=== PATIENT | male | born 1960 | race Caucasian/White ===

== ENCOUNTER → 2022-05-26 14:12 | Outpatient (CLI) | payer MEDICARE, SELFPAY | PROVIDERS: PCP Nurse Practitioner; Visit Provider Internal Medicine Pulmonary Disease | DX: R06.09 Other forms of dyspnea (principal) | CPT/HCPCS: 94060; 94618; 94726; 94729; 94762 ==

== ENCOUNTER → 2022-07-13 14:19 | Outpatient (CLI) | payer MEDICARE, SELFPAY ==
--- NOTE | 2022-07-13 14:28 | CT_ITS ---
FINAL REPORT CLINICAL HISTORY: lung cancer screening previous smoker 50 years, 2 ppd, quit 5 mos ago FINDINGS: Low-Dose Chest CT Axial images were obtained from the lung apex to the mid abdomen by computed tomography. Low-dose protocol was utilized. CTDI vol (mGy): 2.90 DLP (mGy-cm): 115.16 There is no axillary adenopathy. There is no hilar adenopathy. There are several borderline sized mediastinal lymph nodes, nonspecific. The heart is proper size. There is no pericardial or pleural effusion. Limited images of the upper abdomen are unremarkable. Lung window images demonstrate moderate changes of emphysema with moderate pulmonary scarring/fibrosis. There is an 8 mm right upper lobe nodule and a 9 mm posteromedial right upper lobe nodule on image 43. There is a 7 mm nodule near the right major fissure on image 50 and a 6 mm nodule in the medial right lower lobe at the azygoesophageal recess on image 53. There is a 4 mm right middle lobe nodule on image 65. There are several less than 5 mm left lung nodules. IMPRESSION: Bilateral pulmonary nodules measuring up to 9 mm on the right. Lung RADS category 4A. Recommend 3 month follow-up low-dose chest CT. Reviewed, Interpreted and Dictated by Jorge Hough III, MD Transcribed by Radhika Marx Authenticated and [facility]
== END ==
PROVIDERS: PCP Nurse Practitioner; Visit Provider Internal Medicine Pulmonary Disease
DX: Z87.891 Personal history of nicotine dependence (principal); Z12.2 Encounter for screening for malignant neoplasm of respiratory organs
CPT/HCPCS: 71271

== ENCOUNTER → 2022-07-18 11:26 | Outpatient (CLI) | payer MEDICARE, SELFPAY ==
--- NOTE | 2022-07-18 14:02 | HMH.ITSHM ---
Current Home Medications as stated by this patient Wai Boyer or outside medical sales representative. []TORSEMIDE SPIRONOLACTONE METFORMIN LOSARTAN LEVOTHYROXINE INSULIN DOXAZOSIN BUPROPION BUDESONIDE ATORVASTATIN ASA ALBUTEROL
== END ==
PROVIDERS: PCP Physician Assistant; Visit Provider Nurse Practitioner
DX: R06.02 Shortness of breath (principal); G47.33 Obstructive sleep apnea (adult) (pediatric); G47.34 Idiopathic sleep related nonobstructive alveolar hypoventilation
CPT/HCPCS: 78452; 93017; A9502; G0399; J2785

== ENCOUNTER → 2023-01-16 12:38 | Outpatient (CLI) | payer MEDICARE, SELFPAY ==
--- NOTE | 2023-01-16 12:38 | CT_ITS ---
FINAL REPORT TECHNIQUE: Axial images were obtained from the lung apex to the mid abdomen by computed tomography. Coronal reformatted images were obtained. This study was performed with techniques to keep radiation doses as low as reasonably achievable, (ALARA). Individualized dose reduction techniques using automated exposure control or adjustment of mA and/or kV according to the patient''s size were employed. CLINICAL HISTORY: Lung nodule, 6-month follow-up COMPARISON: 07/13/2022 FINDINGS: There is no axillary adenopathy. There is no hilar or mediastinal adenopathy. Heart size is normal. There is no pericardial or pleural effusion. Limited images of the upper abdomen are unremarkable. There are moderate changes of emphysema with moderate pulmonary scarring/fibrosis. There is a medial right upper lobe nodule measuring 9 mm and was 9 mm. There is an anterior right lower lobe nodule measuring 7 mm and was 7 mm. There is an 8 mm nodule along the right hemidiaphragm that is probably stable but was not as well visualized on the prior exam. There are several other small nodules bilaterally which are stable. IMPRESSION: Bilateral stable pulmonary nodules. Recommend additional follow-up in 6 months. Reviewed, Interpreted and Dictated by Jorge Hough III, MD Transcribed by Radhika Marx Authenticated and [facility]
== END ==
PROVIDERS: PCP Nurse Practitioner; Visit Provider Internal Medicine Pulmonary Disease
DX: R91.8 Other nonspecific abnormal finding of lung field (principal)
CPT/HCPCS: 71250

== ENCOUNTER → 2023-10-10 14:01 | Outpatient (CLI) | payer MEDICARE, SELFPAY ==
--- NOTE | 2023-10-10 14:01 | CT_ITS ---
FINAL REPORT CLINICAL HISTORY: 9-month follow-up: September 2023 COMPARISON: 01/16/2023 FINDINGS: Axial images were obtained from the lung apex to the mid abdomen by computed tomography. Coronal reformatted images were obtained. This study was performed with techniques to keep radiation doses as low as reasonably achievable, (ALARA). Individualized dose reduction techniques using automated exposure control or adjustment of mA and/or kV according to the patient's size were employed. There is no axillary adenopathy. There are multiple small mediastinal lymph nodes that are stable in size and appearance. Heart size is normal. There is no pericardial or pleural effusion. Limited images of the upper abdomen are unremarkable. There are advanced changes of centrilobular emphysema. There is a 9 mm pleural-based nodule in the medial right upper lobe contiguous with the mediastinum on image 154 of series 3 that is stable. On the same image in the lateral right upper lobe is a stable 8 mm nodule. There is a rounded 7 mm nodule in the anterior right lower lobe on image 174 series 3. There is a small cluster of stable nodules in the anterior right middle lobe measuring 5 mm or less. IMPRESSION: Multiple stable nodules. Reviewed, Interpreted and Dictated by Bill Casiano MD Transcribed by Hossein Perry Authenticated and [facility]
== END ==
PROVIDERS: PCP Nurse Practitioner; Visit Provider Internal Medicine Pulmonary Disease
DX: R91.8 Other nonspecific abnormal finding of lung field (principal)
CPT/HCPCS: 71250

== ENCOUNTER 2023-12-07 06:32 | Outpatient (CLI) | payer MEDICARE, SELFPAY ==
--- NOTE | 2023-12-07 06:40 | NM_ITS ---
APPROVED REPORT Exam: Nuclear Stress Test Indication: chest pain..soa..fatigue Patient Location: Outpatient Stress Tech: Samaria Guo DC Tech:KRAIG Nunes RT(R)(N) Ht: 6 ft 2 in Wt: 300 lbs HR: 85 bpm BP: 136/74 mmHg BSA: 2.58 m2 Rhythm: NSR TID: 1.10 BMI: 38.5 History: chest pain..soa..fatigue Procedure: Patient received 0.4 mg of intravenous Lexiscan, resting heart rate 85 bpm, resting blood pressure 136/74 mmHg, with Lexiscan maximum heart rate achieved was 96 bpm which is 85 % of the maximum predicted heart rate and blood pressure was 143/74 mmHg. With Lexiscan, patient denied any complaint of chest pain. Cardiac Stress and Resting SPECT Images: Cardiac Stress and Resting SPECT images were obtained using technetium 99m Myoview 32.9 mCi stress and 10.52 mCi at rest. Resting and stress imaging in supine and prone positions demonstrate a large-sized, moderate, partially reversible perfusion defect in the inferior, lateral, and inferolateral LV alexander. Gated imaging demonstrates mild reduction in global LV systolic function. There is moderate hypokinesis of the inferior and inferolateral LV alexander. LVEF is calculated at 48%. Conclusion: Large-sized, moderate, partially reversible perfusion defect in the inferior, lateral, and inferolateral LV alexander. Findings are suggestive of partial reversible ischemia. Gated imaging demonstrates mild reduction in global LV systolic function. There is moderate hypokinesis of the inferior and inferolateral LV alexander. LVEF is calculated at 48%. Electronically signed by : Reina Jean Baptiste MD 12/10/2023 06:15:30
--- NOTE | 2023-12-07 08:17 | CA_ITS ---
APPROVED REPORT EXAM: Comprehensive 2D, Doppler, and color-flow Echocardiogram [employer] Science Teacher: TOMASA Gifford, RVS Ht: 6 ft 2 in Wt: 304lbs BSA: 2.60 BP: 108/72 mmHg Indications: CP, SOB, Smoker, Obesity, COPD, PAGE Echo Enhancing Agent Comments: Extrmely difficult exam due to body habitus 2D Dimensions Left Atrium 3.52 cm M: 3.0 - 4.0 LA Volume 54.70 mL LA Volume Index 21.04 mL/m2 (M/F) 16-34 M-Mode Dimensions RVDd 3.11 cm (0.9-2.6) LVDd 5.18 cm (3.5-5.7) LVDs 3.55 cm (3.5-5.7) IVSd 1.13 cm (0.6-1.1) PWd 1.09 cm (0.6-1.1) EF (Teich) 59.00% FS 31.50% EDV (Teich) 128.40 mL TAPSE 3.09 (<1.7) ESV (Teich) 52.60 mL LV Diastology E Decel Time 257 (160-240 msec) E/A Ratio 0.93 MED A' 12.70 cm/s LAT A' 9.80 cm/s Aortic Valve DANIELLE Index 0.92 cm2/m2 AoV Peak Pedro Luis. 97.0 (50-130 cm/s) AO Peak GR. 3.80 mmHg AO Mean GR. 1.90 (<5 mmHg) AO VTI 18.5 (18-25 cm) DANIELLE (VTI) 2.46 (2.5-4.5 cm2) Mitral Valve MV A Velocity 76.0 (40-130 cm/s) E/A Ratio 0.93 Tricuspid Valve TR P. Velocity 351.00 cm/s RAP Estimate 15.00 mmHg RVSP 64.20 mmHg Left Ventricle The left ventricle is normal size. The left ventricular systolic function is normal. The left ventricular ejection fraction is within the normal range. There is increased LV wall thickness. There is normal LV segmental wall motion. Diastolic function is indeterminate. LVEF is 55%. Right Ventricle The right ventricle is severely dilated. Right ventricle is moderately hypokinetic. There is increased RV wall thickness. Atria The left atrium size is normal. The right atrium is moderately dilated. There is no Doppler evidence of interatrial shunt. Aortic Valve The aortic valve is mildly thickened. There is no aortic valvular stenosis. Trace aortic regurgitation. Mitral Valve The mitral valve leaflets are mildly thickened. No evidence of mitral valve stenosis. Trace mitral regurgitation. Tricuspid Valve The tricuspid valve leaflets are thin and pliable. Mild tricuspid regurgitation. RVSP is 40-45 mmHg. Pulmonic Valve The pulmonary valve is not well-visualized. Great Vessels The aortic root is normal in size. The ascending aorta is normal in size. IVC is normal in size and collapses >50% with inspiration. Pericardium There is no pericardial effusion. Other Information Study Quality: Technically Difficult Conclusion Technically difficult study due to poor acoustic windows. Normal LV systolic function. Severely dilated RV with moderate RV dysfunction. Mild TR. Elevated RVSP 40-45 mmHg. Electronically signed by : Reina Jean Baptiste MD 12/11/2023 00:09:54
[2023-12-07] MEDS: REGADENOSON 0.4MG/5ML SYRINGE 0.400000000000000022 MG IV (08:55)
[2023-12-07] MEDS: ISOTOPE MYOVIEW (PER STUDY) 1 DOSE IV (08:55)
[2023-12-07] MEDS: SODIUM CHLORIDE 0.9% 10ML SYR (RAD ONLY) 10 ML IV ×2 (08:55)
--- NOTE | 2023-12-07 09:24 | CA_ITS ---
APPROVED REPORT Exam: Pharmacologic Technologist: Samaria Monterroso, Ht: 6 ft 2 in Wt: 304 lbs BSA: 2.60 m2 HR: 85 bpm BP: 136/74 mmHg Rhythm: NSR Medical History Medications: Spiriva,,,,, Levothyroxine,,,,, Aspirin,,,,, Metformin,,,,, Losartan,,,,, Atorvastatin,,,,, SyMBICORT,,,,, INSULIN,,,,, Albuterol,,,,, DOxazosin,,,,, SpirOnolactone,,,,, TorSEMIDE,,,,, Stress Test Details Test: LEXISCAN HR Resting HR: 85 bpm Max Heart Rate (APMHR): 155 bpm Max HR Achieved: 96 bpm Target HR (85% APMHR): 132 bpm % of APMHR: 62 Recovery HR: 85 bpm BP Resting BP: 136.0/74.0 mmHg Max BP: 143.0/74.0 mmHg Recovery BP: 143.0/74.0 mmHg ECG Resting ECG: NSR, leftward axis, low voltage QRS, non-specific ST changes Stress ECG: No significant ST changes Arrhythmia: None Clinical Exercise duration: 04:01 min Highest Stage Achieved: Exercise capacity: 1.0 METs Stress ECG Conclusion Symptoms: SOA. No CP. Arrhythmias/Ectopy: None ST-T Changes: No significant ST changes. Conclusion: Non-diagnostic Lexiscan stress test due to baseline abnormalities. Myoview images reported separately. Test Summary REST . . . . . . . Resting REST 05:07 . . 85 . 136/ 74 . . Stage 1 . . . . . . . Cardiolite injected Stage 1 01:00 . . 96 . . . . Stage 2 01:00 . . 88 . 124/ 82 . . Stage 3 01:00 . . 87 . 127/ 77 . . Stage 4 01:00 . . 88 . 127/ 81 . . Stage 4 01:01 . . 88 . 127/ 81 . Stop exercise at 04:01 RECOVERY 01:00 . . 86 . 120/ 78 . . RECOVERY 02:00 . . 84 . 120/ 78 . . RECOVERY 03:00 . . 85 . 143/ 74 . . RECOVERY 03:21 . . 85 . 143/ 74 . . Electronically signed by : Reina Jean Baptiste MD 12/10/2023 06:13:00
== END 2023-12-07 23:59 ==
LOC: RAD 06:33
PROVIDERS: PCP Nurse Practitioner; Visit Provider Nurse Practitioner
DX: G47.33 Obstructive sleep apnea (adult) (pediatric) (principal); R06.09 Other forms of dyspnea; R07.89 Other chest pain; R07.9 Chest pain, unspecified
CPT/HCPCS: 78452; 93017; 93018; 93306; A9502; J2785

== ENCOUNTER 2023-12-11 08:48 | Outpatient (CLI) | payer MEDICARE, SELFPAY ==
--- NOTE | 2023-12-11 08:52 | XR_ITS ---
FINAL REPORT CLINICAL HISTORY: Foot Pain..no trauma COMPARISON: None FINDINGS: LEFT FOOT: Three views of the left foot were obtained. There is no acute fracture or dislocation. The joint spaces are intact. There is no soft tissue abnormality. IMPRESSION: No acute bony abnormality. Reviewed, Interpreted and Dictated by Jorge Hough III, MD Transcribed by Danita Acosta Authenticated and . [facility]
--- NOTE | 2023-12-11 08:52 | XR_ITS ---
FINAL REPORT CLINICAL HISTORY: Foot Pain..no trauma COMPARISON: None FINDINGS: RIGHT FOOT: Three views of the right foot were obtained. There is no acute fracture or dislocation. The joint spaces are intact. There is no soft tissue abnormality. IMPRESSION: No acute bony abnormality. Reviewed, Interpreted and Dictated by Jorge Hough III, MD Transcribed by Danita Acosta Authenticated and [facility]
== END 2023-12-11 23:59 ==
LOC: RAD 08:48
PROVIDERS: PCP Nurse Practitioner; Visit Provider Podiatrist
DX: M79.672 Pain in left foot (principal); M79.671 Pain in right foot
CPT/HCPCS: 73630

== ENCOUNTER 2023-12-25 07:57 | Day surgery (SDC) | payer MEDICARE, SELFPAY ==
[2023-12-25] VITALS (14 sets, daily range): BP systolic 86–145; BP diastolic 46–96; PULSE 72–90; RESP 18–20; TEMP 36.6–36.9; O2SAT 90–97; BMI 38.9
--- NOTE | 2023-12-25 07:04 | IR_ITS ---
APPROVED REPORT Patient Location: Outpatient Analytical Manager: KRAIG Contreras RT (R) PROCEDURES Left heart catheterization Left ventriculogram Selective coronary angiogram INDICATION Abnormal Myoview, Angina pectoris Informed consent was obtained prior to the procedure. COMPLICATIONS NONE Estimated Blood Loss: LESS THAN 10 ML TECHNIQUE One percent lidocaine used to anesthetize the right anterior aspect of the wrist. The right radial artery was accessed via the Seldinger technique. A 6 Pashto sheath was placed in the right radial artery. 2.5 mg of Verapamil, 800 mcg of nitroglycerin, 1mg Lidocaine and 5000 U Heparin were given through the arterial sheath. The papa catheter was also used to perform left heart catheterization, left ventriculogram and selective coronary angiogram. At the end of the procedure the sheath was removed good hemostasis was achieved using Traclet band, patient was transferred to the postop holding area in stable condition. ANGIOGRAPHIC RESULTS The left main artery Normal The left anterior descending artery Normal The circumflex artery Normal The right coronary artery Dominant normal The SPENCER ventriculogram reveals Normal 65% The left ventricular end-diastolic pressure 10 mmHg IMPRESSION Normal coronary arteries Normal ejection fraction Normal left ventricular end-diastolic pressure PLAN 1. Medical management Electronically signed by : Anshu Oro MD 12/25/2023 10:40:07
[2023-12-25 08:29] LABS: Basophils # 0.1 K/mm3 (0-0.2); Basophils % 0.8 % (0.1-2.0); Eosinophils # 0.3 K/mm3 (0.0-0.4); Eosinophils % 2.7 % (0.1-12.0); Hematocrit 42.1 % (42.0-52.0); Hemoglobin 14.4 g/dL (14.1-18.0); Lymphocytes # 1.8 K/mm3 (0.7-4.5); Lymphocytes % 18.8 % (10-50); Mean Corpuscular HGB Conc 34.3 g/dL (31.8-35.4); Mean Corpuscular Hemoglobin 32.4 pg (27.0-31.2); Mean Corpuscular Volume 94.3 fl (80-94); Monocytes # 0.5 K/mm3 (0.1-1.0); Monocytes % 5.5 % (1.7-9.3); Neutrophils # 6.9 K/mm3 (1.8-7.8); Neutrophils % 72.1 % (37.0-80.0); Platelet Count 292 K/mm3 (142-424); Red Blood Count 4.46 M/mm3 (4.60-6.20); Red Cell Distribution Width 14.7 % (11.5-17.5); White Blood Count 9.6 K/mm3 (4.8-10.8)
[2023-12-25 08:33] LABS: Anion Gap 11.6 mEq/L (5-15); Blood Urea Nitrogen 11 mg/dl (9-20); Calcium 8.9 mg/dl (8.4-10.2); Carbon Dioxide 27 mmol/L (22.0-30.0); Chloride 107 mmol/L (98-107); Creatinine Clearance Estimated 143 mL/min (50-200); Estimated Glomerular Filt Rate 97 ml/min (>60); GFR (African American) 117 ML/MIN (>60); Glucose 124 mg/dl (74-100); Potassium 3.6 mmoL/L (3.5-5.1); Sodium 142 mmol/L (136-145)
[2023-12-25] MEDS: NITROGLYCERIN 800MCG/8ML SYR (CATH LAB) 800 MCG IA (10:09)
[2023-12-25] MEDS: LIDOCAINE 1% 10ML MDV 20 ML IJ (10:09)
[2023-12-25] MEDS: VERAPAMIL 2.5MG/ML 2ML VIAL 2.5 MG IV (10:09)
[2023-12-25] MEDS: diphenhydrAMINE 50MG/ML VIAL 50 MG IV (10:09)
[2023-12-25] MEDS: MIDAZOLAM HCL 1MG/1ML 5ML VIAL 1 MG IV (10:10)
[2023-12-25] MEDS: 0.9 % SODIUM CHLORIDE 500 ML 25 ML IV (10:10)
[2023-12-25] MEDS: HEPARIN 1,000 UNITS/ML 10ML VIAL (CATH LAB) 10000 UNIT IV (10:10)
[2023-12-25] MEDS: HEPARIN 1,000 UNITS/500ML NS (CATH LAB) 3000 UNIT IV (10:10)
[2023-12-25] MEDS: FENTANYL 100MCG/2ML VIAL 50 MCG IV (10:11)
[2023-12-25] MEDS: PROMETHAZINE HCL 25MG/ML 1ML VIAL 25 MG IV (10:20)
--- NOTE | 2023-12-25 12:29 | PC.NURSE ---
pt eating hamburger and fries, drinking pepsi.
[2023-12-25] MEDS: IOPAMIDOL-370 (76%);100ML BOTTLE 60 ML IV (12:59)
== END 2023-12-25 12:32 | disposition home or self-care (01) ==
PROVIDERS: PCP Nurse Practitioner; Visit Provider Internal Medicine
DX: G47.33 Obstructive sleep apnea (adult) (pediatric) (principal); I20.89 Other forms of angina pectoris; R06.09 Other forms of dyspnea; R94.39 Abnormal result of other cardiovascular function study; E11.9 Type 2 diabetes mellitus without complications; Z79.4 Long term (current) use of insulin; J44.9 Chronic obstructive pulmonary disease, unspecified; I10 Essential (primary) hypertension; E78.5 Hyperlipidemia, unspecified; Z79.899 Other long term (current) drug therapy
CPT/HCPCS: 80048; 85025; 93458; 99152; C1769; J1644; Q9967

== ENCOUNTER 2024-02-01 12:50 | Outpatient (CLI) | payer MEDICARE, SELFPAY ==
--- NOTE | 2024-02-01 12:57 | XR_ITS ---
FINAL REPORT CLINICAL HISTORY: SOB x3 days COMPARISON: None FINDINGS: Two views of the chest were obtained. The heart size and pulmonary vascularity are within normal limits. The mediastinum is normal. The lungs are hyperinflated consistent with COPD. No acute pulmonary abnormality is identified. There is no pneumothorax. The bony thorax is intact. There are moderate degenerative changes in the thoracic spine. IMPRESSION: No active cardiopulmonary disease. Reviewed, Interpreted and Dictated by Jorge Hough III, MD Transcribed by Antonella Muniz Authenticated and [facility]
== END 2024-02-01 23:59 ==
LOC: RAD 12:52
PROVIDERS: PCP Nurse Practitioner; Visit Provider Internal Medicine Pulmonary Disease
DX: R06.02 Shortness of breath (principal)
CPT/HCPCS: 71046

== ENCOUNTER 2024-02-01 14:54 | Emergency (ER) | payer MEDICARE, SELFPAY ==
[2024-02-01] VITALS (7 sets, daily range): BP systolic 91–110; BP diastolic 56–67; PULSE 68–83; RESP 18–20; TEMP 36.7; O2SAT 80–94; BMI 38.5
--- NOTE | 2024-02-01 15:20 | XR_ITS ---
FINAL REPORT CLINICAL HISTORY: hypoxeima, soa COMPARISON: 02/01/2024 FINDINGS: A single portable view of the chest was obtained. The lungs are hyperinflated consistent with changes of chronic obstructive pulmonary disease. The heart size and pulmonary vascularity are within normal limits. The mediastinum is within normal limits. There are worsening bilateral pulmonary opacities identified, consistent with worsening pneumonia or edema. The bony thorax is intact. IMPRESSION: Worsening bilateral pulmonary opacities, pneumonia versus edema. Reviewed, Interpreted and Dictated by Jorge Hough III, MD Transcribed by Danita Acosta Authenticated and [facility]
--- NOTE | 2024-02-01 15:25 | [facility].EDCP ---
Discharge Plan Disposition Patient Disposition: Home, Self-Care Prescriptions Prescriptions: New prednisone 20 mg tablet 40 mg PO DAILY 5 Days Qty: 10 0RF amoxicillin-pot clavulanate 875-125 mg tablet 1 tab PO BID 5 Days Qty: 10 0RF No Action levothyroxine 75 mcg capsule 75 mcg PO DAILY losartan 100 mg tablet 100 mg PO DAILY bupropion HBr 348 mg tablet extended release 24 hr 348 mg PO DAILY atorvastatin 80 mg tablet 80 mg PO DAILY torsemide 5 mg tablet 20 mg PO DAILY albuterol sulfate [ProAir HFA] 90 mcg/actuation HFA aerosol inhaler 2 puff IH QID PRN (Reason: shortness of breath or wheezing) 90 Days Qty: 8.5 0RF ipratropium-albuterol 0.5 mg-3 mg(2.5 mg base)/3 mL solution for nebulization 3 ml inhalation QID PRN (Reason: shortness of breath or wheezing) 90 Days Qty: 270 3RF spironolactone 25 mg tablet 25 mg PO DAILY Patient Comments: TAKE ONE TABLET BY MOUTH DAILY insulin glargine [Lantus Solostar U-100 Insulin] 100 unit/mL (3 mL) insulin pen 30 unit SQ DAILY Patient Comments: INJECT 30 UNITS SUBCUTANEOUSLY EVERY DAY FOR ONE MONTH metformin 1,000 mg tablet 1,000 mg PO DAILY Hold Instructions: Resume on 12/28/23. Patient Comments: TAKE ONE TABLET BY MOUTH TWICE DAILY WITH MORNING AND evening meals aspirin 81 mg tablet,delayed release (DR/EC) 81 mg PO DAILY Patient Comments: TAKE ONE TABLET BY MOUTH DAILY Spiriva Respimat 2.5 mcg/actuation mist 2 inh inhalation DAILY 90 Days Qty: 4 3RF budesonide-formoterol [Symbicort] 160-4.5 mcg/actuation HFA aerosol inhaler 2 puff inhalation BID 90 Days Qty: 10.2 3RF Referrals Follow up/Referrals: Mari Arthur APRN [Primary Care Provider] - See instructions Activity Restrictions/Add. Instructions Additional Instructions/Restrictions: Call your family doctor to establish care for this visit to the emergency department and schedule follow-up within 48 hours to ensure improvement. If you have any worsening of your condition or any other concerning signs or symptoms, return to the emergency department or your primary care doctor for further evaluation. Use oxygen until following up with pulmonology on Monday. Clinical Impressions Clinical Impression: Acute exacerbation of chronic obstructive pulmonary disease, Acute respiratory failure with hypoxemia Discharge ED Provider: Avelino Singh HPI General Chief Complaint: Shortness of Breath/Dyspnea Stated Complaint: Low O2, dizziness Time Seen by Provider: 02/01/24 15:01 History of Present Illness HPI narrative: This is a 63-year-old male with history of hypertension, hyperlipidemia, COPD with pulmonary hypertension presenting with shortness of breath and hypoxemia. Patient states that for the past 4 to 5 weeks, he has been feeling generally weak especially with exertion. States that he started wearing his pulse oximeter today and noticed that his oxygen saturations were dropping into the 70s while he was exerting himself. He was able to sit down and take deep breaths it would immediately return to the 90s. He is following with pulmonology here at [facility] for the symptoms. Recently had sleep study and states he does not have sleep apnea. Denies fevers, chills, productive cough, chest pain, nausea or vomiting, or any other concerns. Related Data Home Medications Medication Instructions Recorded Confirmed atorvastatin 80 mg tablet 80 mg PO DAILY 04/14/22 02/01/24 bupropion HBr 348 mg 348 mg PO DAILY 04/14/22 02/01/24 tablet,extended release 24 hr levothyroxine 75 mcg capsule 75 mcg PO DAILY 04/14/22 02/01/24 losartan 100 mg tablet 100 mg PO DAILY 04/14/22 02/01/24 aspirin 81 mg tablet,delayed 81 mg PO DAILY 07/13/22 02/01/24 release insulin glargine 100 unit/mL (3 30 unit SQ DAILY 07/13/22 02/01/24 mL) subcutaneous pen (Lantus Solostar U-100 Insulin) metformin 1,000 mg tablet 1,000 mg PO DAILY 07/13/22 02/01/24 spironolactone 25 mg tablet 25 mg PO DAILY 07/13/22 02/01/24 torsemide 5 mg tablet 20 mg PO DAILY 07/13/22 02/01/24 Previous Rx's Medication Instructions Recorded albuterol sulfate 90 mcg/actuation 2 puff inhalation QID PRN 01/16/23 aerosol inhaler (ProAir HFA) shortness of breath or wheezing 90 days #8.5 grams budesonide-formoterol HFA 160 2 puff inhalation BID shortness of 10/16/23 mcg-4.5 mcg/actuation aerosol breath or wheezing 90 days #10.2 inhaler (Symbicort) grams tiotropium bromide 2.5 2 inh inhalation DAILY 90 days #4 10/16/23 mcg/actuation mist for inhalation grams (Spiriva Respimat) amoxicillin 875 mg-potassium 1 tab PO BID 5 days #10 tabs 02/01/24 clavulanate 125 mg tablet ipratropium 0.5 mg-albuterol 3 mg 3 ml inhalation QID PRN shortness 02/01/24 (2.5 mg base)/3 mL nebulization of breath or wheezing 90 days #270 soln mL prednisone 20 mg tablet 40 mg (2 x 20 mg) PO DAILY 5 days 02/01/24 #10 tabs Allergies Allergy/AdvReac Type Severity Reaction Status Date / Time No Known Allergies Allergy Verified 02/01/24 13:40 [facility] Disclaimer: The information contained in this section may have been updated after the patient was seen, as this information can be updated by other users. Medical History Pulmonary arterial hypertension Hyperlipidemia Hypertension Screening for lung cancer Stopped smoking with greater than 30 pack year history Abnormal computerized axial tomography of chest COPD (chronic obstructive pulmonary disease) Lung nodule Abnormal PFT Pulmonary emphysema Dyspnea on exertion Surgical History History of prostate surgery History of knee surgery History of hip surgery Family History Other No significant family history Social History Smoking Status: Former smoker alcohol intake: never substance use type: denies use current occupational status: retired Travel in the last 8 weeks: Inside the [place] ROS Obtained: Yes All systems reviewed & no additional complaints except as documented Physical Exam General General appearance: alert ENT ENT exam: Present other (2L NC in place) Neck Neck exam: Present trachea midline Chest Chest inspection: Present normal inspection and symmetric chest wall rise Respiratory Respiratory exam: Present normal lung sounds bilaterally; Absent respiratory distress, wheezes, stridor, accessory muscle use or prolonged expiratory phase Cardiovascular Cardiovascular exam: Present regular rate and normal rhythm Extremities Exam Extremities exam: Absent edema Neurological Exam Neurological exam: Present alert, oriented X3 and CN II-XII intact Skin Skin exam: Present warm and dry; Absent cyanosis, diaphoresis or pallor HEART Score HEART Score HEART Score assessment performed?: Yes History (anamnesis): Moderately suspicious ECG: Normal Age: 45-65 years Risk factors: 3 or more risk factors Troponin: </= normal limit HEART Score: 4 Critical Care Critical Care Time Critical Care Time: Yes (respiratory) Attestation: On 02/01/24, the high probability of a clinically significant, sudden or life threatening deterioration of the following system(s) required my full and direct attention, intervention and personal management. The time I documented below is in addition to time spent performing reported procedures but includes the following listed in this critical care notation. Total Time Total Critical Care Time: 40 Medical Decision Making Medical Records Medical records reviewed: Yes I reviewed the patient's medical records. Sj Inquiry Pt receiving controlled substance: No Sj was queried for this patient: No Vital Signs Vital Signs: 02/01/24 14:56 02/01/24 16:31 02/01/24 17:00 Temperature 98.0 F Temperature Source Oral Pulse Rate 74 70 Pulse Rate [Left Radial] 83 Respiratory Rate 20 Blood Pressure 92/56 L 91/59 L Blood Pressure [Right Arm] 103/65 L Blood Pressure Mean [Right Arm] 77 02 Sat by Pulse Oximetry 80 L 92 L 92 L Oxygen Delivery Method Nasal Cannula Nasal Cannula Nasal Cannula Oxygen Flow Rate (LPM) 4 02/01/24 17:31 02/01/24 18:30 02/01/24 20:08 Temperature Temperature Source Pulse Rate 76 68 83 Pulse Rate [Left Radial] Respiratory Rate Blood Pressure 99/67 L 110/59 L Blood Pressure [Right Arm] Blood Pressure Mean [Right Arm] 02 Sat by Pulse Oximetry 91 L 92 L Oxygen Delivery Method Nasal Cannula Nasal Cannula Oxygen Flow Rate (LPM) 02/01/24 20:08 Temperature Temperature Source Pulse Rate 70 Pulse Rate [Left Radial] Respiratory Rate Blood Pressure Blood Pressure [Right Arm] Blood Pressure Mean [Right Arm] 02 Sat by Pulse Oximetry Oxygen Delivery Method Oxygen Flow Rate (LPM) Lab Data Labs: Lab Results 02/01/24 15:15: WBC 10.1, RBC 4.44 L, Hgb 14.2, Hct 43.6, MCV 98.3 H, MCH 32.1 H, MCHC 32.6, RDW 15.7, Plt Count 536 H, MPV 8.0, Neut % (Auto) 68.8, Lymph % (Auto) 22.1, Loup % (Auto) 5.5, Eos % (Auto) 2.8, Baso % (Auto) 0.8, Neut # (Auto) 7.0, Lymph # (Auto) 2.2, Loup # (Auto) 0.6, Eos # (Auto) 0.3, Baso # (Auto) 0.1, D-Dimer 0.83 H, Sodium 140, Potassium 4.2, Chloride 107, Carbon Dioxide 25, Anion Gap 12.2, BUN 19, Creatinine 1.10, Estimated GFR 67, Est GFR ( Amer) 81, Glucose 95, Lactate 1.7, Calcium 8.8, Total Bilirubin 0.5, AST 31, ALT 32, Alkaline Phosphatase 160 H, Troponin I < 0.01, NT-Pro-B Natriuret Pep 201 H, Total Protein 7.4, Albumin 4.1, Globulin 3.3 H, Albumin/Globulin Ratio 1.2 02/01/24 15:21: VBG pH 7.39, VBG pCO2 37.9, VBG pO2 87.9 H, VBG HCO3 22.3 L, VBG Total CO2 23.4, VBG O2 Saturation 96.8 H, VBG Base Excess -2.7 L 02/01/24 15:40: VBG Lactic Acid 1.8 02/01/24 19:15: Troponin I < 0.01 02/01/24 15:15 02/01/24 15:15 Response Orders (Tests/Meds): ED MEDICATIONS Generic Name Dose Route Start Last Admin Trade Name Freq PRN Reason Stop Dose Admin Sodium Chloride 10 ml 02/01/24 18:05 02/01/24 18:06 Sodium Chloride 0.9% 10ml Syr (Rad Only) IV 03/02/24 18:04 10 ml NEEDED PRN Administration Maintain IV Site Discontinued Medications Generic Name Dose Route Start Last Admin Trade Name Freq PRN Reason Stop Dose Admin Albuterol/Ipratropium 6 ml 02/01/24 19:25 02/01/24 19:56 Ipratropium/Albuterol 3 Ml Neb IH 02/01/24 19:26 6 ml ONCE ONE Administration Amoxicillin/Clavulanate Potassium 1 each 02/01/24 19:25 02/01/24 20:01 Amoxicillin/Clavulanate Potassium 875/125mg Tablet PO 02/01/24 19:26 1 each ONCE ONE Administration Aspirin 324 mg 02/01/24 15:20 02/01/24 15:29 Aspirin 81mg Chewable Tablet PO 02/01/24 15:21 324 mg ONCE ONE Administration Iopamidol 75 ml 02/01/24 18:05 02/01/24 18:06 Iopamidol-370 (76%);100ml Bottle IV 02/01/24 18:06 75 ml ONCE ONE Administration Methylprednisolone Sodium Succinate 125 mg 02/01/24 19:25 02/01/24 20:01 Methylprednisolone Sod Succ 125mg Vial IV 02/01/24 19:26 125 mg ONCE ONE Administration Sodium Chloride 50 ml 02/01/24 18:05 02/01/24 18:06 0.9 % Sodium Chloride 50 Ml Vial IV 02/01/24 18:06 50 ml ONCE ONE Administration ORDERS Category Date Time Status CT angio chest PE protocol Stat Cat Scan 02/01/24 17:02 Completed XR chest portable Stat Exams 02/01/24 15:20 Taken Brain Natriuretic Peptide Stat Lab 02/01/24 15:15 Completed Complete Blood Count Auto Diff Stat Lab 02/01/24 15:15 Completed Comprehensive Metabolic Panel Stat Lab 02/01/24 15:15 Completed D-Dimer Stat Lab 02/01/24 15:15 Completed Lactate Venous Stat Lab 02/01/24 15:40 Completed Lactic Acid Stat Lab 02/01/24 15:15 Completed Troponin I Q3H Lab 02/01/24 19:15 Completed Troponin I Q3H Lab 02/01/24 21:30 Ordered Troponin I Stat Lab 02/01/24 15:15 Completed Blood Culture Stat Micro 02/01/24 15:27 Received Venous Blood Gas Stat RT 02/01/24 15:21 Completed MDM Narrative Medical Decision Narrative: This is a 63-year-old male with history of hypertension, hyperlipidemia, COPD with pulmonary hypertension presenting with shortness of breath and hypoxemia. Patient states that for the past 4 to 5 weeks, he has been feeling generally weak especially with exertion. States that he started wearing his pulse oximeter today and noticed that his oxygen saturations were dropping into the 70s while he was exerting himself. He was able to sit down and take deep breaths it would immediately return to the 90s. He is following with pulmonology here at [facility] for the symptoms. Recently had sleep study and states he does not have sleep apnea. Denies fevers, chills, productive cough, chest pain, nausea or vomiting, or any other concerns. History was obtained via conversation with patient. On arrival, patient hemodynamically stable, alert, oriented x4, appropriate, GCS 15, moving all extremities spontaneously, pupils equal and reactive to light. Full physical exam performed and significant for well-appearing male in no acute distress. On 2 L nasal cannula saturating 92%. No increased work of breathing, no focal breath sounds, no abnormal cardiac findings. Differential includes COPD exacerbation, pneumonia, PE, pneumothorax, bronchitis, ACS, OK, among others. Patient was given DuoNeb, Solu-Medrol for symptomatic management and correction of underlying abnormalities. Workup independently interpreted and significant for VBG nonactionable with pH 7.39, lactate 1.8, CO2 and bicarb nonactionable. D-dimer elevated 0.8, BNP mildly elevated at 200, but nonactionable. Troponin negative. Chest x-ray with edematous pulmonary fissures versus scarring and cephalization of pulmonary vasculature.. See radiology read for full review of final results. Independent interpretation of EKG shows cardiomegaly without acute cardiopulmonary or airspace disease. CT PE without acute PE, but patient has multiple groundglass opacities concerning for underlying infectious etiology precipitating COPD exacerbation. He also has numerous pulmonary nodules, which are known to patient. Patient placed on continuous cardiac monitoring and continuous pulse ox with initial blood pressure 103/65, heart rate 70, saturation 80% on room air. Patient was placed on 4 L nasal cannula and 92%. Because patient requiring continuous oxygen to saturate appropriately and has no oxygen need at home, [facility] was contacted for home O2. Patient agreeable to this plan and wanting to go home no matter what. Heart score 4. On reevaluation, patient is feeling much better after DuoNeb, but still hypoxemic. Oxygen company able to bring patient oxygen tank to bedside for home-going. Pulmonology was contacted and case was discussed at length, he recommended treating COPD exacerbation with steroids and antibiotics, follow-up on Monday, 02/04. Patient agreeable to this plan. Given patient presentation, workup, history, this most likely represents COPD exacerbation with hypoxemia. Because patient at baseline without signs or symptoms of clinical decompensation, deemed appropriate for discharge. Results were relayed to patient who voiced understanding and were agreeable to outpatient management and follow up. At the time of discharge the patient was hemodynamically stable, tolerating PO, and mobilizing appropriately.
[2024-02-01] MEDS: ASPIRIN 81MG CHEWABLE TABLET 324 MG PO (15:29)
[2024-02-01 15:30] LABS: Basophils # 0.1 K/mm3 (0-0.2); Basophils % 0.8 % (0.1-2.0); Eosinophils # 0.3 K/mm3 (0.0-0.4); Eosinophils % 2.8 % (0.1-12.0); Hematocrit 43.6 % (42.0-52.0); Hemoglobin 14.2 g/dL (14.1-18.0); Lymphocytes # 2.2 K/mm3 (0.7-4.5); Lymphocytes % 22.1 % (10-50); Mean Corpuscular HGB Conc 32.6 g/dL (31.8-35.4); Mean Corpuscular Hemoglobin 32.1 pg (27.0-31.2); Mean Corpuscular Volume 98.3 fl (80-94); Monocytes # 0.6 K/mm3 (0.1-1.0); Monocytes % 5.5 % (1.7-9.3); Neutrophils % 68.8 % (37.0-80.0); Platelet Count 536 K/mm3 (142-424); Red Blood Count 4.44 M/mm3 (4.60-6.20); Red Cell Distribution Width 15.7 % (11.5-17.5); White Blood Count 10.1 K/mm3 (4.8-10.8)
--- NOTE | 2024-02-01 15:31 | ECG_ITS ---
APPROVED REPORT Exam: Resting ECG HR:76 bpm ECG Measurements Heart Rate 76 AXES NE 157 P 61 QRSd 97 QRS 91 QT 396 T 60 QTc 427 Conclusion SINUS RHYTHM BORDERLINE RIGHT AXIS DEVIATION [QRS AXIS > 90] Electronically signed by : PARISH CHEN, 02/01/2024 23:10:48
[2024-02-01 15:34] LABS: Alanine Aminotransferase 32 U/L (12-78); Albumin Level 4.1 g/dl (3.5-5.0); Albumin/Globulin Ratio 1.2 (1.1-1.8); Alkaline Phosphatase 160 U/L (38-126); Anion Gap 12.2 mEq/L (5-15); Aspartate Amino Transferase 31 U/L (17-59); Bilirubin,Total 0.5 mg/dl (0.2-1.3); Blood Urea Nitrogen 19 mg/dl (9-20); Calcium 8.8 mg/dl (8.4-10.2); Carbon Dioxide 25 mmol/L (22.0-30.0); Chloride 107 mmol/L (98-107); Estimated Glomerular Filt Rate 67 ml/min (>60); GFR (African American) 81 ML/MIN (>60); Globulin 3.3 g/dL (1.3-3.2); Glucose 95 mg/dl (74-100); Potassium 4.2 mmoL/L (3.5-5.1); Sodium 140 mmol/L (136-145); Total Protein,Serum 7.4 g/dl (6.3-8.2)
[2024-02-01 15:37] LABS: Lactic Acid 1.7 mmol/L (0.7-2.1)
[2024-02-01 15:39] LABS: D-Dimer 0.83 ug/mL (0.0-0.5)
[2024-02-01 15:42] LABS: VBG Base Excess -2.7 mmol/L (-2.4-2.3); VBG HCO3 22.3 mmol/L (23-30); VBG Oxygen Saturation 96.8 % (50-70); VBG PCO2 37.9 mmol/L (35-51); VBG PH 7.39 mmol/L (7.31-7.41); VBG PO2 87.9 mmol/L (28-40); VBG Total CO2 23.4 mmol/L (23-27)
[2024-02-01 15:44] LABS: Lactate Venous 1.8 mmol/L (0.4-2.0)
[2024-02-01 15:46] LABS: NT Pro Brain Natriuretic Pep. 201 pg/mL (0-125)
[2024-02-01 15:54] LABS: Troponin I < 0.01 ng/ml (0.00-0.034)
--- NOTE | 2024-02-01 17:02 | CT_ITS ---
PROCEDURE INFORMATION: Exam: CTA Chest With Contrast Exam date and time: 02/01/2024 5:54 PM Age: 63 years old Clinical indication: Abnormal findings; Other: Elevated dimer; Additional info: Elevated dimer, exertional SOA TECHNIQUE: Imaging protocol: Computed tomographic angiography of the chest with contrast. Exam focused on the arteries. 3D rendering (Not supervised by radiologist): MIP and/or 3D reconstructed images were created by the technologist. Radiation optimization: All CT scans at this facility use at least one of these dose optimization techniques: automated exposure control; mA and/or kV adjustment per patient size (includes targeted exams where dose is matched to clinical indication); or iterative reconstruction. Contrast material: ISOVUE; Contrast volume: 75 ml; Contrast route: INTRAVENOUS (IV); COMPARISON: CT CHEST WO CON 10/10/2023 2:41 PM FINDINGS: Pulmonary arteries: Normal. No pulmonary emboli. Aorta: Unremarkable. No aortic aneurysm. No aortic dissection. Lungs: There are moderate centrilobular emphysematous changes of the lungs with an apical gradient. Diffuse ground-glass opacities throughout the lungs with bibasilar interstitial fibrotic changes and architectural distortion findings may represent cellular NSIP versus infection, or combination of both. Right lower lobe 8.6 mm nodule slightly enlarged from prior exam, axial image 63. Right lower lobe 7.5 mm nodule, axial image 105 unchanged from prior exam. Right upper lobe 8.1 mm nodule, axial image 51 enlarged from prior exam. Right upper lobe subpleural 7.7 mm nodule, axial image 54 unchanged from prior exam. Right middle lobe 6.4 mm nodule, axial image 61. Left upper lobe tortuous vascular malformation slightly more prominent from prior exam. Pleural spaces: Unremarkable. No pneumothorax. No pleural effusion. Heart: Unremarkable. No cardiomegaly. No pericardial effusion. Coronary arteries: Mild calcific atherosclerotic disease of the LAD. Lymph nodes: Moderately bulky mediastinal and hilar lymph nodes could be reactive, or related to neoplastic process. Recommend 3 to six-month follow-up after treatment. Spleen: Multiple benign-appearing calcific densities of the spleen. Bones/joints: Unremarkable. No acute fracture. Soft tissues: Unremarkable. IMPRESSION: 1. Diffuse ground-glass opacities throughout the lungs with bibasilar interstitial fibrotic changes and architectural distortion findings may represent cellular NSIP versus infection, or combination of both. Moderately bulky mediastinal and hilar lymph nodes could be reactive, or related to neoplastic process. Recommend 3 to 6-month follow-up. 2. Multiple pulmonary nodules largest measuring 8.6 mm. For patients at low risk (minimal or absent history of smoking and of other known risk factors), recommend CT Chest at 3-6 months, then consider CT Chest at 18-24 months. For patients at high risk (history of smoking or of other known risk factors), recommend CT Chest at 3-6 months, then CT Chest at 18-24 months. (Reference: Pierce) 3. Left upper lobe tortuous vascular malformation slightly more prominent from prior exam. No CT angiography evidence of pulmonary embolism. COMMENTS: The presence of pulmonary emphysema on CT is an independent risk factor for lung cancer. In the absence of a history or active diagnosis of lung cancer, it is recommended that this patient with emphysema be evaluated for enrollment in a low dose CT lung cancer screening program. REFERENCES: Pierce Arredondo, et al. Guidelines for Management of Incidental Pulmonary Nodules Detected on CT Images: From the Fleischner Society 2017. Radiology. 2017;284(1):228-243.
--- NOTE | 2024-02-01 18:02 | PC.NURSE ---
patient returned from CT.
[2024-02-01] MEDS: IOPAMIDOL-370 (76%);100ML BOTTLE 75 ML IV (18:06)
[2024-02-01] MEDS: SODIUM CHLORIDE 0.9% 10ML SYR (RAD ONLY) 10 ML IV (18:06)
[2024-02-01] MEDS: 0.9 % SODIUM CHLORIDE 50 ML VIAL IV (18:06)
--- NOTE | 2024-02-01 19:24 | PC.NURSE ---
Attending MD speaking to Markie
--- NOTE | 2024-02-01 19:38 | PC.NURSE ---
Rounded on patient, no needs voiced at this time.
--- NOTE | 2024-02-01 19:53 | PC.NURSE ---
calling [facility] at this time.
--- NOTE | 2024-02-01 19:55 | PC.NURSE ---
Called [facility] and left message for contract negotiator to call back.
[2024-02-01] MEDS: IPRATROPIUM/ALBUTEROL 3 ML NEB 6 ML IH (19:56)
--- NOTE | 2024-02-01 19:59 | PC.NURSE ---
[facility]rels called back and will be on their way.
[2024-02-01] MEDS: AMOXICILLIN/CLAVULANATE POTASSIUM 875/125MG TABLET 1 EACH PO (20:01)
[2024-02-01] MEDS: METHYLPREDNISOLONE SOD SUCC 125MG VIAL 125 MG IV (20:01)
[2024-02-01 20:03] LABS: Troponin I < 0.01 ng/ml (0.00-0.034)
--- NOTE | 2024-02-02 12:25 | CARE MANAGER ---
Per documentation, patient's room air saturation was 80% while resting. CAM Jacinto
--- NOTE | 2024-02-02 12:29 | CARE MANAGER ---
Patient was set up with [facility] for Oxygen from the ER. However, [facility] notified me this morning it needs to go through [facility] as he has [employer] HMO. Contacted [facility] and faxed information. [facility] was contacting the patient. CAM Jacinto
== END 2024-02-01 21:03 | disposition home or self-care (01) ==
PROVIDERS: Emergency Provider Emergency Medicine; PCP Nurse Practitioner
DX: J96.01 Acute respiratory failure with hypoxia (principal); J44.1 Chronic obstructive pulmonary disease with (acute) exacerbation; I10 Essential (primary) hypertension; E78.5 Hyperlipidemia, unspecified; I27.20 Pulmonary hypertension, unspecified; Z87.891 Personal history of nicotine dependence
CPT/HCPCS: 36415; 71045; 71046; 71275; 80053; 82803; 83605; 83880; 84484; 85025; 85378; 87040; 93005; 96374; 99285; Q9967

== ENCOUNTER 2024-02-05 15:56 | Outpatient (CLI) | payer MEDICARE, SELFPAY ==
[2024-02-05 17:03] LABS: Coronavirus 19, PCR Not Detected (NotDetected); Influenza A, PCR Not Detected (NotDetected); Influenza B, PCR Not Detected (NotDetected)
== END 2024-02-05 23:59 ==
LOC: LAB 15:57
PROVIDERS: PCP Nurse Practitioner; Visit Provider Internal Medicine Pulmonary Disease
DX: J43.9 Emphysema, unspecified; J96.01 Acute respiratory failure with hypoxia; F17.210 Nicotine dependence, cigarettes, uncomplicated
CPT/HCPCS: 87636

== ENCOUNTER 2024-04-10 12:10 | Outpatient (CLI) | payer MEDICARE, SELFPAY ==
[2024-04-10 13:13] LABS: Lactate Dehydrogenase 208 U/L (313-618); Uric Acid 4.2 mg/dl (3.5-8.5)
[2024-04-10 13:18] LABS: C-Reactive Protein 10.9 mg/L (0-4)
--- NOTE | 2024-04-10 14:06 | CT_ITS ---
FINAL REPORT TECHNIQUE: Axial images were obtained from the lung apex to the mid abdomen by computed tomography. Superior inspiration and expiration and prone expiration high-resolution images of the chest were obtained without contrast. Coronal reformatted images were obtained. This study was performed with techniques to keep radiation doses as low as reasonably achievable, (ALARA). Individualized dose reduction techniques using automated exposure control or adjustment of mA and/or kV according to the patient''s size were employed. CLINICAL HISTORY: SOA UNABLE TO GET OFF OXYGEN SINCE BEING HOSPITALIZED FOR PNEUMONIA COMPARISON: CTA 02/01/2024 FINDINGS: There has been interval improvement in the mediastinal and hilar adenopathy. Mild vascular calcifications are noted. No axillary mass or adenopathy is seen.There is no pericardial or pleural effusion. There is moderate emphysema. Mild to moderate predominantly peripheral interstitial fibrosis is noted with areas of peripheral honeycombing. There is no evidence of bronchiectasis. There is no evidence of air trapping on expiration images. A nodule at the right major fissure measuring 6 mm previously measured 8 mm. The nodule in the azygo-esophageal recess is stable at 5 mm. There is an 8 mm nodule in the posterior medial right upper lobe on image 35, was 8 mm. There are several other small nodules which are stable. The chest wall is intact.Limited images of the upper abdomen are unremarkable. IMPRESSION: Interval improvement in mediastinal and hilar adenopathy. Moderate emphysema. Mild to moderate predominantly peripheral interstitial fibrosis, nonspecific and may represent UIP. Stable or improved pulmonary nodules. Reviewed, Interpreted and Dictated by Jorge Hough III, MD Transcribed by Antonella Muniz Authenticated and [facility]
[2024-04-10 14:22] LABS: Erythrocyte Sedimentation Rate 23 mm/hr (0-20)
[2024-04-12 11:14] LABS: RA Latex Turbid. 10.2 IU/mL (<14.0)
[2024-04-12 14:12] LABS: Anti-DNA (DS) Ab Qn <1 IU/mL (0-9); Antiribosomal P Antibodies <0.2 AI (0.0-0.9); Antiscleroderma-70 Antibodies <0.2 AI (0.0-0.9); Sjogren's Anti-SS-A <0.2 AI (0.0-0.9); Sjogren's Anti-SS-B <0.2 AI (0.0-0.9)
[2024-04-12 15:33] LABS: Cytoplasmic (C-ANCA) <1:20 titer (Neg:<1:20); Perinuclear (P-ANCA) <1:20 titer (Neg:<1:20)
[2024-04-15 08:09] LABS: Antinuclear Antibodies, IFA Negative (.)
== END 2024-04-10 23:59 | disposition home or self-care (01) ==
PROVIDERS: PCP Nurse Practitioner; Visit Provider Internal Medicine Pulmonary Disease
DX: J84.9 Interstitial pulmonary disease, unspecified (principal); R06.09 Other forms of dyspnea; J84.10 Pulmonary fibrosis, unspecified; J90 Pleural effusion, not elsewhere classified
CPT/HCPCS: 36415; 71250; 83516; 83615; 84550; 85651; 86038; 86140; 86225; 86235; 86256; 86331; 86431; 86602; 86606; 86609; 87070; 87077; 87186; 87205

== ENCOUNTER 2024-05-09 09:24 | Outpatient (CLI) | payer MEDICARE, SELFPAY ==
[2024-05-09] MEDS: ALBUTEROL 0.083% 2.5 MG/3 ML NEB IH (10:26)
== END 2024-05-09 23:59 | disposition home or self-care (01) ==
LOC: RT 09:25
PROVIDERS: PCP Nurse Practitioner; Visit Provider Internal Medicine Pulmonary Disease
DX: R06.09 Other forms of dyspnea (principal)
CPT/HCPCS: 94060; 94618; 94726; 94729; J7613

== ENCOUNTER 2024-06-07 08:15 | Observation (INO) | payer MEDICARE, SELFPAY ==
[2024-06-07] VITALS (14 sets, daily range): BP systolic 118–138; BP diastolic 67–78; PULSE 65–81; RESP 17–26; TEMP 36.6–36.9; O2SAT 82–97; BMI 41.1; BMI 40.6; BMI 42.1
--- NOTE | 2024-06-07 08:23 | XR_ITS ---
FINAL REPORT CLINICAL HISTORY: SOA, cp COMPARISON: 02/01/2024 FINDINGS: A single portable view of the chest was obtained. Cardiomegaly is present, with mild pulmonary vascular congestion. The mediastinum is within normal limits. There are worsening bilateral opacities, edema versus pneumonia. The bony thorax is intact. IMPRESSION: Worsening bilateral opacities, edema versus pneumonia, when compared to the prior exam. Cardiomegaly with mild pulmonary vascular congestion. Reviewed, Interpreted and Dictated by Jorge Hough III, MD Transcribed by Danita Acosta Authenticated and [facility]
--- NOTE | 2024-06-07 08:23 | ECG_ITS ---
APPROVED REPORT Exam: Resting ECG HR:84 bpm ECG Measurements Heart Rate 84 AXES OR 153 P 71 QRSd 94 QRS 103 QT 364 T 62 QTc 405 Conclusion SINUS RHYTHM POSSIBLE RIGHT VENTRICULAR HYPERTROPHY [SOME/ALL OF: PROMINENT R IN V1, LATE TRANSITION, RAD, KAROLYN, SSS] ABNORMAL ECG UNCONFIRMED REPORT Electronically signed by : RODRIGUEZ GUO, 06/07/2024 16:27:01
--- NOTE | 2024-06-07 08:41 | PC.NURSE ---
Respiratory notified of vbg order and blood sent up to the lab
[2024-06-07 08:45] LABS: Lactate Venous 1.3 mmol/L (0.4-2.0); VBG Base Excess -2.7 mmol/L (-2.4-2.3); VBG PCO2 36.1 mmol/L (35-51); VBG PO2 70.1 mmol/L (28-40); VBG Total CO2 23.1 mmol/L (23-27)
[2024-06-07 08:49] LABS: Basophils # 0.1 K/mm3 (0-0.2); Basophils % 0.5 % (0.1-2.0); Eosinophils # 0.2 K/mm3 (0.0-0.4); Hematocrit 39.5 % (42.0-52.0); Hemoglobin 12.6 g/dL (14.1-18.0); Lymphocytes # 1.2 K/mm3 (0.7-4.5); Lymphocytes % 12.6 % (10-50); Mean Corpuscular HGB Conc 31.8 g/dL (31.8-35.4); Mean Corpuscular Hemoglobin 31.8 pg (27.0-31.2); Mean Corpuscular Volume 99.8 fl (80-94); Mean Platelet Volume 7.9 fl (7.4-10.4); Monocytes # 0.6 K/mm3 (0.1-1.0); Monocytes % 5.9 % (1.7-9.3); Neutrophils # 7.7 K/mm3 (1.8-7.8); Neutrophils % 79.1 % (37.0-80.0); Platelet Count 454 K/mm3 (142-424); Red Blood Count 3.96 M/mm3 (4.60-6.20); Red Cell Distribution Width 15.2 % (11.5-17.5); White Blood Count 9.8 K/mm3 (4.8-10.8)
--- NOTE | 2024-06-07 09:02 | ED_ITS ---
Discharge Plan Disposition Patient Disposition: Admitted Condition: Fair Clinical Impressions Clinical Impression: Elevated brain natriuretic peptide (BNP) level, Dyspnea, Hypoxia Discharge ED Provider: Alexis Hogue Adult HPI General Chief complaint: Shortness of Breath/Dyspnea Stated complaint: soa Time Seen by Provider: 06/07/24 08:59 Mode of Arrival: Wheelchair Source of Information: Patient and Spouse Limitations: No Limitations Description of Symptoms (Recalled from ER Triage Doc. by RN): short of breath x 5 days History of Present Illness HPI narrative: 64-year-old male with past medical history significant for interstitial lung disease, PVD, COPD on 3 L of oxygen at baseline noting that on exertion he is able to go up to 4 to 5 L, HLD, HTN, presents today for evaluation concerning shortness of breath that has been worsening over the past several days. He states that this morning he has been unable to take more than a few steps without becoming exhausted. States that his oxygen saturation dropped as low as 70% while on oxygen. He reports that he had to use 8 L to get to the ER. He reports a nonproductive cough but denies any chest pain, fevers, chills, abdominal pain, nausea or vomiting. He does use breathing treatments at home however has not used any today. No further complaints. Related Data Home Medications Medication Instructions Recorded Confirmed atorvastatin 80 mg tablet 80 mg PO DAILY 04/14/22 06/07/24 levothyroxine 75 mcg capsule 75 mcg PO DAILY 04/14/22 06/07/24 losartan 100 mg tablet 100 mg PO DAILY 04/14/22 06/07/24 aspirin 81 mg tablet,delayed 81 mg PO DAILY 07/13/22 06/07/24 release insulin glargine 100 unit/mL (3 30 unit SQ DAILY 07/13/22 06/07/24 mL) subcutaneous pen (Lantus Solostar U-100 Insulin) spironolactone 25 mg tablet 25 mg PO DAILY 07/13/22 06/07/24 amlodipine 10 mg tablet 10 mg PO DAILY 05/23/24 06/07/24 duloxetine 60 mg capsule,delayed 60 mg PO DAILY 05/23/24 06/07/24 release gabapentin 300 mg capsule 300 mg PO TID 05/23/24 06/07/24 levothyroxine 75 mcg tablet 75 mcg PO DAILY 06/07/24 06/07/24 metformin 1,000 mg tablet 1,000 mg PO BIDWMEAL 06/07/24 06/07/24 montelukast 10 mg tablet 10 mg PO PM 06/07/24 06/07/24 (Singulair) torsemide 20 mg tablet 20 mg PO DAILY 06/07/24 06/07/24 Previous Rx's Medication Instructions Recorded budesonide-formoterol HFA 160 2 puff inhalation BID shortness of 10/16/23 mcg-4.5 mcg/actuation aerosol breath or wheezing 90 days #10.2 inhaler (Symbicort) grams tiotropium bromide 2.5 2 inh inhalation DAILY 90 days #4 10/16/23 mcg/actuation mist for inhalation grams (Spiriva Respimat) Allergies Allergy/AdvReac Type Severity Reaction Status Date / Time No Known Allergies Allergy Verified 05/23/24 10:02 [facility] Disclaimer: The information contained in this section may have been updated after the patient was seen, as this information can be updated by other users. Medical History ILD (interstitial lung disease) Mediastinal lymphadenopathy Hilar lymphadenopathy Nonspecific interstitial pneumonitis Fibrosis of lung Pulmonary arterial hypertension Hyperlipidemia Hypertension Screening for lung cancer Stopped smoking with greater than 30 pack year history Abnormal computerized axial tomography of chest COPD (chronic obstructive pulmonary disease) Lung nodule Abnormal PFT Pulmonary emphysema Dyspnea on exertion Surgical History History of prostate surgery History of knee surgery History of hip surgery Family History Other No significant family history Social History Smoking Status: Former smoker alcohol intake: never substance use type: denies use current occupational status: retired Travel in the last 8 weeks: None ROS Obtained: Yes All systems reviewed & no additional complaints except as documented Physical Exam General General appearance: alert and in no apparent distress Head Head exam: atraumatic and normocephalic Eye Eye exam: Present normal appearance, PERRL and EOMI ENT ENT exam: Present normal oropharynx and mucous membranes moist Neck Neck exam: Present full ROM; Absent meningismus Respiratory Respiratory exam: Present other (Crackles at bases bilaterally); Absent normal lung sounds bilaterally, respiratory distress, wheezes, stridor or accessory muscle use Cardiovascular Cardiovascular exam: Present normal rhythm Abdominal Exam Abdominal exam: Present soft; Absent distention, tenderness, guarding, rebound or rigidity Neurological Exam Neurological exam: Present alert, oriented X3 and CN II-XII intact; Absent motor sensory deficit Psychiatric Psychiatric exam: Present normal affect and normal mood Skin Skin exam: Present warm and dry Medical Decision Making Medical Records Medical records reviewed: Yes I reviewed the patient's medical records. Sj Inquiry Pt receiving controlled substance: No Sj was queried for this patient: No Vital Signs: 06/07/24 08:16 06/07/24 08:30 06/07/24 09:27 Temperature 98.1 F Temperature Source Oral Pulse Rate 80 Pulse Rate [Right] 80 Respiratory Rate 26 H Blood Pressure 133/70 Blood Pressure [Right Arm] 133/68 Blood Pressure Mean [Right Arm] 89 02 Sat by Pulse Oximetry 88 L 97 82 L Oxygen Delivery Method Nasal Cannula Nasal Cannula Oxygen Flow Rate (LPM) 4 5 06/07/24 10:14 06/07/24 11:00 06/07/24 12:00 Temperature Temperature Source Pulse Rate 78 74 73 Pulse Rate [Right] Respiratory Rate 17 24 18 Blood Pressure 138/77 118/78 126/67 Blood Pressure [Right Arm] Blood Pressure Mean [Right Arm] 02 Sat by Pulse Oximetry 94 L 90 L 94 L Oxygen Delivery Method Nasal Cannula Oxygen Flow Rate (LPM) 4 Lab Data Lab Results 06/07/24 08:27: D-Dimer 0.84 H 06/07/24 08:37: WBC 9.8, RBC 3.96 L, Hgb 12.6 L, Hct 39.5 L, MCV 99.8 H, MCH 31.8 H, MCHC 31.8, RDW 15.2, Plt Count 454 H, MPV 7.9, Neut % (Auto) 79.1, Lymph % (Auto) 12.6, [place] % (Auto) 5.9, Eos % (Auto) 2.0, Baso % (Auto) 0.5, Neut # (Auto) 7.7, Lymph # (Auto) 1.2, [place] # (Auto) 0.6, Eos # (Auto) 0.2, Baso # (Auto) 0.1, Sodium 142, Potassium 4.5, Chloride 111 H, Carbon Dioxide 24, Anion Gap 11.5, BUN 18, Creatinine 0.90, Estimated Creat Clear 140, Estimated GFR 84, Est GFR ( Amer) 102, Glucose 125 H, Calcium 9.0, Magnesium 2.1, Total Bilirubin 0.5, AST 30, ALT 29, Alkaline Phosphatase 150 H, Troponin I < 0.01, N T-Pro-B Natriuret Pep 237 H, Total Protein 7.5, Albumin 4.1, Globulin 3.4 H, Albumin/Globulin Ratio 1.2 06/07/24 08:41: VBG pH 7.40, VBG pCO2 36.1, VBG pO2 70.1 H, VBG HCO3 22.0 L, VBG Total CO2 23.1, VBG O2 Saturation 94.0 H, VBG Base Excess -2.7 L, VBG Lactic Acid 1.3 06/07/24 10:25: SARS-CoV-2 (PCR) Not detected, Influenza A Untype (PCR) Not detected, Influenza Type B (PCR) Not detected 06/07/24 11:34: Troponin I < 0.01 06/07/24 08:37 06/07/24 08:37 Orders (Tests/Meds): ED MEDICATIONS Generic Name Dose Route Start Last Admin Trade Name Freq PRN Reason Stop Dose Admin Acetaminophen 650 mg 06/07/24 12:16 Acetaminophen 325mg Tab PO 07/07/24 12:15 Q4HP PRN Fever or Mild Pain (1-3) Al Hydrox/Mg Hydrox/Simethicone 30 ml 06/07/24 12:16 Aluminum/Magnesium/Simethicone 30ml Udc PO 07/07/24 12:15 QIDP PRN Dyspepsia Albuterol Sulfate 2.5 mg 06/07/24 11:53 Albuterol 0.083% 2.5 Mg/3 Ml Neb 07/07/24 11:52 Q4HP PRN Shortness Of Breath Albuterol/Ipratropium 3 ml 06/07/24 12:00 Ipratropium/Albuterol 3 Ml Neb 07/07/24 11:59 Q6RT ANABELA Iopamidol 75 ml 06/07/24 12:32 Iopamidol-370 (76%);100ml Bottle IV 06/07/24 12:33 ONCE ONE Morphine Sulfate 4 mg 06/07/24 12:16 Morphine 4mg/Ml Syringe IV 07/07/24 12:15 Q4HP PRN Severe Pain (7-10) Ondansetron HCl 4 mg 06/07/24 12:16 Ondansetron 4mg/2ml Vial IV 07/07/24 12:15 Q8HP PRN Nausea Sodium Chloride 50 ml 06/07/24 12:32 0.9 % Sodium Chloride 50 Ml Vial IV 06/07/24 12:33 ONCE ONE Sodium Chloride 10 ml 06/07/24 12:32 Sodium Chloride 0.9% 10ml Syr (Rad Only) IV 06/07/24 12:33 ONCE ONE Discontinued Medications Generic Name Dose Route Start Last Admin Trade Name Freq PRN Reason Stop Dose Admin Albuterol/Ipratropium 3 ml 06/07/24 08:23 06/07/24 09:03 Ipratropium/Albuterol 3 Ml Neb IH 06/07/24 08:24 3 ml ONCE ONE Administration Furosemide 40 mg 06/07/24 10:04 06/07/24 10:10 Furosemide 40mg/4ml Vial IV 06/07/24 10:05 40 mg ONCE ONE Administration Methylprednisolone Sodium Succinate 40 mg 06/07/24 12:30 Methylprednisolone Sod Succ 40mg Vial IV 06/09/24 06:31 Q6H ANABELA ORDERS Category Date Time Status POCUS Point of Care (ER Only) Stat Exams 06/07/24 09:51 Completed XR chest portable Stat Exams 06/07/24 08:23 Completed Complete Blood Count Auto Diff Stat Lab 06/07/24 08:37 Completed Comprehensive Metabolic Panel Stat Lab 06/07/24 08:37 Completed D-Dimer Stat Lab 06/07/24 08:27 Completed MAG [Magnesium] Stat Lab 06/07/24 08:37 Completed NT Pro Brain Natriuretic Pep. Stat Lab 06/07/24 08:37 Completed Rapid PCR Covid and Flu A/B Stat Lab 06/07/24 10:25 Completed Troponin I Q3H Lab 06/07/24 11:34 Completed Troponin I Q3H Lab 06/07/24 14:30 Ordered Troponin I Stat Lab 06/07/24 08:37 Completed VBG [Venous Blood Gas] Stat RT 06/07/24 08:41 Completed HEART Score History (anamnesis): Slightly suspicious ECG: Non-specific disturbance Age: >65 years Risk factors: 3 or more risk factors Troponin: </= normal limit HEART Score: 5 Medical Decision Narrative: 64-year-old male with past medical history significant for interstitial lung disease, PVD, COPD on 3 L of oxygen at baseline noting that on exertion he is able to go up to 4 to 5 L, HLD, HTN, presents today for evaluation concerning shortness of breath that has been worsening over the past several days. He states that this morning he has been unable to take more than a few steps without becoming exhausted. States that his oxygen saturation dropped as low as 70% while on oxygen. He reports that he had to use 8 L to get to the ER. On assessment, the patient was hemodynamically stable and in no acute distress. Afebrile. His chest was with crackles at the bases bilaterally. Abdomen soft nondistended and nontender to palpation. On 3 L of oxygen with saturation of 88%. No peripheral edema noted. Otherwise exam finds unremarkable differential diagnoses include but limited to ACS, pneumonia, pleural effusion, pulmonary edema, viral syndrome, COPD exacerbation, among others. EKG was personally interpreted by me and was normal sinus rhythm with a rate of 84 bpm. No ischemic changes. Patient was ambulated and on 5 L of oxygen he desaturated to 82%. Labs today did not show an elevation in WBC at 9.8. Platelets elevated at 454. Stable anemia with hemoglobin of 12.6. VBG with pH of 7.4. pCO2 of 36.1. Troponin stable less than 0.01. BNP elevated at 237. Negative COVID/influenza swab. I did use bedside ultrasound and B-lines were noted which is consistent with pulmonary edema. I did order for 40 mg of IV Lasix at this time. Of note patient states that he has not been taking his spironolactone and torsemide. Patient's D-dimer was also elevated at 0.84. CT PE was ordered. No large pulmonary embolism noted on my informal interpretation. Hospital medicine will follow-up on final results. I discussed ED workup and results as well as current plan to admit for further management. He was agreeable. Hospital medicine was consulted and management was discussed and they agreed to evaluate and admit. Critical Care Critical Care Time Critical Care Time: No
[2024-06-07] MEDS: IPRATROPIUM/ALBUTEROL 3 ML NEB IH ×3 (09:03→23:33)
--- NOTE | 2024-06-07 09:11 | PC.NURSE ---
in room talking with patient
--- NOTE | 2024-06-07 09:20 | PC.NURSE ---
i ambulated pt to bathroom and back. he was 78% saturation
--- NOTE | 2024-06-07 09:31 | PC.NURSE ---
i ambulated pt on 5lnc. dropped to 82% saturation
[2024-06-07 09:34] LABS: Alanine Aminotransferase 29 U/L (12-78); Albumin Level 4.1 g/dl (3.5-5.0); Albumin/Globulin Ratio 1.2 (1.1-1.8); Alkaline Phosphatase 150 U/L (38-126); Anion Gap 11.5 mEq/L (5-15); Aspartate Amino Transferase 30 U/L (17-59); Bilirubin,Total 0.5 mg/dl (0.2-1.3); Blood Urea Nitrogen 18 mg/dl (9-20); Carbon Dioxide 24 mmol/L (22.0-30.0); Chloride 111 mmol/L (98-107); Creatinine Clearance Estimated 140 mL/min (50-200); Estimated Glomerular Filt Rate 84 ml/min (>60); GFR (African American) 102 ML/MIN (>60); Globulin 3.4 g/dL (1.3-3.2); Glucose 125 mg/dl (74-100); Magnesium 2.1 mg/dl (1.6-2.3); Potassium 4.5 mmoL/L (3.5-5.1); Sodium 142 mmol/L (136-145); Total Protein,Serum 7.5 g/dl (6.3-8.2)
[2024-06-07 09:55] LABS: Troponin I < 0.01 ng/ml (0.00-0.034)
[2024-06-07] MEDS: FUROSEMIDE 40MG/4ML VIAL 40 MG IV (10:10)
[2024-06-07 10:30] LABS: Coronavirus 19, PCR Not Detected (NotDetected); Influenza A, PCR Not Detected (NotDetected); Influenza B, PCR Not Detected (NotDetected)
[2024-06-07 11:14] LABS: NT Pro Brain Natriuretic Pep. 237 pg/mL (0-125)
--- NOTE | 2024-06-07 11:19 | HMH.PHAINT1 ---
Pharmacy Intervention Comments: MEDICATION RECONCILIATION COMPLETED ON PATIENT USING EXTERNAL FILL HISTORY FROM PHARMACY AND LIST FROM CARDIOLOGY/PULMONOLOGY OFFICES. -MAYNOR SEARS, ODALISD
--- NOTE | 2024-06-07 11:33 | PC.NURSE ---
called lab to check on the status of the d-dimer, states they will check this and call back. Order placed at 0945, blood already in the lab- they received it in at 0950.
--- NOTE | 2024-06-07 11:39 | PC.NURSE ---
Dr. Hogue s/w Dr. Prasad for admission
[2024-06-07 11:47] LABS: D-Dimer 0.84 ug/mL (0.0-0.5)
--- NOTE | 2024-06-07 11:47 | PC.NURSE ---
House notified of admission, Step-down per Dr. Hogue
--- NOTE | 2024-06-07 11:49 | EXP.HP ---
History of Present Illness *Admission Date: 06/07/24 *Reason for visit:: Hypoxia *History of present illness: Really nice patient with past medical history of interstitial lung disease cared for by energy risk management analyst Dr. Chanel, hilar/mediastinal lymphadenopathy, COPD on 4 L oxygen at baseline, hypertension, hyperlipidemia, abnormal cardiac stress test, obesity, diabetes. Patient sees cardiology at this hospital, with left heart cath scheduled for late May. I came in today because I did not think I would make it to the heart cath date. Complains of COE/SOB with minimal exertion and at rest. States he drove himself here, then walked in the building because my is better directions. Patient states he required 8 L oxygen to reach emergency room walking with minimal exertion I had to turn the tank all the way up. Patient O2 saturation 88% on 4 L at time evaluation in emergency room. Denies fevers, chills, known sick contacts, recent travel, new phlegm. Patient states he chronically brings up whitish phlegm. Denies lower extremity edema, chair sleeping. States he uses 2 pillows at baseline. Also denies abdominal pain, nausea, vomiting, diarrhea, constipation, dysuria. [facility] Disclaimer: The information contained in this section may have been updated after the patient was seen, as this information can be updated by other users. Medical History ILD (interstitial lung disease) Mediastinal lymphadenopathy Hilar lymphadenopathy Nonspecific interstitial pneumonitis Fibrosis of lung Pulmonary arterial hypertension Hyperlipidemia Hypertension Screening for lung cancer Stopped smoking with greater than 30 pack year history Abnormal computerized axial tomography of chest COPD (chronic obstructive pulmonary disease) Lung nodule Abnormal PFT Pulmonary emphysema Dyspnea on exertion Surgical History History of prostate surgery History of knee surgery History of hip surgery Family History Other No significant family history Social History Smoking Status: Former smoker alcohol intake: never substance use type: denies use current occupational status: retired Travel in the last 8 weeks: None Review of Systems Review of Systems Review of systems:: pertinent systems reviewed and negative unless documented below Meds Home Medications and Allergies Home Medications Medication Instructions Recorded Confirmed Type atorvastatin 80 mg tablet 80 mg PO DAILY 04/14/22 06/07/24 History levothyroxine 75 mcg capsule 75 mcg PO DAILY 04/14/22 06/07/24 History losartan 100 mg tablet 100 mg PO DAILY 04/14/22 06/07/24 History aspirin 81 mg tablet,delayed 81 mg PO DAILY 07/13/22 06/07/24 History release insulin glargine 100 unit/mL (3 30 unit SQ DAILY 07/13/22 06/07/24 History mL) subcutaneous pen (Lantus Solostar U-100 Insulin) spironolactone 25 mg tablet 25 mg PO DAILY 07/13/22 06/07/24 History budesonide-formoterol HFA 160 2 puff inhalation BID shortness of 10/16/23 06/07/24 Rx mcg-4.5 mcg/actuation aerosol breath or wheezing 90 days #10.2 inhaler (Symbicort) grams tiotropium bromide 2.5 2 inh inhalation DAILY 90 days #4 10/16/23 06/07/24 Rx mcg/actuation mist for inhalation grams (Spiriva Respimat) amlodipine 10 mg tablet 10 mg PO DAILY 05/23/24 06/07/24 History duloxetine 60 mg capsule,delayed 60 mg PO DAILY 05/23/24 06/07/24 History release gabapentin 300 mg capsule 300 mg PO TID 05/23/24 06/07/24 History levothyroxine 75 mcg tablet 75 mcg PO DAILY 06/07/24 06/07/24 History metformin 1,000 mg tablet 1,000 mg PO BIDWMEAL 06/07/24 06/07/24 History montelukast 10 mg tablet 10 mg PO PM 06/07/24 06/07/24 History (Singulair) torsemide 20 mg tablet 20 mg PO DAILY 06/07/24 06/07/24 History New Prescriptions to Start Prescriptions: Allergies Allergy/AdvReac Type Severity Reaction Status Date / Time No Known Allergies Allergy Verified 05/23/24 10:02 Exam Data for Last 24 hours Vital signs and Labs for Last 24 Hours: Temp Pulse Resp BP Pulse Ox O2 Del Method O2 Flow Rate 98.1 F 74 24 118/78 90 L Nasal Cannula 4 06/07/24 08:16 06/07/24 11:00 06/07/24 11:00 06/07/24 11:00 06/07/24 11:00 06/07/24 11:00 06/07/24 11:00 Laboratory Results - last 24 hr 06/07/24 08:37: WBC 9.8, RBC 3.96 L, Hgb 12.6 L, Hct 39.5 L, MCV 99.8 H, MCH 31.8 H, MCHC 31.8, RDW 15.2, Plt Count 454 H, MPV 7.9, Neut % (Auto) 79.1, Lymph % (Auto) 12.6, Terry % (Auto) 5.9, Eos % (Auto) 2.0, Baso % (Auto) 0.5, Neut # (Auto) 7.7, Lymph # (Auto) 1.2, Terry # (Auto) 0.6, Eos # (Auto) 0.2, Baso # (Auto) 0.1, Sodium 142, Potassium 4.5, Chloride 111 H, Carbon Dioxide 24, Anion Gap 11.5, BUN 18, Creatinine 0.90, Estimated Creat Clear 140, Estimated GFR 84, Est GFR ( Amer) 102, Glucose 125 H, Calcium 9.0, Magnesium 2.1, Total Bilirubin 0.5, AST 30, ALT 29, Alkaline Phosphatase 150 H, Troponin I < 0.01, NT-Pro-B Natriuret Pep 237 H, Total Protein 7.5, Albumin 4.1, Globulin 3.4 H, Albumin/Globulin Ratio 1.2 06/07/24 08:41: VBG pH 7.40, VBG pCO2 36.1, VBG pO2 70.1 H, VBG HCO3 22.0 L, VBG Total CO2 23.1, VBG O2 Saturation 94.0 H, VBG Base Excess -2.7 L, VBG Lactic Acid 1.3 06/07/24 10:25: SARS-CoV-2 (PCR) Not detected, Influenza A Untype (PCR) Not detected, Influenza Type B (PCR) Not detected I & O for Last 24 hours: Intake & Output 06/04/24 06/05/24 06/06/24 06/07/24 23:59 23:59 23:59 23:59 Output Total 1650 / 1650 Balance -1650 / -1650 Weight 136.078 kg Radiology Reports for the Last 24 Hours: Ordering Physician: Alexis Hogue DO Date of Service: 06/07/24 Procedure(s): XR chest portable Accession Number(s): [id number] cc: Jorge Hough MD; Renetta Arthur~ FINAL REPORT CLINICAL HISTORY: SOA, cp COMPARISON: 02/01/2024 FINDINGS: A single portable view of the chest was obtained. Cardiomegaly is present, with mild pulmonary vascular congestion. The mediastinum is within normal limits. There are worsening bilateral opacities, edema versus pneumonia. The bony thorax is intact. IMPRESSION: Worsening bilateral opacities, edema versus pneumonia, when compared to the prior exam. Cardiomegaly with mild pulmonary vascular congestion. Ordering Physician: Aisha Chanel MD Date of Service: 04/10/24 Procedure(s): CT HR Chest x3 Accession Number(s): [id number] cc: Aisha Chanel MD; Jorge Hough MD; Mari Arthur APRN~ FINAL REPORT TECHNIQUE: Axial images were obtained from the lung apex to the mid abdomen by computed tomography. Superior inspiration and expiration and prone expiration high-resolution images of the chest were obtained without contrast. Coronal reformatted images were obtained. This study was performed with techniques to keep radiation doses as low as reasonably achievable, (ALARA). Individualized dose reduction techniques using automated exposure control or adjustment of mA and/or kV according to the patient''s size were employed. CLINICAL HISTORY: SOA UNABLE TO GET OFF OXYGEN SINCE BEING HOSPITALIZED FOR PNEUMONIA COMPARISON: CTA 02/01/2024 FINDINGS: There has been interval improvement in the mediastinal and hilar adenopathy. Mild vascular calcifications are noted. No axillary mass or adenopathy is seen.There is no pericardial or pleural effusion. There is moderate emphysema. Mild to moderate predominantly peripheral interstitial fibrosis is noted with areas of peripheral honeycombing. There is no evidence of bronchiectasis. There is no evidence of air trapping on expiration images. A nodule at the right major fissure measuring 6 mm previously measured 8 mm. The nodule in the azygo-esophageal recess is stable at 5 mm. There is an 8 mm nodule in the posterior medial right upper lobe on image 35, was 8 mm. There are several other small nodules which are stable. The chest wall is intact.Limited images of the upper abdomen are unremarkable. IMPRESSION: Interval improvement in mediastinal and hilar adenopathy. Moderate emphysema. Mild to moderate predominantly peripheral interstitial fibrosis, nonspecific and may represent UIP. Stable or improved pulmonary nodules. Reviewed, Interpreted and Dictated by Jorge Hough III, MD Transcribed by Antonella Muniz Ordering Physician: Aisha Chanel MD Date of Service: 04/10/24 Procedure(s): CT HR Chest x3 Accession Number(s): [id number] cc: Aisha Chanel MD; Jorge Hough MD; Mari Arthur APRN~ FINAL REPORT TECHNIQUE: Axial images were obtained from the lung apex to the mid abdomen by computed tomography. Superior inspiration and expiration and prone expiration high-resolution images of the chest were obtained without contrast. Coronal reformatted images were obtained. This study was performed with techniques to keep radiation doses as low as reasonably achievable, (ALARA). Individualized dose reduction techniques using automated exposure control or adjustment of mA and/or kV according to the patient''s size were employed. CLINICAL HISTORY: SOA UNABLE TO GET OFF OXYGEN SINCE BEING HOSPITALIZED FOR PNEUMONIA COMPARISON: CTA 02/01/2024 FINDINGS: There has been interval improvement in the mediastinal and hilar adenopathy. Mild vascular calcifications are noted. No axillary mass or adenopathy is seen.There is no pericardial or pleural effusion. There is moderate emphysema. Mild to moderate predominantly peripheral interstitial fibrosis is noted with areas of peripheral honeycombing. There is no evidence of bronchiectasis. There is no evidence of air trapping on expiration images. A nodule at the right major fissure measuring 6 mm previously measured 8 mm. The nodule in the azygo-esophageal recess is stable at 5 mm. There is an 8 mm nodule in the posterior medial right upper lobe on image 35, was 8 mm. There are several other small nodules which are stable. The chest wall is intact.Limited images of the upper abdomen are unremarkable. IMPRESSION: Interval improvement in mediastinal and hilar adenopathy. Moderate emphysema. Mild to moderate predominantly peripheral interstitial fibrosis, nonspecific and may represent UIP. Stable or improved pulmonary nodules. Reviewed, Interpreted and Dictated by Jorge Hough III, MD Transcribed by Antonella Muniz *Routine HEENT Exam Head: Present normocephalic Eye: Present EOMI and normal accommodation ENT: Present mucous membranes moist *Routine Neck Exam Neck: Present supple and full ROM *Routine Respiratory Exam Respiratory: Present CTA bilaterally and diminished air movement *Routine Cardiovascular Exam Cardiovascular: Present RRR *Routine Abdominal Exam Abdominal: Present soft and normoactive bowel sounds *Routine Rectal Exam Rectal:: deferred *Routine Genitalia Exam Genitalia:: deferred *Routine Extremities Exam Extremities: Present full ROM and normal capillary refill *Routine Skin Exam Skin: Present intact and warm *Routine Neurological Exam Neurological: Present alert and normal reflexes Assessment and Plan *Assessment and plan (1) Hypoxia: Status: Acute Category: Medical Code(s): R09.02 - Hypoxemia (2) Dyspnea: Status: Acute Category: Medical Code(s): R06.00 - Dyspnea, unspecified (3) ILD (interstitial lung disease): Status: Acute Category: Medical Code(s): J84.9 - Interstitial pulmonary disease, unspecified (4) Acute respiratory failure with hypoxemia: Status: Acute Category: Medical Code(s): J96.01 - Acute respiratory failure with hypoxia (5) Acute exacerbation of chronic obstructive pulmonary disease: Status: Acute Category: Medical Code(s): J44.1 - Chronic obstructive pulmonary disease with (acute) exacerbation (6) Diabetes mellitus with diabetic neuropathy: Status: Acute Qualifiers: Diabetes mellitus group home insulin use: with group home use Diabetes mellitus type: type 2 Qualified Code(s): E11.40 - Type 2 diabetes mellitus with diabetic neuropathy, unspecified; 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 Believe patient most likely suffered from COPD exacerbation. Patient has known interstitial lung disease, and sees Dr. Chanel. Will consult patient's energy risk management analyst , hydrocortisone 50 mg IV every 8 x 6 doses, DuoNebs, incentive spirometer. Rule out infection with CRP, procalcitonin, respiratory PCR panel, and blood cultures at time of presentation. ? Also need to rule out pulmonary embolus. Patient's D-dimer elevated so ordered CTA chest at time of admission. ? Pulmonary vascular congestion noted on chest x-ray. Will evaluate CTA chest for signs of pulmonary vascular congestion, PE, or pneumonia. Empirically start patient on Lasix 40 mg IV daily x 3 doses. Also consult cardiology since patient scheduled for heart cath June 21, 2024. Also order echocardiogram and telemetry Interstitial lung disease: As above and hypoxia section. Hilar/mediastinal lymphadenopathy: Noted on high-res CT 04/10/2024 is improving. Pulmonology consulted during hospitalization. Hypertension: Continue home management plus as needed IV hydralazine for blood pressure spikes Hyperlipidemia: Continue home management Diabetes:/Scale insulin, ACHS Accu-Cheks, diabetic diet PPx: Lovenox subcutaneous CODE STATUS: Full FEN: Cardiac diet
--- NOTE | 2024-06-07 11:51 | CT_ITS ---
FINAL REPORT TECHNIQUE: Then section axial CT images of the chest were obtained with contrast. Three-D reformatted images were also obtained.This study was performed with techniques to keep radiation doses as low as reasonably achievable (ALARA). Individualized dose reduction techniques using automated exposure control or adjustment of mA and/or kV according to the patient''s size were employed. CLINICAL HISTORY: eval for PE, pulm edema,pneumonia COMPARISON: 02/01/2024 FINDINGS: There is motion on many sequences which somewhat limits overall image quality. The lower lobe vascular branches are poorly visualized. There is no evidence of pulmonary embolism. There is no evidence of thoracic aortic aneurysm or dissection. There is mediastinal and bilateral hilar adenopathy, stable since the prior CT of January 31. Moderate changes of emphysema are present as well as mild scarring. There are multiple bilateral pulmonary nodules present, the largest of which measures 8 mm in size in the right upper lobe, best seen on image #71. There is an anterior right lower lobe nodule, also 7 mm in size, best seen on image #82, which also appear stable. No new nodules are noted since the prior exam, and no pleural effusions are seen. No localized inflammatory process is seen within the lungs. Limited images of the upper abdomen are unremarkable. IMPRESSION: No evidence of pulmonary embolism, thoracic aortic aneurysm or dissection. Multiple bilateral pulmonary nodules measuring up to 8 mm in size as described above. These nodules were all present and are unchanged since the prior CT of January 2024. Would suggest additional follow-up CT in 6 months to evaluate stability. Reviewed, Interpreted and Dictated by Jorge Hough III, MD Transcribed by Danita Acosta Authenticated and [facility]
--- NOTE | 2024-06-07 11:55 | PC.NURSE ---
second trop sent to lab
--- NOTE | 2024-06-07 12:02 | PC.NURSE ---
in room talking with patient at this time.
--- NOTE | 2024-06-07 12:19 | PC.NURSE ---
report called to second floor
[2024-06-07 12:27] LABS: Troponin I < 0.01 ng/ml (0.00-0.034)
[2024-06-07] MEDS: SODIUM CHLORIDE 0.9% 10ML SYR (RAD ONLY) 10 ML IV (12:33)
[2024-06-07] MEDS: 0.9 % SODIUM CHLORIDE 50 ML VIAL IV (12:33)
[2024-06-07] MEDS: IOPAMIDOL-370 (76%);100ML BOTTLE 75 ML IV (12:33)
--- NOTE | 2024-06-07 12:38 | P.CONS_ITS ---
History of Present Illness History of present illness: Mr. Boyer 64-year-old male greater than [id number] progress, history of COPD, chronic hypoxic respiratory failure, ILD, NSIP (negative autoimmune workup so far including CORIN, ANCA, RF, SSA SSB SCL 70 anti-dsDNA anticoagulant protein antibody). Patient denies stable cough and productive phlegm. Denies any worsening/color. Denies any subjective fevers or chills. Denies any known sick contacts. Admits gradual worsening respiratory status for the last 3 to 4 days. [facility] Disclaimer: The information contained in this section may have been updated after the patient was seen, as this information can be updated by other users. Medical History (Updated 06/07/24 @ 13:24 by Aisha Chanel MD) Acute and chronic respiratory failure with hypoxia ILD (interstitial lung disease) Mediastinal lymphadenopathy Hilar lymphadenopathy Nonspecific interstitial pneumonitis Fibrosis of lung Pulmonary arterial hypertension Hyperlipidemia Hypertension Screening for lung cancer Stopped smoking with greater than 30 pack year history Abnormal computerized axial tomography of chest COPD (chronic obstructive pulmonary disease) Lung nodule Abnormal PFT Pulmonary emphysema Dyspnea on exertion Surgical History History of prostate surgery History of knee surgery History of hip surgery Family History Other No significant family history Social History Smoking Status: Former smoker alcohol intake: never substance use type: denies use current occupational status: retired Travel in the last 8 weeks: None Review of Systems Constitutional Constitutional: Reports anorexia, Reports body ache(s) and Reports fatigue Eyes Eyes: Denies eye discharge, Denies dry eyes, Denies irritation and Denies itchy eyes ENT Ears, Nose, Mouth, and Throat: Denies epistaxis, Denies facial pain, Denies lip swelling and Denies throat swelling *Cardiovascular Cardiovascular: Reports dyspnea, Reports dyspnea on exertion and Reports leg edema *Respiratory Respiratory: Denies change in phlegm color, Reports chest congestion, Reports cough, Reports dyspnea, Reports dyspnea on exertion, Reports excessive phlegm production and Reports wheezing *Gastrointestinal Gastrointestinal: Denies abdominal pain, Denies belching and Denies cramping *Musculoskeletal Musculoskeletal: Reports back pain, Reports myalgias and Reports other (No small joint swelling or Pain) Psychiatric Psychiatric: Denies homicidal ideation and Denies suicidal ideation Endocrine Endocrine: Reports fatigue and Denies heat intolerance Hematologic/Lymphatic Hematologic/Lymphatic: Denies easy bleeding and Denies lymphadenopathy Allergic/Immunologic Allergic/Immunologic: Denies itchy eyes, Denies lip swelling, Denies throat swelling and Reports wheezing Pulmonology Exam Inpatient Vital signs and Labs for Last 24 Hours: Temp Pulse Resp BP Pulse Ox O2 Del Method O2 Flow Rate 98.1 F 73 18 126/67 94 L Nasal Cannula 4 06/07/24 08:16 06/07/24 12:00 06/07/24 12:00 06/07/24 12:00 06/07/24 12:00 06/07/24 11:00 06/07/24 11:00 Laboratory Results - last 24 hr 06/07/24 08:27: D-Dimer 0.84 H 06/07/24 08:37: WBC 9.8, RBC 3.96 L, Hgb 12.6 L, Hct 39.5 L, MCV 99.8 H, MCH 31.8 H, MCHC 31.8, RDW 15.2, Plt Count 454 H, MPV 7.9, Neut % (Auto) 79.1, Lymph % (Auto) 12.6, [place] % (Auto) 5.9, Eos % (Auto) 2.0, Baso % (Auto) 0.5, Neut # (Auto) 7.7, Lymph # (Auto) 1.2, [place] # (Auto) 0.6, Eos # (Auto) 0.2, Baso # (Auto) 0.1, Sodium 142, Potassium 4.5, Chloride 111 H, Carbon Dioxide 24, Anion Gap 11.5, BUN 18, Creatinine 0.90, Estimated Creat Clear 140, Estimated GFR 84, Est GFR ( Amer) 102, Glucose 125 H, Calcium 9.0, Magnesium 2.1, Total Bilirubin 0.5, AST 30, ALT 29, Alkaline Phosphatase 150 H, Troponin I < 0.01, N T-Pro-B Natriuret Pep 237 H, Total Protein 7.5, Albumin 4.1, Globulin 3.4 H, Albumin/Globulin Ratio 1.2 06/07/24 08:41: VBG pH 7.40, VBG pCO2 36.1, VBG pO2 70.1 H, VBG HCO3 22.0 L, VBG Total CO2 23.1, VBG O2 Saturation 94.0 H, VBG Base Excess -2.7 L, VBG Lactic Acid 1.3 06/07/24 10:25: SARS-CoV-2 (PCR) Not detected, Influenza A Untype (PCR) Not detected, Influenza Type B (PCR) Not detected 06/07/24 11:34: Troponin I < 0.01 I & O for Labs for Last 24 Hours: Intake & Output 06/04/24 06/05/24 06/06/24 06/07/24 23:59 23:59 23:59 23:59 Output Total 1650 / 1650 Balance -1650 / -1650 Weight 300 lb Constitutional: Present moderate distress Head: Present normocephalic and atraumatic ENT: Present normal exam, normal oropharynx and mucous membranes moist Neck: Present normal inspection and full ROM Respiratory: Present respiratory distress, wheezes, diminished air movement and able to speak in complete sentences; Absent crackles Cardiac: Present S1/S2, Tachycardia and radial pulses present GI: Present soft and distention; Absent tenderness or guarding Skin: Present intact; Absent cyanosis or jaundice Neuro: Present alert, awake and oriented x 3 Extremities: Present normal inspection; Absent clubbing or cyanosis Psychiatric: Present normal affect and cooperative Meds Home Medications and Allergies Home Medications Medication Instructions Recorded Confirmed Type atorvastatin 80 mg tablet 80 mg PO DAILY 04/14/22 06/07/24 History levothyroxine 75 mcg capsule 75 mcg PO DAILY 04/14/22 06/07/24 History losartan 100 mg tablet 100 mg PO DAILY 04/14/22 06/07/24 History aspirin 81 mg tablet,delayed 81 mg PO DAILY 07/13/22 06/07/24 History release insulin glargine 100 unit/mL (3 30 unit SQ DAILY 07/13/22 06/07/24 History mL) subcutaneous pen (Lantus Solostar U-100 Insulin) spironolactone 25 mg tablet 25 mg PO DAILY 07/13/22 06/07/24 History budesonide-formoterol HFA 160 2 puff inhalation BID shortness of 10/16/23 06/07/24 Rx mcg-4.5 mcg/actuation aerosol breath or wheezing 90 days #10.2 inhaler (Symbicort) grams tiotropium bromide 2.5 2 inh inhalation DAILY 90 days #4 10/16/23 06/07/24 Rx mcg/actuation mist for inhalation grams (Spiriva Respimat) amlodipine 10 mg tablet 10 mg PO DAILY 05/23/24 06/07/24 History duloxetine 60 mg capsule,delayed 60 mg PO DAILY 05/23/24 06/07/24 History release gabapentin 300 mg capsule 300 mg PO TID 05/23/24 06/07/24 History levothyroxine 75 mcg tablet 75 mcg PO DAILY 06/07/24 06/07/24 History metformin 1,000 mg tablet 1,000 mg PO BIDWMEAL 06/07/24 06/07/24 History montelukast 10 mg tablet 10 mg PO PM 06/07/24 06/07/24 History (Singulair) torsemide 20 mg tablet 20 mg PO DAILY 06/07/24 06/07/24 History New Prescriptions to Start Prescriptions: Allergies Allergy/AdvReac Type Severity Reaction Status Date / Time No Known Allergies Allergy Verified 05/23/24 10:02 Results Laboratory Findings 06/07/24 08:37 06/07/24 08:37 PT/INR, D-dimer D-Dimer 0.84 ug/mL (0.0-0.5) H 06/07/24 08:27 Abnormal lab findings: Abnormal Labs 06/07/24 06/07/24 06/07/24 08:27 08:37 08:41 RBC 3.96 L Hgb 12.6 L Hct 39.5 L MCV 99.8 H MCH 31.8 H Plt Count 454 H D-Dimer 0.84 H VBG pO2 70.1 H VBG HCO3 22.0 L VBG O2 Saturation 94.0 H VBG Base Excess -2.7 L Chloride 111 H Glucose 125 H Alkaline Phosphatase 150 H NT-Pro-B Natriuret Pep 237 H Globulin 3.4 H Assessment and Plan *Assessment and plan (1) Acute and chronic respiratory failure with hypoxia: Status: Acute Category: Medical Code(s): J96.21 - Acute and chronic respiratory failure with hypoxia (2) Acute exacerbation of chronic obstructive pulmonary disease: Status: Acute Category: Medical Code(s): J44.1 - Chronic obstructive pulmonary disease with (acute) exacerbation Plan Mr. Boyer 64-year-old male greater than [id number] progress, history of COPD, chronic hypoxic respiratory failure, ILD, NSIP (negative autoimmune workup so far including CORIN, ANCA, RF, SSA SSB SCL 70, anti-dsDNA antiRNP antibody). Patient admits stable cough and productive phlegm. Complains of worsening wheezing. Denies any worsening/color. Denies any subjective fevers or chills. Denies any known sick contacts. Admits gradual worsening respiratory status for the last 3 to 4 days. CTA chest upon admission, bilateral upper lobe predominant emphysematous changes, diffuse groundglass opacities and lower lobe predominant interstitial/fibrotic changes noted. No pleural effusions noted. These changes appear relatively stable from CT January 2024. No evidence of pulmonary embolism noted. Improving lymphadenopathy Afebrile. No evidence of leukocytosis. Hemodynamically stable. COVID-19 flu PCR negative. Plan: -Continue oxygen supplementation to maintain O2 saturation goal of 89% and above -DuoNebs every 6 hours along with Pulmicort every 12 scheduled -Follow-up with [facility] -Comprehensive respiratory viral PCR panel -Methylprednisolone 60 mg IV daily. Can be weaned to prednisone 40 mg daily upon discharge to complete total of 5-day course -Agree with holding antibiotics at this point of time pending clinical improvement. Follow-up with procalcitonin and CRP. # Thank you for involving pulmonary in this patient care. Will continue to follow.
--- NOTE | 2024-06-07 12:39 | PC.NURSE ---
arrived by w/c from ED
[2024-06-07 13:47] LABS: Procalcitonin 0.045 ng/mL (0.0-2.0)
[2024-06-07 13:56] LABS: Adenovirus,PCR Not Detected (NotDetected); Bordetella Pertussis Not Detected (NotDetected); Chlamydophila Pneumoniae, PCR Not Detected (NotDetected); Coronavirus 19, PCR Not Detected (NotDetected); Coronavirus 229E Not Detected (NotDetected); Coronavirus NL63 Not Detected (NotDetected); Coronavirus OC43 Not Detected (NotDetected); Coronovirus HKU1,PCR Not Detected (NotDetected); Human Metapneumovirus Not Detected (NotDetected); Influenza A, PCR Not Detected (NotDetected); Influenza AH1, 2009 Not Detected (NotDetected); Influenza AH1, PCR Not Detected (NotDetected); Influenza AH3,PCR Not Detected (NotDetected); Influenza B, PCR Not Detected (NotDetected); Mycoplasma Pneumoniae, PCR Not Detected (NotDetected); Parainfluenza 1, PCR Not Detected (NotDetected); Parainfluenza 2, PCR Not Detected (NotDetected); Parainfluenza 3, PCR Not Detected (NotDetected); Parainfluenza 4, PCR Not Detected (NotDetected); Respiratory Syncytial Virus Not Detected (NotDetected); Rhinovirus/Enterovirus Not Detected (NotDetected)
[2024-06-07] MEDS: HYDROCORTISONE SOD SUCCINATE 100MG VIAL 50 MG IV ×2 (14:04→20:25)
[2024-06-07 14:06] LABS: Troponin I < 0.01 ng/ml (0.00-0.034)
[2024-06-07 15:14] LABS: Lactate Dehydrogenase 244 U/L (313-618)
[2024-06-07 16:20] LABS: POC Glucose,Bedside 136 (70-110)
[2024-06-07] MEDS: BUDESONIDE 0.5MG/2ML NEB 0.5 MG IH (18:05)
[2024-06-07 20:16] LABS: POC Glucose,Bedside 146 (70-110)
[2024-06-07] MEDS: ENOXAPARIN 40MG/0.4ML SYRINGE 40 MG SQ (20:25)
[2024-06-07] MEDS: INSULIN GLARGINE 100 UNITS/ML 3ML FLEXPEN 20 UNIT SQ (20:36)
[2024-06-07 22:12] LABS: Troponin I < 0.01 ng/ml (0.00-0.034)
[2024-06-08] VITALS (8 sets, daily range): BP systolic 102–126; BP diastolic 40–83; PULSE 64–88; RESP 16–20; TEMP 36.8–37; O2SAT 92–96; BMI 42.1
[2024-06-08] MEDS: HYDROCORTISONE SOD SUCCINATE 100MG VIAL 50 MG IV (05:26)
--- NOTE | 2024-06-08 05:48 | PC.NURSE ---
Addendum entered by Sunil Swift RN 06/08/24 06:05: weaned patient to 3L O2 nasal cannula and is sating at 94% Original Note: Patient is currently asleep and has tolerated 4L O2 via nasal cannula throughout the night. He has not called out for anything and has no complaints at this time. Call light within reach.
[2024-06-08 06:14] LABS: POC Glucose,Bedside 113 (70-110)
[2024-06-08] MEDS: BUDESONIDE 0.5MG/2ML NEB 0.5 MG IH (06:34)
[2024-06-08] MEDS: IPRATROPIUM/ALBUTEROL 3 ML NEB IH ×2 (06:34→11:24)
[2024-06-08 08:01] LABS: Basophils # 0.1 K/mm3 (0-0.2); Basophils % 0.5 % (0.1-2.0); Eosinophils # 0.1 K/mm3 (0.0-0.4); Eosinophils % 0.7 % (0.1-12.0); Hematocrit 40.1 % (42.0-52.0); Hemoglobin 12.8 g/dL (14.1-18.0); Lymphocytes # 1.1 K/mm3 (0.7-4.5); Lymphocytes % 9.9 % (10-50); Mean Corpuscular Hemoglobin 31.8 pg (27.0-31.2); Mean Corpuscular Volume 99.2 fl (80-94); Mean Platelet Volume 7.8 fl (7.4-10.4); Monocytes # 0.6 K/mm3 (0.1-1.0); Monocytes % 5.2 % (1.7-9.3); Neutrophils # 9.1 K/mm3 (1.8-7.8); Neutrophils % 83.6 % (37.0-80.0); Platelet Count 463 K/mm3 (142-424); Red Blood Count 4.04 M/mm3 (4.60-6.20); Red Cell Distribution Width 15.3 % (11.5-17.5); White Blood Count 10.9 K/mm3 (4.8-10.8)
[2024-06-08 08:22] LABS: Anion Gap 10.8 mEq/L (5-15); Blood Urea Nitrogen 18 mg/dl (9-20); Calcium 9.1 mg/dl (8.4-10.2); Carbon Dioxide 26 mmol/L (22.0-30.0); Chloride 109 mmol/L (98-107); Cholesterol 145 mg/dl (140-200); Creatinine Clearance Estimated 84 mL/min (50-200); Estimated Glomerular Filt Rate 97 ml/min (>60); GFR (African American) 117 ML/MIN (>60); Glucose 133 mg/dl (74-100); HDL Cholesterol 36 mg/dl (40-60); Magnesium 2.3 mg/dl (1.6-2.3); Potassium 3.8 mmoL/L (3.5-5.1); Sodium 142 mmol/L (136-145); Triglycerides 96 mg/dl (30-150); VLDL Cholesterol 19 mg/dL (0-40)
[2024-06-08 08:33] LABS: Direct LDL Cholesterol 81.41 mg/dL (100-129)
[2024-06-08 11:44] LABS: POC Glucose,Bedside 126 (70-110)
--- NOTE | 2024-06-08 12:29 | EXP.DC.SUM ---
General Admission date:: 06/07/24 Discharge date: 06/08/24 HPI HPI HPI: Really nice patient with past medical history of interstitial lung disease cared for by steam powerplant supervisor Dr. Chanel, hilar/mediastinal lymphadenopathy, COPD on 4 L oxygen at baseline, hypertension, hyperlipidemia, abnormal cardiac stress test, obesity, diabetes. Patient sees cardiology at this hospital, with left heart cath scheduled for late May. I came in today because I did not think I would make it to the heart cath date. Complains of COE/SOB with minimal exertion and at rest. States he drove himself here, then walked in the building because my is better directions. Patient states he required 8 L oxygen to reach emergency room walking with minimal exertion I had to turn the tank all the way up. Patient O2 saturation 88% on 4 L at time evaluation in emergency room. Denies fevers, chills, known sick contacts, recent travel, new phlegm. Patient states he chronically brings up whitish phlegm. Denies lower extremity edema, chair sleeping. States he uses 2 pillows at baseline. Also denies abdominal pain, nausea, vomiting, diarrhea, constipation, dysuria. Hospital Course Hospital Course Hospital Course: The patient presented with shortness of air and was admitted to the telemetry unit with pulmonology consultation. Patient self-reported noncompliance with diuretic therapy was reported in the ED. He received loop diuretic therapy. Pulmonology evaluated the patient and identified baseline status with return to home oxygen requirement. His troponin trend was negative and his shortness of air improved. Imaging, labs and inflammatory markers were assessed and trended. He requested to be discharged home to the care of his family. He plans to continue follow-up with his base filler operator for planned upcoming intervention. On discharge he was prescribed a short course of prednisone as recommended by pulmonology and nitroglycerin and Ranexa were added to his cardiac regimen. I spent 35 minutes in [id number] time with the patient and nursing staff (Jackelin) concerning the discharge process. We discussed the admitting diagnoses and hospital course. We discussed identified improvement and the patient's desire to be discharged. We reviewed inpatient studies and imaging. The patient voiced understanding on the importance of follow-up with his primary care provider, base filler operator and steam powerplant supervisor. The patient plans to be compliant with the medication regimen prescribed and follow-up appointments. He understands that he can return to the emergency department with any sudden changes or concerns. Exam Data for Last 24 hours Vital signs and Labs for Last 24 Hours: Temp Pulse Resp BP Pulse Ox O2 Del Method O2 Flow Rate 98.6 F 76 17 114/83 92 L Nasal Cannula 3 06/08/24 08:00 06/08/24 11:25 06/08/24 08:00 06/08/24 08:00 06/08/24 11:25 06/08/24 11:25 06/08/24 11:25 Laboratory Results - last 24 hr 06/07/24 08:37: C-Reactive Protein 35.0 H, Procalcitonin 0.045 06/07/24 10:25: Chlamy pneumoniae PCR Not detected, Adenovirus (PCR) Not detected, B. pertussis DNA (PCR) Not detected, Coronavirus OC43 (PCR) Not detected, Coronavirus HKU1 (PCR) Not detected, Coronavirus 229E (PCR) Not detected, SARS-CoV-2 (PCR) Not detected, Coronavirus NL63 (PCR) Not detected, Human Metapneumovir PCR Not detected, Influenza A (H1) PCR Not detected, Influ A (H1N1/09) PCR Not detected, Influenza A (H3) PCR Not detected, Influenza Type A (PCR) Not detected, Influenza Type B (PCR) Not detected, M. pneumoniae (PCR) Not detected, Parainfluenza 1 (PCR) Not detected, Parainfluenza 2 (PCR) Not detected, Parainfluenza 3 (PCR) Not detected, Parainfluenza 4 (PCR) Not detected, RSV (PCR) Not detected, Entero/Rhino (PCR) Not detected 06/07/24 13:15: Lactate Dehydrogenase 244 L 06/07/24 13:30: Troponin I < 0.01 06/07/24 16:12: POC Glucose 136 H 06/07/24 20:05: POC Glucose 146 H 06/07/24 21:35: Troponin I < 0.01 06/08/24 05:38: POC Glucose 113 H 06/08/24 07:30: WBC 10.9 H, RBC 4.04 L, Hgb 12.8 L, Hct 40.1 L, MCV 99.2 H, MCH 31.8 H, MCHC 32.0, RDW 15.3, Plt Count 463 H, MPV 7.8, Neut % (Auto) 83.6 H, Lymph % (Auto) 9.9 L, [place] % (Auto) 5.2, Eos % (Auto) 0.7, Baso % (Auto) 0.5, Neut # (Auto) 9.1 H, Lymph # (Auto) 1.1, [place] # (Auto) 0.6, Eos # (Auto) 0.1, Baso # (Auto) 0.1, Sodium 142, Potassium 3.8, Chloride 109 H, Carbon Dioxide 26, Anion Gap 10.8, BUN 18, Creatinine 0.80, Estimated Creat Clear 84, Estimated GFR 97, Est GFR ( Amer) 117, Glucose 133 H, Calcium 9.1, Magnesium 2.3, Triglycerides 96, Cholesterol 145, LDL Cholesterol Direct 81.41 L, VLDL Cholesterol 19, HDL Cholesterol 36 L, Cholesterol/HDL Ratio 4.0 H 06/08/24 11:36: POC Glucose 126 H I & O for Last 24 hours: Intake & Output 06/05/24 06/06/24 06/07/24 06/08/24 23:59 23:59 23:59 23:59 Intake Total 420 / 720 690 / 690 Output Total 2075 / 2825 750 / 750 Balance -1655 / -2105 -60 / -60 Weight 148.96 kg 148.96 kg Constitutional Constitutional: no acute distress, morbidly obese, chronically ill appearing and cooperative *Routine HEENT Exam Head: Present normocephalic ENT: Present mucous membranes moist *Routine Neck Exam Neck: Present supple and trachea midline; Absent JVD or lymphadenopathy *Routine Respiratory Exam Respiratory: Present rhonchi, normal respiratory effort and symmetric chest movement *Routine Cardiovascular Exam Cardiovascular: Present RRR *Routine Abdominal Exam Abdominal: Absent tenderness *Routine Extremities Exam Extremities: Present edema, full ROM and normal capillary refill *Routine Skin Exam Skin: Present warm; Absent rash *Routine Neurological Exam Neurological: Present alert, oriented X3, moving all extremities, vision grossly intact, hearing grossly intact and normal speech; Absent sensory deficit or motor deficit Routine Psychiatric Exam Psychiatric: Present normal affect, normal thought process, cooperative, good insight and good judgment Results Data Completed and Pending Labs on day of discharge: Labs from last 24 hours 06/08/24 06/08/24 06/08/24 11:36 07:30 05:38 WBC 10.9 H RBC 4.04 L Hgb 12.8 L Hct 40.1 L MCV 99.2 H MCH 31.8 H MCHC 32.0 RDW 15.3 Plt Count 463 H MPV 7.8 Neut % (Auto) 83.6 H Lymph % (Auto) 9.9 L [place] % (Auto) 5.2 Eos % (Auto) 0.7 Baso % (Auto) 0.5 Neut # (Auto) 9.1 H Lymph # (Auto) 1.1 [place] # (Auto) 0.6 Eos # (Auto) 0.1 Baso # (Auto) 0.1 Sodium 142 Potassium 3.8 Chloride 109 H Carbon Dioxide 26 Anion Gap 10.8 BUN 18 Creatinine 0.80 Estimated Creat Clear 84 Estimated GFR 97 Est GFR ( Amer) 117 Glucose 133 H POC Glucose 126 H 113 H Calcium 9.1 Magnesium 2.3 Lactate Dehydrogenase Troponin I C-Reactive Protein Triglycerides 96 Cholesterol 145 LDL Cholesterol Direct 81.41 L VLDL Cholesterol 19 HDL Cholesterol 36 L Cholesterol/HDL Ratio 4.0 H Procalcitonin Chlamy pneumoniae PCR Adenovirus (PCR) B. pertussis DNA (PCR) Coronavirus OC43 (PCR) Coronavirus HKU1 (PCR) Coronavirus 229E (PCR) SARS-CoV-2 (PCR) Coronavirus NL63 (PCR) Human Metapneumovir PCR Influenza A (H1) PCR Influ A (H1N1/09) PCR Influenza A (H3) PCR Influenza Type A (PCR) Influenza Type B (PCR) M. pneumoniae (PCR) Parainfluenza 1 (PCR) Parainfluenza 2 (PCR) Parainfluenza 3 (PCR) Parainfluenza 4 (PCR) RSV (PCR) Entero/Rhino (PCR) 06/07/24 06/07/24 06/07/24 21:35 20:05 16:12 WBC RBC Hgb Hct MCV MCH MCHC RDW Plt Count MPV Neut % (Auto) Lymph % (Auto) [place] % (Auto) Eos % (Auto) Baso % (Auto) Neut # (Auto) Lymph # (Auto) [place] # (Auto) Eos # (Auto) Baso # (Auto) Sodium Potassium Chloride Carbon Dioxide Anion Gap BUN Creatinine Estimated Creat Clear Estimated GFR Est GFR ( Amer) Glucose POC Glucose 146 H 136 H Calcium Magnesium Lactate Dehydrogenase Troponin I < 0.01 C-Reactive Protein Triglycerides Cholesterol LDL Cholesterol Direct VLDL Cholesterol HDL Cholesterol Cholesterol/HDL Ratio Procalcitonin Chlamy pneumoniae PCR Adenovirus (PCR) B. pertussis DNA (PCR) Coronavirus OC43 (PCR) Coronavirus HKU1 (PCR) Coronavirus 229E (PCR) SARS-CoV-2 (PCR) Coronavirus NL63 (PCR) Human Metapneumovir PCR Influenza A (H1) PCR Influ A (H1N1/09) PCR Influenza A (H3) PCR Influenza Type A (PCR) Influenza Type B (PCR) M. pneumoniae (PCR) Parainfluenza 1 (PCR) Parainfluenza 2 (PCR) Parainfluenza 3 (PCR) Parainfluenza 4 (PCR) RSV (PCR) Entero/Rhino (PCR) 06/07/24 06/07/24 06/07/24 13:30 13:15 10:25 WBC RBC Hgb Hct MCV MCH MCHC RDW Plt Count MPV Neut % (Auto) Lymph % (Auto) [place] % (Auto) Eos % (Auto) Baso % (Auto) Neut # (Auto) Lymph # (Auto) [place] # (Auto) Eos # (Auto) Baso # (Auto) Sodium Potassium Chloride Carbon Dioxide Anion Gap BUN Creatinine Estimated Creat Clear Estimated GFR Est GFR ([facility]) Glucose POC Glucose Calcium Magnesium Lactate Dehydrogenase 244 L Troponin I < 0.01 C-Reactive Protein Triglycerides Cholesterol LDL Cholesterol Direct VLDL Cholesterol HDL Cholesterol Cholesterol/HDL Ratio Procalcitonin Chlamy pneumoniae PCR Not detected Adenovirus (PCR) Not detected B. pertussis DNA (PCR) Not detected Coronavirus OC43 (PCR) Not detected Coronavirus HKU1 (PCR) Not detected Coronavirus 229E (PCR) Not detected SARS-CoV-2 (PCR) Not detected Coronavirus NL63 (PCR) Not detected Human Metapneumovir PCR Not detected Influenza A (H1) PCR Not detected Influ A (H1N1/09) PCR Not detected Influenza A (H3) PCR Not detected Influenza Type A (PCR) Not detected Influenza Type B (PCR) Not detected M. pneumoniae (PCR) Not detected Parainfluenza 1 (PCR) Not detected Parainfluenza 2 (PCR) Not detected Parainfluenza 3 (PCR) Not detected Parainfluenza 4 (PCR) Not detected RSV (PCR) Not detected Entero/Rhino (PCR) Not detected 06/07/24 08:37 WBC RBC Hgb Hct MCV MCH MCHC RDW Plt Count MPV Neut % (Auto) Lymph % (Auto) [place] % (Auto) Eos % (Auto) Baso % (Auto) Neut # (Auto) Lymph # (Auto) [place] # (Auto) Eos # (Auto) Baso # (Auto) Sodium Potassium Chloride Carbon Dioxide Anion Gap BUN Creatinine Estimated Creat Clear Estimated GFR Est GFR ( Amer) Glucose POC Glucose Calcium Magnesium Lactate Dehydrogenase Troponin I C-Reactive Protein 35.0 H Triglycerides Cholesterol LDL Cholesterol Direct VLDL Cholesterol HDL Cholesterol Cholesterol/HDL Ratio Procalcitonin 0.045 Chlamy pneumoniae PCR Adenovirus (PCR) B. pertussis DNA (PCR) Coronavirus OC43 (PCR) Coronavirus HKU1 (PCR) Coronavirus 229E (PCR) SARS-CoV-2 (PCR) Coronavirus NL63 (PCR) Human Metapneumovir PCR Influenza A (H1) PCR Influ A (H1N1/09) PCR Influenza A (H3) PCR Influenza Type A (PCR) Influenza Type B (PCR) M. pneumoniae (PCR) Parainfluenza 1 (PCR) Parainfluenza 2 (PCR) Parainfluenza 3 (PCR) Parainfluenza 4 (PCR) RSV (PCR) Entero/Rhino (PCR) DS: Diagnosis Discharge Diagnosis (1) Acute and chronic respiratory failure with hypoxia: Status: Acute Code(s): J96.21 - Acute and chronic respiratory failure with hypoxia (2) Acute exacerbation of chronic obstructive pulmonary disease: Status: Acute Code(s): J44.1 - Chronic obstructive pulmonary disease with (acute) exacerbation (3) Diabetes mellitus with diabetic neuropathy: Status: Acute Code(s): E11.40 - Type 2 diabetes mellitus with diabetic neuropathy, unspecified Qualifiers: Diabetes mellitus type: type 2 Diabetes mellitus extermination supervisor insulin use: with penitentiary use Qualified Code(s): E11.40 - Type 2 diabetes mellitus with diabetic neuropathy, unspecified; Z79.4 - middle or intermediate school principal (current) use of insulin (4) Abnormal cardiovascular stress test: Status: Acute Code(s): R94.39 - Abnormal result of other cardiovascular function study (5) Acute respiratory failure with hypoxemia: Status: Acute Code(s): J96.01 - Acute respiratory failure with hypoxia (6) ILD (interstitial lung disease): Status: Acute Code(s): J84.9 - Interstitial pulmonary disease, unspecified (7) Dyspnea: Status: Acute Code(s): R06.00 - Dyspnea, unspecified (8) Hypoxia: Status: Acute Code(s): R09.02 - Hypoxemia Meds Home Medications and Allergies Home Medications Medication Instructions Recorded Confirmed Type atorvastatin 80 mg tablet 80 mg PO DAILY 04/14/22 06/07/24 History losartan 100 mg tablet 100 mg PO DAILY 04/14/22 06/07/24 History aspirin 81 mg tablet,delayed 81 mg PO DAILY 07/13/22 06/07/24 History release insulin glargine 100 unit/mL (3 30 unit SQ DAILY 07/13/22 06/07/24 History mL) subcutaneous pen (Lantus Solostar U-100 Insulin) spironolactone 25 mg tablet 25 mg PO DAILY 07/13/22 06/07/24 History budesonide-formoterol HFA 160 2 puff inhalation BID shortness of 10/16/23 06/07/24 Rx mcg-4.5 mcg/actuation aerosol breath or wheezing 90 days #10.2 inhaler (Symbicort) grams tiotropium bromide 2.5 2 inh inhalation DAILY 90 days #4 10/16/23 06/07/24 Rx mcg/actuation mist for inhalation grams (Spiriva Respimat) amlodipine 10 mg tablet 10 mg PO DAILY 05/23/24 06/07/24 History duloxetine 60 mg capsule,delayed 60 mg PO DAILY 05/23/24 06/07/24 History release gabapentin 300 mg capsule 300 mg PO TID 05/23/24 06/07/24 History levothyroxine 75 mcg tablet 75 mcg PO DAILY 06/07/24 06/07/24 History metformin 1,000 mg tablet 1,000 mg PO BIDWMEAL 06/07/24 06/07/24 History montelukast 10 mg tablet 10 mg PO PM 06/07/24 06/07/24 History (Singulair) torsemide 20 mg tablet 20 mg PO DAILY 06/07/24 06/07/24 History nitroglycerin 0.4 mg sublingual 0.4 mg sublingual Q5M PRN chest 06/08/24 Rx tablet pain #20 tabs prednisone 20 mg tablet 40 mg (2 x 20 mg) PO DAILY #10 tabs 06/08/24 Rx ranolazine 500 mg tablet,extended 500 mg PO BID #60 tabs 06/08/24 Rx release,12 hr New Prescriptions to Start Prescriptions: nitroglycerin Salinas,Ricardo prednisone Josiic,Ricardo ranolazine Salinas,Ricardo Allergies Allergy/AdvReac Type Severity Reaction Status Date / Time No Known Allergies Allergy Verified 05/23/24 10:02 Discharge Plan Disposition Patient Disposition: Home, Self-Care Condition: Fair Discharge Order Discharge Orders: Discharge Order (Routine); Ordered 06/08/24 Ordered By: Ricardo Niño Follow up Plan Follow up with: Jaron Robles PA [Physician Flight Simulator Teacher] - 2 weeks (The office will call you with follow up appt. ) Renetta Arthur PA [Primary Care Provider] - 1 week (Please call the office for follow up appt. ) Aisha Chanel MD [Physician] - 1 month (The office will call you with follow up appt. ) Prescriptions/Medication Reconciliation: New nitroglycerin 0.4 mg tablet, sublingual 0.4 mg sublingual Q5M PRN (Reason: chest pain) Qty: 20 0RF Rx Instructions: do not exceed 3 doses per episode prednisone 20 mg tablet 40 mg PO DAILY Qty: 10 0RF ranolazine 500 mg tablet extended release 12 hr 500 mg PO BID Qty: 60 0RF Continued losartan 100 mg tablet 100 mg PO DAILY atorvastatin 80 mg tablet 80 mg PO DAILY amlodipine 10 mg tablet 10 mg PO DAILY Patient Comments: take 1 tablet (10 mg) by oral route once daily gabapentin 300 mg capsule 300 mg PO TID duloxetine 60 mg capsule,delayed release(DR/EC) 60 mg PO DAILY Patient Comments: Take 1 capsule every day by oral route for 90 days. spironolactone 25 mg tablet 25 mg PO DAILY Patient Comments: TAKE ONE TABLET BY MOUTH DAILY insulin glargine [Lantus Solostar U-100 Insulin] 100 unit/mL (3 mL) insulin pen 30 unit SQ DAILY Patient Comments: INJECT 30 UNITS SUBCUTANEOUSLY EVERY DAY FOR ONE MONTH aspirin 81 mg tablet,delayed release (DR/EC) 81 mg PO DAILY Patient Comments: TAKE ONE TABLET BY MOUTH DAILY Spiriva Respimat 2.5 mcg/actuation mist 2 inh inhalation DAILY 90 Days Qty: 4 3RF budesonide-formoterol [Symbicort] 160-4.5 mcg/actuation HFA aerosol inhaler 2 puff inhalation BID 90 Days Qty: 10.2 3RF torsemide 20 mg tablet 20 mg PO DAILY Patient Comments: TAKE ONE TABLET BY MOUTH DAILY levothyroxine 75 mcg tablet 75 mcg PO DAILY Patient Comments: take 1 tablet (75 mcg) by oral route once daily metformin 1,000 mg tablet 1,000 mg PO BIDWMEAL Patient Comments: take 1 tablet (1,000 mg) by oral route 2 times per day with morning and evening meals montelukast [Singulair] 10 mg tablet 10 mg PO PM Problem Reconciliation Problems Reviewed?: Yes Patient Discharge Instructions ACTIVITY: Continue current activity and Ambulate as tolerated DIET: cardiac Patient Instructions: Chronic Obstructive Pulmonary Disease, Heart Failure, DI for Chronic Obstructive Pulmonary Disease, DI for Hypoxia Providers Primary Care Provider: Renetta Arthur Admit Provider: Olman Prasad Attending Provider: Olman Prasad
--- NOTE | 2024-06-10 13:47 | CARE MANAGER ---
Contacted patient related to hospital discharge. He states he feels much better and is aware of follow up appointments. Denies questions or concerns at this time. CAM Jacinto
== END 2024-06-08 13:20 | disposition home or self-care (01) ==
LOC: ER 11:43 → 2ND 11:51
PROVIDERS: Internal Medicine Pulmonary Disease; Admitting Provider Internal Medicine; Emergency Provider Emergency Medicine; PCP Physician Assistant; Visit Provider Internal Medicine
DX: J96.21 Acute and chronic respiratory failure with hypoxia (principal); Z79.899 Other long term (current) drug therapy; E11.40 Type 2 diabetes mellitus with diabetic neuropathy, unspecified; Z79.4 Long term (current) use of insulin; R94.31 Abnormal electrocardiogram [ECG] [EKG]; J84.9 Interstitial pulmonary disease, unspecified; I10 Essential (primary) hypertension; I27.20 Pulmonary hypertension, unspecified; J43.9 Emphysema, unspecified; Z87.891 Personal history of nicotine dependence
CPT/HCPCS: 36415; 71045; 71275; 80048; 80053; 80061; 82803; 82962; 83615; 83735; 83880; 84145; 84484; 85025; 85378; 86140; 87040; 87581; 87632; 87635; 87636; 87798; 93005; 94640; 94761; 99285; G0378; J1650; J1940; J7620; Q9967

== ENCOUNTER 2024-06-17 07:48 | Day surgery (SDC) | payer MEDICARE, SELFPAY ==
--- NOTE | 2024-06-17 07:21 | IR_ITS ---
APPROVED REPORT Patient Location: Outpatient PROCEDURES Right heart catheterization INDICATION Pulmonary hypertension Informed consent was obtained prior to the procedure. COMPLICATIONS NONE Estimated Blood Loss: LESS THAN 10 ML TECHNIQUE One percent lidocaine was used to anesthetize the right anterior aspect of the neck. A apple thinner needle was used to identify the right internal jugular vein. Following this a larger cannulation needle was used to cannulate the right internal jugular vein and a wire was passed into the vein. Prior to the 7 [place] sheath being inserted the wire was confirmed under fluoroscopic guidance to be in the inferior vena cava. A 7 [place] sheath was introduced and a [place]-Nic catheter was floated using hemodynamic waveforms in the pulmonary artery, right ventricle , and right atrium. Saturations were obtained in the pulmonary artery and the right atrium. At the end of the procedure the patient was transferred to the postop holding area in stable condition for sheath removal. ANGIOGRAPHIC RESULTS Right atrial pressure 8 mmHg Pulmonary artery pressure 50/20 mmHg Pulmonary artery occlusion pressure 18 mmHg Aortic saturation 90% Pulmonary artery saturation 74% Right atrial saturation 75% Hemoglobin 13.2 Cardiac output 11.4 Cardiac index 4.4 IMPRESSION Elevated left-sided filling pressures consistent with diastolic dysfunction Moderate pulmonary hypertension PLAN 1. Increase diuresis to decrease left-sided filling pressures 2. Recommend sleep study 3. Weight loss cardiac rehabilitation Electronically signed by : Anshu Oro MD 06/17/2024 15:33:27
[2024-06-17 07:53] VITALS: BMI 41.7
[2024-06-17 08:02] VITALS: BP 122/74; PULSE 71; RESP 17; TEMP 36.6; O2SAT 95
[2024-06-17 08:28] LABS: Basophils # 0.1 K/mm3 (0-0.2); Basophils % 1.5 % (0.1-2.0); Eosinophils # 0.2 K/mm3 (0.0-0.4); Eosinophils % 2.8 % (0.1-12.0); Hemoglobin 13.2 g/dL (14.1-18.0); Lymphocytes # 1.5 K/mm3 (0.7-4.5); Lymphocytes % 17.7 % (10-50); Mean Corpuscular HGB Conc 33.1 g/dL (31.8-35.4); Mean Corpuscular Hemoglobin 31.9 pg (27.0-31.2); Mean Corpuscular Volume 96.3 fl (80-94); Mean Platelet Volume 7.8 fl (7.4-10.4); Monocytes # 0.5 K/mm3 (0.1-1.0); Monocytes % 5.7 % (1.7-9.3); Neutrophils # 6.2 K/mm3 (1.8-7.8); Neutrophils % 72.3 % (37.0-80.0); Platelet Count 508 K/mm3 (142-424); Red Blood Count 4.15 M/mm3 (4.60-6.20); Red Cell Distribution Width 14.8 % (11.5-17.5); White Blood Count 8.5 K/mm3 (4.8-10.8)
[2024-06-17 08:33] LABS: Chloride 106 mmol/L (98-107); Sodium 137 mmol/L (136-145)
[2024-06-17 08:34] LABS: Potassium 4.6 mmoL/L (3.5-5.1)
[2024-06-17 08:36] LABS: Blood Urea Nitrogen 24 mg/dl (9-20); Creatinine Clearance Estimated 77 mL/min (50-200); Estimated Glomerular Filt Rate 67 ml/min (>60); GFR (African American) 81 ML/MIN (>60)
[2024-06-17 08:37] LABS: Anion Gap 9.6 mEq/L (5-15); Carbon Dioxide 26 mmol/L (22.0-30.0); Glucose 113 mg/dl (74-100)
[2024-06-17] MEDS: diphenhydrAMINE 50MG/ML VIAL 50 MG IV (10:02)
[2024-06-17] MEDS: 0.9 % SODIUM CHLORIDE 500 ML 25 ML IV (10:03)
[2024-06-17] MEDS: MIDAZOLAM HCL 1MG/1ML 5ML VIAL 1 MG IV (10:03)
[2024-06-17] MEDS: LIDOCAINE 1% 10ML MDV 20 ML IJ (10:03)
[2024-06-17] MEDS: HEPARIN 1,000 UNITS/500ML NS (CATH LAB) 3000 UNIT IV (10:03)
[2024-06-17] MEDS: FENTANYL 100MCG/2ML VIAL 50 MCG IV (10:04)
[2024-06-17 10:25] VITALS: BP 95/58; PULSE 60; PULSE 64; RESP 18; O2SAT 94
[2024-06-17 10:30] VITALS: BP 102/59; PULSE 63; RESP 18; O2SAT 93
[2024-06-17 10:35] VITALS: BP 114/63; PULSE 62; RESP 18; O2SAT 93
[2024-06-17 10:40] VITALS: BP 100/54; PULSE 61; RESP 18; O2SAT 94
[2024-06-17 10:50] LABS: CATHL Arterial O2 SAT 74 % (90-100); CATHL Venous O2 SAT 75.2 % (75-80)
[2024-06-17 10:55] VITALS: BP 111/64; PULSE 61; RESP 18; O2SAT 93
== END 2024-06-17 11:26 | disposition home or self-care (01) ==
PROVIDERS: PCP Nurse Practitioner; Visit Provider Internal Medicine
DX: I27.21 Secondary pulmonary arterial hypertension (principal); R06.09 Other forms of dyspnea; E11.9 Type 2 diabetes mellitus without complications; Z79.4 Long term (current) use of insulin; I27.20 Pulmonary hypertension, unspecified; Z79.899 Other long term (current) drug therapy; E78.5 Hyperlipidemia, unspecified; I10 Essential (primary) hypertension; J44.9 Chronic obstructive pulmonary disease, unspecified; J96.11 Chronic respiratory failure with hypoxia; I27.22 Pulmonary hypertension due to left heart disease; Z87.891 Personal history of nicotine dependence
CPT/HCPCS: 80048; 82810; 85025; 93451; 99152; C1894; J1200; J1644; J2250; J3010

== ENCOUNTER 2024-07-09 09:00 | Outpatient (CLI) | payer MEDICARE, SELFPAY ==
[2024-07-09 09:23] LABS: Basophils # 0.1 K/mm3 (0-0.2); Basophils % 0.9 % (0.1-2.0); Eosinophils # 0.2 K/mm3 (0.0-0.4); Hematocrit 42.4 % (42.0-52.0); Hemoglobin 13.3 g/dL (14.1-18.0); Lymphocytes # 1.5 K/mm3 (0.7-4.5); Lymphocytes % 17.5 % (10-50); Mean Corpuscular HGB Conc 31.5 g/dL (31.8-35.4); Mean Corpuscular Volume 98.6 fl (80-94); Monocytes # 0.6 K/mm3 (0.1-1.0); Monocytes % 7.5 % (1.7-9.3); Neutrophils % 72.1 % (37.0-80.0); Platelet Count 503 K/mm3 (142-424); Red Cell Distribution Width 14.8 % (11.5-17.5); White Blood Count 8.3 K/mm3 (4.8-10.8)
[2024-07-09 10:16] LABS: Chloride 111 mmol/L (98-107); Sodium 142 mmol/L (136-145)
[2024-07-09 10:19] LABS: Blood Urea Nitrogen 33 mg/dl (9-20); Estimated Glomerular Filt Rate 61 ml/min (>60); GFR (African American) 73 ML/MIN (>60)
[2024-07-09 10:20] LABS: Calcium 9.1 mg/dl (8.4-10.2); Carbon Dioxide 27 mmol/L (22.0-30.0); Glucose 109 mg/dl (74-100)
[2024-07-14 23:07] LABS: D001-IgE D pteronyssinus <0.10 kU/L (Class 0); D002-IgE D farinae <0.10 kU/L (Class 0); E001-IgE Cat Dander <0.10 kU/L (Class 0); E005-IgE Dog Dander <0.10 kU/L (Class 0); E072-IgE Mouse Urine <0.10 kU/L (Class 0); G002-IgE Bermuda Grass <0.10 kU/L (Class 0); G006-IgE Timothy Grass <0.10 kU/L (Class 0); I006-IgE Cockroach, German <0.10 kU/L (Class 0); Immunoglobulin E, Total 30 IU/mL (6-495); M001-IgE Penicillium chrysogen <0.10 kU/L (Class 0); M002-IgE Cladosporium herbarum <0.10 kU/L (Class 0); M003-IgE Aspergillus fumigatus <0.10 kU/L (Class 0); M006-IgE Alternaria alternata <0.10 kU/L (Class 0); T001-IgE Maple/Box Elder <0.10 kU/L (Class 0); T003-IgE Common Silver Birch <0.10 kU/L (Class 0); T006-IgE Cedar, Mountain <0.10 kU/L (Class 0); T007-IgE Oak, White <0.10 kU/L (Class 0); T008-IgE Elm, American <0.10 kU/L (Class 0); T010-IgE Walnut <0.10 kU/L (Class 0); T011-IgE Maple Leaf Sycamore <0.10 kU/L (Class 0); T014-IgE Cottonwood <0.10 kU/L (Class 0); T015-IgE Ash, White <0.10 kU/L (Class 0); T022-IgE Pecan, Hickory <0.10 kU/L (Class 0); T070-IgE White Mulberry <0.10 kU/L (Class 0); W001-IgE Ragweed, Short <0.10 kU/L (Class 0); W011-IgE Thistle, Russian <0.10 kU/L (Class 0); W014-IgE Pigweed, Common <0.10 kU/L (Class 0); W018-IgE Sheep Sorrel <0.10 kU/L (Class 0)
== END 2024-07-09 23:59 | disposition home or self-care (01) ==
LOC: LAB 09:01
PROVIDERS: Internal Medicine Pulmonary Disease; PCP Nurse Practitioner; Visit Provider Nurse Practitioner Family
DX: E78.2 Mixed hyperlipidemia (principal); J30.9 Allergic rhinitis, unspecified; I11.0 Hypertensive heart disease with heart failure; I50.30 Unspecified diastolic (congestive) heart failure; I27.21 Secondary pulmonary arterial hypertension; Z87.891 Personal history of nicotine dependence
CPT/HCPCS: 36415; 80048; 82785; 85025; 86003

== ENCOUNTER 2024-08-09 10:17 | Outpatient (CLI) | payer MEDICARE, SELFPAY ==
--- NOTE | 2024-08-09 10:17 | NM_ITS ---
FINAL REPORT CLINICAL HISTORY: SOB/PH COMPARISON: Same day chest radiograph FINDINGS: NUCLEAR MEDICINE VENTILATION AND PERFUSION IMAGING TECHNIQUE: V/Q scan is performed utilizing 37.8 technetium 99 M DTPA aerosol and IV administration of 7.96 technetium 99 M MAA. Images were obtained in AP, PA, lateral, and oblique projections. FINDINGS Multifocal bilateral ventilation defects are seen with central deposition of the radiotracer. On the perfusion images, multiple subsegmental perfusion defects are seen bilaterally. The perfusion is overall better than the ventilation. On the plain radiographs, bilateral pulmonary opacities are seen. These findings are consistent with intermediate probability for pulmonary embolism. IMPRESSION: Intermediate probability of pulmonary embolism. Authenticated and [facility]
[2024-08-09] MEDS: SODIUM CHLORIDE 0.9% 10ML SYR (RAD ONLY) 10 ML IV (10:30)
[2024-08-09] MEDS: ISOTOPE DTPA(AEROSOL);1 DOSE (UP TO 75 MCI) IV (10:30)
--- NOTE | 2024-08-09 11:16 | XR_ITS ---
FINAL REPORT CLINICAL HISTORY: for VQ scan COMPARISON: 06/07/2024 FINDINGS: Two views of the chest were obtained. The heart size and pulmonary vascularity are within normal limits. The mediastinum is normal. The lungs are hyperinflated consistent with COPD. There are mild bilateral pulmonary opacities which may represent pneumonia or edema. There is no pneumothorax. The bony thorax is intact. IMPRESSION: Bilateral pulmonary opacities, may represent pneumonia or edema. Reviewed, Interpreted and Dictated by Jorge Hough III, MD Transcribed by Ashley Packer Authenticated and [facility]
[2024-08-09] MEDS: ISOTOPE TC MAA;1 DOE (UP TO 45 MCI) 1 DOSE IV (11:50)
== END 2024-08-09 23:59 | disposition home or self-care (01) ==
LOC: RAD 10:17
PROVIDERS: PCP Nurse Practitioner; Visit Provider Internal Medicine Pulmonary Disease
DX: R06.09 Other forms of dyspnea (principal); R06.02 Shortness of breath
CPT/HCPCS: 71046; 78582; A9540; A9567

== ENCOUNTER 2024-09-13 09:45 | Outpatient (CLI) | payer MEDICARE, SELFPAY ==
[2024-09-13 11:03] LABS: Chloride 103 mmol/L (98-107)
[2024-09-13 11:04] LABS: Potassium 4.8 mmoL/L (3.5-5.1); Sodium 140 mmol/L (136-145)
[2024-09-13 11:06] LABS: Blood Urea Nitrogen 26 mg/dl (9-20)
[2024-09-13 11:07] LABS: Anion Gap 14.8 mEq/L (5-15); Carbon Dioxide 27 mmol/L (22.0-30.0); Estimated Glomerular Filt Rate 67 ml/min (>60); GFR (African American) 81 ML/MIN (>60); Glucose 112 mg/dl (74-100)
== END 2024-09-13 23:59 | disposition home or self-care (01) ==
LOC: LAB 09:46
PROVIDERS: PCP Nurse Practitioner; Visit Provider Nurse Practitioner Family
DX: I10 Essential (primary) hypertension (principal); I73.9 Peripheral vascular disease, unspecified; R06.09 Other forms of dyspnea; I27.21 Secondary pulmonary arterial hypertension; G47.33 Obstructive sleep apnea (adult) (pediatric); E78.2 Mixed hyperlipidemia; I50.33 Acute on chronic diastolic (congestive) heart failure; E11.9 Type 2 diabetes mellitus without complications; Z79.4 Long term (current) use of insulin
CPT/HCPCS: 36415; 80048

== ENCOUNTER 2025-01-27 14:10 | Outpatient (CLI) | payer MEDICARE, SELFPAY ==
--- NOTE | 2025-01-27 14:15 | CT_ITS ---
FINAL REPORT TECHNIQUE: Axial imaging of the chest was obtained without contrast. Reformatted images were also obtained and reviewed.This study was performed with techniques to keep radiation doses as low as reasonably achievable, (ALARA). Individualized dose reduction technique using automated exposure control or adjustment of mA and/or kV according to the patient's size were employed. CLINICAL HISTORY: Lung nodule COMPARISON: 06/07/2024 FINDINGS: There is no axillary adenopathy. There is no hilar or mediastinal mass or adenopathy. Heart size is normal. There is no pericardial or pleural effusion. Limited images of the upper abdomen are unremarkable. There is a right lower lobe nodule on image 54 of series 2 measuring 8 mm which is unchanged. There is also an oval, 7 mm right upper lobe nodule on image 45 of series 2 which is slightly less prominent than on prior exam. This could be due to volume averaging. There is emphysematous change and interstitial scarring. There are a few scattered mediastinal lymph nodes which are not enlarged by size criteria. IMPRESSION: Stable pulmonary nodules, favor benign. Recommend 12-month follow-up. Emphysema without acute disease. Reviewed, Interpreted and Dictated by Lorena Correa MD Transcribed by Henrietta Alvarez Authenticated and . [facility]
[2025-01-27] MEDS: ALBUTEROL 0.083% 2.5 MG/3 ML NEB IH (15:25)
[2025-01-27 15:30] VITALS: PULSE 82; PULSE 86
--- NOTE | 2025-01-27 16:22 | RESP.PFTSS ---
Patient refused to do six minute walk due to knee pain.
== END 2025-01-27 23:59 | disposition home or self-care (01) ==
LOC: RAD 14:11
PROVIDERS: PCP Nurse Practitioner; Visit Provider Internal Medicine Pulmonary Disease
DX: R91.8 Other nonspecific abnormal finding of lung field (principal); R06.09 Other forms of dyspnea
CPT/HCPCS: 71250; 94060; 94640; 94726; 94729; J7613

== ENCOUNTER 2025-04-03 13:03 | Outpatient (CLI) | payer MEDICARE, SELFPAY ==
[2025-04-03 13:44] LABS: Basophils # 0.1 K/mm3 (0-0.2); Basophils % 0.7 % (0.1-2.0); Eosinophils # 0.3 Kmm3 (0.0-0.4); Eosinophils % 2.3 % (0.1-12.0); Hematocrit 41.7 % (42.0-52.0); Hemoglobin 13.4 g/dL (14.1-18.0); Immature Granulocytes # 0.04 10^3uL; Immature Granulocytes % 0.3 %; Lymphocytes # 2.3 K/mm3 (0.7-4.5); Lymphocytes % 19.1 % (10-50); Mean Corpuscular HGB Conc 32.1 g/dL (31.8-35.4); Mean Corpuscular Hemoglobin 29.8 pg (27.0-31.2); Mean Corpuscular Volume 92.9 fl (80-94); Mean Platelet Volume 9.3 fl (7.4-10.4); Monocytes # 1.1 K/mm3 (0.1-1.0); Monocytes % 8.9 % (1.7-9.3); Neutrophils # 8.2 K/mm3 (1.8-7.8); Neutrophils % 68.7 % (37.0-80.0); Nucleated Red Blood Cells # 0 10^3/uL; Nucleated Red Blood Cells % 0 %; Platelet Count 463 K/mm3 (142-424); Red Blood Count 4.49 M/mm3 (4.60-6.20); Red Cell Distribution Width 15.8 % (11.5-17.5); Red Cell Distribution Width-SD 53.8 fL; White Blood Count 11.9 K/mm3 (4.8-10.8)
[2025-04-03 13:58] LABS: Alanine Aminotransferase 27 U/L (12-78); Albumin Level 4.6 g/dl (3.5-5.0); Alkaline Phosphatase 141 U/L (38-126); Anion Gap 10.8 mEq/L (5-15); Aspartate Amino Transferase 29 U/L (17-59); Bilirubin,Direct 0.1 mg/dl (0.0-0.4); Bilirubin,Indirect 0.5 mg/dL (0.0-0.9); Bilirubin,Total 0.6 mg/dl (0.2-1.3); Bilirubin,Unconjugated 0.4 mg/dL (0.0-1.1); Blood Urea Nitrogen 29 mg/dl (9-20); Calcium 10.1 mg/dl (8.4-10.2); Carbon Dioxide 26 mmol/L (22.0-30.0); Chloride 106 mmol/L (98-107); Chol/HDL Ratio 2.9 (1-3.5); Cholesterol 99 mg/dl (140-200); Estimated Glomerular Filt Rate 51 ml/min (>60); GFR (African American) 61 ML/MIN (>60); Glucose 87 mg/dl (74-100); HDL Cholesterol 34 mg/dl (40-60); Potassium 4.8 mmoL/L (3.5-5.1); Sodium 138 mmol/L (136-145); Total Protein,Serum 7.3 g/dl (6.3-8.2); Triglycerides 106 mg/dl (30-150); VLDL Cholesterol 21 mg/dL (0-40)
[2025-04-03 14:09] LABS: Direct LDL Cholesterol 51.22 mg/dL (100-129)
[2025-04-03 14:10] LABS: Free T4 (Free Thyroxine) 1.17 ng/dl (0.78-2.19)
[2025-04-03 14:28] LABS: Thyroid Stimulating Hormone 2.13 uIU/mL (0.465-4.68)
== END 2025-04-03 23:59 | disposition home or self-care (01) ==
PROVIDERS: PCP Nurse Practitioner; Visit Provider Internal Medicine
DX: E78.2 Mixed hyperlipidemia (principal); I10 Essential (primary) hypertension
CPT/HCPCS: 36415; 80048; 80061; 80076; 84439; 84443; 85025

== ENCOUNTER 2025-05-09 09:02 | Outpatient (CLI) | payer MEDICARE, SELFPAY ==
--- OUTSIDE RECORDS SUMMARY | 2025-05-09 09:05 | XMS_ITS | Encounter Summary ---
Author Organization [employer] Address [address] [place] [address] Care Team Providers Care Electron Tube Assembler Name Role Phone Unavailable Primary Care Provider Unavailabl e Encounter Details Date Type Department Care Team (Late st Contact Info) Description 04/28/2021 Transcribed Document [facility] [place] Family Medicine [facility] [place] [address] ProviderJoanna MD [facility] [place], [place] [id number] Social History Tobacco Use Types Packs/Day Years Used Date Smoking Tobacco: Never Assessed Sex and Gender Information Value Date Recorded Sex Assigned at Male 05/25/2022 11:23 PM CDT Legal Sex Male 5:54 PM CDT Gender Identity Male 05/25/2022 11:23 PM CDT Sexual Orientation Not on file documented as of this encounter Miscellaneous Notes * Cerner Conversion Note - Joanna Rivera MD - 04/28/2021 7:23 AM CDT ED Assessment Entered On: 04/28/2021 11:45 EDT Performed On: 04/28/2021 8:30 EDT by Kiera Brady RN ED Quick Look Assessment Level of Consciousness : Alert, Awake Affect/Behavior : Appropriate, Calm, Cooperative Orientation : Oriented x 4 Kiera Brady RN - 04/28/2021 11:44 EDT ED General-Functional Assess Communication Barrier : None Primary Language : Citizen Of [place] Any Spiritual/Cultural Needs or Requests : No Currently in Unsafe Situation : No Kiera Brady RN - 04/28/2021 11:44 EDT Social Habits Smoking Status : 10 or more cigarettes (1/2 pack or more)/day in last 30 days Smokeless Tobacco Status : Never Desires Tobacco Cessation Medication : No Reason for No Tobacco Cessation Medication : ED/procedural patient only Desires Tobacco Cessation Calc : 1 Kiera Brady RN - 04/28/2021 11:44 EDT Social History (As Of: 04/28/2021 11:45:23 EDT) Tobacco: Smoking Status Current every day smoker. Five or more cigarettes per day Smoking Frequency Within Last 30 Days. Use in Last 12 Months: Cigarettes. Used Tobacco, but Quit No. (Last Updated: 09/20/2017 07:49:07 EDT by JUANY TURCIOS, RN) Alcohol: Alcohol Use History No. (Last Updated: 09/20/2017 07:49:29 EDT by JUANY TURCIOS, RN) Cardiovascular ASMT, ED Cardiovascular Assessment WDL : WDL with exceptions (Comment: c/o intermittent CP x 2 weeks associated c SOA. States pain increased with activity and deep breathing. Denies cardiac hx. NSR on tele [Kiera Brady RN - 04/28/2021 11:44 EDT] ) Kiera Brady RN - 04/28/2021 11:44 EDT Respiratory Respiratory Assessment WDL : WDL with exceptions (Comment: c/o SOA/COE x 2 weeks. Hx COPD. Denies fever. [Kiera Brady RN - 04/28/2021 11:44 EDT] ) Kiera Brady RN - 04/28/2021 11:44 EDT Breath Sounds Assessment Grid All Lobes Breath Sounds : Diminished Kiera Brady RN - 04/28/2021 11:44 EDT Neurologic ASMT, ED Neurologic Assessment WDL : WDL Kiera Brady RN - 04/28/2021 11:44 EDT documented in this encounter Plan of Treatment Not on file documented as of this encounter Visit Diagnoses Not on filedocumented in this encounter
--- OUTSIDE RECORDS SUMMARY | 2025-05-09 09:05 | XMS_ITS | Encounter Summary ---
Author Organization [employer] Address [address] [place] [address] Care Team Providers Care Properties Supervisor Name Role Phone Unavailable Primary Care Provider Unavailabl e Encounter Details Date Type Department Care Team (Late st Contact Info) Description 04/28/2021 Transcribed Document [facility] [place] [facility] [place] [address] ProviderJoanna MD [facility] [place], [place] [id number] Social History Tobacco Use Types Packs/Day Years Used Date Smoking Tobacco: Never Assessed Sex and Gender Information Value Date Recorded Sex Assigned at Male 05/25/2022 11:23 PM CDT Legal Sex Male 5:54 PM CDT Gender Identity Male 05/25/2022 11:23 PM CDT Sexual Orientation Not on file documented as of this encounter Miscellaneous Notes * Cerner Conversion Note - Joanna ProviderMD - 04/28/2021 11:36 AM CDT Electronically signed by Anshul [facility] Conversion Racing Mechanic Cerner at 03/14/2023 8:45 PM CDT documented in this encounter Plan of Treatment Not on file documented as of this encounter Visit Diagnoses Not on filedocumented in this encounter
--- OUTSIDE RECORDS SUMMARY | 2025-05-09 09:05 | XMS_ITS | Clinical Summary ---
Author Organization [employer] Address [address] [place] [address] Care Team Providers Care Health Coordinator Name Role Phone Unavailable Primary Care Provider Unavailabl e Social History Tobacco Use Types Packs/Day Years Used Date Smoking Tobacco: Never Assessed Sex and Gender Information Value Date Recorded Sex Assigned at Male 05/25/2022 11:23 PM CDT Legal Sex Male 5:54 PM CDT Gender Identity Male 05/25/2022 11:23 PM CDT Sexual Orientation Not on file Plan of Treatment Not on file
--- OUTSIDE RECORDS SUMMARY | 2025-05-09 09:05 | XMS_ITS | Encounter Summary ---
Author Organization [employer] Address [address] [place] [address] Care Team Providers Care Exhibition Carver Name Role Phone Unavailable Primary Care Provider Unavailabl e Encounter Details Date Type Department Care Team (Late st Contact Info) Description 04/28/2021 Transcribed Document [facility] [place] [facility] [place] [address] ProviderJoanna MD [facility] [place] [id number] Social History Tobacco Use Types Packs/Day Years Used Date Smoking Tobacco: Never Assessed Sex and Gender Information Value Date Recorded Sex Assigned at Male 05/25/2022 11:23 PM CDT Legal Sex Male 5:54 PM CDT Gender Identity Male 05/25/2022 11:23 PM CDT Sexual Orientation Not on file documented as of this encounter Miscellaneous Notes * Cerner Conversion Note - Joanna Rivera MD - 04/28/2021 11:47 AM CDT ED Discharge Entered On: 04/28/2021 11:47 EDT Performed On: 04/28/2021 11:47 EDT by JOI SAEZ, senior project manager Process Patient Disposition : Discharge Personal Belongings With Patient : Yes Patient Education Completed : Yes Teaching Evaluation : Verbalizes understanding IV Discontinued : Yes Nursing Documentation Completed : Yes IV Therapy Comment : bleeding controlled and tip intact JOI SAEZ, RN - 04/28/2021 11:47 EDT ED Discharge Discharge To : Home with ambulatory/outpatient follow-up Mode Of Departure : Ambulatory Accompanied By : Spouse Discharge Instructions Reviewed With, Opportunity For Questions Given : Patient Prescriptions Given to Patient : Yes Number of Prescriptions Given : 3 JOI SAEZ RN - 04/28/2021 11:47 EDT Electronically signed by Anshul [facility] Conversion Biological Inspector Cerner at 03/14/2023 8:44 PM CDT documented in this encounter Plan of Treatment Not on file documented as of this encounter Visit Diagnoses Not on filedocumented in this encounter
--- OUTSIDE RECORDS SUMMARY | 2025-05-09 09:05 | XMS_ITS | Encounter Summary ---
Author Organization [employer] Address [address] [place] [address] Care Team Providers Care Theater Usher Name Role Phone Unavailable Primary Care Provider Unavailabl e Encounter Details Date Type Department Care Team (Late st Contact Info) Description 04/28/2021 Transcribed Document [facility] [place] [facility] [place] [address] ProviderJoanna MD [facility] [place] [id number] Social History Tobacco Use Types Packs/Day Years Used Date Smoking Tobacco: Never Assessed Sex and Gender Information Value Date Recorded Sex Assigned at Male 05/25/2022 11:23 PM CDT Legal Sex Male 5:54 PM CDT Gender Identity Male 05/25/2022 11:23 PM CDT Sexual Orientation Not on file documented as of this encounter Miscellaneous Notes * Cerner Conversion Note - Historical ProviderMD - 04/28/2021 9:56 AM CDT CR Chest 1 Vw Portable Ordered: 04/28/2021 Modified Reason for Exam: SOA/CP 04/28/2021 09:45 04/28/2021 09:56 (HENRRY GAN PA-C) Reviewed by Provider, No further action required resulted in eD 04/28/2021 09:44 (ASIM HICKS) Provider Review Required Electronically signed by Rosanna Landers Conversion Surveillance Sensor Operator Philip at 03/14/2023 8:39 PM CDT documented in this encounter Plan of Treatment Not on file documented as of this encounter Visit Diagnoses Not on filedocumented in this encounter
--- OUTSIDE RECORDS SUMMARY | 2025-05-09 09:05 | XMS_ITS | Encounter Summary ---
Author Organization [employer] Address [address] [place] [address] Care Team Providers Care Certified Financial Planner Name Role Phone Unavailable Primary Care Provider Unavailabl e Encounter Details Date Type Department Care Team (Late st Contact Info) Description 04/28/2021 Transcribed Document [facility] [place] Family Medicine [facility] [place] [address] ProviderJoanna MD [facility] [place] [id number] Social History Tobacco Use Types Packs/Day Years [...] MD - 04/28/2021 7:23 AM CDT ED Triage Entered On: 04/28/2021 7:36 EDT Performed On: 04/28/2021 7:34 EDT by Kiera Brady RN ED Triage Across the Room Chief Complaint : c/o SOA and CP x 2 weeks, increased with activity. 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 Hx HTN, HLD, DM, COPD, umbilical hernia repair. Triage Date/Time : 04/28/2021 7:34 EDT Kiera Brady RN - 04/28/2021 7:34 EDT DCP GENERIC CODE Tracking Acuity : 2 - Emergent Tracking Group : [facility] ED Kiera Brady RN - 04/28/2021 7:34 EDT Mode of Arrival : Ambulatory Transported to ED by : Private vehicle To Room Via : Wheelchair Accompanied By : Spouse ED Vital Signs : Document Height & Weight : Document ED Allergies : Document ED Reason for Visit : Document Kiera Brady RN - 04/28/2021 7:34 EDT Infectious Disease History Has the patient ever been tested for COVID-19? : Yes, Patient stated results Negative Date of COVID-19 test known? : No Does patient have symptoms of COVID-19? : Yes COVID19 Screening : No Experiencing Infectious Disease Symptoms : Difficulty breathing Physical contact outside [place] in the last 30 days : No Infectious Disease History : Chicken pox/Shingles Tuberculosis Symptoms : None Kiera Brady RN - 04/28/2021 7:34 EDT Vital Signs ED Temperature Source : Oral Temperature Mode : Fahrenheit Temperature, Fahrenheit : 98.2 Deg F ED Pain : No Clinical Temperature, C : 36.8 Deg C Oxygen Therapy Mode : Room air Peripheral Pulse Rate : 82 bpm Respiratory Rate : 16 Breaths/Min Systolic Blood Pressure : 137 mmHg Diastolic Blood Pressure : 69 mmHg Oxygen Saturation : 92 % (LOW) Kiera Brady RN - 04/28/2021 7:34 EDT Allergy (As Of: 04/28/2021 07:36:54 EDT) Allergies (Active) No Known Allergies Estimated Onset Date: Unspecified ; Created By: CONTRIBUTOR_SYSTEMSERA; Reaction Status: Active ; Category: Drug ; Substance: No Known Allergies ; Type: Allergy ; Updated By: ANGELICA_SERA VILLALTA; Reviewed Date: 09/20/2017 7:36 EDT Diagnosis Control ED (As Of: 04/28/2021 07:36:54 EDT) Problems(Active) Arthritis (SNOMED CT :3587164 ) Name of Problem: Arthritis ; Recorder: JUANY TURCIOS RN; Confirmation: Confirmed ; Classification: Medical ; Code: [id number] ; Contributor System: ZappyLab ; Last Updated: 09/20/2017 7:46 EDT ; Life Cycle Date: 09/20/2017 ; Life Cycle Status: Active ; Vocabulary: SNOMED CT BPH (benign prostatic hyperplasia) (SNOMED CT :234882607 ) Name of Problem: BPH (benign prostatic hyperplasia) ; Recorder: JUANY TURCIOS RN; Confirmation: Confirmed ; Classification: Medical ; Code: [id number] ; Contributor System: PowerChart ; Last Updated: 09/20/2017 7:45 EDT ; Life Cycle Date: 09/20/2017 ; Life Cycle Status: Active ; Vocabulary: SNOMED CT Hyperlipidemia (SNOMED CT :51851785 ) Name of Problem: Hyperlipidemia ; Recorder: JUANY TURCIOS RN; Confirmation: Confirmed ; Classification: Medical ; Code: [id number] ; Contributor System: DocSeaChart ; Last Updated: 09/20/2017 7:44 EDT ; Life Cycle Date: 09/20/2017 ; Life Cycle Status: Active ; Vocabulary: SNOMED CT Hypertension (SNOMED CT :8785229951 ) Name of Problem: Hypertension ; Recorder: JUANY TURCIOS RN; Confirmation: Confirmed ; Classification: Medical ; Code: [id number] ; Contributor System: ZappyLab ; Last Updated: 09/20/2017 7:44 EDT ; Life Cycle Date: 09/20/2017 ; Life Cycle Status: Active ; Vocabulary: SNOMED CT Diagnoses(Active) Chest pain Date: 04/28/2021 ; Diagnosis Type: Reason For Visit ; Confirmation: Complaint of ; Clinical Dx: Chest pain ; Classification: Medical ; Clinical Service: Non-Specified ; Code: PNED ; Probability: 0 ; Diagnosis Code: [id number] ED Height and Weight Height Source : Stated Height Entry Format : [place] Height, Feet : 6 ft(Converted to: 183 cm, 72 Inch) Height, Inches : 2 Inch(Converted to: 0 ft 2 Inch, 5.08 cm) Clinical Height : 187.96 cm Weight Source, ED : Critical estimated dosing weight Weight Entry Format : [place] Weight, Pounds : 350 lb Clinical Dosing Weight : 159.09 kg Body Surface Area (BSA) : 2.76 m2 Body Mass Index : 45 kg/m2 (>HHI) [place] Body Weight (IBW) : 81.16 kg Kiera Brayd RN - 04/28/2021 7:34 EDT Electronically signed by Anshul [facility] Conversion Rounder And Backer Cerner at 03/14/2023 8:28 PM CDT documented in this encounter Plan of Treatment Not on file documented as of this encounter Visit Diagnoses Not on filedocumented in this encounter
--- OUTSIDE RECORDS SUMMARY | 2025-05-09 09:05 | XMS_ITS | Clinical Summary ---
Author Organization [facility] Address [address] [place] [address] Care Team Providers Care Wallpaper Embosser Helper Name Role Phone Petty Armendariz MD Primary Care Provider [phone] Family History Medical History Relation Name Comments Diabetes Other Relation Name Status Comments Other Social History Tobacco Use Types Packs/Day Years Used Date Smoking Tobacco: Every Day Alcohol Use Standard Drinks/Week Comments No 0 (1 standard drink = 0.6 oz pur e alcohol) Sex and Gender Information Value Date Recorded Sex Assigned at Not on file Legal Sex Male 8:27 PM EDT Gender Identity Not on file Sexual Orientation Not on file Last Filed Vital Signs Vital Sign Reading Time Taken Comments Blood Pressure 147/109 06/08/2018 9:51 AM EDT Pulse 86 06/08/2018 9:51 AM EDT Temperature 36.7 C (98 F) 06/08/2018 9:51 AM EDT Respiratory Rate 14 06/08/2018 9:51 AM EDT Oxygen Saturation - - Inhaled Oxygen Concentration - - Weight 145 kg (320 lb) 06/08/2018 9:51 AM EDT Height 188 cm (6' 2 ) 06/08/2018 9:51 AM EDT Body Mass Index 41.09 06/08/2018 9:51 AM EDT Plan of Treatment Health Maintenance Due Date Last Done Comments [facility]-Depression Screening 1958 [facility]-Infant/Child/Adol SDOH Screenings 1960 [facility]- SDOH Screenings 1976 [facility]-Adult SDOH Screenings 1976 [facility]-DTaP,Tdap,and Td Vaccines (1 - Tdap) 1977 CT Colonography 2003 Colonoscopy 2003 FIT-DNA 2003 FIT 2003 FOBT 2003 Sigmoidoscopy 2003 [facility]-Colorectal Cancer Screening 2003 [facility]-Zoster Vaccines (2 of 3) 07/31/2017 06/05/2017 [facility]-Pneumococcal Vaccine: 50+ Years (2 of 2 - PCV) 06/05/2018 06/05/2017 [id number]-PEECS-14 Vaccine (4 - 2023- season) 2024 11/16/2021, 04/19/2021, 03/18/2021 [facility]-Influenza Vaccine (Season Ended) 2025 09/17/2021, 08/11/2020, 08/19/2019, Additional history exists [facility]-RSV Vaccine: 60+ Years or (1 - 1-dose 75+ series) 2033 HPV Vaccines Aged Out No longer eligi ble based on patient's age to complete this topic [facility]-HIB Vaccines Aged Out No longer e ligible based on patient's age to complete this topic [facility]-Hepatitis A Vaccines Aged Out No longer eligible based on patient's age to complete this topic [facility]-IPV Vaccines Aged Out No longer e ligible based on patient's age to complete this topic [facility]-Rotavirus Vaccines Aged Out No lo nger eligible based on patient's age to complete this topic Insurance MEDICARE Care Teams Wallpaper Embosser Helper Relationship Specialty Start Date End Date Petty Armendariz MD [address] [place] [address] [place] [phone] PCP - General 04/09/21
--- OUTSIDE RECORDS SUMMARY | 2025-05-09 09:05 | XMS_ITS | Referral Summary ---
Author Organization [employer] Address [address] [place] [address] Care Team Providers Care Tank Car Loader Name Role Phone Unavailable Primary Care Provider [...]
--- OUTSIDE RECORDS SUMMARY | 2025-05-09 09:05 | XMS_ITS | Encounter Summary ---
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 Name Role Phone Unavailable Primary Care Provider Unavailabl e Encounter Details Date Type Department Care Team (Late st Contact Info) Description 04/28/2021 Transcribed Document [facility] [place] [facility] [place] [address] ProviderJoanna MD [facility] [place] [address] Social History Tobacco Use Types Packs/Day Years Used Date Smoking Tobacco: Never Assessed Sex and Gender Information Value Date Recorded Sex Assigned at Male 05/25/2022 11:23 PM CDT Legal Sex Male 5:54 PM CDT Gender Identity Male 05/25/2022 11:23 PM CDT Sexual Orientation Not on file documented as of this encounter Miscellaneous Notes * Cerner Conversion Note - Joanna Rivera MD - 04/28/2021 11:36 AM CDT [facility] [place] [id number] MAG BOYER :1960 Visit Time:04/28/2021 Your Visit Summary Your Care Team Primary Provider: LEANNA GRANADO Secondary Provider: Your Diagnosis Chest pain COPD exacerbation Shortness of breath Medical Information You may obtain a copy of your Emergency Department visit from Medical Records by calling the hospital phone number listed above and asking to be directed to the Medical Records Department. If you had special tests, such as EKG???s or X-rays, the interpretation of your tests given to you by the Emergency Department Physician is a preliminary report. Some fractures and illnesses fail to show up on preliminary tests. These will be reviewed again and we will call you if there are any new suggestions. If your symptoms continue notify your physician. After you leave, you should follow the instructions provided. What to do next Follow-Up Appointments [facility] ([facility]) When Within 2 to 3 days Where: [place] [place] [address]- Business (1) Allergies No Known Allergies Immunizations This Visit No Immunizations Found Medications What How Much When Instructions Next Dose azithromycin (Zithromax Z-Ryne 250 mg oral tablet) 1 Tablet(s) Oral Every Day TAKE 2 TABLETS FIRST DAY, THEN 1 TABLET DAILY Pickup at [facility] benzonatate (Tessalon Perles 100 mg oral capsule) 1 Capsule(s) Oral Three Times A Day as needed for as needed for cough Duration: 7 Day(s) Pickup at [facility] predniSONE (predniSONE 50 mg oral tablet) 1 Tablet(s) Oral Every Day Duration: 5 Day(s) Pickup at [facility] aspirin (aspirin 81 mg oral delayed release tablet) Oral Every Day atorvastatin (atorvastatin 80 mg oral tablet) Oral Every Day DULoxetine (DULoxetine 40 mg oral delayed release capsule) Oral Every Day losartan (losartan 50 mg oral tablet) Oral Every Day meloxicam (meloxicam 15 mg oral tablet) Oral Every Day traMADol (traMADol 50 mg oral tablet) 1 Tablet(s) Oral Every 4 Hours as needed for as needed for pain Pharmacy Information [facility]: [address] [place] [phone] The home medications listed are only as accurate as the information you provided. Please continue taking all of your medications prescribed by your Primary Care Provider unless specifically told to change or discontinue the medication. Please direct any questions regarding your home medications to your Primary Care Provider. Take your medications faithfully. Do NOT skip medication. Do NOT stop taking medications without the direction of a physician. Carry a list of your medications with you at all times, and take this medication list with you to your first follow up visit. Report any side effects. Avoid herbal remedies unless discussed with your physician. As part of your treatment plan, your physician may have prescribed a limited course of a controlled substance. This medication may be given to help people with moderate or severe pain or for other medical conditions, but there are risks involved with treatment. Common side effects may include nausea, constipation, drowsiness, sweating, itching, dry mouth, and rash. More serious side effects may include cognitive and motor impairment, like problems with thinking, concentrating, alertness, and movement (e.g. slowed reflexes), and driving and operating heavy machinery can be dangerous. It is important for you to talk to your physician if you have these side effects or questions. These controlled substances can produce physical dependence and be habit-forming if taken for an extended period of time, which means that the body has gotten used to them and may experience withdrawal symptoms if they are abruptly stopped. Withdrawal symptoms can include runny nose, sweating, goose bumps, diarrhea, abdominal cramping, rapid heartbeat, difficulty sleeping, and nervousness. Please dispose of unused and medications per pharmacy guidance. Test Results Laboratory or Other Results This Visit (last charted value for your 04/28/2021 visit) Hematology 04/28/2021 7:46 AM WBC: 9.0 K/uL -- Normal range between ( 3.6 and 9.5 ) RBC: 3.93 Million/uL -- Normal range between ( 4.20 and 5.70 ) Hct: 40.6 % -- Normal range between ( 40.1 and 51.0 ) Hgb: 13.4 g/dL -- Normal range between ( 13.5 and 17.3 ) Platelet Count: 341 K/uL -- Normal range between ( 163 and 369 ) MCH: 34.1 pg -- Normal range between ( 25.6 and 32.2 ) MCHC: 33.0 Gram/dL -- Normal range between ( 32.2 and 36.5 ) MCV: 103.3 fL -- Normal range between ( 79.0 and 94.8 ) Slide Review: No Eos %: 2.5 % -- Normal range between ( 0.0 and 7.0 ) Hawkins #: 0.77 K/uL -- Normal range between ( 0.16 and 1.00 ) Eos #: 0.22 x10(3)/uL -- Normal range between ( 0.00 and 0.80 ) Hawkins %: 8.6 % -- Normal range between ( 3.0 and 9.0 ) Baso %: 0.6 % -- Normal range between ( 0.0 and 1.5 ) Baso #: 0.05 x10(3)/uL -- Normal range between ( 0.00 and 0.20 ) RDW: 13.6 % -- Normal range between ( 11.7 and 14.9 ) Neut %: 66.9 % -- Normal range between ( 34.0 and 71.0 ) Neut #: 6.01 K/uL -- Normal range between ( 1.56 and 6.13 ) Lymph %: 21.1 % -- Normal range between ( 19.3 and 53.1 ) Lymph #: 1.89 x10(3)/uL -- Normal range between ( 1.00 and 3.90 ) MPV: 9.0 fL -- Normal range between ( 9.4 and 12.4 ) IG#: 0.03 x10(3)/uL -- Normal range between ( 0.00 and 0.05 ) IG%: 0.30 % -- Normal range between ( 0.00 and 0.60 ) General Chemistry 04/28/2021 7:46 AM Creatinine Level: 1.10 mg/dL -- Normal range between ( 0.70 and 1.30 ) Sodium Level: 137 mmol/L -- Normal range between ( 136 and 146 ) Potassium Level: 4.0 mmol/L -- Normal range between ( 3.5 and 5.1 ) Chloride Level: 106 mmol/L -- Normal range between ( 102 and 112 ) Carbon Dioxide Level: 26 mmol/L -- Normal range between ( 21 and 32 ) Anion Gap: 9 -- Normal range between ( 9 and 20 ) Bilirubin Total: 0.4 mg/dL -- Normal range between ( 0.2 and 1.2 ) A/G Ratio: 0.9 -- Normal range between ( 1.1 and 2.5 ) ALT: 30 Units/Liter -- Normal range between ( 16 and 61 ) AST: 18 Units/Liter -- Normal range between ( 5 and 37 ) Globulin: 4.0 Gram/dL -- Normal range between ( 1.5 and 4.5 ) Alk Phos: 127 Units/Liter -- Normal range between ( 27 and 136 ) Bun/Creatinine: 11.8 -- Normal range between ( 8.0 and 20.0 ) Calcium Level: 9.1 mg/dL -- Normal range between ( 8.4 and 10.1 ) eGFR : >60 mL/min/1.73m2 eGFR NonAfrican: >60 mL/min/1.73m2 Glucose Level: 133 mg/dL -- Normal range between ( 74 and 106 ) Blood Urea Nitrogen: 13 mg/dL -- Normal range between ( 7 and 22 ) Protein Total: 7.5 Gram/dL -- Normal range between ( 6.4 and 8.2 ) Albumin Level: 3.5 Gram/dL -- Normal range between ( 3.4 and 5.0 ) Cardiac Specific Markers 04/28/2021 7:46 AM Troponin I Ultra: <0.015 ng/mL -- Normal range between ( 0.015 and 0.045 ) ProBNP: 32 pg/mL -- Normal range between ( 0 and 125 ) Computed Tomography 04/28/2021 10:26 AM CTA Chest PE Protocol: CTA Chest PE Protocol Diagnostic Radiology 04/28/2021 8:32 AM CR Chest 1 Vw Portable: CR Chest 1 Vw Portable Education Materials Chronic Obstructive Pulmonary Disease Exacerbation Chronic obstructive pulmonary disease (COPD) is a long-term (chronic) condition that affects the lungs. COPD is a general term that can be used to describe many different lung problems that cause lung swelling (inflammation) and limit airflow, including chronic bronchitis and emphysema. COPD exacerbations are episodes when breathing symptoms become much worse and require extra treatment. COPD exacerbations are usually caused by infections. Without treatment, COPD exacerbations can be severe and even life threatening. Frequent COPD exacerbations can cause further damage to the lungs. What are the causes? This condition may be caused by: ??? Respiratory infections, including viral and bacterial infections. ??? Exposure to smoke. ??? Exposure to air pollution, chemical fumes, or dust. ??? Things that give you an allergic reaction (allergens). ??? Not taking your usual COPD medicines as directed. ??? Underlying medical problems, such as congestive heart failure or infections not involving the lungs. In many cases, the cause (trigger) of this condition is not known. What increases the risk? The following factors may make you more likely to develop this condition: ??? Smoking cigarettes. ??? Old age. ??? Frequent prior COPD exacerbations. What are the signs or symptoms? Symptoms of this condition include: ??? Increased coughing. ??? Increased production of mucus from your lungs (sputum). ??? Increased wheezing. ??? Increased shortness of breath. ??? Rapid or labored breathing. ??? Chest tightness. ??? Less energy than usual. ??? Sleep disruption from symptoms. ??? Confusion or increased sleepiness. Often these symptoms happen or get worse even with the use of medicines. How is this diagnosed? This condition is diagnosed based on: ??? Your medical history. ??? A physical exam. You may also have tests, including: ??? A chest X-ray. ??? Blood tests. ??? Lung (pulmonary) function tests. How is this treated? Treatment for this condition depends on the severity and cause of the symptoms. You may need to be admitted to a hospital for treatment. Some of the treatments commonly used to treat COPD exacerbations are: ??? Antibiotic medicines. These may be used for severe exacerbations caused by a lung infection, such as pneumonia. ??? Bronchodilators. These are inhaled medicines that expand the air passages and allow increased airflow. ??? Steroid medicines. These act to reduce inflammation in the airways. They may be given with an inhaler, taken by mouth, or given through an IV tube inserted into one of your veins. ??? Supplemental oxygen therapy. ??? Airway clearing techniques, such as noninvasive ventilation (NIV) and positive expiratory pressure (PEP). These provide respiratory support through a mask or other noninvasive device. An example of this would be using a continuous positive airway pressure (CPAP) machine to improve delivery of oxygen into your lungs. Follow these instructions at home: Medicines ??? Take otnu-ezz-jqnvrdi and prescription medicines only as told by your health care provider. It is important to use correct technique with inhaled medicines. ??? If you were prescribed an antibiotic medicine or oral steroid, take it as told by your health care provider. Do not stop taking the medicine even if you start to feel better. Lifestyle ??? Eat a healthy diet. ??? Exercise regularly. ??? Get plenty of sleep. ??? Avoid exposure to all substances that irritate the airway, especially to tobacco smoke. ??? Wash your hands often with soap and water to reduce the risk of infection. If soap and water are not available, use hand occupational nurse. ??? During flu season, avoid enclosed spaces that are crowded with people. General instructions ??? Drink enough fluid to keep your urine clear or pale yellow (unless you have a medical condition that requires fluid restriction). ??? Use a cool mist vaporizer. This humidifies the air and makes it easier for you to clear your chest when you cough. ??? If you have a home nebulizer and oxygen, continue to use them as told by your health care provider. ??? Keep all follow-up visits as told by your health care provider. This is important. How is this prevented? Stay up-to-date on pneumococcal and influenza (flu) vaccines. A flu shot is recommended every year to help prevent exacerbations. ??? Do not use any products that contain nicotine or tobacco, such as cigarettes and e-cigarettes. Quitting smoking is very important in preventing COPD from getting worse and in preventing exacerbations from happening as often. If you need help quitting, ask your health care provider. ??? Follow all instructions for pulmonary rehabilitation after a recent exacerbation. This can help prevent future exacerbations. ??? Work with your health care provider to develop and follow an action plan. This tells you what steps to take when you experience certain symptoms. Contact a health care provider if: ??? You have a worsening of your regular COPD symptoms. Get help right away if: ??? You have worsening shortness of breath, even when resting. ??? You have trouble talking. ??? You have severe chest pain. ??? You cough up blood. ??? You have a fever. ??? You have weakness, vomit repeatedly, or faint. ??? You feel confused. ??? You are not able to sleep because of your symptoms. ??? You have trouble doing daily activities. Summary ??? COPD exacerbations are episodes when breathing symptoms become much worse and require extra treatment above your normal treatment. ??? Exacerbations can be severe and even life threatening. Frequent COPD exacerbations can cause further damage to your lungs. ??? COPD exacerbations are usually triggered by infections such as the flu, colds, and even pneumonia. ??? Treatment for this condition depends on the severity and cause of the symptoms. You may need to be admitted to a hospital for treatment. ??? Quitting smoking is very important to prevent COPD from getting worse and to prevent exacerbations from happening as often. This information is not intended to replace advice given to you by your health care provider. Make sure you discuss any questions you have with your health care provider. Document Revised: 10/26/2018 Document Reviewed: 12/18/2017 [employer] Patient Education ?? 2020 [employer] Emergency Awareness and Preventative Care STROKE is an EMERGENCY Every Minute Counts Act FAST and Check for these signs: FACE Does the face look uneven? ARM Does one arm drift down? SPEECH Does their speech sound strange? TIME Call at any sign of stroke Stroke Risk Factors Atrial Fibrillation (irregular heartbeat) Diabetes Family history of stroke Heart Disease Heavy alcohol use High Blood Pressure High Cholesterol Physical inactivity and obesity Smoking Cigarette Smoking The facts are clear, cigarette smoking will shorten your life. Smoking can cause many illnesses along the way. As a healthcare provider, we recommend that you stop smoking. Assistance with quitting is available by contacting 4-576-ARMINOW. This is a free resource providing counseling, support, and referral. Or you may contact your personal physician. National Suicide Prevention Lifeline: The National Suicide Prevention Lifeline is a national network of local crisis centers that provides free and confidential emotional support to people in suicidal crisis or emotional distress 24 hours a day, 7 days a week. Don't Wait! Stop a Heart Attack Before it Starts What is a heart attack? A heart attack is damage or to a part of the heart from severely decreased or lack of blood flow to the heart. Over time, arteries can become narrow from the buildup of fat and cholesterol, which is called plaque. The plaque can rupture causing a blood clot to form. When the blood clot forms, the artery can become severely narrowed or completely blocked, causing a heart attack. Heart attack is the leading cause of in the [place]. 85% of muscle damage occurs within the first 2 hours. Delay in the recognition of heart attack symptoms increases the chances of . Know the early symptoms of a heart attack: Nausea Feeling of fullness in chest Jaw Pain Pain that travels down one or both arms Fatigue/being tired Anxiety Back Pain Chest pressure, squeezing, or discomfort Shortness of breath Sweating, or a cold sweat Feeling of impending doom There are unusual signs of a heart attack, too! Women, the elderly, and diabetics may present with atypical symptoms: Fainting/dizziness Weakness Confusion Risk Factors for a Heart Attack Some heart disease risk factors, such as age and family history, cannot be changed. Others, like smoking and lack of exercise, can be changed. Smoking High Cholesterol High Blood Pressure Family History Obesity Age Gender (Males are at higher risk) Lack of Exercise Diabetes Diet Stress Excessive Alcohol Intake If you or someone you know is experiencing the signs and symptoms of a heart attack, DON???T DELAY. Call immediately and seek help. If someone collapses, perform CPR! Do not attempt to drive if you are having symptoms of heart attack. Hands-Only CPR Why Hands-Only CPR? Hands-Only CPR has been shown to be as effective as conventional CPR for cardiac arrests that occur outside of a hospital. Survival depends on immediately receiving CPR from someone nearby. How do you perform Hands-Only CPR? There are two easy steps: Call if you see a teen or adult collapse Push hard and fast in the center of the chest at a beat of 100 beats per minute. Save a life! 4 WAYS TO GET AHEAD OF SEPSIS SEPSIS is a MEDICAL EMERGENCY. Time matters! Infections put you and your family at risk for a life-threatening condition called sepsis. Sepsis is the body's extreme response to an infection. It is life-threatening, and without timely treatment, sepsis can rapidly lead to tissue damage, organ failure, and . Sepsis happens when an infection you already have-in your skin, lungs, urinary tract or somewhere else-triggers a chain reaction throughout your body. 1 PREVENT INFECTIONS Take good care of chronic conditions. Talk to your doctor about getting the recommended vaccines. 2 PRACTICE GOOD HYGIENE Wash your hands frequently. Keep cuts or open sores clean and covered until they are healed. 3 KNOW THE SYMPTOMS Confusion or disorientation Shortness of breath High heart rate Fever, shivering, or feeling very cold Extreme pain or discomfort Clammy or sweaty skin 4 ACT FAST Get medical care IMMEDIATELY if you suspect sepsis or if you have an infection that is not getting better or is getting worse. To learn more about sepsis and how to prevent infections, visit www.cdc.gov/sepsis. The examination and treatment you have received in the Emergency Department has been done to provide an appropriate evaluation and stabilizing treatment on an emergency basis only. Given the limited resources, it is not meant to be a substitute for complete medical care. The follow-up doctor you named will receive a copy of your records and all test reports. IT IS IMPORTANT THAT YOU SCHEDULE A FOLLOW-UP APPOINTMENT AND ARE RE-EVALUATED. You should report any new complaints, symptoms, or remaining problems at that time. IT IS IMPOSSIBLE FOR THE EMERGENCY DEPARTMENT TO RECOGNIZE AND TREAT ALL ELEMENTS OF INJURY OR ILLNESS IN A SINGLE VISIT. If you have been referred to a specialist physician, it means that we believe you may have a condition that requires the expertise of a specialist. These physicians work in partnership with the hospital and have agreed to see referred patients in their office for further evaluation. KEEP IN MIND THAT THE SPECIALIST HAS HIS/HER OWN OFFICE POLICIES WHICH MAY REQUIRE PROPER INSURANCE OR PAYMENT UP FRONT BEFORE THE SPECIALIST WILL SEE YOU. It is your responsibility to call the specialist physician to make an appointment. We do not have the ability to refer patients to specialists/physicians that work with specific insurance companies. Please be advised that all financial charges or billing practices are determined by that practice, not the hospital. If your insurance company requires that you see a specialist from their approved list, it is your responsibility to contact your insurance company to make those arrangements. It is also your responsibility to follow any other requirements of your insurance company necessary to obtain coverage for claims submitted. We will bill your insurance; however, you are responsible today for any co-pay amounts. You will receive a separate bill for any services you may have received including: emergency, radiology, or pathology physicians. Patient Name:MAG BOYER I have received this information and was given the opportunity to ask questions. Patient/Customer Support Associate Name: Patient/Customer Support Associate Signature: Relationship to Patient: Clinician/Hospital Customer Support Associate Signature: Please Provide a Telephone Number Where You Can Be Reached: Is it Permissible To Leave a Message? Date: documented in this encounter Plan of Treatment Not on file documented as of this encounter Visit Diagnoses Not on filedocumented in this encounter
--- OUTSIDE RECORDS SUMMARY | 2025-05-09 09:05 | XMS_ITS | Encounter Summary ---
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 Phone Unavailable Primary Care Provider Unavailabl e Encounter Details Date Type Department Care Team (Late st Contact Info) Description 04/28/2021 Transcribed Document [facility] [place] Family Medicine [address] [place] [address] ProviderJoanna MD [address], [place] [id number] Social History Tobacco Use Types Packs/Day Years [...] Rivera MD - 04/28/2021 7:23 AM CDT Broset Violence Assessment Entered On: 04/28/2021 7:52 EDT Performed On: 04/28/2021 7:52 EDT by Kiera Brady RN Broset Violence Assessment Broset Violence Checklist of Symptoms : None Broset Violence Symptoms Subtotal : 0 Broset Violence Symptoms Indicator : Low risk (0) Kiera Brady RN - 04/28/2021 7:52 EDT Electronically signed by Dillon Landers [employer]version [employer] Ground Operations Supervisor Philip at 03/14/2023 8:38 PM CDT documented in this encounter Plan of Treatment Not on file documented as of this encounter Visit Diagnoses Not on filedocumented in this encounter
--- OUTSIDE RECORDS SUMMARY | 2025-05-09 09:06 | XMS_ITS | Encounter Summary ---
Author Organization [employer] Address [address] [place] [address] Care Team Providers Care Director Equipment Name Role Phone Unavailable Primary Care Provider Unavailabl e Encounter Details Date Type Department Care Team (Late st Contact Info) Description 04/28/2021 Transcribed Document [facility] [place] [facility] [place] [address] ProviderJoanna MD [facility] [place] [id number] Social History Tobacco Use Types Packs/Day Years Used Date Smoking Tobacco: Never Assessed Sex and Gender Information Value Date Recorded Sex Assigned at Male 05/25/2022 11:23 PM CDT Legal Sex Male 5:54 PM CDT Gender Identity Male 05/25/2022 11:23 PM CDT Sexual Orientation Not on file documented as of this encounter Miscellaneous Notes * Cerner Conversion Note - Joanna Rivera MD - 04/28/2021 9:44 AM CDT Patient: MAG BOYER Age: 60 years Sex: Male : 1960 Associated Diagnoses: COPD exacerbation Author: LEANNA GRANADO MD-EMR Basic Information Time seen: Date 04/28/2021, Immediately upon arrival. History source: Patient. Arrival mode: Private vehicle, walking. History limitation: None. Additional information: Chief Complaint from Nursing Triage Note : Chief Complaint 04/28/2021 7:34 EDT Chief Complaint c/o SOA and CP x 2 weeks, increased with activity. 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 Hx HTN, HLD, DM, COPD, umbilical hernia repair. . History of Present Illness The patient presents with difficulty breathing and cough. The onset was 2 weeks ago. The course/duration of symptoms is constant. Degree at onset mild. Degree at present moderate. There are Exacerbating factorss including exertion and lying flat. The Relieving factors is rest. Risk factors consist of diabetes mellitus, hypertension and chronic obstructive pulmonary disease. Prior episodes: rare. Therapy today: none. Associated symptoms: chest pain and cough. Review of Systems Constitutional symptoms: Negative except as documented in HPI. Skin symptoms: Negative except as documented in HPI. Eye symptoms: Negative except as documented in HPI. ENMT symptoms: Nasal congestion. Respiratory symptoms: Shortness of breath, cough. Cardiovascular symptoms: Chest pain. Gastrointestinal symptoms: Negative except as documented in HPI. Genitourinary symptoms: Negative except as documented in HPI. Musculoskeletal symptoms: Negative except as documented in HPI. Neurologic symptoms: Negative except as documented in HPI. Psychiatric symptoms: Negative except as documented in HPI. Endocrine symptoms: Negative except as documented in HPI. Hematologic/Lymphatic symptoms: Negative except as documented in HPI. Allergy/immunologic symptoms: Negative except as documented in HPI. Additional review of systems information: All other systems reviewed and otherwise negative. Health Status Allergies: Allergic Reactions (Selected) No Known Allergies. Medications: (Selected) Inpatient Medications Ordered DuoNeb 0.5 mg-2.5 mg/3 mL inhalation solution: 3 mL, Nebulized Inhalation, 1-Time Documented Medications Documented DULoxetine 40 mg oral delayed release capsule: Cap, Oral, Daily, 0 Refill(s) aspirin 81 mg oral delayed release tablet: Tab, Oral, Daily, 0 Refill(s) atorvastatin 80 mg oral tablet: Tab, Oral, Daily, 0 Refill(s) losartan 50 mg oral tablet: Tab, Oral, Daily, 0 Refill(s) meloxicam 15 mg oral tablet: Tab, Oral, Daily, 0 Refill(s) traMADol 50 mg oral tablet: 1 Tab, Oral, Q4H, PRN: as needed for pain, 0 Refill(s). Past Medical/ Family/ Social History Surgical history: rcr. umbilical hernia repair.. Family history: No family history items have been selected or recorded.. Social history: Social & Psychosocial Habits Alcohol 09/20/2017 Alcohol Use History, Social Habits No Tobacco 09/20/2017 Smoking Status Current every day smoker Smoking Frequency Within Last 30 Days Five or more cigarettes p Tobacco Use Within Last Twelve Months Cigarettes Used Tobacco, but Quit No . Problem list: Active Problems (4) Arthritis BPH (benign prostatic hyperplasia) Hyperlipidemia Hypertension . Physical Examination Vital Signs Vital Signs/Vital Measures 04/28/2021 8:16 EDT Oxygen Saturation 93 % LOW Oxygen Therapy Mode Nasal cannula Oxygen Flow Rate 2 Liter/Min 04/28/2021 7:52 EDT Oxygen Saturation 91 % LOW Oxygen Therapy Mode Room air 04/28/2021 7:34 EDT Systolic Blood Pressure 137 mmHg Diastolic Blood Pressure 69 mmHg Temperature Source Oral Temperature Mode Fahrenheit Temperature, Fahrenheit 98.2 Deg F Clinical Temperature, C 36.8 Deg C Peripheral Pulse Rate 82 bpm Respiratory Rate 16 Breaths/Min Oxygen Saturation 92 % LOW Oxygen Therapy Mode Room air . Measurements 04/28/2021 7:34 EDT Height Source Stated Height Entry Format [place] Height/Length, OMANI (ft) 6 ft Height/Length OMANI 2 Inch CLINICALHEIGHT 187.96 cm [place] Body Weight 81.16 kg Weight Source, ED Critical estimated dosing weight Weight Entry Format Brown Weight Azerbaij[place] lb 350 lb CLINICALWEIGHT 159.09 kg Body Surface Area (BSA) 2.76 m2 Body Mass Index 45 kg/m2 >HHI . Oxygen Saturation 04/28/2021 8:16 EDT Oxygen Saturation 93 % LOW 04/28/2021 7:52 EDT Oxygen Saturation 91 % LOW 04/28/2021 7:34 EDT Oxygen Saturation 92 % LOW . General: Alert, no acute distress. Skin: Warm, dry, pink, intact. Head: Normocephalic, atraumatic. Neck: Supple, trachea midline, no tenderness, no JVD, no carotid bruit. Cardiovascular: Regular rate and rhythm, No murmur, Normal peripheral perfusion, No edema. Respiratory: Lungs are clear to auscultation, respirations are non-labored, breath sounds are equal, Symmetrical chest wall expansion. Chest wall: No tenderness, No deformity. Gastrointestinal: Soft, Nontender, Non distended, Normal bowel sounds, No organomegaly. Neurological: Alert and oriented to person, place, time, and situation, No focal neurological deficit observed. Lymphatics: No lymphadenopathy. Psychiatric: Cooperative. Medical Decision Making Differential Diagnosis: Pneumonia, congestive heart failure, chronic obstructive pulmonary disease, pulmonary edema. Documents reviewed: Emergency department nurses' notes. Electrocardiogram: Time 04/28/2021 07:33:00, rate 84, normal sinus rhythm, No ST changes, no ectopy, normal UT & QRS intervals, EP Interp. Results review: Lab results : Lab Results 04/28/2021 7:46 EDT Sodium Level 137 mmol/L Potassium Level 4.0 mmol/L Chloride Level 106 mmol/L Carbon Dioxide Level 26 mmol/L Anion Gap 9 Glucose Level 133 mg/dL HI Blood Urea Nitrogen 13 mg/dL Creatinine Level 1.10 mg/dL eGFR >60 mL/min/1.73m2 eGFR NonAfrican >60 mL/min/1.73m2 Bun/Creatinine 11.8 Calcium Level 9.1 mg/dL Protein Total 7.5 Gram/dL Albumin Level 3.5 Gram/dL Globulin 4.0 Gram/dL A/G Ratio 0.9 LOW Bilirubin Total 0.4 mg/dL Alk Phos 127 Units/Liter AST 18 Units/Liter ALT 30 Units/Liter Troponin I Ultra <0.015 ng/mL ProBNP 32 pg/mL WBC 9.0 K/uL RBC 3.93 Million/uL LOW Hgb 13.4 g/dL LOW Hct 40.6 % MCV 103.3 fL HI MCH 34.1 pg HI MCHC 33.0 Gram/dL Platelet Count 341 K/uL MPV 9.0 fL LOW RDW 13.6 % Neut % 66.9 % Neut # 6.01 K/uL Lymph % 21.1 % Lymph # 1.89 x10(3)/uL [place] % 8.6 % [place] # 0.77 K/uL Eos % 2.5 % Eos # 0.22 x10(3)/uL Baso % 0.6 % Baso # 0.05 x10(3)/uL Slide Review No IG# 0.03 x10(3)/uL IG% 0.30 % . Radiology results: Radiology Results (Last 48 hours) [id number] -- 04/28/2021 07:23 CR Chest 1 Vw Portable (04/28/2021 08:32) Result: PORTABLE CHEST 04/28/2021 7:44 AM HISTORY: Shortness of breath.COMPARISON: January 28, 2012.FINDINGS: The heart is enlarged. The mediastinum is unremarkable. Thereis mild pulmonary vascular congestion without pulmonary edema. There isunderlying emphysema. There is no pneumothorax. IMPRESSION: Mild pulmonary vascular congestion without significantedema.Images reviewed, interpreted, and dictated by Dr. Goyo Marroquin.Transcribed by VIDHYA Villa have personally viewed, interpreted and dictated the examination. [place] read and agree with the above final transcribed report. CTA Chest PE Protocol (04/28/2021 10:26) Result: CTA/PE PROTOCOL CHEST CT: 04/28/2021 9:27 AM HISTORY: Shortness of breath.COMPARISON: None.TECHNIQUE: The patient was injected with IV contrast. Axial images wereobtained through the chest in a CTA/PE protocol. 3D reconstructionimages were also performed. This study was performed with techniques tokeep radiation doses as low as reasonably achievable, (ALARA).Individualized dose reduction techniques using automated exposurecontrol or adjustment of mA and/or kV according to the patient size wereemployed.FINDINGS: The heart size is normal. There is no pericardial or pleuraleffusion. There is no adenopathy. Small hilar lymph nodes are presentbilaterally. Limited images of the upper abdomen are unremarkable. Thereis no dissection. There is no PE. The lungs are hyperinflated.Peripheral interstitial changes are present. There are two 5 mm nodulesin the right middle lobe. There is a 5 mm nodule in the right lower lobemedially.IMPRESSION: No dissection or PE.Multiple small right lung nodules. Six-month follow-up chest CTrecommended. Images reviewed, interpreted, and dictated by Justa Carmona MD . Reexamination/ Reevaluation Time: 04/28/2021 11:33:00 . Notes: Proved with DuoNeb's. Plan steroids, antibiotics, Tessalon for home. Advised to follow-up with primary care physician for repeat x-ray/CT scan for pulmonary nodules. Impression and Plan Diagnosis COPD exacerbation - Discharge, Medical Plan Condition: Improved. Disposition: Discharged Admit/Transfer/Discharge: Discharge (Order): Start: 04/28/2021 11:34 EDT, Discharge to: Home. Prescriptions: Prescription Leaflet Distributor Pharmacy: Zithromax Z-Ryne 250 mg oral tablet (Prescribe): 1 Tab, Oral, Daily, TAKE 2 TABLETS FIRST DAY, THEN 1 TABLET DAILY, 6 Tab, 0 Refill(s) predniSONE 50 mg oral tablet (Prescribe): 1 Tab, Oral, Daily, for 5 Day(s), 5 Tab, 0 Refill(s) Tessalon Perles 100 mg oral capsule (Prescribe): 1 Cap, Oral, TID, for 7 Day(s), PRN: as needed for cough, 21 Cap, 0 Refill(s). Patient was given the following educational materials: Chronic Obstructive Pulmonary Disease Exacerbation. Follow up with: ; [facility] (Find a Doc) Within 2 to 3 days. Counseled: Patient, Regarding diagnosis, Regarding diagnostic results, Regarding treatment plan, Regarding prescription, Patient indicated understanding of instructions. documented in this encounter Plan of Treatment Not on file documented as of this encounter Visit Diagnoses Not on filedocumented in this encounter
[2025-05-09 09:48] LABS: Basophils # 0.1 K/mm3 (0-0.2); Basophils % 0.7 % (0.1-2.0); Eosinophils # 0.2 Kmm3 (0.0-0.4); Eosinophils % 2.1 % (0.1-12.0); Hematocrit 42.1 % (42.0-52.0); Hemoglobin 13.3 g/dL (14.1-18.0); Immature Granulocytes # 0.04 10^3uL; Immature Granulocytes % 0.4 %; Lymphocytes # 1.6 K/mm3 (0.7-4.5); Lymphocytes % 14.6 % (10-50); Mean Corpuscular HGB Conc 31.6 g/dL (31.8-35.4); Mean Corpuscular Hemoglobin 28.5 pg (27.0-31.2); Mean Corpuscular Volume 90.1 fl (80-94); Mean Platelet Volume 9.1 fl (7.4-10.4); Monocytes # 0.8 K/mm3 (0.1-1.0); Monocytes % 7.6 % (1.7-9.3); Neutrophils # 8.1 K/mm3 (1.8-7.8); Neutrophils % 74.6 % (37.0-80.0); Nucleated Red Blood Cells # 0 10^3/uL; Nucleated Red Blood Cells % 0 %; Platelet Count 464 K/mm3 (142-424); Red Blood Count 4.67 M/mm3 (4.60-6.20); Red Cell Distribution Width-SD 53.1 fL; White Blood Count 10.8 K/mm3 (4.8-10.8)
[2025-05-09 10:35] LABS: Alanine Aminotransferase 21 U/L (12-78); Albumin Level 4.3 g/dl (3.5-5.0); Alkaline Phosphatase 179 U/L (38-126); Anion Gap 14.2 mEq/L (5-15); Aspartate Amino Transferase 30 U/L (17-59); Bilirubin,Direct 0.2 mg/dl (0.0-0.4); Bilirubin,Indirect 0.6 mg/dL (0.0-0.9); Bilirubin,Total 0.8 mg/dl (0.2-1.3); Bilirubin,Unconjugated 0.5 mg/dL (0.0-1.1); Blood Urea Nitrogen 20 mg/dl (9-20); Calcium 9.3 mg/dl (8.4-10.2); Carbon Dioxide 25 mmol/L (22.0-30.0); Chloride 104 mmol/L (98-107); Chol/HDL Ratio 3.5 (1-3.5); Cholesterol 107 mg/dl (140-200); Estimated Glomerular Filt Rate 61 ml/min (>60); GFR (African American) 73 ML/MIN (>60); Glucose 100 mg/dl (74-100); HDL Cholesterol 31 mg/dl (40-60); Magnesium 2.4 mg/dl (1.6-2.3); Potassium 5.2 mmoL/L (3.5-5.1); Sodium 138 mmol/L (136-145); Total Protein,Serum 7.8 g/dl (6.3-8.2); Triglycerides 86 mg/dl (30-150); VLDL Cholesterol 17 mg/dL (0-40)
[2025-05-09 10:46] LABS: Direct LDL Cholesterol 52.28 mg/dL (100-129)
[2025-05-09 10:52] LABS: Free T4 (Free Thyroxine) 1.44 ng/dl (0.78-2.19)
[2025-05-09 11:06] LABS: Thyroid Stimulating Hormone 3.48 uIU/mL (0.465-4.68)
== END 2025-05-09 23:59 | disposition home or self-care (01) ==
LOC: LAB 09:03
PROVIDERS: PCP Nurse Practitioner; Visit Provider Internal Medicine
DX: E78.2 Mixed hyperlipidemia (principal); I10 Essential (primary) hypertension; E78.5 Hyperlipidemia, unspecified
CPT/HCPCS: 36415; 80048; 80061; 80076; 83735; 84439; 84443; 85025

== ENCOUNTER 2025-07-22 10:27 | Outpatient (CLI) | payer MEDICARE, SELFPAY ==
--- OUTSIDE RECORDS SUMMARY | 2021-07-05 12:04 | XMS_ITS | Encounter Summary ---
[facility] [address] [place] [address] Care Team Providers Care Caramel Cutter Helper Name Role Phone Petty Armendariz MD Primary Care Provider + [phone] Encounter Details Date Type Department Care Team (Late st Contact Info) Description 07/05/2021 12:04 PM EDT Hospital Encounter [facility] PUL[facility]ITICAL CARE MEDICINE [address] [place] [phone] Social History Tobacco Use Types Packs/Day Years [...] Narrative 07/05/2021 12:59 PM EDT Wai Boyer [id number] 07/05/2021 Chest X-Ray PA & Lateral Indication: [...] documented as of this encounter Care Teams Caramel Cutter Helper Relationship Specialty Start Date End Date Petty Armendariz MD PCP - General Internal Medicine 07/05/21 documented as of this encounter
--- OUTSIDE RECORDS SUMMARY | 2025-07-22 10:30 | XMS_ITS | Encounter Summary ---
Author Organization [employer] ([place], [place], [place], [place]) Address [address] [place] [address] Care Team Providers Care Partner Name Role Phone Unavailable Primary Care Provider Unavailabl e Encounter Details Date Type Department Care Team (Late st Contact Info) Description 04/28/2021 Transcribed Document [facility] [place] [facility] [place] [address] ProviderJoanna MD [facility] [place], [place] [phone] Social History Tobacco Use Types Packs/Day Years Used Date Smoking Tobacco: Never Assessed Sex and Gender Information Value Date Recorded Sex Assigned at Male 05/25/2022 11:23 PM CDT Legal Sex Male 5:54 PM CDT Gender Identity Male 05/25/2022 11:23 PM CDT Sexual Orientation Not on file documented as of this encounter Miscellaneous Notes * Cerner Conversion Note - Joanna ProviderMD - 04/28/2021 7:23 AM CDT ED Assessment Entered On: 04/28/2021 11:45 EDT Performed On: 04/28/2021 8:30 EDT by Kiera Brady RN ED Quick Look Assessment Level of Consciousness : Alert, Awake Affect/Behavior : Appropriate, Calm, Cooperative Orientation : Oriented x 4 Kiera Brady RN - 04/28/2021 11:44 EDT ED General-Functional Assess Communication Barrier : None Primary Language : Slovenian Any Spiritual/Cultural Needs or Requests : No [...]
--- OUTSIDE RECORDS SUMMARY | 2025-07-22 10:30 | XMS_ITS | Encounter Summary ---
Author Organization [employer] ([place], [place], [place], [place]) Address [address] [place] [address] Care Team Providers Care Rustic Terrazzo Setter Name Role Phone Unavailable Primary Care Provider Unavailabl e Encounter Details Date Type Department Care Team (Late st Contact Info) Description 04/28/2021 Transcribed Document [facility] [place] [facility] [place] [address] ProviderJoanna MD [address] [place] [phone] Social History Tobacco Use Types Packs/Day Years [...] 04/28/2021 09:44 (ASIM HICKS) Provider Review Required documented in this encounter Plan of Treatment Not on file documented as of this encounter Visit Diagnoses Not on filedocumented in this encounter
--- OUTSIDE RECORDS SUMMARY | 2025-07-22 10:30 | XMS_ITS | Referral Summary ---
Author Organization [employer] ([place]) Address [address] [place] [address] Care Team Providers Care Gauntlet Pairer Name Role Phone Unavailable Primary Care Provider [...]
--- OUTSIDE RECORDS SUMMARY | 2025-07-22 10:30 | XMS_ITS | Clinical Summary ---
Author Organization [facility] Address [address] [place] [address] Care Team Providers Care Information Broker Name Role Phone Petty Armendariz MD Primary Care Provider Family History Medical History Relation Name Comments [...] (2 of 2 - PCV) 06/05/2018 06/05/2017 [id number] Vaccine (4 - 2023- season) 2024 11/16/2021, 04/19/2021, 03/18/2021 UKY-Influenza Vaccine (#1) 07/28/202509/17, 08/11/2020, 08/19/2019, Additional history exists UKY-RSV Vaccine: [...] complete this topic Insurance MEDICARE Care Teams Information Broker Relationship Specialty Start Date End Date Petty Armendariz MD [address] [place] [address] [place] [phone] PCP - General 04/09/21
--- OUTSIDE RECORDS SUMMARY | 2025-07-22 10:30 | XMS_ITS | Encounter Summary ---
Author Organization [employer] ([place], [place], [place], [place]) Address [address] [place] [address] Care Team Providers Care Weapons Mechanic Name Role Phone Unavailable Primary Care Provider Unavailabl e Encounter Details Date Type Department Care Team (Late st Contact Info) Description 04/28/2021 Transcribed Document [facility] [place] [facility] [place] [address] ProviderJoanna MD [address] [place] [phone] Social History Tobacco Use Types Packs/Day Years Used Date Smoking Tobacco: Never Assessed Sex and Gender Information Value Date Recorded Sex Assigned at Male 05/25/2022 11:23 PM CDT Legal Sex Male 5:54 PM CDT Gender Identity Male 05/25/2022 11:23 PM CDT Sexual Orientation Not on file documented as of this encounter Miscellaneous Notes * Cerner Conversion Note - Joanna ProviderMD - 04/28/2021 11:47 AM CDT ED Discharge Entered On: 04/28/2021 11:47 EDT Performed On: 04/28/2021 11:47 EDT by JOI SAEZ, field service representative Process Patient Disposition : Discharge Personal Belongings [...] JOI SAEZ RN - 04/28/2021 11:47 EDT documented in this encounter Plan of Treatment Not on file documented as of this encounter Visit Diagnoses Not on filedocumented in this encounter
--- OUTSIDE RECORDS SUMMARY | 2025-07-22 10:30 | XMS_ITS | Encounter Summary ---
Author Organization [employer] ([place], [place], [place], [place]) Address [address] [place] [address] Care Team Providers Care Land Appraiser Name Role Phone Unavailable Primary Care Provider Unavailabl e Encounter Details Date Type Department Care Team (Late st Contact Info) Description 04/28/2021 Transcribed Document [facility] [place] [facility] [place] [address] ProviderJoanna MD [address] [place] [phone] Social History Tobacco Use Types Packs/Day Years [...] ProviderMD - 04/28/2021 7:23 AM CDT ED Triage Entered On: 04/28/2021 7:36 EDT Performed On: 04/28/2021 7:34 EDT by Kiera Brady RN ED Triage Across the Room Chief Complaint : c/o SOA and CP x 2 weeks, increased with activity. 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 Hx HTN, HLD, DM, COPD, umbilical hernia repair. Triage Date/Time : 04/28/2021 7:34 EDT Kiera Brady RN - 04/28/2021 7:34 EDT DCP GENERIC CODE Tracking Acuity : 2 - Emergent Tracking Group : [facility] ED Kiera Brady RN - 04/28/2021 7:34 [...] Allergies ; Type: Allergy ; Updated By: SERA STEPHENSON; Reviewed Date: 09/20/2017 7:36 EDT Diagnosis Control ED (As Of: 04/28/2021 07:36:54 EDT) Problems(Active) Arthritis (SNOMED CT :0117052 ) Name of Problem: Arthritis ; Recorder: JUANY TURCIOS RN; Confirmation: Confirmed ; Classification: Medical ; Code: [id number] ; Contributor System: Man[employer]IQ ; Last Updated: 09/20/2017 7:46 EDT ; Life Cycle Date: 09/20/2017 ; Life Cycle Status: Active ; Vocabulary: SNOMED CT BPH (benign prostatic hyperplasia) (SNOMED CT :349835077 ) Name of Problem: BPH (benign prostatic hyperplasia) ; Recorder: JUANY TURCIOS RN; Confirmation: Confirmed ; Classification: Medical ; Code: [id number] ; Contributor System: ManageIQ ; Last Updated: 09/20/2017 7:45 EDT ; Life Cycle Date: 09/20/2017 ; Life Cycle Status: Active ; Vocabulary: SNOMED CT Hyperlipidemia (SNOMED CT :45961601 ) Name of Problem: Hyperlipidemia ; Recorder: JUANY TURCIOS RN; Confirmation: Confirmed ; Classification: Medical ; Code: [id number] ; Contributor System: Man[employer]IQ ; Last Updated: 09/20/2017 7:44 EDT ; Life Cycle Date: 09/20/2017 ; Life Cycle Status: Active ; Vocabulary: SNOMED CT Hypertension (SNOMED CT :6306652967 ) Name of Problem: Hypertension ; Recorder: JUANY TURCIOS RN; Confirmation: Confirmed ; Classification: Medical ; Code: [id number] ; Contributor System: ManageIQ ; Last Updated: 09/20/2017 7:44 EDT ; Life Cycle Date: 09/20/2017 ; Life Cycle Status: Active ; Vocabulary: SNOMED CT Diagnoses(Active) Chest pain Date: 04/28/2021 ; Diagnosis Type: Reason For Visit ; Confirmation: Complaint of ; Clinical Dx: Chest pain ; Classification: Medical ; Clinical Service: Non-Specified ; Code: PNED ; Probability: 0 ; Diagnosis Code: [id number] ED Height and Weight Height Source : Stated Height Entry Format : [place] Height, Feet : 6 ft(Converted to: 183 cm, 72 Inch) Height, Inches : 2 Inch(Converted to: 0 ft 2 Inch, 5.08 cm) Clinical Height : 187.96 cm Weight Source, ED : Critical estimated dosing weight Weight Entry Format : [place] Weight, Pounds : 350 lb Clinical Dosing Weight : 159.09 kg Body Surface Area (BSA) : 2.76 m2 Body Mass Index : 45 kg/m2 (>HHI) [place] Body Weight (IBW) : 81.16 kg Kiera Brady RN - 04/28/2021 7:34 EDT documented in this encounter Plan of Treatment Not on file documented as of this encounter Visit Diagnoses Not on filedocumented in this encounter
--- OUTSIDE RECORDS SUMMARY | 2025-07-22 10:30 | XMS_ITS | Clinical Summary ---
Author Organization [facility] Address [address] [place] [address] Care Team Providers Care Computer Repair Engineer Name Role Phone Petty Armendariz MD Primary Care Provider + [phone] Allergies No known active allergies Medications buPROPion XL (WELLBUTRIN XL) 300 MG 24 hr tablet Take 300 mg by mouth Daily. Active levothyroxine (SYNTHROID, LEVOTHROID) 75 MCG tablet Take 75 mcg by mouth Daily. Active atorvastatin (LIPITOR) 80 MG tablet Take 80 mg by mouth Daily. Active DOXAZOSIN MESYLATE PO Take by mouth. Active albuterol sulfate HFA 108 (90 Base) MCG/ACT inhaler Inhale 2 puffs Every 4 (Four) Hours As Needed for Wheezing. Active amLODIPine (NORVASC) 10 MG tablet Take 10 mg by mouth Daily. Active metFORMIN (GLUCOPHAGE) 500 MG tablet Take 500 mg by mouth 2 (Two) Times a Day With Meals. Active losartan (COZAAR) 100 MG tablet Take 100 mg by mouth Daily. Active aspirin 81 MG chewable tablet Chew 81 mg Daily. Active Fluticasone-Umec lidin-Vilant (Trelegy Ellipta) 200-62.5-25 MCG/INH inhalerIndicatio ns:Mucopurulent chronic bronchitis Inhale 1 puff Daily. 60 each 5 08/05/2021 Active Active Problems Problem Noted Date Diagnosed Date GERD without esophagitis 08/05/2021 Mucopurulent chronic bronchitis 07/05/2021 Essential hypertension 07/05/2021 Type 2 diabetes mellitus 07/05/2021 Hypothyroidism (acquired) 07/05/2021 Morbid obesity with BMI of 45.0-49.9, adult 07/2021 Dyslipidemia 07/05/2021 Immunizations Immunization Administration Dates Next Due COVID-19 (MODERNA) 1st,2nd,3rd Dose Monovalent 0 04/19/2021,03/18/2021 Fluzone High-Dose 65+YRS 08/19/2019 Pneumococcal Polysaccharide (PPSV23) 06/05/2017 Zostavax 06/05/2017 Social History Tobacco Use Types Packs/Day Years [...] Sign Reading Time Taken Comments Blood Pressure 160/72 08/05/2021 12:01 PM EDT Pulse 103 08/05/2021 12:01 PM EDT Temperature 36.7 C (98 F) 08/05/2021 12:01 PM EDT Respiratory Rate 20 08/05/2021 12:0 1 PM EDT Oxygen Saturation 98% 08/05/2021 12: 01 PM EDT room air at rest Inhaled Oxygen Concentration - - Weight 173 kg (381 lb 2 oz) 08/05/2021 12:01 PM EDT Height 188 cm (6' 2 ) 08/05/2021 12:01 PM EDT Body Mass Index 48.93 08/05/2021 12:01 PM EDT Plan of Treatment Health Maintenance Due Date Last Done Comments TDAP/TD VACCINES (1 - Tdap) 1977 COLOGUARD 2003 COLON CANCER SCREENING 5 YEA R SIGMOIDOSCOPY 2003 COLONOSCOPY 2003 [address] CANCER SCREENING 2003 CT COLONOGRAPHY 2003 FECAL OCCULT BLOOD TEST 2003 FIT Testing (1 year) 2003 ZOSTER VACCINE (2 of 3) 07/31/2017 06/05/2017 Pneumococcal Vaccine 50+ (2 of 2 - PCV) 06/05/2018 0 06/05/2017 ANNUAL PHYSICAL 07/05/2021 HEPATITIS C SCREENING 07/05/2021 AAA SCREEN ONCE 2023 COVID-19 Vaccine ( season) 2024, 03/18/2021 INFLUENZA VACCINE 08/27/2025 08/19/2019 Insurance MEDICARE A & B Care Teams Computer Repair Engineer Relationship Specialty Start Date End Date Petty Armendariz MD PCP - General Internal Medicine 07/05/21
--- OUTSIDE RECORDS SUMMARY | 2025-07-22 10:30 | XMS_ITS | Encounter Summary ---
Author Organization [employer] ([place], [place], [place], [place]) Address [address] [place] [address] Care Team Providers Care Rn Social Work Name Role Phone Unavailable Primary Care Provider Unavailabl e Encounter Details Date Type Department Care Team (Late st Contact Info) Description 04/28/2021 Transcribed Document [facility] [place] [facility] [place] [address] ProviderJoanna MD [address] [place] [address] [phone] Social History Tobacco Use Types Packs/Day Years [...] x 2 weeks, increased with activity. 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 Hx HTN, HLD, DM, [...] EDT Height Source Stated Height Entry Format [place] Height/Length, ZAMBIAN (ft) 6 ft Height/Length ZAMBIAN 2 Inch CLINICALHEIGHT 187.96 cm [place] Body Weight 81.16 kg Weight Source, ED Critical estimated dosing weight Weight Entry Format [place] Weight Tristan[place] lb 350 lb CLINICALWEIGHT 159.09 kg Body [...] rhythm, No ST changes, no ectopy, normal IN & QRS intervals, EP Interp. Results review: [...] % 21.1 % Lymph # 1.89 x10(3)/uL [place] % 8.6 % [place] # 0.77 K/uL Eos % 2.5 % Eos # 0.22 x10(3)/uL Baso % 0.6 % Baso # 0.05 x10(3)/uL Slide Review No IG# 0.03 x10(3)/uL IG% 0.30 % . Radiology results: Radiology Results (Last 48 hours) [id number] -- 04/28/2021 07:23 CR Chest 1 Vw [...] 11:34 EDT, Discharge to: Home. Prescriptions: Prescription Clearance Center Manager Pharmacy: Zithromax Z-Ryne 250 mg oral tablet [...]
--- OUTSIDE RECORDS SUMMARY | 2025-07-22 10:30 | XMS_ITS | Encounter Summary ---
Author Organization [employer] ([place], [place], [place], [place]) Address [address] [place] [address] Care Team Providers Care Financial Reporting Consultant Name Role Phone Unavailable Primary Care Provider Unavailabl e Encounter Details Date Type Department Care Team (Late st Contact Info) Description 04/28/2021 Transcribed Document [facility] [place] [facility] [place] [address] ProviderJoanna MD [address] [place] [address] Social History Tobacco Use Types Packs/Day [...] Joanna ProviderMD - 04/28/2021 11:36 AM CDT [facility] [place], [place] [address] MAG BOYER :1960 Visit Time:04/28/2021 Your Visit [...] do next Follow-Up Appointments Follow Up with [facility] (Find a Doc) When Within 2 to 3 days Where: [place] [address] [place] [phone]- Business (1) Allergies No Known Allergies Immunizations This Visit No Immunizations Found Medications What How Much When Instructions Next Dose azithromycin (Zithromax Z-Ryne 250 mg oral tablet) 1 Tablet(s) Oral Every Day TAKE 2 TABLETS FIRST DAY, THEN 1 TABLET DAILY Pickup at [facility] benzonatate (Tessalon Perles 100 mg oral capsule) 1 Capsule(s) Oral Three Times A Day as needed for as needed for cough Duration: 7 Day(s) Pickup at [facility] predniSONE (predniSONE 50 mg oral tablet) 1 Tablet(s) Oral Every Day Duration: 5 Day(s) Pickup at [facility] aspirin (aspirin 81 mg oral delayed release [...] for as needed for pain Pharmacy Information [facility]: [address] [place] [address] Dr Omar Guerrier [place] [phone] The home medications listed are only as [...] range between ( 0.0 and 7.0 ) [place] #: 0.77 K/uL -- Normal range between ( 0.16 and 1.00 ) [place] #: 0.22 x10(3)/uL -- Normal range between ( 0.00 and 0.80 ) [place] %: 8.6 % -- Normal range between [...] these instructions at home: Medicines ??? Take zjhn-pfi-vnrbxyh and prescription medicines only as told by [...] and water are not available, use hand datacap developer. ??? During flu season, avoid enclosed spaces [...] provider. Document Revised: 10/26/2018 Document Reviewed: 12/18/2017 Elsevier Patient Education ?? 2020 [employer] Emergency Awareness and Preventative Care STROKE [...] Assistance with quitting is available by contacting 8-124-QGJZKicknote.comNOW. This is a free resource providing counseling, support, and referral. Or you may contact your personal physician. [employer] Suicide Prevention Lifeline: The National Suicide Prevention [...] was given the opportunity to ask questions. Patient/Organ Teacher Name: Patient/Organ Teacher Signature: Relationship to Patient: Clinician/Hospital Organ Teacher Signature: Please Provide a Telephone Number Where You Can Be Reached: Is it Permissible To Leave a Message? Date: documented in this encounter Plan of Treatment Not on file documented as of this encounter Visit Diagnoses Not on filedocumented in this encounter
--- OUTSIDE RECORDS SUMMARY | 2025-07-22 10:30 | XMS_ITS | Encounter Summary ---
Author Organization [employer] ([place], [place], [place], [place]) Address [address] [place] [address] Care Team Providers Care Wind Turbine Electrical Engineer Name Role Phone Unavailable Primary Care Provider Unavailabl e Encounter Details Date Type Department Care Team (Late st Contact Info) Description 04/28/2021 Transcribed Document [facility] [place] [address] [place] [address] ProviderJoanna MD [address] [place], [place] [id number] Social History Tobacco Use Types Packs/Day Years Used Date Smoking Tobacco: Never Assessed Sex and Gender Information Value Date Recorded Sex Assigned at Male 05/25/2022 11:23 PM CDT Legal Sex Male 5:54 PM CDT Gender Identity Male 05/25/2022 11:23 PM CDT Sexual Orientation Not on file documented as of this encounter Miscellaneous Notes * Cerner Conversion Note - Historical ProviderMD - 04/28/2021 7:23 AM CDT Broset Violence Assessment Entered On: 04/28/2021 7:52 EDT Performed On: 04/28/2021 7:52 EDT by Kiera Brady RN Broset Violence Assessment Broset Violence Checklist of Symptoms : None Broset Violence Symptoms Subtotal : 0 Broset Violence Symptoms Indicator : Low risk (0) Kiera Brady RN - 04/28/2021 7:52 EDT documented in this encounter Plan of Treatment Not on file documented as of this encounter Visit Diagnoses Not on filedocumented in this encounter
--- OUTSIDE RECORDS SUMMARY | 2025-07-22 10:30 | XMS_ITS | Encounter Summary ---
Author Organization [employer] ([place], [place], [place], [place]) Address [address] [place] [address] Care Team Providers Care Blindstitch Lining Feller Name Role Phone Unavailable Primary Care Provider Unavailabl e Encounter Details Date Type Department Care Team (Late st Contact Info) Description 04/28/2021 Transcribed Document [facility] [place] [address] ProviderJoanna MD [facility] [place] [address] Social History Tobacco Use Types Packs/Day Years Used Date Smoking Tobacco: Never Assessed Sex and Gender Information Value Date Recorded Sex Assigned at Male 05/25/2022 11:23 PM CDT Legal Sex Male 5:54 PM CDT Gender Identity Male 05/25/2022 11:23 PM CDT Sexual Orientation Not on file documented as of this encounter Miscellaneous Notes * Cerner Conversion Note - Historical ProviderMD - 04/28/2021 11:36 AM CDT documented in this encounter Plan of Treatment Not on file documented as of this encounter Visit Diagnoses Not on filedocumented in this encounter
--- OUTSIDE RECORDS SUMMARY | 2025-07-22 10:30 | XMS_ITS | Clinical Summary ---
Author Organization [employer] ([place], [place], [place], [place]) Address [address] [place] [address] Care Team Providers Care Oracle R12 Developer Name Role Phone Unavailable Primary Care Provider [...]
[2025-07-22 11:16] LABS: Chloride 105 mmol/L (98-107); Potassium 5.0 mmoL/L (3.5-5.1); Sodium 140 mmol/L (136-145)
[2025-07-22 11:19] LABS: Anion Gap 15.0 mEq/L (5-15); Blood Urea Nitrogen 24 mg/dl (9-20); Calcium 9.2 mg/dl (8.4-10.2); Carbon Dioxide 25 mmol/L (22.0-30.0); Creatinine,Serum 1.00 mg/dl (0.66-1.25); Estimated Glomerular Filt Rate 75 ml/min (>60); GFR (African American) 90 ML/MIN (>60); Glucose 85 mg/dl (74-100)
== END 2025-07-22 23:59 | disposition home or self-care (01) ==
LOC: LAB 10:28
PROVIDERS: PCP Nurse Practitioner; Visit Provider Internal Medicine
DX: I10 Essential (primary) hypertension (principal)
CPT/HCPCS: 36415; 80048

== ENCOUNTER 2025-08-22 13:35 | Outpatient (CLI) | payer MEDICARE, SELFPAY ==
--- OUTSIDE RECORDS SUMMARY | 2021-07-05 12:04 | XMS_ITS | Encounter Summary ---
[facility] [address] [place] [address] Care Team Providers Care Metallurgical Or Materials Technician Name Role Phone Petty Armendariz MD Primary Care Provider + [phone] Encounter Details Date Type Department Care Team (Late st Contact Info) Description 07/05/2021 12:04 PM EDT Hospital Encounter [facility] PULMONARY & CRITICAL CARE MEDICINE [address] [place] [phone] Social History Tobacco Use Types Packs/Day Years [...] Narrative 07/05/2021 12:59 PM EDT Wai Boyer [id number] 07/05/2021 Chest X-Ray PA & Lateral Indication: [...] documented as of this encounter Care Teams Metallurgical Or Materials Technician Relationship Specialty Start Date End Date Petty Armendariz MD PCP - General Internal Medicine 07/05/21 documented as of this encounter
--- OUTSIDE RECORDS SUMMARY | 2025-08-22 13:42 | XMS_ITS | Encounter Summary ---
Author Organization [employer] ([place], [place], [place], [place]) Address [address] [place] [address] Care Team Providers Care Studio Coordinator Name Role Phone Unavailable Primary Care Provider Unavailabl e Encounter Details Date Type Department Care Team (Late st Contact Info) Description 04/28/2021 Transcribed Document [facility] [place] [facility] [place] [address] ProviderJoanna MD [address] [place] [id number] Social History Tobacco Use Types Packs/Day Years [...]
--- OUTSIDE RECORDS SUMMARY | 2025-08-22 13:42 | XMS_ITS | Encounter Summary ---
Author Organization [employer] ([place], [place], [place], [place]) Address [address] [place] [address] Care Team Providers Care Cooling System Operator Name Role Phone Unavailable Primary Care Provider Unavailabl e Encounter Details Date Type Department Care Team (Late st Contact Info) Description 04/28/2021 Transcribed Document [facility] [place] [facility] [place] [address] ProviderJoanna MD [address] [place] [address] Social History Tobacco Use Types Packs/Day [...] Joanna ProviderMD - 04/28/2021 11:36 AM CDT [facility] [place], [place] [address] [address] [place]YER :1960 Visit Time:04/28/2021 [...] 3 days Where: [place] [address] [place] [address]- Business (1) Allergies No Known Allergies Immunizations This Visit No Immunizations Found Medications What How Much When Instructions Next Dose azithromycin (Zithromax Z-Ryne 250 mg oral tablet) 1 Tablet(s) Oral Every Day TAKE 2 TABLETS FIRST DAY, THEN 1 TABLET DAILY Pickup at [facility] benzonatate (Tessalon Perles 100 mg oral capsule) 1 Capsule(s) Oral Three Times A Day as needed for as needed for cough Duration: 7 Day(s) Pickup at [facility] predniSONE (predniSONE 50 mg oral tablet) 1 Tablet(s) Oral Every Day Duration: 5 Day(s) Pickup at [facility] aspirin (aspirin 81 mg oral [...] for as needed for pain Pharmacy Information [facility]: [address] [place] [address] Dr Omar Guerrier [place] [phone] The home medications listed are only as [...] range between ( 0.0 and 7.0 ) [place] #: 0.77 K/uL -- Normal range between ( 0.16 and 1.00 ) [place] #: 0.22 x10(3)/uL -- Normal range between ( 0.00 and 0.80 ) [place] %: 8.6 % -- Normal range between [...] these instructions at home: Medicines ??? Take xbsz-bqm-ccivazj and prescription medicines only as told by [...] and water are not available, use hand home care chaplain. ??? During flu season, avoid enclosed spaces [...] Reviewed: 12/18/2017 Elsevier Patient Education ?? 2020 [employer] Emergency Awareness and Preventative Care STROKE [...] Assistance with quitting is available by contacting 7-803-ZIKIKaiimaNOW. This is a free resource providing counseling, support, and referral. Or you may contact your personal physician. [facility] Suicide Prevention Lifeline: The National Suicide Prevention [...] was given the opportunity to ask questions. Patient/Server Developer Name: Patient/Server Developer Signature: Relationship to Patient: Clinician/Hospital Server Developer Signature: Please Provide a Telephone Number Where You Can Be Reached: Is it Permissible To Leave a Message? Date: documented in this encounter Plan of Treatment Not on file documented as of this encounter Visit Diagnoses Not on filedocumented in this encounter
--- OUTSIDE RECORDS SUMMARY | 2025-08-22 13:42 | XMS_ITS | Encounter Summary ---
Author Organization [employer] ([place], [place], [place], [place]) Address [address] [place] [address] Care Team Providers Care Area Operations Manager Name Role Phone Unavailable Primary Care Provider Unavailabl e Encounter Details Date Type Department Care Team (Late st Contact Info) Description 04/28/2021 Transcribed Document [facility] [place] Family Medicine [facility] [place] [address] ProviderJoanna MD [address] [place] [phone] Social History Tobacco Use Types Packs/Day Years [...] x 2 weeks, increased with activity. + CONTACT CENTER REPRESENTATIVE cough, denies fever. Hx HTN, HLD, DM, COPD, umbilical hernia repair. Triage Date/Time : 04/28/2021 7:34 EDT Kiera Brady RN - 04/28/2021 7:34 EDT DCP GENERIC CODE Tracking Acuity : 2 - Emergent Tracking Group : [facility] ED Kiera Brady RN - 04/28/2021 7:34 [...] 04/28/2021 07:36:54 EDT) Problems(Active) Arthritis (SNOMED CT :4282058 ) Name of Problem: Arthritis ; Recorder: JUANY TURCIOS RN; Confirmation: Confirmed ; Classification: Medical ; Code: [id number] ; Contributor System: [employer] ; Last Updated: 09/20/2017 7:46 EDT ; Life Cycle Date: 09/20/2017 ; Life Cycle Status: Active ; Vocabulary: SNOMED CT BPH (benign prostatic hyperplasia) (SNOMED CT :735517506 ) Name of Problem: BPH (benign prostatic hyperplasia) ; Recorder: JUANY TURCIOS RN; Confirmation: Confirmed ; Classification: Medical ; Code: [id number] ; Contributor System: [employer] ; Last Updated: 09/20/2017 7:45 EDT ; Life Cycle Date: 09/20/2017 ; Life Cycle Status: Active ; Vocabulary: SNOMED CT Hyperlipidemia (SNOMED CT :32424249 ) Name of Problem: Hyperlipidemia ; Recorder: JUANY TURCIOS RN; Confirmation: Confirmed ; Classification: Medical ; Code: [id number] ; Contributor System: [employer] ; Last Updated: 09/20/2017 7:44 EDT ; Life Cycle Date: 09/20/2017 ; Life Cycle Status: Active ; Vocabulary: SNOMED CT Hypertension (SNOMED CT :9749869749 ) Name of Problem: Hypertension ; Recorder: JUANY TURCIOS RN; Confirmation: Confirmed ; Classification: Medical ; Code: [id number] ; Contributor System: [employer] ; Last Updated: 09/20/2017 7:44 EDT ; Life Cycle Date: 09/20/2017 ; Life Cycle Status: Active ; Vocabulary: SNOMED CT Diagnoses(Active) Chest pain Date: 04/28/2021 ; Diagnosis Type: Reason For Visit ; Confirmation: Complaint of ; Clinical Dx: Chest pain ; Classification: Medical ; Clinical Service: Non-Specified ; Code: PNED ; Probability: 0 ; Diagnosis Code: [id number] ED Height and Weight Height Source : Stated Height Entry Format : Pablo Height, Feet : 6 ft(Converted to: 183 cm, 72 Inch) Height, Inches : 2 Inch(Converted to: 0 ft 2 Inch, 5.08 cm) Clinical Height : 187.96 cm Weight Source, ED : Critical estimated dosing weight Weight Entry Format : Pablo Weight, Pounds : 350 lb Clinical Dosing Weight : 159.09 kg Body Surface Area (BSA) : 2.76 m2 Body Mass Index : 45 kg/m2 (>HHI) [place] Body Weight (IBW) : 81.16 kg Kiera Brady RN - 04/28/2021 7:34 EDT Electronically signed by Rosanna Landers Conversion System Administration Advisor Cerner at 03/14/2023 8:28 PM CDT documented in this encounter Plan of Treatment Not on file documented as of this encounter Visit Diagnoses Not on filedocumented in this encounter
--- OUTSIDE RECORDS SUMMARY | 2025-08-22 13:42 | XMS_ITS | Referral Summary ---
Author Organization [employer] ([place], [place], [place], [place]) Address [address] [place] [address] Care Team Providers Care Medical Physics Researcher Name Role Phone Unavailable Primary Care Provider [...]
--- OUTSIDE RECORDS SUMMARY | 2025-08-22 13:42 | XMS_ITS | Encounter Summary ---
Author Organization [employer] ([place], [place], [place], [place]) Address [address] [place] [address] Care Team Providers Care Senior Analytic Consultant Name Role Phone Unavailable Primary Care Provider Unavailabl e Encounter Details Date Type Department Care Team (Late st Contact Info) Description 04/28/2021 Transcribed Document [facility] [place] [facility] [place] [address] ProviderJoanna MD [facility] [place], [place] [address] Social History Tobacco Use Types Packs/Day Years [...] Historical ProviderMD - 04/28/2021 11:36 AM CDT Electronically signed by Rosanna Landers Conversion Telephone Service Representative Philip at 03/14/2023 8:45 PM CDT documented in this encounter Plan of Treatment Not on file documented as of this encounter Visit Diagnoses Not on filedocumented in this encounter
--- OUTSIDE RECORDS SUMMARY | 2025-08-22 13:42 | XMS_ITS | Data Portability ---
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 Patient tolerating medication well at current dose without adverse effects. Refilled as below. Discussed plan with patient, who expressed understanding . Follow up as noted below. [place] [id number] Not available 10/21/2024 14:33:39 Plan of Treatment Reminders Order Date Submit Date Provider Last Modified By Organization Details Last Modified Time Details Appointments None recorded. Lab HbA1c (hemoglobin A1c), blood [address], [id number], 5 18:46:48 HbA1c (hemoglobin A1c), blood [address], [address], 5 16:16:44 HbA1c (hemoglobin A1c), blood [address], [address], 5 15:23:35 HbA1c (hemoglobin A1c), blood [address], [facility], [place], [address], 4 14:35:24 HbA1c (hemoglobin A1c), blood [address], [facility], [place], [address], 4 18:10:44 CBC w/ auto diff 2023 024 [place] [facility] ([place]), [address] [facility], [place], [address], 4 07:08:36 CMP, serum or plasma 2023 024 [place] [facility] ([place]), [address] [place], [address], 4 07:08:36 PSA, total, serum or plasma 2023 024 [place] [facility] ([place]), [address] [facility], [place], [address], 4 07:08:39 lipid panel, serum 2023 024 [facility] ([place]), [address] [facility], [place], [address], 4 07:08:37 HIV 1 + 2, meaningful use set 2023 024 [place] [facility] ([place]), [address] [facility], [place], [address], 4 07:08:40 Hepatitis C IgG Ab, qual, serum 2023 024 [place] [facility] ([place]), [address] [facility], [place], [address], 4 07:08:38 vitamin B12 + folate, serum or blood 2023 024 [facility] ([place]), [address] [place], [address], 4 07:08:37 vitamin D, 25-hydroxy, total, serum 2023 024 [facility] ([place]), [address] [place], [address], 4 07:08:39 Referral None recorded. Procedures None recorded. Surgeries None recorded. Imaging None recorded. Medication Orders amlodipine 10 mg tablet 2024 025 [facility], [address] [place] [address], [address], 5 10:47:38 aspirin 81 mg tablet,kate yed release 2024 025 [facility], [address] [place] [address], [address], 5 10:47:41 losartan 100 mg tablet 2024 025 [facility], [address] [place] [address], [address], 5 10:47:34 albuterol sulfate HFA 90 mcg/actuati on aerosol inhaler 2024 025 [facility], [address] [place] [address], [address], 5 10:47:41 Dulera 100 mcg-5 mcg/actuati on HFA aerosol inhaler 2024 025 [facility], [address] [place] [address], [address], 5 10:47:44 Spiriva with HandiHaler 18 mcg and inhalation capsules 2024 025 [facility], [address] [place] [address], [address], 5 10:47:43 atorvastati n 80 mg tablet 2024 025 [facility], [address] [place] [address], [address], 5 10:47:36 duloxetine 60 mg capsule,del ayed release 2024 025 [facility], [address] [place] [address], [address], 5 10:47:35 Vraylar 1.5 mg capsule 2024 025 [facility], [address] [place] [address], [address], 5 16:37:20 Vistaril 25 mg capsule 2024 025 [facility], [address] [place] [address], [address], 5 08:36:38 metformin 1,000 mg tablet 2024 025 [facility], [address] [place] [address], [address], 5 10:47:41 levothyroxi ne 75 mcg tablet 2024 025 [facility], [address] [place] [address], [address], 5 10:47:37 gabapentin 300 mg capsule 2024 025 [facility], [address] [place] [address], [address], 5 10:36:12 amlodipine 10 mg tablet 2024 025 [facility], [address] [place] [address], [address], 5 10:43:25 aspirin 81 mg tablet,kate yed release 2024 025 [facility], [address] [place] [address], [address], 5 10:43:27 losartan 100 mg tablet 2024 025 [facility], [address] [place] [address], [address], 5 10:43:24 atorvastati n 80 mg tablet 2024 025 [facility], [address] [place] [address], [address], 5 10:43:16 Dulera 100 mcg-5 mcg/actuati on HFA aerosol inhaler 2024 025 [facility], [address] [place] [address], [address], 5 10:43:25 Spiriva with HandiHaler 18 mcg and inhalation capsules 2024 025 [facility], [address] [place] [address], [address], 5 11:51:12 duloxetine 60 mg capsule,del ayed release 2024 025 [facility], [address] [place] [address], [address], 5 10:43:26 Vraylar 1.5 mg capsule 2024 025 [facility], [address] [place] [address], [address], 5 16:18:41 Vistaril 25 mg capsule 2024 025 [facility], [address] [place] [address], [address], 5 15:32:42 Lantus Solostar U-100 Insulin 100 unit/mL (3 mL) subcutaneou s pen 2024 025 [facility], [address] [place] [address], [address], 5 10:36:11 metformin 1,000 mg tablet 2024 025 [facility], [address] [place] [address], [address], 5 10:43:16 levothyroxi ne 75 mcg tablet 2024 025 [facility], [address] [place] [address], [address], 5 10:43:19 amlodipine 10 mg tablet 2024 025 [facility], [address] [place] [address], [address], 5 15:09:16 aspirin 81 mg tablet,kate yed release 2024 025 [facility], [address] [place] [address], [address], 5 15:09:14 losartan 100 mg tablet 2024 025 [facility], [address] [place] [address], [address], 5 15:09:12 albuterol sulfate HFA 90 mcg/actuati on aerosol inhaler 2024 025 [facility], [address] [place] [address], [address], 5 15:09:15 Dulera 100 mcg-5 mcg/actuati on HFA aerosol inhaler 2024 025 [facility], [address] [place] [address], [address], 5 15:09:15 Spiriva Respimat 2.5 mcg/actuati on solution for inhalation 2024 025 [facility], [address] [place] [address], [address], 5 15:48:14 Spiriva with HandiHaler 18 mcg and inhalation capsules 2024 025 [facility], [address] [place] [address], [address], 5 15:09:13 atorvastati n 80 mg tablet 2024 025 [facility], [address] [place] [address], [address], 5 15:09:15 duloxetine 60 mg capsule,del ayed release 2024 025 [facility], [address] [place] [address], [address], 5 15:09:13 Vraylar 1.5 mg capsule 2024 025 [facility], [address] [place] [address], [address], 5 17:41:07 Lantus Solostar U-100 Insulin 100 unit/mL (3 mL) subcutaneou s pen 2024 025 [facility], [address] [place] [address], [address], 5 15:38:15 metformin 1,000 mg tablet 2024 025 [facility], [address] [place] [address], [address], 5 15:09:12 levothyroxi ne 75 mcg tablet 2024 025 [facility], [address] [place] [address], [address], 5 15:09:16 gabapentin 300 mg capsule 2024 025 [facility], [address] [place] [address], [address], 5 12:04:58 amlodipine 10 mg tablet 2023 [facility], [address] [place] [address], [address], 4 15:41:26 aspirin 81 mg tablet,kate yed release 2023 [facility], [address] [place] [address], [address], 4 15:41:29 losartan 100 mg tablet 2023 [facility], [address] [place] [address], 87[address], 4 15:41:27 atorvastati n 80 mg tablet 2023 [facility], [address] [place] [address], 77[address], 4 15:41:30 Dulera 100 mcg-5 mcg/actuati on HFA aerosol inhaler 2023 [facility], [address] [place] [address], 6[address], 5 12:07:49 Spiriva with HandiHaler 18 mcg and inhalation capsules 2023 [facility], [address] [place] [address], [address], 4 15:41:31 duloxetine 60 mg capsule,del ayed release 2023 [facility], [address] [place] [address], 765[address], 4 15:41:25 Lantus Solostar U-100 Insulin 100 unit/mL (3 mL) subcutaneou s pen 2023 [facility], [address] [place] [address], [address]24[address], 4 15:41:30 metformin 1,000 mg tablet 2023 [facility], [address] [place] [address], [address], 4 15:41:27 levothyroxi ne 75 mcg tablet 2023 [facility], [address] [place] [address], [address], 4 15:41:27 gabapentin 300 mg capsule 2023 024 [facility], [address] [place] [address], 6[address], 5 16:26:23 spironolact one 50 mg tablet 2023 [facility], [address] [place] [address], 05[address], 5 12:04:59 albuterol sulfate HFA 90 mcg/actuati on aerosol inhaler 2023 024 [facility], [address] [place] [address], 00[address], 4 12:21:19 Spiriva with HandiHaler 18 mcg and inhalation capsules 2023 [facility], [address] [place] [address], 060[address], 4 13:46:31 Symbicort 160 mcg-4.5 mcg/actuati on HFA aerosol inhaler 2023 [facility], [address] [place] [address], 15[address], 4 12:15:41 duloxetine 60 mg capsule,del ayed release 2023 024 [facility], [address] [place] [address], 68[address], 4 12:21:18 spironolact one 50 mg tablet 2023 [facility], [address] [place] [address], 17[address], 4 15:41:26 torsemide 40 mg tablet 2023 [facility], [address] [place] [address], 388[address], 4 17:17:42 amlodipine 10 mg tablet 2023 024 [facility], [address] [place] [address], 97[address], 4 12:21:18 aspirin 81 mg tablet,kate yed release 2023 024 [facility], [address] [place] [address], 21671, 4 12:21:16 losartan 100 mg tablet 2023 024 [facility], [address] [place] [address], 778[address], 4 12:21:15 atorvastati n 80 mg tablet 2023 024 [facility], [address] [place] [address], 14861, 4 12:21:16 Lantus Solostar U-100 Insulin 100 unit/mL (3 mL) subcutaneou s pen 2023 024 [facility], [address] [place] [address], [address], 5 09:18:21 metformin 1,000 mg tablet 2023 024 [facility], [address] [place] [address], 628[address], 4 12:21:18 levothyroxi ne 75 mcg tablet 2023 [facility], [address] [place] [address], 95402, 4 12:21:17 gabapentin 300 mg capsule 2023 024 [facility], [address] [place] [address], 75093, 4 10:53:08 Patient TargetsNo targets recorded. Patient Instructions Encounter Date Encounter Id Patient Instructions Last Modified By Organization Details Last Modified Time 07/22/2024 [id number] statins: care instructions [email or web address] Not available 07/22/2024 18:10:44 PROMIS global- 10* [email or web address] Not available 07/22/2024 09:46:13 Reason for Referral None Reported. Results Created Date Observation Date Name Description Value Unit Range Abnormal Flag Note LastModifiedBy Organization Detail LastModifiedTime 07/22/2007/23/2024 CBC WITH DIFFE RENTI AL/PL ATELE T WBC 9.5 x10e3 /uL 3.4-10 .8 normal Not Available [facility] ([facility]) [address] [facility], [place], [address], 07/23/2024 07:08:36 07/22/20 24 07/23/2024 CBC WITH DIFFE RENTI AL/PL ATELE T RBC 4.46 x10e6 /uL 4.14-5 .80 normal Not Available [facility] ([facility]) [address] [facility], [place], [address], 07/23/2024 07:08:36 07/22/20 24 07/23/2024 CBC WITH DIFFE RENTI AL/PL ATELE T hemoglobin 13.4 g/dL 13.0-1 7.7 normal Not Available [facility] ([facility]) [address] [facility], [place], [address], 07/23/2024 07:08:36 07/22/20 24 07/23/2024 CBC WITH DIFFE RENTI AL/PL ATELE T hematocrit 42.1 % 37.5-5 1.0 normal Not Available [facility] ([facility]) [address] [facility], [place], [address], 07/23/2024 07:08:36 07/22/20 24 07/23/2024 CBC WITH DIFFE RENTI AL/PL ATELE T MCV 94 fL 79-97 normal Not Available [facility] ([facility]) [address] [place], [address], 07/23/2024 07:08:36 07/22/20 24 07/23/2024 CBC WITH DIFFE RENTI AL/PL ATELE T MCH 30.0 pg 26.6-3 3.0 normal Not Available [facility] ([facility]) [address] [place], [address], 07/23/2024 07:08:36 07/22/20 24 07/23/2024 CBC WITH DIFFE RENTI AL/PL ATELE T MCHC 31.8 g/dL 31.5-3 5.7 normal Not Available [facility] ([facility]) [address] [facility], [place], [address], 07/23/2024 07:08:36 07/22/20 24 07/23/2024 CBC WITH DIFFE RENTI AL/PL ATELE T RDW 13.1 % 11.6-1 5.4 Not Available [facility] ([facility]) [address] [facility], [place], [address], 07/23/2024 07:08:36 07/22/20 24 07/23/2024 CBC WITH DIFFE RENTI AL/PL ATELE T platelets 411 x10e3 /uL 150-45 0 normal Not Available [facility] ([facility]) [address] [facility], [place], [address], 07/23/2024 07:08:36 07/22/20 24 07/23/2024 CBC WITH DIFFE RENTI AL/PL ATELE T neutrophils 75 % not estab. normal Not Available [facility] ([facility]) [address] [facility], [place], [address], 07/23/2024 07:08:36 07/22/20 24 07/23/2024 CBC WITH DIFFE RENTI AL/PL ATELE T lymphs 15 % not estab. normal Not Available [facility] ([facility]) [address] [facility], [place], [address], 07/23/2024 07:08:36 07/22/20 24 07/23/2024 CBC WITH DIFFE RENTI AL/PL ATELE T monocytes 8 % not estab. normal Not Available [facility] ([facility]) [address] [facility], [place], [address], 07/23/2024 07:08:36 07/22/20 24 07/23/2024 CBC WITH DIFFE RENTI AL/PL ATELE T eos 1 % not estab. normal Not Available [facility] ([facility]) [address] [facility], [place], [address], 07/23/2024 07:08:36 07/22/20 24 07/23/2024 CBC WITH DIFFE RENTI AL/PL ATELE T basos 1 % not estab. 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 0 above high normal Not Available [facility] ([facility]) [address] [place], [address], 07/23/2024 07:08:36 07/22/20 24 07/23/2024 CBC WITH DIFFE RENTI AL/PL ATELE T lymphs (absolute) 1.4 x10e3 /uL 0.7-3. 1 normal Not Available [facility] ([facility]) [address] [place], [address], 07/23/2024 07:08:36 07/22/20 24 07/23/2024 CBC WITH DIFFE RENTI AL/PL ATELE T monocytes(ab solute) 0.7 x10e3 /uL 0.1-0. 9 normal Not Available [facility] ([facility]) [address] [place], [address], 07/23/2024 07:08:36 07/22/20 24 07/23/2024 CBC WITH DIFFE RENTI AL/PL ATELE T eos (absolute) 0.1 x10e3 /uL 0.0-0. 4 normal Not Available [facility] ([facility]) [address] [place], [address], 07/23/2024 07:08:36 07/22/20 24 07/23/2024 CBC WITH DIFFE RENTI AL/PL ATELE T baso (absolute) 0.1 x10e3 /uL 0.0-0. 2 normal Not Available [facility] ([facility]) [address] [facility], [place], [address], 07/23/2024 07:08:36 07/22/20 24 07/23/2024 CBC WITH DIFFE RENTI AL/PL ATELE T immature granulocytes 0 % not estab. Not Available [facility] ([facility]) [address] [facility], [place], [address], 07/23/2024 07:08:36 07/22/20 24 07/23/2024 CBC WITH DIFFE RENTI AL/PL ATELE T immature grans (abs) 0.0 x10e3 /uL 0.0-0. 1 Not Available [facility] ([facility]) [address] [facility], [place], [address], 07/23/2024 07:08:36 07/22/20 24 07/23/2024 CBC WITH DIFFE RENTI AL/PL ATELE T NRBC CHEMICAL PROCESS ANALYST Not Available [facility] ([facility]) [address] [facility], [place], [address], 07/23/2024 07:08:36 07/22/20 24 07/23/2024 CBC WITH DIFFE RENTI AL/PL ATELE T hematology comments: CHEMICAL PROCESS ANALYST Not Available [facility] ([facility]) [address] [facility], [place], [address], 07/23/2024 07:08:36 07/22/20 24 07/23/2024 COMP. METAB OLIC PANEL (14) glucose 102 mg/dL 70-99 above high normal Not Available [facility] ([facility]) [address] [place], [address], 07/23/2024 07:08:36 07/22/20 24 07/23/2024 COMP. METAB OLIC PANEL (14) BUN 16 mg/dL 8-27 normal Not Available [facility] ([facility]) [address] [place], [address], 07/23/2024 07:08:36 07/22/20 24 07/23/2024 COMP. METAB OLIC PANEL (14) creatinine 1.16 mg/dL 0.76-1 .27 normal Not Available [facility] ([facility]) [address] [place], [address], 07/23/2024 07:08:36 07/22/20 24 07/23/2024 COMP. METAB OLIC PANEL (14) eGFR 69 mL/mi n/1.7 3 >59 normal Not Available [facility] ([facility]) [address] [place], [address], 07/23/2024 07:08:36 07/22/20 24 07/23/2024 COMP. METAB OLIC PANEL (14) BUN/creatini ne ratio 14 10-24 normal Not Available [facility] ([facility]) [address] [facility], [place], [address], 07/23/2024 07:08:36 07/22/20 24 07/23/2024 COMP. METAB OLIC PANEL (14) sodium 144 mmol/ L 134-14 4 normal Not Available [facility] ([facility]) [address] [place], [address], 07/23/2024 07:08:36 07/22/20 24 07/23/2024 COMP. METAB OLIC PANEL (14) potassium 5.1 mmol/ L 3.5-5. 2 normal Not Available [facility] ([facility]) [address] [place], [address], 07/23/2024 07:08:36 07/22/20 24 07/23/2024 COMP. METAB OLIC PANEL (14) chloride 105 mmol/ L 96-106 normal Not Available [facility] ([facility]) [address] [facility] [place], [address], 07/23/2024 07:08:36 07/22/20 24 07/23/2024 COMP. METAB OLIC PANEL (14) carbon dioxide, total 23 mmol/ L 20-29 normal Not Available [facility] ([facility]) [address] [place], [address], 07/23/2024 07:08:36 07/22/20 24 07/23/2024 COMP. METAB OLIC PANEL (14) calcium 9.5 mg/dL 8.6-10 .2 normal Not Available [facility] ([facility]) [address] [place], [address], 07/23/2024 07:08:36 07/22/20 24 07/23/2024 COMP. METAB OLIC PANEL (14) protein, total 7.1 g/dL 6.0-8. 5 normal Not Available [facility] ([facility]) [address] [place], [address], 07/23/2024 07:08:36 07/22/20 24 07/23/2024 COMP. METAB OLIC PANEL (14) albumin 4.1 g/dL 3.9-4. 9 normal Not Available [facility] ([facility]) [address] [place], [address], 07/23/2024 07:08:36 07/22/20 24 07/23/2024 COMP. METAB OLIC PANEL (14) globulin, total 3.0 g/dL 1.5-4. 5 Not Available [facility] ([facility]) [address] [place], [address], 07/23/2024 07:08:36 07/22/20 24 07/23/2024 COMP. METAB OLIC PANEL (14) bilirubin, total <0.2 mg/dL 0.0-1. 2 Not Available [facility] ([facility] [address] [facility] [place], [address], 07/23/2024 07:08:36 07/22/20 24 07/23/2024 COMP. METAB OLIC PANEL (14) alkaline phosphatase 181 IU/L 44-121 above high normal Not Available [facility] ([facility]) [address] [place], [address], 07/23/2024 07:08:36 07/22/20 24 07/23/2024 COMP. METAB OLIC PANEL (14) AST (SGOT) 19 IU/L 0-40 normal Not Available [facility] ([facility]) [address] [place], [address], 07/23/2024 07:08:36 07/22/20 24 07/23/2024 COMP. METAB OLIC PANEL (14) ALT (SGPT) 18 IU/L 0-44 normal Not Available [facility] ([facility]) [address] [place], [address], 07/23/2024 07:08:36 07/22/20 24 07/23/2024 LIPID PANEL cholesterol, total 186 mg/dL 100-19 9 normal Not Available [facility] ([facility]) [address] [place], [address], 07/23/2024 07:08:37 07/22/20 24 07/23/2024 LIPID PANEL triglyceride s 91 mg/dL 0-149 normal Not Available [facility] ([facility]) [address] [place], [address], 07/23/2024 07:08:37 07/22/20 24 07/23/2024 LIPID PANEL HDL cholesterol 39 mg/dL >39 below low normal Not Available [facility] ([facility]) [address] [place], [address], 07/23/2024 07:08:37 07/22/20 24 07/23/2024 LIPID PANEL VLDL cholesterol tiffany 17 mg/dL 5-40 Not Available [facility] ([facility]) [address] [place], [address], 07/23/2024 07:08:37 07/22/20 24 07/23/2024 LIPID PANEL LDL chol calc ([facility]) 130 mg/dL 0-99 above high normal Not Available [facility] ([facility]) [address] [facility], [place], [address], 07/23/2024 07:08:37 07/22/20 24 07/23/2024 LIPID PANEL LDL calc comment: CHEMICAL PROCESS ANALYST Not Available [facility] ([facility]) [address] [facility], [place], [address], 07/23/2024 07:08:37 07/22/20 24 07/23/2024 VITAM IN B12 AND FOLAT E vitamin B12 1066 pg/mL 232-12 45 normal Not Available [facility] ([facility]) [address] [facility], [place], [address], 07/23/2024 07:08:37 07/22/20 24 07/23/2024 VITAM IN B12 AND FOLAT E folate (folic acid), serum 2.3 NG/mL >3.0 below low normal A serum folat e venkatesh ntrat ion of less than 3.1 ng/mL is consi dered to repre sent clini tiffany defic iency . Not Available [facility] ([facility]) [address] [facility], [place], [address], 07/23/2024 07:08:37 07/22/20 24 07/23/2024 HCV ANTIB BERNARDA CASCA DE(PC R/GEN O) HCV Ab Non Reacti ve non reacti ve Not Available [facility] ([facility]) [address] [facility], [place], [address], 07/23/2024 07:08:38 07/22/20 24 07/23/2024 HCV ANTIB BERNARDA CASCA DE(PC R/GEN O) interpretati on: Commen t Not infec [place] with HCV unles s early or acute infec tion is suspe cted (whic h may be delay ed in an immun ocomp romis ed indiv idual ), or other evide nce exist s to indic ate HCV infec tion. Not Available [facility] ([facility]) [address] [facility], [place], [address], 07/23/2024 07:08:38 07/22/20 24 07/23/2024 PROST ATE-S PECIF IC AG prostate specific Ag 0.3 NG/mL 0.0-4. 0 normal [place] ECLIA metho dolog y. Accor ding to the Ameri can Urolo gical Assoc iatio n, Serum PSA shoul d decre ase and remai n at undet ectab le level s after radic al prost atect adelina. The AUA defin es bioch emica l recur rence as an initi al PSA value 0.2 ng/mL or great er follo wed by a subse quent confi rmato ry PSA value 0.2 ng/mL or great er. Value s obtai rich with diffe rent assay metho ds or kits canno t be used inter manning eably . Resul ts canno t be inter prete d as absol flandreau evide nce of the prese nce or absen ce of lucien omalley se. Not Available [facility] ([facility]) [address] [facility], [place], [address], 07/23/2024 07:08:39 07/22/20 24 07/23/2024 VITAM IN D, 25-HY DROXY vitamin D, 25-hydroxy 23.1 NG/mL 30.0-1 00.0 below low normal Vitam in D defic iency has been defin ed by the Insti tute of Medic ine and an Endoc rine Socie ty pract ice guide line as a level of serum 25-OH vitam in D less than 20 ng/mL (1,2) . The Endoc rine Socie ty went on to furth er defin e vitam in D insuf ficie ncy as a level betwe en 21 and 29 ng/mL (2). 1. IOM (Inst itute of Medic ine). 2010. Dieta ry refer ence intak es for calci um and D. Lisa purcell [place]: The [facility] . 2. Syeda albert MF, Segun govea [place], Constanza off-F errar i BEAN, et al. Evalu ation , treat ment, and preve ntion of vitam in D defic iency : an Endoc rine Socie ty clini tiffany pract ice guide line. JCEM. 2010; 96(7) :1911 -30. Not Available [facility] ([facility]) [address] [facility] [facility], [place], [address], 07/23/2024 07:08:39 07/22/2007/23/2024 HIV AB/P2 4 AG WITH REFLE X HIV Ab/P24 Ag screen Non Reacti ve non reacti ve HIV-1 /HIV- 2 antib odies and HIV-1 p24 antig en were NOT detec [place]. There is no labor atory evide nce of HIV infec tion. HIV Negat jud Not Available [facility] ([facility]) [address] [facility], [place], [address], 07/23/2024 07:08:40 07/22/20 24 07/22/2024 HbA1c (hemo globi n A1c), blood HbA1c 6.2 Not Available [address], [address], 07/22/2024 08:59:15 10/21/20 24 10/21/2024 HbA1c (hemo globi n A1c), blood HbA1c 6.1 Not Available [address], [address], 10/21/2024 13:14:19 01/16/20 25 01/16/2025 HbA1c (hemo globi n A1c), blood HbA1c 6.3 Not Available [address], [address], 01/16/2025 13:26:11 04/15/20 25 04/15/2025 HbA1c (hemo globi n A1c), blood HbA1c 6.1 Not Available [address], [address], 04/15/2025 13:22:02 07/15/20 25 07/15/2025 HbA1c (hemo globi n A1c), blood HbA1c 6.0 Not Available [address], [address], 07/15/2025 13:00:27 08/09/20 24 08/09/2024 NM, lung scan, quant itati ve diffe renti al pulmo nary perfu cody and venti latio n No observ ation record ed. [place] [address], [place], [address], 09/03/2024 13:12:11 08/09/20 24 08/09/2024 XR, chest , 2 view No observ ation record ed. [address], [place], [address], 09/03/2024 13:12:36 01/28/20 25 01/27/2025 CT, chest , w/o contr ast No observ ation record ed. [address], [place], [address], 01/28/2025 10:39:24 Result Notes None recorded. Problems Name Problem SNOMED Code Status Onset Date Resolution Date Notes Provider Name and Address Organization Details Recorded Time Hypothyr oidism 03593673 Active 2021 Not Available [facility] 2 21:11:04 Type 2 diabetes mellitus without complica tion 560947122 Active 2021 Not Available [facility] 2 21:11:04 Hyperlip idemia 29293438 Active 2021 Problem Code: E78.5; Problem Code Type: ICD-10; Not Available [facility] 21:11:04 Nicotine dependen ce 69036913 Active 2021 Problem Code: F17.200; Problem Code Type: ICD-10; Not Available [facility] 21:11:04 Hyperten sive disorder 30759296 Active 2021 Problem Code: I10; Problem Code Type: ICD-10; Not Available [facility] 21:11:04 Dyspnea 610541103 Completed 202104/29/2022 Problem Code: R06.02; Problem Code Type: ICD-10; CORTEZJULEE COYLE [employer], [employer] 2 15:18:18 Body mass index 30+ - obesity 253339465 Completed 202110/25/2022 Problem Code: Z68.43; Problem Code Type: ICD-10; CORTEZJULEE COYLE [employer], [employer] 2 15:18:18 Dyspnea 265708626 Completed 202110/25/2022 Problem Code: R06.00; Problem Code Type: ICD-10; CORTEZJULEE FAYNER [employer], [employer] 2 15:18:18 Pneumoni a 707018717 Completed 202110/25/2022 Problem Code: J18; Problem Code Type: ICD-10; CORTEZJULEE COYLE null, [employer] 2 15:18:18 Body mass index 40+ - severely obese 813771666 Completed 202110/25/2022 CORTEZ LEONIDES null, [employer] 2 15:18:18 Acute exacerba tion of chronic obstruct jud pulmonar y disease 218617066 Active 2022 Ruma Salgado PA-C [address] [place] [address], [address] , [employer] 3 11:08:24 Diabetes mellitus 77056578 Active 2023 Flora urbano [employer] 4 08:59:08 Congesti ve heart failure 08094010 Active 2023 Mari Arthur, GILDA [address] [facility], [place], [address] , [employer] 4 13:27:33 Insulin treated type 2 diabetes mellitus 815784409 Active 2024 Flora urbano [employer] 5 13:21:57 Well control ed type 2 diabetes mellitus 515343184 Active 2024 Flora urbano [employer] 5 13:00:23 Problem Notes None recorded. Medical Equipment None Reported. Allergies No known drug allergies Medications Name Sig Start Date Stop Date Status Note LastModified by Organization Details LastModified Time metformin 500 mg tablet take 2 tablets by oral route 2 times per day with morning and evening meals 07/28 completed Not Available Not Available Not Available atorvasta tin 80 mg tablet TAKE 1 TABLET BY MOUTH EVERY DAY active Not Available Not Available No t Available prednison e 10 mg tablet TAKE 2 TABLET A DAY FOR 5 DAYS THEN 1 TABLET A DAY FOR 5 DAYS 10/25 completed Not Available Not Available Not Available nicotine 14 mg/24 hr daily transderm al patch apply 1 patch (14 mg) by transder mal route once daily 04/29 completed Not Available Not Available Not Available ipratropi um 0.5 mg-albute rol 3 mg (2.5 mg base)/3 mL nebulizat ion soln INHALE ONE vial BY MOUTH FOUR TIMES DAILY NEEDED FOR SHORTNES S OF BREATH OR wheezing active pulm Not Available Not Available No t Available torsemide 20 mg tablet Take 2 tablets twice a day by oral route. 10/21 completed Not Available Not Available Not Available urea 20 % topical cream 1 applicat ion topicall y twice a day for 3 months active Not Available Not Available No t Available prednison e 20 mg tablet TAKE TWO TABLETS BY MOUTH EVERY DAY -- FINISH ALL MEDICINE -- 07/22 completed Not Available Not Available Not Available isosorbid e mononitra te ER 30 mg tablet,ex tended release 24 hr TAKE ONE TABLET BY MOUTH EVERY DAY 04/15 completed Not Available Not Available Not Available aspirin 81 mg tablet,de layed release TAKE 1 TABLET BY MOUTH EVERY DAY active Not Available Not Available No t Available spironola ctone 25 mg tablet TAKE ONE TABLET BY MOUTH DAILY 07/22 completed Increase d to one BID @ hospital Not Available Not Available Not Available levothyro xine 75 mcg tablet TAKE 1 TABLET BY MOUTH EVERY DAY active Not Available Not Available No t Available bisoprolo l fumarate 5 mg tablet TAKE ONE TABLET BY MOUTH EVERY DAY active cardio Not Available Not Available No t Available isosorbid e mononitra te ER 60 mg tablet,ex tended release 24 hr TAKE ONE TABLET BY MOUTH EVERY DAY active cardio Not Available Not Available No t Available amoxicill in 875 mg tablet Take 1 tablet every 12 hours by oral route with meals for 7 days. 01/26 completed Not Available Not Available Not Available torsemide 100 mg tablet TAKE ONE TABLET BY MOUTH EVERY DAY active cardio Not Available Not Available No t Available amlodipin e 10 mg tablet TAKE 1 TABLET BY MOUTH EVERY DAY active Not Available Not Available No t Available doxycycli ne monohydra te 100 mg capsule Take 1 capsule twice a day by oral route for 10 days 04/27 completed Not Available Not Available Not Available metformin 1,000 mg tablet take 1 tablet (1,000 mg) by mouth 2 times per day with morning and evening meals active Not Available Not Available No t Available nitroglyc wisam 0.4 mg sublingua l tablet DISSOLVE 1 TABLET UNDER THE TONGUE EVERY 5 MINUTES NEEDED FOR CHEST PAIN. DO NOT EXCEED A TOTAL OF 3 DOSES IN 15 MINUTES. IF NO RELIEF AFTER 3 DOSES CALL 911/GO TO ER active Not Available Not Available No t Available gabapenti n 300 mg capsule TAKE 1 CAPSULE BY MOUTH 3 TIMES DAILY active Not Available Not Available No t Available monteluka st 10 mg tablet TAKE ONE TABLET BY MOUTH EVERY DAY active pulm Not Available Not Available No t Available Vistaril 25 mg capsule Take 1 capsule 3 times a day by oral route as needed, for anxiety. 2024 active Not Available Not Available Not Avai lable methylpre dnisolone 4 mg tablets in a dose pack TAKE 6 TABLETS BY MOUTH ON DAY 1, TAKE 5 TABS ON DAY 2 ,TAKE 4 TABS ON DAY 3, TAKE 3 TABS ON DAY 4 , TAKE 2 TABS ON DAY 5, THEN TAKE 1 TAB ON DAY 6 04/27 completed Not Available Not Available Not Available albuterol sulfate HFA 90 mcg/actua tion aerosol inhaler inhale 2 PUFFs by mouth four times a day As Needed for shortnes s of breath or wheezing active Not Available Not Available No t Available losartan 100 mg tablet TAKE 1 TABLET BY MOUTH EVERY DAY active Not Available Not Available No t Available spironola ctone 50 mg tablet TAKE 1 TABLET BY MOUTH EVERY DAY active Not Available Not Available No t Available amoxicill in 875 mg-potass ium clavulana te 125 mg tablet TAKE ONE TABLET BY MOUTH TWICE DAILY FOR FIVE DAYS 07/22 completed Not Available Not Available Not Available nicotine 7 mg/24 hr daily transderm al patch apply 1 patch (7 mg) by transder mal route once daily 10/27 completed Not Available Not Available Not Available Spiriva with [employer] r 18 mcg and inhalatio n capsules INHALE content of 1 CAPSULE via handihal er ONCE DAILY active Not Available Not Available No t Available metformin ER 500 mg tablet,ex tended release 24hr (osmotic) take 1 tablet (500 mg) by oral route once daily in the morning 01/28 completed Not Available Not Available Not Available duloxetin e 30 mg capsule,d elayed release TAKE ONE CAPSULE BY MOUTH EVERY DAY 07/22 completed Not Available Not Available Not Available duloxetin e 60 mg capsule,d elayed release TAKE 1 CAPSULE BY MOUTH EVERY DAY active Not Available Not Available No t Available ranolazin e ER 500 mg tablet,ex tended release,1 2 hr TAKE ONE TABLET BY MOUTH TWICE DAILY active cardio Not Available Not Available No t Available Symbicort 160 mcg-4.5 mcg/actua tion HFA aerosol inhaler Inhale 2 puffs twice a day by inhalati on route. 07/22 completed Not Available Not Available Not Available Lantus Solostar U-100 Insulin 100 unit/mL (3 mL) subcutane ous pen INJECT 30 UNITS UNDER THE SKIN EVERY DAY active Not Available Not Available No t Available Dulera 100 mcg-5 mcg/actua tion HFA aerosol inhaler Inhale 2 puffs twice a day by inhalati on route. active Not Available Not Available No t Available Farxiga 10 mg tablet TAKE ONE TABLET BY MOUTH EVERY DAY active cardio Not Available Not Available No t Available Spiriva Respimat 2.5 mcg/actua tion solution for inhalatio n Inhale 2 puffs every day by inhalati on route. 2024 active Not Available Not Available Not Avai lable Vraylar 1.5 mg capsule Take 1 capsule every day by oral route. 2024 active Not Available Not Available Not Avai lable oxygen 4 L active Not Available Not Availa ble Not Available fluticaso ne fur. 100 mcg-umecl id 62.5 mcg-vilan t 25 mcg inhalat.p owder inhale 1 puff by inhalati on route once daily at the same time each day 10/25 completed Not Available Not Available Not Available torsemide 40 mg tablet Take 1 tablet every day by oral route for 90 days. 10/21 completed Not Available Not Available Not Available Vitals Date Recorded Body height Body mass index (BMI) Body weight Heart rate Oxygen saturation Oxygen saturation in Arterial blood by Pulse oximetry Inhaled oxygen flow rate Systolic And Diastolic Provider Name and Address Organization Details Last Updated DateTime 5 187.96 cm 43.4 kg/m2 705204. 22 g 95 /min 88 % 88 % 8 L/min 112/63 mm[Hg] Flora [employer] 5 13:38:22 Date Recorded Body height Body mass index (BMI) Body weight Heart rate Oxygen saturation Oxygen saturation in Arterial blood by Pulse oximetry Inhaled oxygen flow rate Systolic And Diastolic Provider Name and Address Organization Details Last Updated DateTime 5 187.96 cm 42.2 kg/m2 132696. 89 g 80 /min 84 % 84 % 5 L/min 107/58 mm[Hg] [employer]ora [employer] 5 13:21:20 Date Recorded Oxygen saturation Oxygen saturation in Arterial blood by Pulse oximetry Inhaled oxygen flow rate Oxygen saturation Oxygen saturation in Arterial blood by Pulse oximetry Inhaled oxygen flow rate Provider Name and Address Organization Details Last Updated DateTime 5 80 % 80 % 0.5 L/min 89 % 89 % 4 L/min Mari Arthur APRN [address] [place], [address], [employer] 5 18:19:36 Date Recorded Body height Body mass index (BMI) Body weight Heart rate Systolic And Diastolic Provider Name and Address Organization Details Last Updated DateTime 07/15/2025 187.96 cm 41.9 kg/m2 199022.1 1 g 87 /min 83/55 mm[Hg] Flora Greene [employer] 07/15/2025 13:26:22 Date Recorded Body height Body mass index (BMI) Body weight Heart rate Oxygen saturation Oxygen saturation in Arterial blood by Pulse oximetry Inhaled oxygen flow rate Pain severity - 0-10 verbal numeric rating [Score] - Reported Systolic And Diastolic Provider Name and Address Organization Details Last Updated DateTime 4 187.96 cm 42.6 kg/m2 625988. 37 g 88 /min 89 % 89 % 4 L/min 7 128/71 mm[Hg] Flora Greene [employer] 4 09:17:12 Date Recorded Oxygen saturation Oxygen saturation in Arterial blood by Pulse oximetry Inhaled oxygen flow rate Provider Name and Address Organization Details Last Updated DateTime 10/21/2024 93 % 93 % 2 L/min Mari Arthur APRN [address] [place], [address], [employer] 10/21/2024 14:33:32 Date Recorded Body height Body mass index (BMI) Body weight Body temperature Heart rate Systolic And Diastolic Provider Name and Address Organization Details Last Updated DateTime 4 187.96 cm 42.9 kg/m2 288229. 85 g 97.8 [degF] 91 /min 103/67 mm[Hg] Rosalina Trevino [employer] 4 13:13:13 Social History Question Answer Notes LastModified by Organizat ion Details LastModified Time Tobacco Smoking Status Former Smoker CORTEZ urbano [employer] 10/25/2022 15:19:27 Do You Have An Advance Directive? No [email or web address] Information n ot available 10/25/2022 Are You Blind Or Do You Have Difficulty Seeing? 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 Yes [email or web address] Information not available 10/25/2022 In The 14 Days Before Symptom Onset, Have You Had Close Contact With A Laboratory-confirm ed COVID-19 While That Case Was Ill? No [email or web address] Information n ot available 10/25/2022 In The 14 Days Before Symptom Onset, Have You Had Close Contact With A Person Who Is Under Investigation For COVID-19 While That Person Was Ill? No [email or web address] Information not available 10/25/2022 Have You Been To An Area Known To Be High Risk For COVID-19? No [email or web address] Information not available 10/25/2022 Are You Deaf Or Do You Have Serious Difficulty Hearing? No [email or web address] Information not available 10/25/2022 What Type Of Diet Are You Following? DIABETIC Information n ot available 04/27/2023 Have There Been Any Changes To Your Family Or Social Situation? No [email or web address] Information no t available 10/25/2022 When Did You Quit Smoking? 1-5yearssince lastcigarette [email or web address] Information not available 10/25/2022 Are There Any Guns Present In Your Home? No [email or web address] Information not available 10/25/2022 Do You Have A Medical Power Of Res Habilitation Assistant? No [email or web address] Information not available 10/25/2022 What Was The Date Of Your Most Recent Tobacco Screening? 07/15/2025 Information not available 07/15/2025 What Is Your Current Pack Years? 30ormorepacky ears [email or web address] Information not available 10/25/2022 What Is Your Relationship Status? [email or web address] Information not available 10/25/2022 Do You Use Your Seat Belt Or Car Seat Routinely? Yes [email or web address] Information not available 10/25/2022 Do You Have Smoke And Carbon Monoxide Detectors In Your Home? Yes Information not available 10/25/2022 Do You Participate In Social Media? No Information not available 10/21/2024 Has Tobacco Cessation Counseling Been Provided? No Information not available 10/21/2024 Have You Recently Traveled Abroad? No [email or web address] Information not available 10/25/2022 Do You Have Difficulty Walking Or Climbing Stairs? No [email or web address] Information not available 10/25/2022 Are You Currently In School? No [email or web address] Information not available 10/25/2022 Do You Have Any Dietary Restrictions? Yes Information not available 10/21/2024 Sex: Male Functional Status Question Answer Note LastModified by Organizat ion Details LastModified Time Do you use any illicit or recreational drugs? No Information not available 10/21/2024 Do you or have you ever used any other forms of tobacco or nicotine? No Information not available 10/21/2024 What is your level of alcohol consumption? None [email or web address] Information not available 10/25/2022 Are you currently employed? No [email or web address] Information not available 10/25/2022 Do you have access to reliable transportation? No [email or web address] Information not available 10/25/2022 Are you able to walk independently without assistance or assistive devices? YESWOREST [email or web address] Information not available 10/25/2022 Do you have difficulty doing errands alone? No [email or web address] Information not available 10/25/2022 Are you able to care for yourself independently? Yes [email or web address] Information not available 10/25/2022 Do you have difficulty dressing, bathing, grooming, or toileting? No [email or web address] Information not available 10/25/2022 Mental Status Question Answer Note LastModified by Organizat ion Details LastModified Time Do you feel stressed (tense, restless, nervous, or anxious, or unable to sleep at night)? [id number] Information not available 10/21/2024 Do you have difficulty concentrating, remembering or making decisions? No [email or web address] Information no t available 10/25/2022 Family History Relationship Description Onset Age of this Age Resolved Age Notes LastModified by Organization Details LastModified Time Father No current problems or disability [email or web address] Not available 09/28 15:18:26 Mother No current problems or disability [email or web address] Not available 09/28 15:18:26 Medical History Condition Response Obesity Y Hypertension Y Immunizations Vaccine Type Date Status Note Provider Nam e and Address Organization Details Recorded Time Pneumococcal conjugate PCV15, polysaccharide FCS148 conjugate, adjuvant, PF 4 completed Mari Arthur APRN [address] [place], [address], [employer] 04/23/2024 12:30:10 zoster recombinant 4 completed Mari Arthur APRN [address] [place], [address], [employer] 07/22/2024 13:21:30 pneumococcal polysaccharide PPV23 7 completed SHAHIDA MYNEAR null, [employer] 02/18/2023 10:48:45 zoster live 7 completed SHAHIDA MYNEAR null, [employer] 02/18/2023 10:48:46 COVID-19, mRNA, LNP-S, PF, 100 mcg/0.5mL dose or 50 mcg/0.25mL dose 1 completed SHAHIDA MYNEAR null, [employer] 02/18/2023 10:48:45 COVID-19, mRNA, LNP-S, PF, 100 mcg/0.5mL dose or 50 mcg/0.25mL dose 1 completed SHAHIDA MYNEAR null, [employer] 02/18/2023 10:48:45 COVID-19, mRNA, LNP-S, PF, 100 mcg/0.5mL dose or 50 mcg/0.25mL dose 1 completed SHAHIDA MYNEAR null, [employer] 02/18/2023 10:48:45 Influenza, split virus, trivalent, preservative 1 completed Not Available [facility] 07/28/2023 11:17:27 COVID-19, mRNA, LNP-S, bivalent, PF, 50 mcg/0.5 mL or 25mcg/0.25 mL dose 2 completed SHAHIDA MYNEAR null, [employer] 02/18/2023 10:48:45 Influenza, high-dose, trivalent, PF 9 completed SHAHIDA MYNEAR null, [employer] 02/18/2023 10:48:46 Influenza, split virus, quadrivalent, PF 7 completed SHAHIDA MYNEAR null, [employer] 02/18/2023 10:48:46 Influenza, split virus, quadrivalent, PF 0 completed SHAHIDA MYNEAR null, [employer] 02/18/2023 10:48:46 Influenza, split virus, quadrivalent, PF 2 completed SHAHIDA MYNEAR null, [employer] 02/18/2023 10:48:46 Influenza, split virus, quadrivalent, PF 1 completed SHAHIDA MYNEAR null, [employer] 02/18/2023 10:48:46 Influenza, split virus, quadrivalent, PF 6 completed SHAHIDA MYNEAR null, [employer] 02/18/2023 10:48:46 Influenza, split virus, quadrivalent, PF 8 completed SHAHIDA MYNEAR null, [employer] 02/18/2023 10:48:46 COVID-19, mRNA, LNP-S, PF, 50 mcg/0.5 mL 3 completed Not Available [facility] 07/15/2025 12:56:24 Influenza, adjuvanted, quadrivalent, PF 3 completed Not Available [facility] 07/15/2025 12:56:24 Pneumococcal conjugate PCV20, polysaccharide CIL229 conjugate, adjuvant, PF 3 completed Not Available [facility] 07/15/2025 12:56:24 RSV, recombinant, protein subunit RSVpreF, adjuvant reconstituted, 0.5 mL, PF 3 completed Not Available [facility] 07/15/2025 12:56:24 Influenza, adjuvanted, trivalent, PF 4 completed Not Available [facility] 07/15/2025 12:56:24 COVID-19, mRNA, LNP-S, PF, nirali-sucrose, 30 mcg/0.3 mL 4 completed Not Available [facility] 07/15/2025 12:56:24 Past Encounters Encounter ID Performer Location Encounter Start Date Encounter Closed Date Diagnosis/Indication Diagnosis SNOMED-CT Code Diagnosis ICD10 Code Diagnosis IMO Codes Diagnosis Note [id number] [place] [address] 10/27/2022 08:00:47 10/27/2022 08:29:42 Type 2 diabetes mellitus without complication 326942755 E11.9 Hyperlipidemia 89701330 E78.5 Hypertensive disorder 38 005699 I10 Hypothyroidism 25309582 E03.9 Chronic ob structive pulmonary disease 86010920 J44.9 Edema 247062749 R60.9 Body mass index 30+ - obesity 974399718 Z68.39 [id number] [place] [address] 12/31/2022 09:29:16 12/31/2022 10:09:47 Acute tonsillitis 70496414 J03.90 Complete all antx. Push fluids. Tylenol prn pain/fever . [id number] Mari Arthur [place] [id number] 01/26/2023 07:52:28 01/26/2023 08:41:09 Type 2 diabetes mellitus without complication 056470222 E11.9 Hyperlipidemia 68159631 E78.5 Hypertensive disorder 38 348793 I10 Hypothyroidism 84252908 E03.9 Benign pro static hyperplasia without outflow obstruction 162938986 N40.0 Edema 074184608 R60.9 Chronic ob structive pulmonary disease 47272182 J44.9 Body mass index 30+ - obesity 705360709 Z68.39 [id number] Ruma Salgado PA-C [place] [phone] 02/18/2023 10:26:22 02/18/2023 12:04:19 Acute exacerbation of chronic obstructive pulmonary disease 502351141 J44.1 Continue Mucinex and inhalers.Y our symptoms may take 7-10 days to go away.Drink lots of fluids. Get plenty of rest.Conta ct us if you have worsening symptoms such as a persistent fever (100.4F or greater), decreased O2 sat, shortness of breath, inability to keep liquids and solids down, or other worsening symptoms. Contact us if your symptoms fail to improve after 10 days.If your symptoms get worse after the clinic is closed, you can call our office to reach the on-call doctor or go to your nearest urgent treatment center or emergency department for additional workup. [id number] [place] [address] 04/27/2023 08:22:12 04/27/2023 09:30:34 Type 2 diabetes mellitus without complication 840234125 E11.9 Hypertensive disorder 38 606382 I10 Hyperlipidemia 55344552 E78.5 Hypothyroidism 69018399 E03.9 Chronic ob structive pulmonary disease 45966732 J44.9 Edema 884853543 R60.9 Body mass index 30+ - obesity 350062562 Z68.39 [id number] [place] [id number] 07/28/2023 11:16:27 07/28/2023 12:16:41 Type 2 diabetes mellitus without complication 996647721 E11.9 Pain of ri ght knee joint 4759576712 88286 M25.561 Hypertensive disorder 38 874511 I10 Hyperlipidemia 68065042 E78.5 Hypothyroidism 90723365 E03.9 Chronic ob structive pulmonary disease 20354894 J44.9 Edema 251685540 R60.9 Body mass index 30+ - obesity 562894955 Z68.39 [id number] [place] [address] 10/27/2023 13:51:28 10/27/2023 15:04:11 Diabetes mellitus 70897429 E11.9 Autonomic neuropathy due to type 2 diabetes mellitus 743308219 E11.43 Chronic ob structive pulmonary disease 44468911 J44.9 Hypertensive disorder 38 181080 I10 Hyperlipidemia 52201274 E78.5 Type 2 sandrine betes mellitus without complication 038412006 E11.9 Hypothyroidism 22420956 E03.9 Edema 460373527 R60.9 Foot callus 009653731 L8 4 Body mass index 30+ - obesity 925132735 Z68.39 [id number] [place] [phone] 10/31/2023 08:48:19 10/31/2023 09:45:55 Snoring 79750765 R06.83 Hypertensive disorder 38 055207 I10 Type 2 sandrine betes mellitus without complication 104546251 E11.9 Body mass index 30+ - obesity 284361206 Z68.39 [id number] Mari [place] [phone] 11/16/2023 10:45:00 11/16/2023 11:13:43 Fatigue 91303988 R53.83 Hyperlipidemia 47003821 E78.5 Nocturia 843623885 R35.1 Body mass index 30+ - obesity 347938227 Z68.39 [id number] [place] [id number] 01/26/2024 15:11:21 01/26/2024 16:07:37 Diabetes mellitus 79080460 E11.9 Body mass index 30+ - obesity 789410867 Z68.39 General ex amination of patient 482444334 Z00.129 Screening for malignant neoplasm of colon 088277010 Z12.11 Hyperlipidemia 08580652 E78.5 Hypothyroidism 62157482 E03.9 Hypertensive disorder 38 370330 I10 Vitamin D deficiency 347 76288 E55.9 Vitamin B deficiency 479 62796 E53.9 Nocturia 139238311 R35.1 Dysthymia 62339602 F34.1 Type 2 sandrine betes mellitus without complication 791044752 E11.9 Chronic ob structive pulmonary disease 03629256 J44.9 Edema 955444738 R60.9 Sleep rela chelsea hypoxemia 9314282343 49465 G47.36 [id number] [place] [id number] 03/12/2024 17:20:19 03/12/2024 18:01:54 Neuropathy due to type 2 diabetes mellitus 0211594946 19394 E11.40 Dependence on supplemental oxygen 2843357142 07 Z99.81 Body mass index 30+ - obesity 076871477 Z68.39 [id number] [place] [id number] 04/23/2024 11:21:39 04/23/2024 11:58:33 Type 2 diabetes mellitus without complication 289480199 E11.9 Long-term drug therapy 720816689 Z79.899 re-test, pt was positive for opiates last visit. He states that he can not pee at this visit.; Screening for malignant neoplasm of colon 635062106 Z12.11 Pt has had cologuard on 02/06/24 Active or passive immunization 753138533 Z23 Hypertensive disorder 38 168777 I10 Hyperlipidemia 80479075 E78.5 Dysthymia 04109717 F34.1 Hypothyroidism 98926414 E03.9 Edema 103792534 R60.9 Chronic ob structive pulmonary disease 79663517 J44.9 Body mass index 40+ - severely obese 033872926 Z68.41 [id number] [place] [id number] 07/22/2024 08:51:04 07/22/2024 09:47:19 Diabetes mellitus 37663946 E11.9 Active or passive immunization 868738670 Z23 Hyperlipidemia 47796056 E78.5 Adult heal th examination 463089506 Z00.00 Fatigue 93916887 R53.83 Nocturia 977961171 R35.1 Vitamin D deficiency 347 59543 E55.9 Vitamin B deficiency 479 54264 E53.9 Chronic ob structive pulmonary disease 20987980 J44.9 Hypertensive disorder 38 043146 I10 Dysthymia 33116700 F34.1 Neuropathy due to type 2 diabetes mellitus 4665888223 26183 E11.40 Type 2 sandrine betes mellitus without complication 113117646 E11.9 Hypothyroidism 68876937 E03.9 Congestive heart failure 24979280 I50.9 Body mass index 40+ - severely obese 946128450 Z68.41 [id number] [place] [address] 10/21/2024 12:55:56 10/21/2024 13:39:02 Hypertensive disorder 93268804 I10 Hyperlipidemia 34260922 E78.5 Chronic ob structive pulmonary disease 09336960 J44.9 Dysthymia 43072706 F34.1 Neuropathy due to type 2 diabetes mellitus 3939721740 19440 E11.40 Type 2 sandrine betes mellitus without complication 254263236 E11.9 Hypothyroidism 77732837 E03.9 Congestive heart failure 29708907 I50.9 Body mass index 40+ - severely obese 760673181 Z68.41 [id number] [place] [address] 0 01/16/2025 13:18:53 01/16/2025 14:24:34 Type 2 diabetes mellitus without complication 469667258 E11.9 Chronic ob structive pulmonary disease 15026388 J44.9 Hypertensive disorder 38 297046 I10 Hyperlipidemia 33133951 E78.5 Dysthymia 99875861 F34.1 Neuropathy due to type 2 diabetes mellitus 6265024021 02970 E11.40 Hypothyroidism 84373023 E03.9 Moderate r ecurrent major depression 44207950 F33.1 Body mass index 40+ - severely obese 405522917 Z68.41 [id number] [place] [address] 0 04/15/2025 12:51:18 04/15/2025 13:51:18 Insulin treated type 2 diabetes mellitus 331031338 E11.69 Z79.4 22439056 Hypertensive disorder 38 204215 I10 Hyperlipidemia 81774249 E78.5 Chronic ob structive pulmonary disease 39150579 J44.9 Dysthymia 98858088 F34.1 Type 2 sandrine betes mellitus without complication 173057267 E11.9 Hypothyroidism 63605069 E03.9 Moderate r ecurrent major depression 94912381 F33.1 Body mass index 40+ - severely obese 645747778 Z68.41 816592 Generalize d anxiety disorder 83830969 F41.1 098418 [id number] Mari Arthur [address] [phone] 07/15/2025 12:56:09 07/15/2025 14:22:53 Well controlled type 2 diabetes mellitus 968879620 E11.9 113465 Chronic ob structive pulmonary disease 57219229 J44.9 Hypertensive disorder 38 616651 I10 Hyperlipidemia 07068605 E78.5 Dysthymia 59395849 F34.1 Neuropathy due to type 2 diabetes mellitus 8391269404 43865 E11.40 Generalize d anxiety disorder 58684999 F41.1 Hypothyroidism 31758227 E03.9 Type 2 sandrine betes mellitus without complication 753850482 E11.9 Moderate r ecurrent major depression 12527410 F33.1 Chronic sy stolic heart failure 934067499 I50.22 570058 Body mass index 40+ - severely obese 908484966 Z68.41 49709537 Goals Section Goal Description Progress Status Start Date LastModified by Organization Details LastModified Time elevated creat to help pt breath better, loose wt and lower creat level None active 2024 MARI ARTHUR Information not available 04/15/2025 18:31:01 Hemoglobin A1C Lowers or maintains hemoglobin A1C (HbA1c) as per care team recommendati on(s) [TARGET: less than or equal to 7%] NoChange active 2023 MARI ARTHUR Information not available 07/15/2025 22:00:47 Follow-up Appointment( s) Attends referral and/or follow-up appointment( s) as per care team recommendati on(s) NoChange active 2023 MARI ARTHUR Information not available 07/15/2025 22:01:39 Blood Pressure Maintains blood pressure goal as defined by care team NoCcyndi active 2023 MARI ARTHUR Information not available 07/15/2025 21:59:49 Blood Glucose Maintains blood glucose within target range NoCcyndi active 2023 MARI ARTHUR Information not available 07/15/2025 21:59:34 Lipid Levels Maintains normal lipid levels as defined by care team NoCcyndi active 2023 Tashia Winchester Information not available 03/12/2024 13:10:46 Health Concerns Section Related Observation LastModified by Organization Detai ls LastModified Time General health poor Not Available Not Available Not Av ailable Concern Status LastModified by Organization Details LastModified Time Elevated serum creatinine Active MARI ARTHUR Not Available 04/15/2025 18:31 :01 Hypertensive disorder Active MARI ARTHUR Not Availa ble 07/15/2025 21:59:49 Type 2 diabetes mellitus without complication Active MARI ARTHUR Not Available 07/15/2025 21:59 :34 Hyperlipidemia Active Tashia Winchester Not Available 03/12 13:02:30 Advance Directives Directive N: Payers Insurance Date Sequence Insurance Name Policy Number Policy Young Covered Member ID Young Member ID Guarantor Name 04/16/2025 [employer] - GOLD PLUS (MEDICARE REPLACEMENT/A DVANTAGE - HMO) Wai Richardson Merlin [id number] Wai Boyer 02/07/2025 SLIDING FEE SCHEDULE - DISCOUNT Wai Merlin 01/07/2023 1 [place] Wai Richardson Merlin [id number] Wai Boyer 10/27/2022 1 [employer] (MEDICARE REPLACEMENT/A DVANTAGE - HMO) Wai Merlin [id number] Wai Merlin 07/12/2025 [place] [facility] Wai Richardson Boyer [id number] Wai Boyer 02/07/2025 SLIDING FEE SCHEDULE - DISCOUNT Wai Boyer 07/12/2025 1 [employer] (MEDICARE REPLACEMENT/A DVANTAGE - HMO) [id number] Wai Debra Boyer [id number] Wai Merlin 10/22/2022 1 *SELF PAY* Dayana Boyer Notes Date Note Type Note Provider Name and Address Organization Details Recorded Time 07/22/2024 text/html DiabetesReported by Patient pt here today for AWV and medication refills. pt states hes doing well and has no new complaints. pt states he was recently in hospital and torsemide and spironolactone were increased due to chf. pt states that he is feeling better and hopes to be weaned from O2. however he is wearing today and only at 89%. no hospital records and [facility] stated they have no records. will call again. A1C 6.2. pt to continue current diabetic regime, diet and exercise. Mari Jerson, CORRECTIONS OFFICER [address] [facility], [place], [address], [employer] 07/22/2024 13:31:05 10/21/2024 text/html pt here today for medication refills. pt states hes doing well and has no new complaints today. pt has recently went to cardio and prescribed new med, isosorbide and increased the torsemide and he didnt know why. looks like according to cardio note pt has pulm HTN and CHF. tried to explain that to pt. pt states that he has to go back q 4 weeks to see if new meds are working and was asking a bunch of questions about that and i told pt i didnt know that he would need to call his cardio. A1C 6.1, 6.2 at last visit. cardio wrote a script for zepbound and mounjaro however was too expensive for pt. pt states that he is going to have to get back on his diet. states that he eats what he wants. talked with pt about a low sodium diet, due to CHF. pt voiced understanding. Mari Arthur, CORRECTIONS OFFICER [address] [facility], [place], [address], [facility] [employer] 10/21/2024 14:36:46 01/16/2025 text/html 64 year old male presents for chronic disease f/u. States he is taking all medication as prescribed without AE. States SOA has worsened since dx of CHF. States he typically doesnt need to wear o2 unless ambulating. o2 88% on 8L after walking into room. o2 86% on RA then o2 97% on 6L while sitting. Last saw cardiology in september and mounjaro was added. Pt did not take this due to high copay. States he continues to eat bread, pasta and carbs but has stopped using table salt and uses no salt now. Denies daily activity. He is to f/u with cardio/pulm in january and repeat scans. Pt educated to keep these appointments, check pulse ox at home and titrate o2 accordingly, continue taking medication as prescribed, and follow a heart healthy diet. pt agrees with plan. Will repeat labs at next visit.Depression: States despite taking medication, cymbalta no longer working and feels he needs an increased dose. States he has had a hard adjust from moving from [place] and speaking to people daily. feels it is worse due to winter. informed him he his at max dose but we could try adding additional medication into his regimen. He is open to this idea. Will prescribed today.T2DM: States he is taking medication as prescribed. A1C up to 6.3 today from 6.1. We discussed again proper dieting from DM. He is also up 4lbs since last visit. States he is also to f/u with podiatry in january. He does feel his neuropathy is worsening and states toes and soles are completely numb. Denies lesions. He request today his gabapentin be increased. We discussed due to low o2 increasing this medication wouldnt be safe. He voices understanding. Mari Arthur, CORRECTIONS OFFICER [address] [place], [address], [facility] [employer] [facility] [employer] 01/16/2025 15:23:20 04/15/2025 text/html pt here today for medication refills. pt states hes doing well on current medication regime. A1C 6.1, 6.3 at last visit. pt states that he has been going to cardio q 2 weeks and they are trying to figure out why he is soa and requiring so much O2. pt denies cp. pt states that his lung doc states that they cant find nothing wrong with his lungs and states cardio says there is nothing wrong with his heart there is just fluid around it. i wanted to check pt renal function today, however pt states that he is supposed to have labs at cardio on monday and doesnt want to have labs drawn here today. pt states that he is not soa when he is sitting but if he gets up and just starts walking he is soa. so he wears O2 all the time. pt is on 5 L O2. pt has had ct chest, cologuard last year, PSA has been checked. i will review labs pt will have on desmond and if still elevated then will refer to nephro. pt also states that he has decreased the dose of gabapentin because the cardio doc told him it could cause decreased drive to breathe. pt states that he has had 2 panic attacks in the past month at night while he has been asleep. states that he will wake up in a panic and just gasp for air. states that he does sleep on 2 pillows with his cpap. advised pt to possibly prop up more at night. i can send in some vistaril to try only PRN. Mari Arthur APRN [address] [place], [address], [employer] 04/15/2025 14:57:01 07/15/2025 text/html pt here today for medication refills. pt states hes doing well on current medication regime and has no new complaints today. states that the vistaril works well and hasnt had a panic attack at night since starting the medication. pt O2 low today however pt states that he is almost out and didnt bring another tank and had it on 0.5L when the nurse took his vitals (to conserve) and O2 was 80%. i put pt on 4L and it went back up to 89%. highly advised pt to go straight home to get a new tank and make sure he brings extra tanks with him in case he runs out. pt voiced understanding and states he is going straight home and that he has enough to get him home. Mari Arthur APRN [address] [place], [address], [employer] 07/15/2025 18:19:48
--- OUTSIDE RECORDS SUMMARY | 2025-08-22 13:42 | XMS_ITS | Clinical Summary ---
Author Organization Healthcare Address [address] [place] [address] Care Team Providers Care Physician/Internist Name Role Phone Petty Armendariz MD Primary Care Provider [phone] Family History Medical History Relation Name Comments [...] (2 of 2 - PCV) 06/05/2018 06/05/2017 [id number] Vaccine (4 - 2024- season) 2025 11/16/2021, 04/19/2021, 03/18/2021 UKY-Influenza Vaccine (#1) 07/28/202509/17, [...] age to complete this topic Insurance MEDICARE Member Subscriber Plan / Payer (Ef fective 2022-Present) Name:Wai Boyer Member ID:[id number] Relation to Subscriber:Self Name:Wai Boyer Subscriber ID:[id number] Payer ID:MEDICARE Group ID:Not on file Type:Medicare [place] [facility] [place] [address] [place] [phone] Care Teams Physician/Internist Relationship Specialty Start Date End Date Petty Armendariz MD [address] [place] [address] [place] [phone] PCP - General 04/09/21
--- OUTSIDE RECORDS SUMMARY | 2025-08-22 13:42 | XMS_ITS | Encounter Summary ---
Author Organization [employer] ([place], [place], [place], [place]) Address [address] [place] [address] Care Team Providers Care Infant And Toddler Teacher Name Role Phone Unavailable Primary Care Provider Unavailabl e Encounter Details Date Type Department Care Team (Late st Contact Info) Description 04/28/2021 Transcribed Document [facility] [place] [facility] [place] [address] ProviderJoanna MD [facility] [place] [place] [address] Social History Tobacco Use Types Packs/Day Years [...] Communication Barrier : None Primary Language : Turkmen Any Spiritual/Cultural Needs or Requests : No [...]
--- OUTSIDE RECORDS SUMMARY | 2025-08-22 13:42 | XMS_ITS | Continuity of Care Document ---
Author Organization [facility] [employer] [facility] Address [address] [place] [address] Care Team Providers Care Golf Starter And Ranger Name Role Phone RIKKI MARI Primary Care Provider TASHIA Garcia Visual Coordinator Assessment No assessment recorded. Plan of Treatment Reminders Order Date Submit Date Provider Last Modified By Organization Details Last Modified Time Details Appointments None recorded. Lab HbA1c (hemoglobin A1c), blood 2024 025 [email or web address] [facility], [address] [place] [address], [id number], 18:46:48 Referral None recorded. Procedures None recorded. Surgeries None recorded. Imaging None recorded. Medication Orders amlodipine 10 mg tablet 2024 025 [facility], [address] [place] [address], [address], 10:47:38 aspirin 81 mg tablet,kate yed release 2024 025 [facility], [address] [place] [address], [address], 5 10:47:41 losartan 100 mg tablet 2024 025 [facility], [address] [place] [address], [address], 5 10:47:34 albuterol sulfate HFA 90 mcg/actuati on aerosol inhaler 2024 025 [facility], [address] [place] [address], [address], 5 10:47:41 Dulera 100 mcg-5 mcg/actuati on HFA aerosol inhaler 2024 025 [facility], [address] [place] [address], [address], 10:47:44 Spiriva with HandiHaler 18 mcg and inhalation capsules 2024 025 [facility], [address] [place] [address], [address], 10:47:43 atorvastati n 80 mg tablet 2024 025 [facility], [address] [place] [address], [address], 10:47:36 duloxetine 60 mg capsule,del ayed release 2024 025 [facility], [address] [place] [address], [address], 10:47:35 Vraylar 1.5 mg capsule 2024 025 [facility], [address] [place] [address], [address], 16:37:20 Vistaril 25 mg capsule 2024 025 [facility], [address] [place] [address], [address], 5 08:36:38 metformin 1,000 mg tablet 2024 025 [facility], [address] [place] [address], [address], 5 10:47:41 levothyroxi ne 75 mcg tablet 2024 025 [facility], [address] [place] [address], [address], 10:47:37 gabapentin 300 mg capsule 2024 025 [facility], [address] [place] [address], [place], [address], 5 10:36:12 Patient TargetsNo targets recorded. Patient InstructionsNo instructions recorded. Reason for Referral None Reported. Results Created Date Observation Date Name Description Value Unit Range Abnormal Flag Note LastModifiedBy Organization Detail LastModifiedTime 07/15/2007/15/2025 HbA1c (hemo globi n A1c), blood HbA1c 6.0 Not Available [address], [address], 07/15/2025 13:00:27 Result Notes None recorded. Problems Name Problem SNOMED Code Status Onset Date Resolution Date Notes Provider Name and Address Organization Details Recorded Time Hypothyr oidism 24168792 Active 2021 Not Available [facility] 21:11:04 Type 2 diabetes mellitus without complica tion 271662835 Active 2021 Not Available [facility] 21:11:04 Hyperlip idemia 96288712 Active 2021 Problem Code: E78.5; Problem Code Type: ICD-10; Not Available [facility] 21:11:04 Nicotine dependen ce 53698357 Active 2021 Problem Code: F17.200; Problem Code Type: ICD-10; Not Available [facility] 21:11:04 Hyperten sive disorder 99686366 Active 2021 Problem Code: I10; Problem Code Type: ICD-10; Not Available [facility] 21:11:04 Dyspnea 461062097 Completed 202104/29/2022 Problem Code: R06.02; Problem Code Type: ICD-10; CORTEZ urbano [employer] 15:18:18 Body mass index 30+ - obesity 399124668 Completed 202110/25/2022 Problem Code: Z68.43; Problem Code Type: ICD-10; CORTEZ urbano, [employer] 15:18:18 Dyspnea 079604479 Completed 202110/25/2022 Problem Code: R06.00; Problem Code Type: ICD-10; CORTEZ urbano, [employer] 15:18:18 Pneumoni a 340714975 Completed 202110/25/2022 Problem Code: J18; Problem Code Type: ICD-10; CORTEZ urbano, [employer] 15:18:18 Body mass index 40+ - severely obese 083459035 Completed 202110/25/2022 CORTEZ urbano, [employer] 15:18:18 Acute exacerba tion of chronic obstruct jud pulmonar y disease 479842171 Active 2022 Ruma Salgado PA-C [address] [place] [address], [address] , [employer] 3 11:08:24 Diabetes mellitus 97521797 Active 2023 Flora urbano, [employer] 4 08:59:08 Congesti ve heart failure 12911538 Active 2023 Mari Arthur APRN [address] [place], [address] , [employer] 4 13:27:33 Insulin treated type 2 diabetes mellitus 949015028 Active 2024 Flora urbano, [employer] 5 13:21:57 Well controll ed type 2 diabetes mellitus 617777266 Active 2024 Flora urbano, [employer] 13:00:23 Problem Notes None recorded. Medical Equipment [...] Not Available Not Available Vitals Date Recorded Oxygen saturation Oxygen saturation in Arterial blood by Pulse oximetry Inhaled oxygen flow rate Oxygen saturation Oxygen saturation in Arterial blood by Pulse oximetry Inhaled oxygen flow rate Provider Name and Address Organization Details Last Updated DateTime 80 % 80 % 0.5 L/min 89 % 89 % 4 L/min Mari Arthur, SALES PROJECT COORDINATOR [address] [place] [address], [phone], [employer] 18:19:36 Date Recorded Body height Body mass index (BMI) Body weight Heart rate Systolic And Diastolic Provider Name and Address Organization Details Last Updated DateTime 07/15/2025 187.96 cm 41.9 kg/m2 155304.1 1 g 87 /min 83/55 mm[Hg] Flora Ramona [employer] 07/15/2025 13:26:22 Social History Question Answer Notes LastModified by Organizat ion Details LastModified Time Tobacco Smoking Status Former Smoker CORTEZ LEONIDES urbano [employer] 10/25/2022 15:19:27 Do You Have An Advance Directive? No [email or web address] Information n ot available 10/25/2022 Are You Blind Or Do You Have Difficulty Seeing? No Information n ot available 10/25/2022 Are You A Caregiver? Yes [email or web address] Information not available 10/25/2022 In The 14 Days Before Symptom Onset, Have You Had Close Contact With A Laboratory-confirm ed COVID-19 While That Case Was Ill? No [email or web address] Information n ot available 10/25/2022 In The 14 Days Before Symptom Onset, Have You Had Close Contact With A Person Who Is Under Investigation For COVID-19 While That Person Was Ill? No [email or web address] Information not available 10/25/2022 Have You Been To An Area Known To Be High Risk For COVID-19? No [email or web address] Information not available 10/25/2022 Are You Deaf Or Do You Have Serious Difficulty Hearing? No [email or web address] Information not available 10/25/2022 What Type Of Diet Are You Following? DIABETIC Information n ot available 04/27/2023 Have There Been Any Changes To Your Family Or Social Situation? No [email or web address] Information no t available 10/25/2022 When Did You Quit Smoking? 1-5yearssince lastcigarette [email or web address] Information not available 10/25/2022 Are There Any Guns Present In Your Home? No [email or web address] Information not available 10/25/2022 Do You Have A Medical Power Of Grain Handler? No [email or web address] Information not available 10/25/2022 What Was The Date Of Your Most Recent Tobacco Screening? 07/15/2025 Information not available 07/15/2025 What Is Your Current Pack Years? 30ormorepacky ears [email or web address] Information not available 10/25/2022 What Is Your Relationship Status? [email or web address] Information not available 10/25/2022 Do You Use Your Seat Belt Or Car Seat Routinely? Yes [email or web address] Information not available 10/25/2022 Do You Have Smoke And Carbon Monoxide Detectors In Your Home? Yes [email or web address] Information not available 10/25/2022 Do You Participate In Social Media? No Information not available 10/21/2024 Has Tobacco Cessation Counseling Been Provided? No Information not available 10/21/2024 Have You Recently Traveled Abroad? No [email or web address] Information not available 10/25/2022 Do You Have Difficulty Walking Or Climbing Stairs? No [email or web address] Information not available 10/25/2022 Are You Currently In School? No [email or web address] Information not available 10/25/2022 Do You Have [...] is your level of alcohol consumption? None [email or web address] Information not available 10/25/2022 Are you currently employed? No [email or web address] Information not available 10/25/2022 Do you have access to reliable transportation? No [email or web address] Information not available 10/25/2022 Are you able to walk independently without assistance or assistive devices? YESWOREST [email or web address] Information not available 10/25/2022 Do you have difficulty doing errands alone? No [email or web address] Information not available 10/25/2022 Are you able to care for yourself independently? Yes [email or web address] Information not available 10/25/2022 Do you have difficulty dressing, bathing, grooming, or toileting? No Information not available 10/25/2022 Mental Status Question Answer Note LastModified by Organizat ion Details LastModified Time Do you feel stressed (tense, restless, nervous, or anxious, or unable to sleep at night)? [id number] Information not available 10/21/2024 Do you have difficulty concentrating, remembering or making decisions? No [email or web address] Information no t available 10/25/2022 Family History Relationship Description Onset Age of this Age Resolved Age Notes LastModified by Organization Details LastModified Time Father No current problems or disability [email or web address] Not available 09/28 15:18:26 Mother No current problems or disability Not available 09/28 15:18:26 Medical History Condition Response Obesity Y Hypertension Y Immunizations Vaccine Type Date Status Note Provider Nam e and Address Organization Details Recorded Time Pneumococcal conjugate PCV15, polysaccharide [id number] conjugate, adjuvant, PF 4 completed Mari Arthur APRN [address] [place], [address], [employer] 04/23/2024 12:30:10 zoster recombinant 4 completed Mari Arthur APRN [address] [place], [address], [employer] 07/22/2024 13:21:30 pneumococcal polysaccharide PPV23 7 completed SHAHIDA MYNEAR null, [employer] 02/18/2023 10:48:45 zoster live 7 completed SHAHIDA MYNEAR null, [employer] 02/18/2023 10:48:46 COVID-19, mRNA, LNP-S, PF, 100 mcg/0.5mL dose or 50 mcg/0.25mL dose 1 completed SHAHIDA MYNEAR null, [employer] 02/18/2023 10:48:45 COVID-19, mRNA, LNP-S, PF, 100 mcg/0.5mL dose or 50 mcg/0.25mL dose 1 completed SHAHIDA MYNEAR null, [employer] 02/18/2023 10:48:45 COVID-19, mRNA, LNP-S, PF, 100 mcg/0.5mL dose or 50 mcg/0.25mL dose 1 completed SHAHIDA MYNEAR null, [employer] 02/18/2023 10:48:45 Influenza, split virus, trivalent, preservative 1 completed Not Available [facility] 07/28/2023 11:17:27 COVID-19, mRNA, LNP-S, bivalent, PF, 50 mcg/0.5 mL or 25mcg/0.25 mL dose 2 completed SHAHIDA MYNEAR null, [employer] 02/18/2023 10:48:45 Influenza, high-dose, trivalent, PF 9 completed SHAHIDA MYNEAR null, [employer] 02/18/2023 10:48:46 Influenza, split virus, quadrivalent, PF 7 completed SHAHIDA MYNEAR null, [employer] 02/18/2023 10:48:46 Influenza, split virus, quadrivalent, PF 0 completed SHAHIDA MYNEAR null, [employer] 02/18/2023 10:48:46 Influenza, split virus, quadrivalent, PF 2 completed SHAHIDA MYNEAR null, [employer] 02/18/2023 10:48:46 Influenza, split virus, quadrivalent, PF 1 completed SHAHIDA MYNEAR null, [employer] 02/18/2023 10:48:46 Influenza, split virus, quadrivalent, PF 6 completed SHAHIDA MYNEAR null, [employer] 02/18/2023 10:48:46 Influenza, split virus, quadrivalent, PF 8 completed SHAHIDA MYNEAR null, [employer] 02/18/2023 10:48:46 COVID-19, mRNA, LNP-S, PF, 50 mcg/0.5 mL 3 completed Not Available [facility] 07/15/2025 12:56:24 Influenza, adjuvanted, quadrivalent, PF 3 completed Not Available [facility] 07/15/2025 12:56:24 Pneumococcal conjugate PCV20, polysaccharide [id number] conjugate, adjuvant, PF 3 completed Not Available [facility] 07/15/2025 12:56:24 RSV, recombinant, protein subunit RSVpreF, adjuvant reconstituted, 0.5 mL, PF 3 completed Not Available [facility] 07/15/2025 12:56:24 Influenza, adjuvanted, trivalent, PF 4 completed Not Available [facility] 07/15/2025 12:56:24 COVID-19, mRNA, LNP-S, PF, nirali-sucrose, 30 mcg/0.3 mL 4 completed Not Available [facility] 07/15/2025 12:56:24 Past Encounters Encounter ID Performer Location Encounter Start Date Encounter Closed Date Diagnosis/Indication Diagnosis SNOMED-CT Code Diagnosis ICD10 Code Diagnosis IMO Codes Diagnosis Note [id number] Mari Arthur APRN [address] [address] 07/15/2025 12:56:09 07/15/2025 14:22:53 Well controlled type 2 diabetes mellitus 846274269 E11.9 638754 Chronic ob structive pulmonary disease 76515729 J44.9 Hypertensive disorder 38 943282 I10 Hyperlipidemia 99426882 E78.5 Dysthymia 90859189 F34.1 Neuropathy due to type 2 diabetes mellitus 4324400931 14744 E11.40 Generalize d anxiety disorder 22098320 F41.1 Hypothyroidism 45062082 E03.9 Type 2 sandrine betes mellitus without complication 936479162 E11.9 Moderate r ecurrent major depression 09544504 F33.1 Chronic sy stolic heart failure 007747827 I50.22 683666 Body mass index 40+ - severely obese 207069948 Z68.41 [id number] Goals Section Goal Description Progress Status Start Date LastModified by Organization Details LastModified Time elevated creat to help pt breath better, loose wt and lower creat level None active 2024 MARI ARTHUR Information not available 04/15/2025 18:31:01 Hemoglobin A1C Lowers or maintains hemoglobin A1C (HbA1c) as per care team recommendati on(s) [TARGET: less than or equal to 7%] NoChoneyge active 2023 MARI ARTHUR Information not available 07/15/2025 22:00:47 Follow-up Appointment( s) Attends referral and/or follow-up appointment( s) as per care team recommendati on(s) NoChoneyge active 2023 MARI ARTHUR Information not available 07/15/2025 22:01:39 Blood Pressure Maintains blood pressure goal as defined by care team NoCcyndi active 2023 MARI ARTHUR Information not available 07/15/2025 21:59:49 Blood Glucose Maintains blood glucose within target range NoChange active 2023 MARI ARTHUR Information not [...] Active Tashia Winchester Not Available 03/12 13:02:30 Payers Encounter Date Sequence Insurance Name Policy Number Policy Young Covered Member ID Young Member ID Guarantor Name 07/15/2025 1 [employer] (MEDICARE REPLACEMENT/ ADVANTAGE - HMO) [id number] Wai Boyer [id number] Wai Morrisonald Notes Date Note Type Note Provider Name and Address Organization Details Recorded Time 07/15/2025 text/html pt here today for medication [...] has enough to get him home. Mari Arthur, GILDA [address] [facility], [place], [address], [facility] [employer] 07/15/2025 18:19:48
--- OUTSIDE RECORDS SUMMARY | 2025-08-22 13:42 | XMS_ITS | Encounter Summary ---
Author Organization [employer] ([place], [place], [place], [place]) Address [address] [place] [address] Care Team Providers Care Beach Patrol Lieutenant Name Role Phone Unavailable Primary Care Provider Unavailabl e Encounter Details Date Type Department Care Team (Late st Contact Info) Description 04/28/2021 Transcribed Document [facility] [place] [facility] [place] [address] ProviderJoanna MD [address] [place] [id number] Social History Tobacco Use Types Packs/Day Years [...] On: 04/28/2021 11:47 EDT by JOI SAEZ, cashier tube room Process Patient Disposition : Discharge Personal Belongings [...]
--- OUTSIDE RECORDS SUMMARY | 2025-08-22 13:42 | XMS_ITS | Encounter Summary ---
Author Organization [employer] ([place], [place], [place], [place]) Address [address] [place] [address] Care Team Providers Care Live Out Nanny Name Role Phone Unavailable Primary Care Provider Unavailabl e Encounter Details Date Type Department Care Team (Late st Contact Info) Description 04/28/2021 Transcribed Document [facility] [place] [address] [place] [address] ProviderJoanna MD [address] [place], [place] [id number] Social History Tobacco Use Types Packs/Day Years [...] Violence Symptoms Indicator : Low risk (0) Kiear Brady RN - 04/28/2021 7:52 EDT Electronically signed by Rosanna Landers Conversion Crop Or Livestock Tenant Farmer Cerner at 03/14/2023 8:38 PM CDT documented in this encounter Plan of Treatment Not on file documented as of this encounter Visit Diagnoses Not on filedocumented in this encounter
--- OUTSIDE RECORDS SUMMARY | 2025-08-22 13:42 | XMS_ITS | Clinical Summary ---
Author Organization [employer] ([place], [place], [place], [place]) Address [address] [place] [address] Care Team Providers Care [facility] Name Role Phone Unavailable Primary Care Provider [...]
--- OUTSIDE RECORDS SUMMARY | 2025-08-22 13:43 | XMS_ITS | Encounter Summary ---
Author Organization [employer] ([place], [place], [place], [place]) Address [address] [place] [address] Care Team Providers Care Framing Mill Operator Name Role Phone Unavailable Primary Care Provider Unavailabl e Encounter Details Date Type Department Care Team (Late st Contact Info) Description 04/28/2021 Transcribed Document [facility] [place] [facility] [place] [address] ProviderJoanna MD [address] [place] [address] [id number] Social History Tobacco Use Types Packs/Day Years [...] x 2 weeks, increased with activity. 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 Hx HTN, HLD, DM, [...] EDT Height Source Stated Height Entry Format [place] Height/Length, JAPANESE (ft) 6 ft Height/Length JAPANESE 2 Inch CLINICALHEIGHT 187.96 cm [place] Body Weight 81.16 kg Weight Source, ED Critical estimated dosing weight Weight Entry Format [place] Weight Kyrgyz lb 350 lb CLINICALWEIGHT 159.09 kg Body [...] rhythm, No ST changes, no ectopy, normal VA & QRS intervals, EP Interp. Results review: [...] % 21.1 % Lymph # 1.89 x10(3)/uL Amador % 8.6 % Amador # 0.77 K/uL Eos % 2.5 % Eos # 0.22 x10(3)/uL Baso % 0.6 % Baso # 0.05 x10(3)/uL Slide Review No IG# 0.03 x10(3)/uL IG% 0.30 % . Radiology results: Radiology Results (Last 48 hours) [id number] -- 04/28/2021 07:23 CR Chest 1 Vw [...] 11:34 EDT, Discharge to: Home. Prescriptions: Prescription Director Of Rehabilitation Pharmacy: Zithromax Z-Ryne 250 mg oral tablet [...]
--- OUTSIDE RECORDS SUMMARY | 2025-08-22 13:43 | XMS_ITS | Clinical Summary ---
Author Organization [facility] Address [address] [place] [address] Care Team Providers Care Manager Advanced Name Role Phone Petty Armendariz MD Primary Care Provider + [phone] Allergies No known active allergies Medications buPROPion [...] C SCREENING 07/05/2021 AAA SCREEN ONCE 2023 INFLUENZA VACCINE 06/27/2025 08/19/2019 COVID-19 Vaccine ( season) 2025, 03/18/2021 Insurance MEDICARE A & B Care Teams Manager Advanced Relationship Specialty Start Date End Date Petty Armendariz MD PCP - General Internal Medicine 07/05/21
[2025-08-22] MEDS: IOPAMIDOL-370 (76%);100ML BOTTLE 80 ML IV (14:00)
[2025-08-22] MEDS: 0.9 % SODIUM CHLORIDE 50 ML VIAL IV (14:00)
--- NOTE | 2025-08-22 14:00 | CT_ITS ---
FINAL REPORT TECHNIQUE: Axial imaging of the chest is obtained after the administration of contrast. 3-D MIP reformatted images were also obtained and reviewed per PE protocol. This study was performed with techniques to keep radiation doses as low as reasonably achievable, (ALARA). Individualized dose reduction techniques using automated exposure control or adjustment of mA and/or kV according to the patient's size were employed. CLINICAL HISTORY: sob COMPARISON: 01/27/2025 FINDINGS: The pulmonary arteries are well filled. There is no evidence of pulmonary embolus. There is no aortic dissection. Heart size is normal. There is no axillary lymphadenopathy. There are mildly enlarged bilateral hilar lymph nodes. There are changes from emphysema. There is a stable 6 mm right upper lobe nodule on series 3, image 44. There is a stable 3 mm right upper lobe nodule on series 3, image 47. There is a stable right lower lobe nodule measuring 8 mm on image 52.. There is no pleural or pericardial effusion. Limited evaluation of the upper abdomen is without acute abnormality. No acute osseous abnormality. IMPRESSION: No evidence of pulmonary embolism or aortic dissection. Stable pulmonary nodules. Reviewed, Interpreted and Dictated by Mckenna Flores MD Transcribed by Tana Colunga Authenticated and [facility]
[2025-08-22] MEDS: SODIUM CHLORIDE 0.9% 10ML SYR (RAD ONLY) 10 ML IV (14:01)
== END 2025-08-22 23:59 | disposition home or self-care (01) ==
LOC: RAD 13:36
PROVIDERS: PCP Nurse Practitioner; Visit Provider Internal Medicine Pulmonary Disease
DX: I27.20 Pulmonary hypertension, unspecified (principal); R91.8 Other nonspecific abnormal finding of lung field; Z86.711 Personal history of pulmonary embolism
CPT/HCPCS: 71275; Q9967

== ENCOUNTER 2025-09-03 14:05 | Outpatient (CLI) | payer MEDICARE, SELFPAY ==
[2025-09-03 14:58] LABS: Hematocrit 44.5 % (42.0-52.0); Hemoglobin 14.1 g/dL (14.1-18.0); Immature Granulocytes % 0.4 %; Mean Corpuscular HGB Conc 31.7 g/dL (31.8-35.4); Mean Corpuscular Hemoglobin 26.9 pg (27.0-31.2); Mean Corpuscular Volume 84.8 fl (80-94); Nucleated Red Blood Cells % 0 %; Platelet Count 344 K/mm3 (142-424); Red Blood Count 5.25 M/mm3 (4.60-6.20); Red Cell Distribution Width-SD 57.4 fL; White Blood Count 10.6 K/mm3 (4.8-10.8)
[2025-09-03 16:05] LABS: Free T4 (Free Thyroxine) 1.01 ng/dl (0.78-2.19)
[2025-09-03 16:33] LABS: Alanine Aminotransferase 29 U/L (12-78); Albumin Level 4.1 g/dl (3.5-5.0); Alkaline Phosphatase 168 U/L (38-126); Anion Gap 18.8 mEq/L (5-15); Aspartate Amino Transferase 27 U/L (17-59); Bilirubin,Direct 0.5 mg/dl (0.0-0.4); Bilirubin,Indirect 0.1 mg/dL (0.0-0.9); Bilirubin,Total 0.6 mg/dl (0.2-1.3); Bilirubin,Unconjugated 0.1 mg/dL (0.0-1.1); Blood Urea Nitrogen 47 mg/dl (9-20); Calcium 9.2 mg/dl (8.4-10.2); Carbon Dioxide 28 mmol/L (22.0-30.0); Chloride 101 mmol/L (98-107); Cholesterol 111 mg/dl (140-200); Creatinine,Serum 1.50 mg/dl (0.66-1.25); Estimated Glomerular Filt Rate 47 ml/min (>60); GFR (African American) 56 ML/MIN (>60); Glucose 67 mg/dl (74-100); HDL Cholesterol 34 mg/dl (40-60); Magnesium 2.3 mg/dl (1.6-2.3); Potassium 4.8 mmoL/L (3.5-5.1); Sodium 143 mmol/L (136-145); Total Protein,Serum 7.1 g/dl (6.3-8.2); Triglycerides 101 mg/dl (30-150)
[2025-09-03 16:43] LABS: NT Pro Brain Natriuretic Pep. 234 pg/mL (0-125)
[2025-09-03 17:03] LABS: Thyroid Stimulating Hormone 3.35 uIU/mL (0.465-4.68)
== END 2025-09-03 23:59 | disposition home or self-care (01) ==
LOC: LAB 14:05
PROVIDERS: PCP Nurse Practitioner; Visit Provider Internal Medicine
DX: I11.0 Hypertensive heart disease with heart failure (principal); I50.30 Unspecified diastolic (congestive) heart failure; E78.5 Hyperlipidemia, unspecified
CPT/HCPCS: 36415; 80048; 80061; 80076; 83735; 83880; 84439; 84443; 85025

== ENCOUNTER 2025-09-09 13:34 | Outpatient (CLI) | payer MEDICARE, SELFPAY ==
--- OUTSIDE RECORDS SUMMARY | 2025-09-09 13:40 | XMS_ITS | Continuity of Care Document ---
Author Organization [facility] [employer] [facility] Address [address] [place] [id number] Care Team Providers Care Olive Pitter Name Role Phone MARI ARTHUR Primary Care Provider TASHIA Garcia Quality Control Systems Manager Assessment No assessment recorded. Plan of Treatment Reminders Order Date Submit Date Provider Last Modified By Organization Details Last Modified Time Details Appointments FOLLOW UP 30 2024 03:30P M eBrnardo Arthur APRN Not available Not available Not available Lab HbA1c (hemoglob in A1c), blood 2024 025 [email or web address] [facility], [address] [place] [address], [phone], 07/15/2025 18:46:48 Referral None recorded. Procedures None recorded. Surgeries None recorded. Imaging None recorded. Medication Orders amlodipin e 10 mg tablet 2024 025 [facility], [address] [place] [address], [id number], 07/16/2025 10:47:38 aspirin 81 mg tablet,de layed release 2024 025 [facility], [address] [place] [address], [id number], 07/16/2025 10:47:41 losartan 100 mg tablet 2024 025 [facility], [address] [place] [address], [id number], 07/16/2025 10:47:34 albuterol sulfate HFA 90 mcg/actua tion aerosol inhaler 2024 025 [facility], [address] [place] [address], [id number], 07/16/2025 10:47:41 Dulera 100 mcg-5 mcg/actua tion HFA aerosol inhaler 2024 025 [facility], [address] [place] [address], [id number], 07/16/2025 10:47:44 Spiriva with HandiHale r 18 mcg and inhalatio n capsules 2024 025 [facility], [address] [place] [address], [id number], 07/16/2025 10:47:43 atorvasta tin 80 mg tablet 2024 025 [facility], [address] [place] [address], [id number], 07/16/2025 10:47:36 duloxetin e 60 mg capsule,d elayed release 2024 025 [facility], [address] [place] [address], [id number], 07/16/2025 10:47:35 Vraylar 1.5 mg capsule 2024 025 [facility], [address] [place] [address], [id number], 08/14/2025 16:37:20 Vistaril 25 mg capsule 2024 025 [facility], [address] [place] [address], [id number], 07/16/2025 08:36:38 metformin 1,000 mg tablet 2024 025 [facility], [address] [place] [address], [id number], 07/16/2025 10:47:41 levothyro xine 75 mcg tablet 2024 025 [facility], [address] [place] [address], [id number], 07/16/2025 10:47:37 gabapenti n 300 mg capsule 2024 025 [facility], [address] [place] [address], [id number], 08/28/2025 12:58:24 Patient TargetsNo targets recorded. Patient InstructionsNo instructions recorded. Reason for Referral None Reported. Results Created Date Observation Date Name Description Value Unit Range Abnormal Flag Note LastModifiedBy Organization Detail LastModifiedTime 07/15/2007/15/2025 HbA1c (hemo globi n A1c), blood HbA1c 6.0 Not Available [address], [address], 07/15/2025 13:00:27 08/22/20 25 08/22/2025 imagi ng/di agnos tic resul t No observ ation record ed. [facility] [address], [place], [address], 08/22/2025 15:20:37 Result Notes None recorded. Problems Name Problem SNOMED Code Status Onset Date Resolution Date Notes Provider Name and Address Organization Details Recorded Time Hypothyr oidism 15369432 Active 2021 Not Available [facility] 21:11:04 Type 2 diabetes mellitus without complica tion 831613171 Active 2021 Not Available [facility] 21:11:04 Hyperlip idemia 31696951 Active 2021 Problem Code: E78.5; Problem Code Type: ICD-10; Not Available [facility] 21:11:04 Nicotine dependen ce 52489777 Active 2021 Problem Code: F17.200; Problem Code Type: ICD-10; Not Available [facility] 2 21:11:04 Hyperten sive disorder 70893601 Active 2021 Problem Code: I10; Problem Code Type: ICD-10; Not Available [facility] 2 21:11:04 Dyspnea 352176608 Completed 202104/29/2022 Problem Code: R06.02; Problem Code Type: ICD-10; CORTEZ LEONIDES yolie, [employer] 2 15:18:18 Body mass index 30+ - obesity 232209574 Completed 202110/25/2022 Problem Code: Z68.43; Problem Code Type: ICD-10; CORTEZ LEONIDES yolie, [employer] 2 15:18:18 Dyspnea 875593434 Completed 202110/25/2022 Problem Code: R06.00; Problem Code Type: ICD-10; CORTEZ LEONIDES yolie, [employer] 2 15:18:18 Pneumoni a 709231258 Completed 202110/25/2022 Problem Code: J18; Problem Code Type: ICD-10; CORTEZ LEONIDES yolie, [employer] 2 15:18:18 Body mass index 40+ - severely obese 176830416 Completed 202110/25/2022 CORTEZ FAYNER yolie, [employer] 2 15:18:18 Acute exacerba tion of chronic obstruct jud pulmonar y disease 148942128 Active 2022 Ruma Salgado PA-C [address] [place], [address] , [employer] 3 11:08:24 Diabetes mellitus 02683765 Active 2023 Flora urbano, [employer] 4 08:59:08 Congesti ve heart failure 94842846 Active 2023 Mari Arthur APRN [address] [place], [address] , [employer] 4 13:27:33 Insulin treated type 2 diabetes mellitus 543788046 Active 2024 Flora urbano [employer] 5 13:21:57 Well controll ed type 2 diabetes mellitus 800497742 Active 2024 Flora urbano, [employer] 5 13:00:23 Problem Notes None recorded. Medical Equipment None Reported. Allergies No known drug allergies Medications Name Sig Start Date Stop Date Status Note LastModified by Organization Details LastModified Time metolazon e 2.5 mg tablet TAKE 1 TABLET BY MOUTH TWICE A WEEK ON ONCE WEEKLY ON MONDAY AND MONDAY active Not Available Not Available No t Available metformin 500 mg tablet take 2 tablets [...] mg tablet,ex tended release 24 hr TAKE 1 TABLET BY MOUTH EVERY DAY active Not Available Not Available No t Available amoxicill in 875 mg tablet Take 1 tablet every 12 hours by oral route with meals for 7 days. 01/26 completed Not Available Not Available Not Available torsemide 100 mg tablet TAKE ONE TABLET BY MOUTH EVERY DAY active Not [...] ONE TABLET BY MOUTH EVERY DAY active Not Available Not Available No t Available Spiriva Respimat 2.5 mcg/actua tion solution for inhalatio n Inhale 2 puffs every day by inhalati on route. 2024 active Not Available Not Available Not Avai lable Vraylar 1.5 mg capsule TAKE 1 CAPSULE BY MOUTH EVERY DAY active Not Available Not Available No t Available oxygen 4 L active Not Available Not [...] % 89 % 4 L/min Mari Arthur, [employer] [address] [place] [address], [place], [address] [facility] [employer] 5 18:19:36 Date Recorded Body height Body mass index (BMI) Body weight Heart rate Systolic And Diastolic Provider Name and Address Organization Details Last Updated DateTime 07/15/2025 187.96 cm 41.9 kg/m2 386449.1 1 g 87 /min 83/55 mm[Hg] Flora [place] [employer] 07/15/2025 13:26:22 Social History Question Answer Notes LastModified by Organizat ion Details LastModified Time Tobacco Smoking Status Former Smoker CORTEZ urbano [employer] 10/25/2022 15:19:27 Do You Have An Advance Directive? No [email or web address] Information n ot available 10/25/2022 Are You Blind Or Do You Have Difficulty Seeing? No [email or web address] Information n ot available 10/25/2022 Are You A Caregiver? Yes [email or web address] Information not available 10/25/2022 In The 14 Days Before Symptom Onset, Have You Had Close Contact With A Laboratory-confirm ed COVID-19 While That Case Was Ill? No [email or web address] Information n ot available 10/25/2022 In The 14 Days Before Symptom Onset, Have You Had Close Contact With A Person Who Is Under Investigation For COVID-19 While That Person Was Ill? No [email or web address] Information not available 10/25/2022 Have You Been To An Area Known To Be High Risk For COVID-19? No [email or web address] Information not available 10/25/2022 Are You Deaf Or Do You Have Serious Difficulty Hearing? No [email or web address] Information not available 10/25/2022 What Type Of Diet Are You Following? DIABETIC Information n ot available 04/27/2023 Have There Been Any Changes To Your Family Or Social Situation? No [email or web address] Information no t available 10/25/2022 When Did You Quit Smoking? 1-5yearssince lastcigarette [email or web address] Information not available 10/25/2022 Are There Any Guns Present In Your Home? No [email or web address] Information not available 10/25/2022 Do You Have A Medical Power Of Molder Vacuum? No [email or web address] Information not available 10/25/2022 What Was The Date Of Your Most Recent Tobacco Screening? 07/15/2025 Information not available 07/15/2025 What Is Your Current Pack Years? 30ormorepacky ears [email or web address] Information not available 10/25/2022 What Is Your Relationship Status? [email or web address] Information not available 10/25/2022 Do You Use Your Seat Belt Or Car Seat Routinely? Yes [email or web address] Information not available 10/25/2022 Do You Have Smoke And Carbon Monoxide Detectors In Your Home? Yes [email or web address] Information not available 10/25/2022 Do You Participate In Social Media? No Information not available 10/21/2024 Has Tobacco Cessation Counseling Been Provided? No Information not available 10/21/2024 Have You Recently Traveled Abroad? No [email or web address] Information not available 10/25/2022 Do You Have Difficulty Walking Or Climbing Stairs? No [email or web address] Information not available 10/25/2022 Are You Currently In School? No [email or web address] Information not available 10/25/2022 Do You Have Any Dietary Restrictions? Yes Information not available 10/21/2024 Sex: Male Functional Status Question Answer Note LastModified by [employer] Details LastModified Time Do you use any illicit or recreational drugs? No Information not available 10/21/2024 Do you or have you ever used any other forms of tobacco or nicotine? No Information not available 10/21/2024 What is your level of alcohol consumption? None [email or web address] Information not available 10/25/2022 Are you currently employed? No [email or web address] Information not available 10/25/2022 Do you have transportation difficulties? No [email or web address] Information not available 10/25/2022 Are you able to walk independently without assistance or assistive devices? YESWOREST [email or web address] Information not available 10/25/2022 Do you have difficulty doing errands alone? No [email or web address] Information not available 10/25/2022 Are you able to care for yourself independently? Yes Information not available 10/25/2022 Do you have difficulty dressing, bathing, grooming, or toileting? No [email or web address] Information not available 10/25/2022 Mental Status Question Answer Note LastModified by [employer] Details LastModified Time Do you feel stressed (tense, restless, nervous, or anxious, or unable to sleep at night)? [id number] Information not available 10/21/2024 Do you have difficulty concentrating, remembering or making decisions? No [email or web address] Information no t available 10/25/2022 Family History Relationship Description Onset Age of this Age Resolved Age Notes LastModified by Organization Details LastModified Time Father No current problems or disability [email or web address] Not available 09/28 15:18:26 Mother No current problems or disability [email or web address] Not available 09/28 15:18:26 Medical History Condition Response Obesity Y Hypertension Y Immunizations Vaccine Type Date Status Note Provider Nam e and Address Organization Details Recorded Time Pneumococcal conjugate PCV15, polysaccharide [id number] conjugate, adjuvant, PF 4 completed Mari Arthur APRN [address] [place], [address], [employer] 04/23/2024 12:30:10 zoster recombinant 4 completed Mari Arthur APRN [address] [place], [address], [employer] 07/22/2024 13:21:30 pneumococcal polysaccharide PPV23 7 completed SHAHIDA MYNEAR null, [employer] 02/18/2023 10:48:45 zoster live 7 completed SHAHIDA MYNEAR null, [employer] 02/18/2023 10:48:46 COVID-19, mRNA, LNP-S, PF, 100 mcg/0.5mL dose or 50 mcg/0.25mL dose 1 completed SHAHIDA MYNEAR null, [employer] 02/18/2023 10:48:45 COVID-19, mRNA, LNP-S, PF, 100 mcg/0.5mL dose or 50 mcg/0.25mL dose 1 completed SHAHIDA MYNEAR null, [employer] 02/18/2023 10:48:45 COVID-19, mRNA, LNP-S, PF, 100 mcg/0.5mL dose or 50 mcg/0.25mL dose 1 completed SHAHIDA MYNEAR null, [employer] 02/18/2023 10:48:45 Influenza, split virus, trivalent, preservative 1 completed Not Available [facility] 07/28/2023 11:17:27 COVID-19, mRNA, LNP-S, bivalent, PF, 50 mcg/0.5 mL or 25mcg/0.25 mL dose 2 completed SHAHIDA MYNEAR null, [employer] 02/18/2023 10:48:45 Influenza, high-dose, trivalent, PF 9 completed SHAHIDA MYNEAR null, [employer] 02/18/2023 10:48:46 Influenza, split virus, quadrivalent, PF 7 completed SHAHIDA MYNEAR null, [employer] 02/18/2023 10:48:46 Influenza, split virus, quadrivalent, PF 0 completed SHAHIDA MYNEAR null, [employer] 02/18/2023 10:48:46 Influenza, split virus, quadrivalent, PF 2 completed SHAHIDA MYNEAR null, [employer] 02/18/2023 10:48:46 Influenza, split virus, quadrivalent, PF 1 completed SHAHIDA MYNEAR null, [employer] 02/18/2023 10:48:46 Influenza, split virus, quadrivalent, PF 6 completed SHAHIDA MYNEAR null, [employer] 02/18/2023 10:48:46 Influenza, split virus, quadrivalent, PF 8 completed SHAHIDA MYNEAR null, [employer] 02/18/2023 10:48:46 COVID-19, mRNA, LNP-S, PF, 50 mcg/0.5 mL 3 completed Not Available [facility] 07/15/2025 12:56:24 Influenza, adjuvanted, quadrivalent, PF 3 completed Not Available [facility] 07/15/2025 12:56:24 Pneumococcal conjugate PCV20, polysaccharide [id number] conjugate, adjuvant, PF 3 completed Not Available [facility] 07/15/2025 12:56:24 RSV, recombinant, protein subunit RSVpreF, adjuvant reconstituted, 0.5 mL, PF 3 completed Not Available [facility] 07/15/2025 12:56:24 Influenza, adjuvanted, trivalent, PF 4 completed Not Available [facility] 07/15/2025 12:56:24 COVID-19, mRNA, LNP-S, PF, nirali-sucrose, 30 mcg/0.3 mL 4 completed Not Available [facility] 07/15/2025 12:56:24 Past Encounters Encounter ID Performer Location Encounter Start Date Encounter Closed Date Diagnosis/Indication Diagnosis SNOMED-CT Code Diagnosis ICD10 Code Diagnosis IMO Codes Diagnosis Note [id number] Mari Jerson, [place] [phone] 0 07/15/2025 12:56:09 07/15/2025 14:22:53 Well controlled type 2 diabetes mellitus 646220931 E11.9 096787 Chronic ob structive pulmonary disease 29405086 J44.9 Hypertensive disorder 38 896920 I10 Hyperlipidemia 18028464 E78.5 Dysthymia 21897853 F34.1 Neuropathy due to type 2 diabetes mellitus 2739862558 82348 E11.40 Generalize d anxiety disorder 83838052 F41.1 Hypothyroidism 04276131 E03.9 Type 2 sandrine betes mellitus without complication 381185036 E11.9 Moderate r ecurrent major depression 39936263 F33.1 Chronic sy stolic heart failure 428409737 I50.22 509754 Body mass index 40+ - severely obese 458931823 Z68.41 [id number] Goals Section Goal Description Progress Status Start [...] lipid levels as defined by care team NoChoneyge active 2023 Tashia Winchester Information not available [...] Young Member ID Guarantor Name 07/15/2025 1 [employer] (MEDICARE REPLACEMENT/ ADVANTAGE - HMO) [id number] Wai Boyer [id number] Wai Boyer Notes Date Note Type Note Provider [...] has enough to get him home. Mari Jerson, GILDA [address] [facility], [place], [address], [facility] [employer] 07/15/2025 18:19:48
--- OUTSIDE RECORDS SUMMARY | 2025-09-09 13:40 | XMS_ITS | Clinical Summary ---
Author Organization Healthcare Address [address] [place] [address] Care Team Providers Care Telegraph Repeater Installer Name Role Phone Petty Armendariz MD Primary Care Provider [phone] Family History Medical History Relation Name Comments [...] (2 of 2 - PCV) 06/05/2018 06/05/2017 [id number] Vaccine (4 - 2024- season) 2025 11/16/2021, [...] complete this topic Insurance MEDICARE Care Teams Telegraph Repeater Installer Relationship Specialty Start Date End Date Petty Armendariz MD [address] [place] [address] [place] [phone] PCP - General 04/09/21
--- OUTSIDE RECORDS SUMMARY | 2025-09-09 13:40 | XMS_ITS | Data Portability ---
Author Organization [facility] [employer] [facility] Address [address] [place] [address] Care Team Providers Care Portrait Artist Name Role Phone MARI ARTHUR Primary Care Provider TASHIA Garcia Tree Wrapper Assessment Encounter Date Assessment Date Assessment LastModified by Organization Details LastModified Time 10/21/2024 10/21/2024 Patient presented for medication refill. Patient tolerating medication well at current dose without adverse effects. Refilled as below. Discussed plan with patient, who expressed understanding . Follow up as noted below. [email or web address] [id number] Not available 10/21/2024 14:33:39 Plan of Treatment Reminders Order Date Submit Date Provider Last Modified By Organization Details Last Modified Time Details Appointments FOLLOW UP 30 2024 03:30P Stephen Arthur APRN Not available Not available Not available Lab HbA1c (hemoglob in A1c), blood [address], [id number], 07/15/2025 18:46:48 HbA1c (hemoglob in A1c), blood [address], [address], 04/15/2025 16:16:44 HbA1c (hemoglob in A1c), blood [address], [id number], 01/16/2025 15:23:35 HbA1c (hemoglob in A1c), blood [address], [id number], 10/21/2024 14:35:24 HbA1c (hemoglob in A1c), blood [address], [address] [place] [address], [id number], 07/22/2024 18:10:44 CBC w/ auto diff 2023 024 [facility] ([place]), [address] [place] [address], [id number], 07/23/2024 07:08:36 CMP, serum or plasma 2023 024 [facility] ([place]), [address] [place] [address], [id number], 07/23/2024 07:08:36 PSA, total, serum or plasma 2023 024 [facility] ([place]), [address] [place] [address], [id number], 07/23/2024 07:08:39 lipid panel, serum 2023 024 [facility]), [address] [place] [address], [id number], 07/23/2024 07:08:37 HIV 1 + 2, meaningfu l use set 2023 024 [facility] ([place]), [address] [place] [address], 28[address], 07/23/2024 07:08:40 Hepatitis C IgG Ab, qual, serum 2023 024 [facility] ([place]), [address] [place] [address], [id number], 07/23/2024 07:08:38 vitamin B12 + folate, serum or blood 2023 024 [facility]), [facility] [place], [address], 07/23/2024 07:08:37 vitamin D, 25-hydrox y, total, serum 2023 024 [facility]), [address] [place], [address], 07/23/2024 07:08:39 Referral None recorded. Procedures None recorded. Surgeries None recorded. Imaging None recorded. Medication Orders amlodipin e 10 mg tablet 2024 025 [facility], [address] [place] [address], [address], 07/16/2025 10:47:38 aspirin 81 mg tablet,de layed release 2024 025 [facility], [address] [place] [address], 437[address], 07/16/2025 10:47:41 losartan 100 mg tablet 2024 025 [facility], [address] [place] [address], 66[address], 07/16/2025 10:47:34 albuterol sulfate HFA 90 mcg/actua tion aerosol inhaler 2024 025 [facility], [address] [place] [address], 349[address], 07/16/2025 10:47:41 Dulera 100 mcg-5 mcg/actua tion HFA aerosol inhaler 2024 025 [facility], [address] [place] [address], 64[address], 07/16/2025 10:47:44 Spiriva with HandiHale r 18 mcg and inhalatio n capsules 2024 025 [facility], [address] [place] [address], 02[address], 07/16/2025 10:47:43 atorvasta tin 80 mg tablet 2024 025 [facility], [address] [place] [address], 940[address], 07/16/2025 10:47:36 duloxetin e 60 mg capsule,d elayed release 2024 025 [facility], [address] [place] [address], 12[address], 07/16/2025 10:47:35 Vraylar 1.5 mg capsule 2024 025 [facility], [address] [place] [address], 033[address], 08/14/2025 16:37:20 Vistaril 25 mg capsule 2024 025 [facility], [address] [place] [address], 82150, 07/16/2025 08:36:38 metformin 1,000 mg tablet 2024 025 [facility], [address] [place] [address], 76333, 07/16/2025 10:47:41 levothyro xine 75 mcg tablet 2024 025 [facility], [address] [place] [address], 96086, 07/16/2025 10:47:37 gabapenti n 300 mg capsule 2024 025 [facility], [address] [place] [address], 286[address], 08/28/2025 12:58:24 amlodipin e 10 mg tablet 2024 025 [facility], [address] [place] [address], 71968, 04/16/2025 10:43:25 aspirin 81 mg tablet,de layed release 2024 025 [facility], [address] [place] [address], 06202, 04/16/2025 10:43:27 losartan 100 mg tablet 2024 025 [facility], [address] [place] [address], 07650, 04/16/2025 10:43:24 atorvasta tin 80 mg tablet 2024 025 [facility], [address] [place] [address], 97110, 04/16/2025 10:43:16 Dulera 100 mcg-5 mcg/actua tion HFA aerosol inhaler 2024 025 [facility], [address] [place] [address], 56914, 04/16/2025 10:43:25 Spiriva with HandiHale r 18 mcg and inhalatio n capsules 2024 025 [facility], [address] [place] [address], 45882, 04/23/2025 11:51:12 duloxetin e 60 mg capsule,d elayed release 2024 025 [facility], [address] [place] [address], 07995, 04/16/2025 10:43:26 Vraylar 1.5 mg capsule 2024 025 [facility], [address] [place] [address], 50450, 07/10/2025 16:18:41 Vistaril 25 mg capsule 2024 025 [facility], [address] [place] [address], 08425, 07/04/2025 15:32:42 Lantus Solostar U-100 Insulin 100 unit/mL (3 mL) subcutane ous pen 2024 025 [facility], [address] [place] [address], 85312, 08/28/2025 12:58:23 metformin 1,000 mg tablet 2024 025 [facility], [address] [place] [address], 59454, 04/16/2025 10:43:16 levothyro xine 75 mcg tablet 2024 025 [facility], [address] [place] [address], 24666, 04/16/2025 10:43:19 amlodipin e 10 mg tablet 2024 025 [facility], [address] [place] [address], 14529, 01/17/2025 15:09:16 aspirin 81 mg tablet,de layed release 2024 025 [facility], [address] [place] [address], 66870, 01/17/2025 15:09:14 losartan 100 mg tablet 2024 025 [facility], [address] [place] [address], 41349, 01/17/2025 15:09:12 albuterol sulfate HFA 90 mcg/actua tion aerosol inhaler 2024 025 [facility], [address] [place] [address], 38988, 01/17/2025 15:09:15 Dulera 100 mcg-5 mcg/actua tion HFA aerosol inhaler 2024 025 [facility], [address] [place] [address], 88401, 01/17/2025 15:09:15 Spiriva Respimat 2.5 mcg/actua tion solution for inhalatio n 2024 025 [facility], [address] [place] [address], 60462, 01/16/2025 15:48:14 Spiriva with HandiHale r 18 mcg and inhalatio n capsules 2024 025 [facility], [address] [place] [address], 00668, 01/17/2025 15:09:13 atorvasta tin 80 mg tablet 2024 025 [facility], [address] [place] [address], 05610, 01/17/2025 15:09:15 duloxetin e 60 mg capsule,d elayed release 2024 025 [facility], [address] [place] [address], 46010, 01/17/2025 15:09:13 Vraylar 1.5 mg capsule 2024 025 [facility], [address] [place] [address], 62187, 01/27/2025 17:41:07 Lantus Solostar U-100 Insulin 100 unit/mL (3 mL) subcutane ous pen 2024 025 [facility], [address] [place] [address], 72817, 01/16/2025 15:38:15 metformin 1,000 mg tablet 2024 025 [facility], [address] [place] [address], 81719, 01/17/2025 15:09:12 levothyro xine 75 mcg tablet 2024 025 [facility], [address] [place] [address], 27219, 01/17/2025 15:09:16 gabapenti n 300 mg capsule 2024 025 [facility], [address] [place] [address], 04533, 03/22/2025 12:04:58 amlodipin e 10 mg tablet 2023 024 [facility], [address] [place] [address], 57196, 10/23/2024 15:41:26 aspirin 81 mg tablet,de layed release 2023 024 [facility], [address] [place] [address], 29680, 10/23/2024 15:41:29 losartan 100 mg tablet 2023 024 [facility], [address] [place] [address], 75492, 10/23/2024 15:41:27 atorvasta tin 80 mg tablet 2023 024 [facility], [address] [place] [address], 57621, 10/23/2024 15:41:30 Dulera 100 mcg-5 mcg/actua tion HFA aerosol inhaler 2023 024 [facility], [address] [place] [address], 15206, 12/14/2024 12:07:49 Spiriva with HandiHale r 18 mcg and inhalatio n capsules 2023 [facility], [address] [place] [address], 93182, 10/23/2024 15:41:31 duloxetin e 60 mg capsule,d elayed release 2023 [facility], [address] [place] [address], 82156, 10/23/2024 15:41:25 Lantus Solostar U-100 Insulin 100 unit/mL (3 mL) subcutane ous pen 2023 [facility], [address] [place] [address], 05461, 10/23/2024 15:41:30 metformin 1,000 mg tablet 2023 [facility], [address] [place] [address], 04629, 10/23/2024 15:41:27 levothyro xine 75 mcg tablet 2023 024 [facility], [address] [place] [address], 96819, 10/23/2024 15:41:27 gabapenti n 300 mg capsule 2023 024 [facility], [address] [place] [address], 96548, 12/24/2024 16:26:23 spironola ctone 50 mg tablet 2023 024 [facility], [address] [place] [address], 62555, 03/22/2025 12:04:59 albuterol sulfate HFA 90 mcg/actua tion aerosol inhaler 2023 [facility], [address] [place] [address], 24406, 07/23/2024 12:21:19 Spiriva with HandiHale r 18 mcg and inhalatio n capsules 2023 024 [facility], [address] [place] [address], 71864, 07/22/2024 13:46:31 Symbicort 160 mcg-4.5 mcg/actua tion HFA aerosol inhaler 2023 [facility], [address] [place] [address], 03096, 07/24/2024 12:15:41 duloxetin e 60 mg capsule,d elayed release 2023 024 [facility], [address] [place] [address], 25489, 07/23/2024 12:21:18 spironola ctone 50 mg tablet 2023 024 [facility], [address] [place] [address], 58945, 09/12/2024 15:41:26 torsemide 40 mg tablet 2023 024 [facility], [address] [place] [address], 57796, 10/21/2024 17:17:42 amlodipin e 10 mg tablet 2023 024 [facility], [address] [place] [address], 44813, 07/23/2024 12:21:18 aspirin 81 mg tablet,de layed release 2023 024 [facility], [address] [place] [address], 51094, 07/23/2024 12:21:16 losartan 100 mg tablet 2023 [facility], [address] [place] [address], 35063, 07/23/2024 12:21:15 atorvasta tin 80 mg tablet 2023 [facility], [address] [place] [address], 94446, 07/23/2024 12:21:16 Lantus Solostar U-100 Insulin 100 unit/mL (3 mL) subcutane ous pen 2023 [facility], [address] [place] [address], 14558, 03/15/2025 09:18:21 metformin 1,000 mg tablet 2023 [facility], [address] [place] [address], 91987, 07/23/2024 12:21:18 levothyro xine 75 mcg tablet 2023 024 [facility], [address] [place] [address], 49445, 07/23/2024 12:21:17 gabapenti n 300 mg capsule 2023 [facility], [address] [place] [address], 83702, 09/27/2024 10:53:08 Patient TargetsNo targets recorded. Patient Instructions Encounter Date Encounter Id Patient Instructions Last Modified By Organization Details Last Modified Time 07/22/2024 [id number] statins: care instructions [email or web address] Not available 07/22/2024 18:10:44 PROMIS global- 10* [email or web address] Not available 07/22/2024 09:46:13 Reason for Referral None Reported. Results Created Date Observation Date Name Description Value Unit Range Abnormal Flag Note LastModifiedBy Organization Detail LastModifiedTime 07/22/20 24 07/23/2024 CBC WITH DIFFE RENTI AL/PL ATELE T WBC 9.5 x10e3 /uL 3.4-10 .8 normal Not Available [facility] ([facility]) [address] [place], [address], 07/23/2024 07:08:36 07/22/20 24 07/23/2024 CBC WITH DIFFE RENTI AL/PL ATELE T RBC 4.46 x10e6 /uL 4.14-5 .80 normal Not Available [facility] ([facility]) [address] [facility], [place], [address], 07/23/2024 07:08:36 07/22/20 24 07/23/2024 CBC WITH DIFFE RENTI AL/PL ATELE T hemoglobin 13.4 g/dL 13.0-1 7.7 normal Not Available [facility] ([facility]) [address] [place], [address], 07/23/2024 07:08:36 07/22/20 24 07/23/2024 CBC WITH DIFFE RENTI AL/PL ATELE T hematocrit 42.1 % 37.5-5 1.0 normal Not Available [facility] ([facility]) [address] [place], [address], 07/23/2024 07:08:36 07/22/20 24 07/23/2024 CBC WITH DIFFE RENTI AL/PL ATELE T MCV 94 fL 79-97 normal Not Available [facility] ([facility]) [address] [place], [address], 07/23/2024 07:08:36 07/22/20 24 07/23/2024 CBC WITH DIFFE RENTI AL/PL ATELE T MCH 30.0 pg 26.6-3 3.0 normal Not Available [facility] ([facility]) [address] [place], [address], 07/23/2024 07:08:36 07/22/20 24 07/23/2024 CBC WITH DIFFE RENTI AL/PL ATELE T MCHC 31.8 g/dL 31.5-3 5.7 normal Not Available [facility] ([facility]) [address] [facility], [place], [address], 07/23/2024 07:08:36 07/22/20 24 07/23/2024 CBC WITH DIFFE RENTI AL/PL ATELE T RDW 13.1 % 11.6-1 5.4 Not Available [facility] ([facility]) [address] [facility], [place], [address], 07/23/2024 07:08:36 07/22/20 24 07/23/2024 CBC WITH DIFFE RENTI AL/PL ATELE T platelets 411 x10e3 /uL 150-45 0 normal Not Available [facility] ([facility]) [address] [facility], [place], [address], 07/23/2024 07:08:36 07/22/20 24 07/23/2024 CBC WITH DIFFE RENTI AL/PL ATELE T neutrophils 75 % not estab. normal Not Available [facility] ([facility]) [address] [facility], [place], [address], 07/23/2024 07:08:36 07/22/20 24 07/23/2024 CBC WITH DIFFE RENTI AL/PL ATELE T lymphs 15 % not estab. normal Not Available [facility] ([facility]) [address] [facility], [place], [address], 07/23/2024 07:08:36 07/22/20 24 07/23/2024 CBC WITH DIFFE RENTI AL/PL ATELE T monocytes 8 % not estab. normal Not Available [facility] ([facility]) [address] [facility], [place], [address], 07/23/2024 07:08:36 07/22/20 24 07/23/2024 CBC WITH DIFFE RENTI AL/PL ATELE T eos 1 % not estab. normal Not Available [facility] ([facility]) [address] [facility], [place], [address], 07/23/2024 07:08:36 07/22/20 24 07/23/2024 CBC WITH DIFFE RENTI AL/PL ATELE T basos 1 % not estab. normal Not Available [facility] ([facility]) [address] [facility], [place], [address], 07/23/2024 07:08:36 07/22/20 24 07/23/2024 CBC WITH DIFFE RENTI AL/PL ATELE T immature cells LABORATORY IMMUNOLOGIST Not Available [facility] ([facility]) [address] [facility], [place], [address], 07/23/2024 07:08:36 07/22/20 24 07/23/2024 CBC WITH DIFFE RENTI AL/PL ATELE T neutrophils (absolute) 7.1 x10e3 /uL 1.4-7. 0 above high normal Not Available [facility] ([facility]) [address] [facility], [place], [address], 07/23/2024 07:08:36 07/22/20 24 07/23/2024 CBC WITH DIFFE RENTI AL/PL ATELE T lymphs (absolute) 1.4 x10e3 /uL 0.7-3. 1 normal Not Available [facility] ([facility]) [address] [place], [address], 07/23/2024 07:08:36 07/22/20 24 07/23/2024 CBC WITH DIFFE RENTI AL/PL ATELE T monocytes(ab solute) 0.7 x10e3 /uL 0.1-0. 9 normal Not Available [facility] ([facility]) [address] [place], [address], 07/23/2024 07:08:36 07/22/20 24 07/23/2024 CBC WITH DIFFE RENTI AL/PL ATELE T eos (absolute) 0.1 x10e3 /uL 0.0-0. 4 normal Not Available [facility] ([facility]) [address] [facility], [place], [address], 07/23/2024 07:08:36 07/22/20 24 07/23/2024 CBC WITH DIFFE RENTI AL/PL ATELE T baso (absolute) 0.1 x10e3 /uL 0.0-0. 2 normal Not Available [facility] ([facility]) [address] [facility], [place], [address], 07/23/2024 07:08:36 07/22/20 24 07/23/2024 CBC WITH DIFFE RENTI AL/PL ATELE T immature granulocytes 0 % not estab. Not Available [facility] ([facility]) [address] [facility], [place], [address], 07/23/2024 07:08:36 07/22/20 24 07/23/2024 CBC WITH DIFFE RENTI AL/PL ATELE T immature grans (abs) 0.0 x10e3 /uL 0.0-0. 1 Not Available [facility] ([facility]) [address] [facility], [place], [address], 07/23/2024 07:08:36 07/22/20 24 07/23/2024 CBC WITH DIFFE RENTI AL/PL ATELE T NRBC LABORATORY IMMUNOLOGIST Not Available [facility] ([facility]) [address] [facility], [place], [address], 07/23/2024 07:08:36 07/22/20 24 07/23/2024 CBC WITH DIFFE RENTI AL/PL ATELE T hematology comments: LABORATORY IMMUNOLOGIST Not Available [facility] ([facility]) [address] [facility], [place], [address], 07/23/2024 07:08:36 07/22/20 24 07/23/2024 COMP. METAB OLIC PANEL (14) glucose 102 mg/dL 70-99 above high normal Not Available [facility] ([facility]) [address] [place], [place], [address], 07/23/2024 07:08:36 07/22/20 24 07/23/2024 COMP. METAB OLIC PANEL (14) BUN 16 mg/dL 8-27 normal Not Available [facility] ([facility]) [address], [place], [address], 07/23/2024 07:08:36 07/22/20 24 07/23/2024 COMP. METAB OLIC PANEL (14) creatinine 1.16 mg/dL 0.76-1 .27 normal Not Available [facility] ([facility]) [address] [facility] [place], [address], 07/23/2024 07:08:36 07/22/20 24 07/23/2024 COMP. METAB OLIC PANEL (14) eGFR 69 mL/mi n/1.7 3 >59 normal Not Available [facility] ([facility]) [address], [place], [address], 07/23/2024 07:08:36 07/22/20 24 07/23/2024 COMP. METAB OLIC PANEL (14) BUN/creatini ne ratio 14 10-24 normal Not Available [facility] ([facility]) [address] [facility] [place], [address], 07/23/2024 07:08:36 07/22/20 24 07/23/2024 COMP. METAB OLIC PANEL (14) sodium 144 mmol/ L 134-14 4 normal Not Available [facility] ([facility]) [address] [facility] [place], [address], 07/23/2024 07:08:36 07/22/20 24 07/23/2024 COMP. METAB OLIC PANEL (14) potassium 5.1 mmol/ L 3.5-5. 2 normal Not Available [facility] ([facility]) [address] [facility] [place], [address], 07/23/2024 07:08:36 07/22/20 24 07/23/2024 COMP. METAB OLIC PANEL (14) chloride 105 mmol/ L 96-106 normal Not Available [facility] ([facility]) [address] [place], [address], 07/23/2024 07:08:36 07/22/20 24 07/23/2024 COMP. METAB OLIC PANEL (14) carbon dioxide, total 23 mmol/ L 20-29 normal Not Available [facility] ([facility]) [address] [place], [address], 07/23/2024 07:08:36 07/22/20 24 07/23/2024 COMP. METAB OLIC PANEL (14) calcium 9.5 mg/dL 8.6-10 .2 normal Not Available [facility] ([facility]) [address] [place] [place], [address], 07/23/2024 07:08:36 07/22/20 24 07/23/2024 COMP. METAB OLIC PANEL (14) protein, total 7.1 g/dL 6.0-8. 5 normal Not Available [facility] ([facility]) [address] [facility] [place], [address], 07/23/2024 07:08:36 07/22/20 24 07/23/2024 COMP. METAB OLIC PANEL (14) albumin 4.1 g/dL 3.9-4. 9 normal Not Available [facility] ([facility]) [address] [place] [place], [address], 07/23/2024 07:08:36 07/22/20 24 07/23/2024 COMP. METAB OLIC PANEL (14) globulin, total 3.0 g/dL 1.5-4. 5 Not Available [facility] ([facility]) [address] [facility] [place], [address], 07/23/2024 07:08:36 08/26/20 24 07/23/2024 COMP. METAB OLIC PANEL (14) bilirubin, total <0.2 mg/dL 0.0-1. 2 Not Available [facility] ([facility]) [address] [place], [address], 07/23/2024 07:08:36 07/22/20 24 07/23/2024 COMP. METAB OLIC PANEL (14) alkaline phosphatase 181 IU/L 44-121 above high normal Not Available [facility] ([facility]) [address] [facility] [place], [address], 07/23/2024 07:08:36 07/22/20 24 07/23/2024 COMP. METAB OLIC PANEL (14) AST (SGOT) 19 IU/L 0-40 normal Not Available [facility] ([facility]) [address] [place], [address], 07/23/2024 07:08:36 07/22/20 24 07/23/2024 COMP. METAB OLIC PANEL (14) ALT (SGPT) 18 IU/L 0-44 normal Not Available [facility] ([facility]) [address] [place], [address], 07/23/2024 07:08:36 07/22/20 24 07/23/2024 LIPID PANEL cholesterol, total 186 mg/dL 100-19 9 normal Not Available [facility] ([facility]) [address] [place], [address], 07/23/2024 07:08:37 07/22/20 24 07/23/2024 LIPID PANEL triglyceride s 91 mg/dL 0-149 normal Not Available [facility] ([facility]) [address] [place], [address], 07/23/2024 07:08:37 07/22/20 24 07/23/2024 LIPID PANEL HDL cholesterol 39 mg/dL >39 below low normal Not Available [facility] ([facility]) [address] [facility], [place], [address], 07/23/2024 07:08:37 07/22/20 24 07/23/2024 LIPID PANEL VLDL cholesterol tiffany 17 mg/dL 5-40 Not Available [facility] ([facility]) [address] [facility], [place], [address], 07/23/2024 07:08:37 07/22/20 24 07/23/2024 LIPID PANEL LDL chol calc ([facility]) 130 mg/dL 0-99 above high normal Not Available [facility] ([facility]) [address] [facility], [place], [address], 07/23/2024 07:08:37 07/22/20 24 07/23/2024 LIPID PANEL LDL calc comment: LABORATORY IMMUNOLOGIST Not Available [facility] ([facility]) [address] [facility], [place], [address], 07/23/2024 07:08:37 07/22/20 24 07/23/2024 VITAM IN B12 AND FOLAT E vitamin B12 1066 pg/mL 232-12 45 normal Not Available [facility] ([facility]) [address] [facility], [place], [address], 07/23/2024 07:08:37 07/22/20 24 07/23/2024 VITAM IN B12 AND FOLAT E folate (folic acid), serum 2.3 NG/mL >3.0 below low normal A serum folat e venkatesh ntrat ion of less than 3.1 ng/mL is consi dered to repre sent clini tiffany defic iency . Not Available [facility] ([facility]) [address] [facility], [place], [address], 07/23/2024 07:08:37 07/22/20 24 07/23/2024 HCV ANTIB BERNARDA CASCA DE(PC R/GEN O) HCV Ab Non Reacti ve non reacti ve Not Available [facility] ([facility]) [address] [facility], [place], [address], 07/23/2024 07:08:38 07/22/20 24 07/23/2024 HCV ANTIB BERNARDA CASCA DE(PC R/GEN O) interpretati on: Commen t Not infec [place] with HCV unles s early or acute infec tion is suspe cted (whic h may be delay ed in an immun ocomp romis ed indiv idual ), or other evide nce exist s to indic ate HCV infec tion. Not Available [facility] ([facility]) [address] [facility], [place], [address], 07/23/2024 07:08:38 07/22/20 24 07/23/2024 PROST ATE-S [...] t be inter prete d as absol toy evide nce of the prese nce or absen ce of lucien chapman disea se. Not Available [facility] ([facility]) [address] [facility], [place], [address], 07/23/2024 07:08:39 07/22/20 24 07/23/2024 VITAM IN [...] um and D. Lisa purcell [place]: [facility] . 2. Syeda albert MF, Binleighton govea NC, Bisch off-F errar i BEAN, et al. Evalu ation , treat ment, and preve ntion of vitam in D defic iency : an Endoc rine Socie ty clini tiffany pract ice guide line. JCEM. 2010; 96(7) :1911 -30. Not Available [facility] ([facility]) [address] [facility], [place], [address], 07/23/2024 07:08:39 07/22/20 24 07/23/2024 HIV AB/P2 4 AG WITH REFLE X HIV Ab/P24 Ag screen Non Reacti ve non reacti ve HIV-1 /HIV- 2 antib odies and HIV-1 p24 antig en were NOT detec [place]. There is no labor atory evide nce of HIV infec tion. HIV Negat jud Not Available [facility] ([facility]) [address] [facility], [place], [address], 07/23/2024 07:08:40 07/22/20 24 07/22/2024 HbA1c (hemo globi n A1c), blood HbA1c 6.2 Not Available [address], [address], 07/22/2024 08:59:15 10/21/20 24 10/21/2024 HbA1c (hemo globi n A1c), blood HbA1c 6.1 Not Available [address], [address], 10/21/2024 13:14:19 01/16/20 25 01/16/2025 HbA1c (hemo globi n A1c), blood HbA1c 6.3 Not Available [address], [place], [address], 01/16/2025 13:26:11 04/15/20 25 04/15/2025 HbA1c (hemo globi n A1c), blood HbA1c 6.1 Not Available [address], [place], [address], 04/15/2025 13:22:02 07/15/20 25 07/15/2025 HbA1c (hemo globi n A1c), blood HbA1c 6.0 Not Available [address], [place], [address], 07/15/2025 13:00:27 08/09/20 24 08/09/2024 NM, lung scan, quant itati ve diffe renti al pulmo nary perfu cody and venti latio n No observ ation record ed. [address], [place], [address], 09/03/2024 13:12:11 08/09/20 24 08/09/2024 XR, chest , 2 view No observ ation record ed. [address], [place], [address], 09/03/2024 13:12:36 01/28/20 25 01/27/2025 CT, chest , w/o contr ast No observ ation record ed. [address], [place], [address], 01/28/2025 10:39:24 08/22/20 25 08/22/2025 imagi ng/di agnos tic resul t No observ ation record ed. [facility] [address], [place], [address], 08/22/2025 15:20:37 Result Notes None recorded. Problems Name Problem SNOMED Code Status Onset Date Resolution Date Notes Provider Name and Address Organization Details Recorded Time Hypothyr oidism 41864036 Active 2021 Not Available [facility] 21:11:04 Type 2 diabetes mellitus without complica tion 271922270 Active 2021 Not Available [facility] 21:11:04 Hyperlip idemia 34313300 Active 2021 Problem Code: E78.5; Problem Code Type: ICD-10; Not Available [facility] 21:11:04 Nicotine dependen ce 46466478 Active 2021 Problem Code: F17.200; Problem Code Type: ICD-10; Not Available [facility] 21:11:04 Hyperten sive disorder 46543092 Active 2021 Problem Code: I10; Problem Code Type: ICD-10; Not Available [facility] 21:11:04 Dyspnea 273446941 Completed 202104/29/2022 Problem Code: R06.02; Problem Code Type: ICD-10; CORTEZ urbano, [employer]. 15:18:18 Body mass index 30+ - obesity 788226805 Completed 202110/25/2022 Problem Code: Z68.43; Problem Code Type: ICD-10; CORTEZ COYLE null, [employer] 15:18:18 Dyspnea 652136125 Completed 202110/25/2022 Problem Code: R06.00; Problem Code Type: ICD-10; CORTEZ COYLE null, [employer] 15:18:18 Pneumoni a 579780083 Completed 202110/25/2022 Problem Code: J18; Problem Code Type: ICD-10; CORTEZ urbano, [employer] 2 15:18:18 Body mass index 40+ - severely obese 304217152 Completed 202110/25/2022 CORTEZ urbano, [employer] 2 15:18:18 Acute exacerba tion of chronic obstruct jud pulmonar y disease 225520655 Active 2022 Ruma Salgado PA-C [address] [place], [address] , [employer] 3 11:08:24 Diabetes mellitus 10389808 Active 2023 Flora Loeray yolie, [employer] 4 08:59:08 Congesti ve heart failure 48990926 Active 2023 Mari Arthur APRN [address] [place], [address] , [employer] 4 13:27:33 Insulin treated type 2 diabetes mellitus 391515898 Active 2024 Flora Hemphillllmaximilian urbano, [employer] 5 13:21:57 Well controll ed type 2 diabetes mellitus 068956160 Active 2024 Flora Hemphilllly yolie, [employer] 5 13:00:23 Problem Notes None recorded. [...] oral route once daily in the morning 03/04/ 2022 03/04 /2022 completed Not Available Not Available Not Available [...] Updated DateTime 5 187.96 cm 43.4 kg/m2 282798. 22 g 95 /min 88 % 88 % 8 L/min 112/63 mm[Hg] Flora Greene [employer] 5 13:38:22 Date Recorded Body height Body mass index (BMI) Body weight Heart rate Oxygen saturation Oxygen saturation in Arterial blood by Pulse oximetry Inhaled oxygen flow rate Systolic And Diastolic Provider Name and Address Organization Details Last Updated DateTime 5 187.96 cm 42.2 kg/m2 065760. 89 g 80 /min 84 % 84 % 5 L/min 107/58 mm[Hg] Flora Greene [employer] 5 13:21:20 Date Recorded Oxygen saturation Oxygen saturation in Arterial blood by Pulse oximetry Inhaled oxygen flow rate Oxygen saturation Oxygen saturation in Arterial blood by Pulse oximetry Inhaled oxygen flow rate Provider Name and Address Organization Details Last Updated DateTime 5 80 % 80 % 0.5 L/min 89 % 89 % 4 L/min Mari Arthur APRN [address] [place] [address], [address] , [employer] 5 18:19:36 Date Recorded Body height Body mass index (BMI) Body weight Heart rate Systolic And Diastolic Provider Name and Address Organization Details Last Updated DateTime 07/15/2025 187.96 cm 41.9 kg/m2 137601.1 1 g 87 /min 83/55 mm[Hg] Flora Greene [employer] 07/15/2025 13:26:22 Date Recorded Body height Body mass index (BMI) Body weight Heart rate Oxygen saturation Oxygen saturation in Arterial blood by Pulse oximetry Inhaled oxygen flow rate Pain severity - 0-10 verbal numeric rating [Score] - Reported Systolic And Diastolic Provider Name and Address Organization Details Last Updated DateTime 4 187.96 cm 42.6 kg/m2 597354. 37 g 88 /min 89 % 89 % 4 L/min 7 128/71 mm[Hg] Flora [employer] 4 09:17:12 Date Recorded Oxygen saturation Oxygen saturation in Arterial blood by Pulse oximetry Inhaled oxygen flow rate Provider Name and Address Organization Details Last Updated DateTime 10/21/2024 93 % 93 % 2 L/min Mari Arthur, [employer] [address] [facility], [place], [address], [employer] 10/21/2024 14:33:32 Date Recorded Body height Body mass index (BMI) Body weight Body temperature Heart rate Systolic And Diastolic Provider Name and Address Organization Details Last Updated DateTime 4 187.96 cm 42.9 kg/m2 479992. 85 g 97.8 [degF] 91 /min 103/67 mm[Hg] Rosalina Trevino [employer] 4 13:13:13 Social History Question Answer Notes LastModified by Organizat ion Details LastModified Time Tobacco Smoking Status Former Smoker CORTEZ FAYTHAI urbano, [employer]. 10/25/2022 15:19:27 Do You Have An Advance Directive? No [email or web address] Information n ot available 10/25/2022 Are You Blind Or Do You Have Difficulty Seeing? No [email or web address] Information n ot available 10/25/2022 Are You A Caregiver? Yes [email or web address] Information not available 10/25/2022 In The 14 Days Before Symptom Onset, Have You Had Close Contact With A Laboratory-confirm ed COVID-19 While That Case Was Ill? No [email or web address] Information n ot available 10/25/2022 In The 14 Days Before Symptom Onset, Have You Had Close Contact With A Person Who Is Under Investigation For COVID-19 While That Person Was Ill? No Information not available 10/25/2022 Have You Been To An Area Known To Be High Risk For COVID-19? No [email or web address] Information not available 10/25/2022 Are You Deaf Or Do You Have Serious Difficulty Hearing? No [email or web address] Information not available 10/25/2022 What Type Of Diet Are You Following? DIABETIC Information n ot available 04/27/2023 Have There Been Any Changes To Your Family Or Social Situation? No Information no t available 10/25/2022 When Did You Quit Smoking? 1-5yearssince lastcigarette [email or web address] Information not available 10/25/2022 Are There Any Guns Present In Your Home? No [email or web address] Information not available 10/25/2022 Do You Have A Medical Power Of Dog Food Dough Mixer? No [email or web address] Information not available 10/25/2022 What Was The Date Of Your Most Recent Tobacco Screening? 07/15/2025 Information not available 07/15/2025 What Is Your Current Pack Years? 30ormorepacky ears [email or web address] Information not available 10/25/2022 What Is Your Relationship Status? [email or web address] Information not available 10/25/2022 Do You Use Your Seat Belt Or Car Seat Routinely? Yes [email or web address] Information not available 10/25/2022 Do You Have Smoke And Carbon Monoxide Detectors In Your Home? Yes [email or web address] Information not available 10/25/2022 Do You Participate In Social Media? No Information not available 10/21/2024 Has Tobacco Cessation Counseling Been Provided? No Information not available 10/21/2024 Have You Recently Traveled Abroad? No [email or web address] Information not available 10/25/2022 Do You Have Difficulty Walking Or Climbing Stairs? No [email or web address] Information not available 10/25/2022 Are You Currently In School? No [email or web address] Information not available 10/25/2022 Do You Have [...] is your level of alcohol consumption? None [email or web address] Information not available 10/25/2022 Are you currently employed? No [email or web address] Information not available 10/25/2022 Do you have transportation difficulties? No Information not available 10/25/2022 Are you able to walk independently without assistance or assistive devices? YESWOREST [email or web address] Information not available 10/25/2022 Do you have difficulty doing errands alone? No Information not available 10/25/2022 Are you able to care for yourself independently? Yes [email or web address] Information not available 10/25/2022 Do you have difficulty dressing, bathing, grooming, or toileting? No [email or web address] Information not available 10/25/2022 Mental Status Question Answer Note LastModified by Organizat ion Details LastModified Time Do you feel stressed (tense, restless, nervous, or anxious, or unable to sleep at night)? [email or web address] Information not available 10/21/2024 Do you have difficulty concentrating, remembering or making decisions? No [email or web address] Information no t available 10/25/2022 Family History Relationship Description Onset Age of this Age Resolved Age Notes LastModified by Organization Details LastModified Time Father No current problems or disability [email or web address] Not available 09/28 15:18:26 Mother No current problems or disability [email or web address] Not available 09/28 15:18:26 Medical History Condition Response Obesity Y Hypertension Y Immunizations Vaccine Type Date Status Note Provider Nam e and Address Organization Details Recorded Time Pneumococcal conjugate PCV15, polysaccharide [id number] conjugate, adjuvant, PF 4 completed Mari Arthur APRN [address] [place] [address], [address], [employer] 04/23/2024 12:30:10 zoster recombinant 4 completed Mari Arthur APRN [address] [place], [address], [employer] 07/22/2024 13:21:30 pneumococcal polysaccharide PPV23 7 completed SHAHIDA WILDENEAR null, [employer] 02/18/2023 10:48:45 zoster live 7 completed SHAHIDA MYNEAR null, [employer] 02/18/2023 10:48:46 COVID-19, mRNA, LNP-S, PF, 100 mcg/0.5mL dose or 50 mcg/0.25mL dose 1 completed SHAHIDA MYNEAR null, [employer] 02/18/2023 10:48:45 COVID-19, mRNA, LNP-S, PF, 100 mcg/0.5mL dose or 50 mcg/0.25mL dose 1 completed SHAHIDA MYNEAR null, [employer] 02/18/2023 10:48:45 COVID-19, mRNA, LNP-S, PF, 100 mcg/0.5mL dose or 50 mcg/0.25mL dose 1 completed SHAHIDA MYNEAR null, [employer] 02/18/2023 10:48:45 Influenza, split virus, trivalent, preservative 1 completed Not Available [facility] 07/28/2023 11:17:27 COVID-19, mRNA, LNP-S, bivalent, PF, 50 mcg/0.5 mL or 25mcg/0.25 mL dose 2 completed SHAHIDA MYNEAR null, [employer] 02/18/2023 10:48:45 Influenza, high-dose, trivalent, PF 9 completed SHAHIDA MYNEAR null, [employer] 02/18/2023 10:48:46 Influenza, split virus, quadrivalent, PF 7 completed SHAHIDA MYNEAR null, [employer] 02/18/2023 10:48:46 Influenza, split virus, quadrivalent, PF 0 completed SHAHIDA MYNEAR null, [employer] 02/18/2023 10:48:46 Influenza, split virus, quadrivalent, PF 2 completed SHAHIDA MYNEAR null, [employer] 02/18/2023 10:48:46 Influenza, split virus, quadrivalent, PF 1 completed SHAHIDA MYNEAR null, [employer] 02/18/2023 10:48:46 Influenza, split virus, quadrivalent, PF 6 completed SHAHIDA MYNEAR null, [employer] 02/18/2023 10:48:46 Influenza, split virus, quadrivalent, PF 8 completed [facility] 02/18/2023 10:48:46 COVID-19, mRNA, LNP-S, PF, 50 mcg/0.5 mL 3 completed Not Available [facility] 07/15/2025 12:56:24 Influenza, adjuvanted, quadrivalent, PF 3 completed Not Available [facility] 07/15/2025 12:56:24 Pneumococcal conjugate PCV20, polysaccharide [id number] conjugate, adjuvant, PF 3 completed Not Available [facility] 07/15/2025 12:56:24 RSV, recombinant, protein subunit RSVpreF, adjuvant reconstituted, 0.5 mL, PF 3 completed Not Available [facility] 07/15/2025 12:56:24 Influenza, adjuvanted, trivalent, PF 4 completed Not Available [facility] 07/15/2025 12:56:24 COVID-19, mRNA, LNP-S, PF, nirali-sucrose, 30 mcg/0.3 mL 4 completed Not Available [facility] 07/15/2025 12:56:24 Past Encounters Encounter ID Performer Location Encounter Start Date Encounter Closed Date Diagnosis/Indication Diagnosis SNOMED-CT Code Diagnosis ICD10 Code Diagnosis IMO Codes Diagnosis Note [id number] Mari Arthur, [address] [address] 10/27/2022 08:00:47 10/27/2022 08:29:42 Type 2 diabetes mellitus without complication 925269179 E11.9 Hyperlipidemia 28043071 E78.5 Hypertensive disorder 38 069144 I10 Hypothyroidism 65353772 E03.9 Chronic ob structive pulmonary disease 69953441 J44.9 Edema 056355752 R60.9 Body mass index 30+ - obesity 580770053 Z68.39 [id number] Faith Rincon [address] [address] 12/31/2022 09:29:16 12/31/2022 10:09:47 Acute tonsillitis 52531087 J03.90 Complete all antx. Push fluids. Tylenol prn pain/fever . [id number] Mari Arthur [address] [address] 01/26/2023 07:52:28 01/26/2023 08:41:09 Type 2 diabetes mellitus without complication 193308103 E11.9 Hyperlipidemia 04476172 E78.5 Hypertensive disorder 38 067618 I10 Hypothyroidism 30990917 E03.9 Benign pro static hyperplasia without outflow obstruction 395285725 N40.0 Edema 618095365 R60.9 Chronic ob structive pulmonary disease 41009597 J44.9 Body mass index 30+ - obesity 939301091 Z68.39 [id number] Ruma Salgado PA-C [place] [address] 02/18/2023 10:26:22 02/18/2023 12:04:19 Acute exacerbation of chronic obstructive pulmonary disease 967175312 J44.1 Continue Mucinex and inhalers.Y our symptoms [...] center or emergency department for additional workup. [id number] Mari Arthur [address] [address] 04/27/2023 08:22:12 04/27/2023 09:30:34 Type 2 diabetes mellitus without complication 713477097 E11.9 Hypertensive disorder 38 160192 I10 Hyperlipidemia 65937331 E78.5 Hypothyroidism 30936818 E03.9 Chronic ob structive pulmonary disease 00704383 J44.9 Edema 635344977 R60.9 Body mass index 30+ - obesity 335487808 Z68.39 [id number] Mari Arthur [place] [address] 07/28/2023 11:16:27 07/28/2023 12:16:41 Type 2 diabetes mellitus without complication 345838788 E11.9 Pain of ri ght knee joint 1289249549 35706 M25.561 Hypertensive disorder 38 166316 I10 Hyperlipidemia 41912710 E78.5 Hypothyroidism 94027219 E03.9 Chronic ob structive pulmonary disease 65050729 J44.9 Edema 258592938 R60.9 Body mass index 30+ - obesity 922726175 Z68.39 [id number] Mari Arthur [place] [address] 10/27/2023 13:51:28 10/27/2023 15:04:11 Diabetes mellitus 61562408 E11.9 Autonomic neuropathy due to type 2 diabetes mellitus 181583060 E11.43 Chronic ob structive pulmonary disease 95447932 J44.9 Hypertensive disorder 38 030175 I10 Hyperlipidemia 19370632 E78.5 Type 2 sandrine betes mellitus without complication 542099915 E11.9 Hypothyroidism 81278263 E03.9 Edema 291050294 R60.9 Foot callus 577189130 L8 4 Body mass index 30+ - obesity 751297411 Z68.39 [id number] Mari Arthur [place] [address] 10/31/2023 08:48:19 10/31/2023 09:45:55 Snoring 21796411 R06.83 Hypertensive disorder 38 816718 I10 Type 2 sandrine betes mellitus without complication 021295455 E11.9 Body mass index 30+ - obesity 308427935 Z68.39 [id number] Mari Arthur [place] [address] 11/16/2023 10:45:00 11/16/2023 11:13:43 Fatigue 15396837 R53.83 Hyperlipidemia 29682228 E78.5 Nocturia 295037728 R35.1 Body mass index 30+ - obesity 653206271 Z68.39 [id number] [place] [address] 01/26/2024 15:11:21 01/26/2024 16:07:37 Diabetes mellitus 54118831 E11.9 Body mass index 30+ - obesity 679952803 Z68.39 General ex amination of patient 093761234 Z00.129 Screening for malignant neoplasm of colon 082473621 Z12.11 Hyperlipidemia 61112915 E78.5 Hypothyroidism 11688987 E03.9 Hypertensive disorder 38 954737 I10 Vitamin D deficiency 347 29054 E55.9 Vitamin B deficiency 479 97356 E53.9 Nocturia 155925497 R35.1 Dysthymia 83300224 F34.1 Type 2 sandrine betes mellitus without complication 541565159 E11.9 Chronic ob structive pulmonary disease 81669124 J44.9 Edema 625508125 R60.9 Sleep rela chelsea hypoxemia 6796515649 70006 G47.36 [id number] [place] [address] 03/12/2024 17:20:19 03/12/2024 18:01:54 Neuropathy due to type 2 diabetes mellitus 7978169653 77143 E11.40 Dependence on supplemental oxygen 7106567593 07 Z99.81 Body mass index 30+ - obesity 709794996 Z68.39 [id number] [place] [address] 04/23/2024 11:21:39 04/23/2024 11:58:33 Type 2 diabetes mellitus without complication 349188205 E11.9 Long-term drug therapy 680512959 Z79.899 re-test, pt was positive for opiates last visit. He states that he can not pee at this visit.; Screening for malignant neoplasm of colon 302665562 Z12.11 Pt has had cologuard on 02/06/24 Active or passive immunization 566118553 Z23 Hypertensive disorder 38 115779 I10 Hyperlipidemia 05410340 E78.5 Dysthymia 93212732 F34.1 Hypothyroidism 68857942 E03.9 Edema 157562962 R60.9 Chronic ob structive pulmonary disease 74914234 J44.9 Body mass index 40+ - severely obese 823571470 Z68.41 [id number] [place] [address] 07/22/2024 08:51:04 07/22/2024 09:47:19 Diabetes mellitus 91829667 E11.9 Active or passive immunization 692805776 Z23 Hyperlipidemia 74516743 E78.5 Adult heal th examination 602148817 Z00.00 Fatigue 69347021 R53.83 Nocturia 199582653 R35.1 Vitamin D deficiency 347 51819 E55.9 Vitamin B deficiency 479 83969 E53.9 Chronic ob structive pulmonary disease 13746807 J44.9 Hypertensive disorder 38 104456 I10 Dysthymia 07557343 F34.1 Neuropathy due to type 2 diabetes mellitus 0014389744 39013 E11.40 Type 2 sandrine betes mellitus without complication 300612963 E11.9 Hypothyroidism 30217026 E03.9 Congestive heart failure 02887909 I50.9 Body mass index 40+ - severely obese 654939223 Z68.41 [id number] [place] [address] 10/21/2024 12:55:56 10/21/2024 13:39:02 Hypertensive disorder 58135965 I10 Hyperlipidemia 05790891 E78.5 Chronic ob structive pulmonary disease 61506845 J44.9 Dysthymia 20253468 F34.1 Neuropathy due to type 2 diabetes mellitus 5289984471 81645 E11.40 Type 2 sandrine betes mellitus without complication 509933910 E11.9 Hypothyroidism 36734432 E03.9 Congestive heart failure 92075021 I50.9 Body mass index 40+ - severely obese 065468709 Z68.41 [id number] [place] [address] 01/16/2025 13:18:53 01/16/2025 14:24:34 Type 2 diabetes mellitus without complication 655484114 E11.9 Chronic ob structive pulmonary disease 99991463 J44.9 Hypertensive disorder 38 790928 I10 Hyperlipidemia 27309721 E78.5 Dysthymia 10070914 F34.1 Neuropathy due to type 2 diabetes mellitus 7065507324 39327 E11.40 Hypothyroidism 81979809 E03.9 Moderate r ecurrent major depression 44149221 F33.1 Body mass index 40+ - severely obese 192903048 Z68.41 [id number] Mari Arthur[address] [address] 04/15/2025 12:51:18 04/15/2025 13:51:18 Insulin treated type 2 diabetes mellitus 040948857 E11.69 Z79.4 91156896 Hypertensive disorder 38 437251 I10 Hyperlipidemia 32484252 E78.5 Chronic ob structive pulmonary disease 85389374 J44.9 Dysthymia 63976133 F34.1 Type 2 sandrine betes mellitus without complication 011421534 E11.9 Hypothyroidism 45621066 E03.9 Moderate r ecurrent major depression 78881344 F33.1 Body mass index 40+ - severely obese 963176988 Z68.41 777316 Generalize d anxiety disorder 31782910 F41.1 308018 [id number] Mari Arthur[address] [address] 07/15/2025 12:56:09 07/15/2025 14:22:53 Well controlled type 2 diabetes mellitus 155791044 E11.9 608485 Chronic ob structive pulmonary disease 96170509 J44.9 Hypertensive disorder 38 573142 I10 Hyperlipidemia 77573417 E78.5 Dysthymia 05682243 F34.1 Neuropathy due to type 2 diabetes mellitus 1838987179 56302 E11.40 Generalize d anxiety disorder 40293956 F41.1 Hypothyroidism 29428164 E03.9 Type 2 sandrine betes mellitus without complication 170003760 E11.9 Moderate r ecurrent major depression 01330328 F33.1 Chronic sy stolic heart failure 824333593 I50.22 647620 Body mass index 40+ - severely obese 508533562 Z68.41 [id number] Goals Section Goal Description Progress Status Start Date LastModified by Organization Details LastModified Time elevated creat to help pt breath better, loose wt and lower creat level None active 2024 MARI STONE Information not available 04/15/2025 18:31:01 Hemoglobin A1C Lowers or maintains hemoglobin A1C (HbA1c) as per care team recommendati on(s) [TARGET: less than or equal to 7%] NoChange active 2023 MARI STONE Information not available 07/15/2025 22:00:47 Follow-up Appointment( s) Attends referral and/or follow-up appointment( s) as per care team recommendati on(s) NoChange active 2023 MARI STONE Information not available 07/15/2025 22:01:39 Blood Pressure Maintains blood pressure goal as defined by care team NoChoneyge active 2023 MARI STONE Information not available 07/15/2025 21:59:49 Blood Glucose Maintains blood glucose within target range NoChange active 2023 MARI STONE Information not available 07/15/2025 21:59:34 Lipid Levels [...] 2 diabetes mellitus without complication Active MARI STONE Not Available 07/15/2025 21:59 :34 Hyperlipidemia Active Tashia Winchester Not Available 03/12 13:02:30 Advance Directives Directive N: Payers Insurance Date Sequence Insurance Name Policy Number Policy Young Covered Member ID Young Member ID Guarantor Name 04/16/2025 [employer] - GOLD [employer]US (MEDICARE REPLACEMENT/A DVANTAGE - HMO) Wai Debra Merlin [id number] Wai Boyer 02/07/2025 SLIDING FEE SCHEDULE - DISCOUNT Wai Boyer 01/07/2023 1 [place] Wai Boyer [id number] Wai Boyer 10/27/2022 1 [employer] (MEDICARE REPLACEMENT/A DVANTAGE - HMO) Wai Boyer [id number] Wai Boyer 08/30/2025 [place] [facility] Wai Boyer [id number] Wai Boyer 02/07/2025 SLIDING FEE SCHEDULE - DISCOUNT Wai Boyer 08/30/2025 1 [employer] (MEDICARE REPLACEMENT/A DVANTAGE - HMO) [id number] Wai Boyer [id number] Wai Boyer 10/22/2022 1 *SELF PAY* Dayana tatyana Boyer Notes Date Note Type Note Provider [...] only at 89%. no hospital records and [facility] stated they have no records. will call again. A1C 6.2. pt to continue current diabetic regime, diet and exercise. Mari Arthur APRN [address] [place], [address], [facility] [employer], [facility]. 07/22/2024 13:31:05 10/21/2024 text/html pt here today [...] due to CHF. pt voiced understanding. Mari Arthur APRN [address] [facility], [place], [address], [employer], [employer]. 10/21/2024 14:36:46 01/16/2025 text/html 64 year old [...] wouldnt be safe. He voices understanding. Mari Arthur APRN [address] [facility], [place], [address], [employer] 01/16/2025 15:23:20 04/15/2025 text/html pt here [...] will review labs pt will have on monday and if still elevated then will refer [...] try only PRN. Mari Arthur APRN [address] [facility], [place], [address], [facility] [employer] 04/15/2025 14:57:01 07/15/2025 text/html pt here today [...] get him home. Mari Arthur, GILDA [address] [facility], [place], [address], [facility] [employer] [employer] 07/15/2025 18:19:48
[2025-09-09 15:22] LABS: Chloride 95 mmol/L (98-107); Sodium 139 mmol/L (136-145)
[2025-09-09 15:23] LABS: Potassium 4.5 mmoL/L (3.5-5.1)
[2025-09-09 15:26] LABS: Anion Gap 17.5 mEq/L (5-15); Blood Urea Nitrogen 38 mg/dl (9-20); Calcium 9.3 mg/dl (8.4-10.2); Carbon Dioxide 31 mmol/L (22.0-30.0); Creatinine,Serum 1.40 mg/dl (0.66-1.25); Estimated Glomerular Filt Rate 51 ml/min (>60); GFR (African American) 61 ML/MIN (>60); Glucose 93 mg/dl (74-100)
== END 2025-09-09 23:59 | disposition home or self-care (01) ==
LOC: LAB 13:37
PROVIDERS: PCP Physician Assistant; Visit Provider Nurse Practitioner
DX: I50.30 Unspecified diastolic (congestive) heart failure (principal)
CPT/HCPCS: 36415; 80048

== ENCOUNTER 2025-09-24 08:40 | Day surgery (SDC) | payer MEDICARE, SELFPAY ==
[2025-09-24] VITALS (9 sets, daily range): BP systolic 106–139; BP diastolic 59–90; PULSE 67–82; RESP 16–18; TEMP 36.4; O2SAT 93–95; BMI 39.9
--- NOTE | 2025-09-24 06:59 | IR_ITS ---
APPROVED REPORT Patient Location: Outpatient Ripening Room Operator: Naif Malhotra, RT (R) PROCEDURES Pulmonary Angiogram Cordella device placement Right heart cath INDICATION Class III Heart Failure Informed consent was obtained prior to the procedure. COMPLICATIONS NONE Estimated Blood Loss: LESS THAN 10 ML TECHNIQUE One percent lidocaine was used to anesthetize the right groin. The right femoral vein was accessed via the Seldinger technique. A 7-Turkmen sheath was placed in the right femoral vein. Vein dilated and upsized to 14 fr sheath. Stirling catheter inserted into femoral vein and tracked up to the right pulmonary artery. Right heart pressures obtained and continuously monitored. Angiogram taken to find target area for device. Distal pulmonary artery wired, swan catheter removed. Cordella device catheter inserted over the wire and guided to target placement. Placement confirmed under fluoro in two positions, device deployed. Catheter removed. Sheath removed, hemostasis achieved with Z-stitch and manual pressure, sterile dressing. Patient transferred to outpatient holding. PA pressure: 80/30 Endotronix, Cordella Sensor Delivery Kit Serial number: [id number] IMPRESSION Successful Pulmonary Angiogram Successful Cordella device placement Successful right heart cath PLAN 1. Post Op Wound Care Electronically signed by : Anshu Oro MD 09/25/2025 14:23:43
[2025-09-24 09:06] LABS: Hematocrit 49.6 % (42.0-52.0); Hemoglobin 15.3 g/dL (14.1-18.0); Immature Granulocytes % 0.5 %; Mean Corpuscular HGB Conc 30.8 g/dL (31.8-35.4); Mean Corpuscular Hemoglobin 26.6 pg (27.0-31.2); Mean Corpuscular Volume 86.3 fl (80-94); Nucleated Red Blood Cells % 0 %; Platelet Count 406 K/mm3 (142-424); Red Blood Count 5.75 M/mm3 (4.60-6.20); Red Cell Distribution Width-SD 62.9 fL; White Blood Count 11.0 K/mm3 (4.8-10.8)
[2025-09-24 09:19] LABS: Anion Gap 11.6 mEq/L (5-15); Blood Urea Nitrogen 39 mg/dl (9-20); Calcium 9.5 mg/dl (8.4-10.2); Carbon Dioxide 29 mmol/L (22.0-30.0); Chloride 103 mmol/L (98-107); Creatinine Clearance Estimated 95 mL/min (50-200); Creatinine,Serum 1.50 mg/dl (0.66-1.25); Estimated Glomerular Filt Rate 47 ml/min (>60); GFR (African American) 56 ML/MIN (>60); Glucose 133 mg/dl (74-100); Potassium 4.6 mmoL/L (3.5-5.1); Sodium 139 mmol/L (136-145)
[2025-09-24] MEDS: HEPARIN 1,000 UNITS/500ML NS (CATH LAB) 3000 UNIT IV (12:24)
[2025-09-24] MEDS: 0.9 % SODIUM CHLORIDE 500 ML 25 ML IV (12:24)
[2025-09-24] MEDS: LIDOCAINE 1% 10ML MDV 10 ML IJ (12:24)
[2025-09-24] MEDS: HEPARIN 1,000 UNITS/ML 10ML VIAL (CATH LAB) 5000 UNIT IV (13:29)
[2025-09-24] MEDS: FENTANYL 100MCG/2ML VIAL 50 MCG IV (13:30)
[2025-09-24] MEDS: MIDAZOLAM HCL 1MG/ML 5ML VIAL 1 MG IV (13:30)
[2025-09-24] MEDS: CLOPIDOGREL 75MG TAB 75 MG PO (15:34)
[2025-09-24] MEDS: IOPAMIDOL-370 (76%);100ML BOTTLE 20 ML IV (16:13)
== END 2025-09-24 15:39 | disposition home or self-care (01) ==
PROVIDERS: PCP Nurse Practitioner; Visit Provider Internal Medicine
DX: I50.33 Acute on chronic diastolic (congestive) heart failure (principal); Z00.6 Encounter for examination for normal comparison and control in clinical research program; I11.0 Hypertensive heart disease with heart failure; R93.1 Abnormal findings on diagnostic imaging of heart and coronary circulation; E11.9 Type 2 diabetes mellitus without complications; E78.2 Mixed hyperlipidemia; J44.9 Chronic obstructive pulmonary disease, unspecified; I27.21 Secondary pulmonary arterial hypertension; E66.9 Obesity, unspecified; Z68.41 Body mass index [BMI] 40.0-44.9, adult; G47.33 Obstructive sleep apnea (adult) (pediatric); Z87.891 Personal history of nicotine dependence; Z79.84 Long term (current) use of oral hypoglycemic drugs; Z79.890 Hormone replacement therapy; Z79.4 Long term (current) use of insulin; Z79.82 Long term (current) use of aspirin; Z79.02 Long term (current) use of antithrombotics/antiplatelets; Z79.899 Other long term (current) drug therapy; Z79.51 Long term (current) use of inhaled steroids; Z82.49 Family history of ischemic heart disease and other diseases of the circulatory system
CPT/HCPCS: 33289; 36415; 80048; 85025; C1725; C1769; C1894; C2624; J1200; J1644; J2003; J3010; J7040; Q9967

== ENCOUNTER 2025-10-01 10:52 | Outpatient (CLI) | payer MEDICARE, SELFPAY ==
--- OUTSIDE RECORDS SUMMARY | 2021-07-05 11:04 | XMS_ITS | Encounter Summary ---
[facility] [address] [place] [address] Care Team Providers Care Group Teacher Name Role Phone Petty Armendariz MD Primary Care Provider + [phone] Encounter Details Date Type Department Care Team (Late st Contact Info) Description 07/05/2021 12:04 PM EDT Hospital Encounter [facility] PULMON[facility]ITICAL CARE MEDICINE [address] [place] [phone] Social History Tobacco Use Types Packs/Day Years Used Date Smoking Tobacco: Every Day Cigarettes 0.5 50 Smokeless Tobacco: Never Comments:down to half pack d aily as of 07/05/21 Alcohol Use Standard Drinks/Week Comments Yes 0 (1 standard drink = 0.6 oz pur e alcohol) Abuse Screen Answer Date Recorded Unsafe at Home or Work/School Not on file Feels Threatened by Someone? Not on file Does Anyone Keep You from Co ntacting Others or Doint Things Outside the Home? Not on file 09/08/2023 Physical Sign of Abuse Present Not on file 1 Housing Stability Answer Date Recorded Current Living Arrangements Not on file 08/27 Potentially Unsafe Housing Conditions Not on delvis e 09/08/2023 Family and Community Support Answer David e Recorded Help with Day-to-Day Activities Not on file 09/08/2023 Lonely or Isolated Not on file 09/08/2023 Employment Answer Date Recorded Do you want help finding or keeping work or a trisha b? Not on file 09/08/2023 Disabilities Answer Date Recorded Concentrating, Remembering, or Making Decisions Difficulty Not on file 09/08/2023 Doing Errands Independently Difficulty Not on fi le 09/08/2023 Education Answer Date Recorded Help with school or training? Not on file Preferred Language Not on file 09/08/2023 Sex and Gender Information Value Date Recorded Sex Assigned at Not on file Legal Sex Male 3:32 PM EDT Gender Identity Not on file Sexual Orientation Not on file documented as of this encounter Plan of Treatment Not on file documented as of this encounter Procedures Procedure Name Priority Date/Time Associated Diagnosis Comments XR CHEST PA AND LATERAL Routine 07/05/2021 12:12 PM EDT Shortness of breath documented in this encounter Results * XR Chest PA & Lateral (07/05/2021 12:12 PM EDT) Anatomical Region Laterality Modality Body, Chest N/A Radiographic Ketty ging Narrative 07/05/2021 12:59 PM EDT Wai Boyer [id number] 07/05/2021 Chest X-Ray PA & Lateral Indication: Shortness of breath Findings: Lungs are clear. Flattening of the diaphragm bilaterally. No effusions. Heart and mediastinum unremarkable. No pneumothorax. Interpretation: No acute cardiopulmonary findings. Signs of chronic emphysematous changes. Sammy Uribe, DO Please note that portions of this note may have been completed with a voice recognition program. Efforts were made to edit the dictations, but occasionally words are mistranscribed. Mario Uribe DO IMG DIAGNOSTIC IMAG ING ORDERABLES Final Result documented in this encounter Visit Diagnoses Not on filedocumented in this encounter Additional Health Concerns Infection Onset Date Last Indicated Resolved Time COVID (rule out) 07/30/2021 08/03/2021 08/06/2021 9:08 PM EDT documented as of this encounter Care Teams Group Teacher Relationship Specialty Start Date End Date Petty Armendariz MD PCP - General Internal Medicine 07/05/21 documented as of this encounter
--- NOTE | 2025-10-01 11:00 | CA_ITS ---
FINAL REPORT CLINICAL HISTORY: Patient had a heart cath and cordella implant 09/24/25. States he had sharp pain right groin x 24 hours post procedure. Not complaining of pain today. Bandage was still in place. No knot, bruising, or redness at right groin. FINDINGS: Spectral and Doppler waveform evaluations of the right groin was performed. Spectral analysis was performed. No evidence of pseudoaneurysm. IMPRESSION: No pseudoaneurysm in the right groin. Reviewed, Interpreted and Dictated by Mckenna Flores MD Transcribed by Antonella Muniz Authenticated and [facility]
--- OUTSIDE RECORDS SUMMARY | 2025-10-01 11:14 | XMS_ITS | Clinical Summary ---
Author Organization Healthcare Address [address] [place] [address] Care Team Providers Care Occupational Therapy Director Name Role Phone Petty Armendariz MD Primary [...] (2 of 2 - PCV) 06/05/2018 06/05/2017 [id number] Vaccine (4 - 2024- season) 2025 11/16/2021, [...] complete this topic Insurance MEDICARE Care Teams Occupational Therapy Director Relationship Specialty Start Date End Date Petty Armendariz MD [address] [place] [address] [place] [id number] PCP - General 04/09/21
--- OUTSIDE RECORDS SUMMARY | 2025-10-01 11:14 | XMS_ITS | Clinical Summary ---
Author Organization [employer] ([place], [place], [place], [place], [place]) Address [address] [place] [address] Care Team Providers Care Biodiesel Technology Manager Name Role Phone Unavailable Primary Care [...]
--- OUTSIDE RECORDS SUMMARY | 2025-10-01 11:14 | XMS_ITS | Encounter Summary ---
Author Organization [employer] ([place], [place], [place], [place], [place]) Address [address] [place] [address] Care Team Providers Care Composition Teacher Name Role Phone Unavailable Primary Care Provider Unavailabl e Encounter Details Date Type Department Care Team (Late st Contact Info) Description 04/28/2021 Transcribed Document [facility] [place] [facility] [place] [address] ProviderJoanna MD [address] [place] [address] [id number] Social History Tobacco Use Types Packs/Day Years [...] On: 04/28/2021 11:47 EDT by JOI SAEZ, care team assistant Process Patient Disposition : Discharge Personal Belongings [...] - 04/28/2021 11:47 EDT Electronically signed by Anshul, [facility] Conversion Bean Weigher Cerner at 03/14/2023 8:44 PM CDT documented in this encounter Plan of Treatment Not on file documented as of this encounter Visit Diagnoses Not on filedocumented in this encounter
--- OUTSIDE RECORDS SUMMARY | 2025-10-01 11:15 | XMS_ITS | Encounter Summary ---
Author Organization [employer] ([place], [place], [place], [place], [place]) Address [address] [place] [address] Care Team Providers Care Dry Chain Operator Name Role Phone Unavailable Primary Care Provider Unavailabl e Encounter Details Date Type Department Care Team (Late st Contact Info) Description 04/28/2021 Transcribed Document [facility] [place] [facility] [place] [address] ProviderJoanna MD [address] [place] [address] [phone] Social History Tobacco Use Types Packs/Day Years [...] x 2 weeks, increased with activity. 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 Hx HTN, HLD, DM, COPD, umbilical hernia repair. Triage Date/Time : 04/28/2021 7:34 EDT Kiera Brady RN - 04/28/2021 7:34 EDT DCP GENERIC CODE Tracking Acuity : 2 - Emergent Tracking Group : [facility] ED Kiera Brady RN - [...] 04/28/2021 07:36:54 EDT) Problems(Active) Arthritis (SNOMED CT :9921331 ) Name of Problem: Arthritis ; Recorder: JUANY TURCIOS RN; Confirmation: Confirmed ; Classification: Medical ; Code: [id number] ; Contributor System: SpinalMotion ; Last Updated: 09/20/2017 7:46 EDT ; Life Cycle Date: 09/20/2017 ; Life Cycle Status: Active ; Vocabulary: SNOMED CT BPH (benign prostatic hyperplasia) (SNOMED CT :830015244 ) Name of Problem: BPH (benign prostatic hyperplasia) ; Recorder: JUANY TURCIOS RN; Confirmation: Confirmed ; Classification: Medical ; Code: [id number] ; Contributor System: Bunker ModeChart ; Last Updated: 09/20/2017 7:45 EDT ; Life Cycle Date: 09/20/2017 ; Life Cycle Status: Active ; Vocabulary: SNOMED CT Hyperlipidemia (SNOMED CT :13993829 ) Name of Problem: Hyperlipidemia ; Recorder: JUANY TURCIOS RN; Confirmation: Confirmed ; Classification: Medical ; Code: [id number] ; Contributor System: SpinalMotion ; Last Updated: 09/20/2017 7:44 EDT ; Life Cycle Date: 09/20/2017 ; Life Cycle Status: Active ; Vocabulary: SNOMED CT Hypertension (SNOMED CT :7450002177 ) Name of Problem: Hypertension ; Recorder: JUANY TURCIOS RN; Confirmation: Confirmed ; Classification: Medical ; Code: [id number] ; Contributor System: Bunker ModeChart ; Last Updated: 09/20/2017 7:44 EDT ; Life Cycle Date: 09/20/2017 ; Life Cycle Status: Active ; Vocabulary: SNOMED CT Diagnoses(Active) Chest pain Date: 04/28/2021 ; Diagnosis Type: Reason For Visit ; Confirmation: Complaint of ; Clinical Dx: Chest pain ; Classification: Medical ; Clinical Service: Non-Specified ; Code: PNED ; Probability: 0 ; Diagnosis Code: [id number] ED Height and Weight Height Source : Stated Height Entry Format : [place] Height, Feet : 6 ft(Converted to: 183 cm, 72 Inch) Height, Inches : 2 Inch(Converted to: 0 ft 2 Inch, 5.08 cm) Clinical Height : 187.96 cm Weight Source, ED : Critical estimated dosing weight Weight Entry Format : [place] Weight, Pounds : 350 lb Clinical Dosing Weight : 159.09 kg Body Surface Area (BSA) : 2.76 m2 Body Mass Index : 45 kg/m2 (>HHI) [place] Body Weight (IBW) : 81.16 kg Kiera Brady RN - 04/28/2021 7:34 EDT Electronically signed by Dillon Landers Conversion Director Of Customer Service Cerner at 03/14/2023 8:28 PM CDT documented in this encounter Plan of Treatment Not on file documented as of this encounter Visit Diagnoses Not on filedocumented in this encounter
--- OUTSIDE RECORDS SUMMARY | 2025-10-01 11:15 | XMS_ITS | Referral Summary ---
Author Organization [employer] ([place], [place], [place], [place], [place]) Address [address] [place] [address] Care Team Providers Care Dean Of Boys Name Role Phone Unavailable Primary Care Provider [...]
--- OUTSIDE RECORDS SUMMARY | 2025-10-01 11:15 | XMS_ITS | Encounter Summary ---
Author Organization [employer] ([place], [place], [place], [place], [place]) Address [address] [place] [address] Care Team Providers Care Para Operator Name Role Phone Unavailable Primary Care Provider Unavailabl e Encounter Details Date Type Department Care Team (Late st Contact Info) Description 04/28/2021 Transcribed Document [facility] [place] [facility] [place] [address] ProviderJoanna MD [address] [place] [address] [id number] Social History Tobacco Use Types Packs/Day Years [...]
--- OUTSIDE RECORDS SUMMARY | 2025-10-01 11:15 | XMS_ITS | Encounter Summary ---
Author Organization [employer] ([place], [place], [place], [place], [place]) Address [address] [place] [address] Care Team Providers Care Engineering Research Manager Name Role Phone Unavailable Primary Care Provider Unavailabl e Encounter Details Date Type Department Care Team (Late st Contact Info) Description 04/28/2021 Transcribed Document [facility] [place] [facility] [place] [address] ProviderJoanna MD [address] [place] [address] [phone] Social History Tobacco Use Types Packs/Day Years [...] x 2 weeks, increased with activity. 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 Hx HTN, HLD, DM, [...] EDT Height Source Stated Height Entry Format [place] Height/Length, [place] (ft) 6 ft Height/Length [place] 2 Inch CLINICALHEIGHT 187.96 cm [place] Body Weight 81.16 kg Weight Source, ED Critical estimated dosing weight Weight Entry Format [place] Weight [place] lb 350 lb CLINICALWEIGHT 159.09 kg Body [...] rhythm, No ST changes, no ectopy, normal OH & QRS intervals, EP Interp. Results review: [...] % 21.1 % Lymph # 1.89 x10(3)/uL [place] % 8.6 % [place] # 0.77 K/uL Eos % 2.5 % Eos # 0.22 x10(3)/uL Baso % 0.6 % Baso # 0.05 x10(3)/uL Slide Review No IG# 0.03 x10(3)/uL IG% 0.30 % . Radiology results: Radiology Results (Last 48 hours) [id number] -- 04/28/2021 07:23 CR Chest 1 Vw [...] 11:34 EDT, Discharge to: Home. Prescriptions: Prescription [facility]: Zithromax Z-Ryne 250 mg oral tablet [...] Regarding prescription, Patient indicated understanding of instructions. Electronically signed by Rosanna Landers Conversion Shipping And Receiving Material Handler Cerner at 03/14/2023 8:40 PM CDT documented in this encounter Plan of Treatment Not on file documented as of this encounter Visit Diagnoses Not on filedocumented in this encounter
--- OUTSIDE RECORDS SUMMARY | 2025-10-01 11:15 | XMS_ITS | Encounter Summary ---
Author Organization [employer] ([place], [place], [place], [place], [place]) Address [address] [place] [address] Care Team Providers Care Recording Engineer Name Role Phone Unavailable Primary Care Provider Unavailabl e Encounter Details Date Type Department Care Team (Late st Contact Info) Description 04/28/2021 Transcribed Document [facility] [place] [address] [place] [address] ProviderJoanna MD [address] [place], [place] 135221 Social History Tobacco Use Types Packs/Day Years [...]
--- OUTSIDE RECORDS SUMMARY | 2025-10-01 11:15 | XMS_ITS | Clinical Summary ---
Author Organization [facility] Address [address] [place] [address] Care Team Providers Care Behavioral Health Clinician Name Role Phone Petty Armendariz MD Primary Care Provider + [phone] Allergies No known active allergies Medications buPROPion [...] Insurance MEDICARE A & B Care Teams Behavioral Health Clinician Relationship Specialty Start Date End Date Petty Armendariz MD PCP - General Internal Medicine 07/05/21
--- OUTSIDE RECORDS SUMMARY | 2025-10-01 11:15 | XMS_ITS | Encounter Summary ---
Author Organization [employer] ([place], [place], [place], [place], [place]) Address [address] [place] [address] Care Team Providers Care Flight Steward Name Role Phone Unavailable Primary Care Provider Unavailabl e Encounter Details Date Type Department Care Team (Late st Contact Info) Description 04/28/2021 Transcribed Document [facility] [place] Family [place] [facility] [place] [address] ProviderJoanna MD [address] [place] [address] [phone] Social History Tobacco Use Types Packs/Day Years [...] Communication Barrier : None Primary Language : Korean Any Spiritual/Cultural Needs or Requests : No [...]
--- OUTSIDE RECORDS SUMMARY | 2025-10-01 11:15 | XMS_ITS | Encounter Summary ---
Author Organization [employer] ([place], [place], [place], [place], [place]) Address [address] [place] [address] Care Team Providers Care Assistant To The President Name Role Phone Unavailable Primary Care Provider Unavailabl e Encounter Details Date Type Department Care Team (Late st Contact Info) Description 04/28/2021 Transcribed Document [facility] [place] [facility] [place] [address] ProviderJoanna MD [address] [place] [phone] Social History Tobacco Use Types Packs/Day [...] Joanna ProviderMD - 04/28/2021 11:36 AM CDT [facility] [address] [place] [address] [place] BOYER :1960 Visit Time:04/28/2021 [...] Within 2 to 3 days Where: [address] [place] [address]- Business (1) Allergies No Known Allergies Immunizations This Visit No Immunizations Found Medications What How Much When Instructions Next Dose azithromycin (Zithromax Z-Ryne 250 mg oral tablet) 1 Tablet(s) Oral Every Day TAKE 2 TABLETS FIRST DAY, THEN 1 TABLET DAILY Pickup at [facility] benzonatate (Tessalon Perles 100 mg oral capsule) 1 Capsule(s) Oral Three Times A Day as needed for as needed for cough Duration: 7 Day(s) Pickup at [facility] predniSONE (predniSONE 50 mg oral tablet) 1 Tablet(s) Oral Every Day Duration: 5 Day(s) Pickup at [facility] aspirin (aspirin 81 mg oral delayed release [...] for as needed for pain Pharmacy Information [facility]: [address] [place] [phone] The home medications listed are only as [...] range between ( 0.0 and 7.0 ) Wright #: 0.77 K/uL -- Normal range between ( 0.16 and 1.00 ) Eos #: 0.22 x10(3)/uL -- Normal range between ( 0.00 and 0.80 ) Wright %: 8.6 % -- Normal range between [...] these instructions at home: Medicines ??? Take [id number] and prescription medicines only as told by [...] and water are not available, use hand emblem cutter. ??? During flu season, avoid enclosed spaces [...] provider. Document Revised: 10/26/2018 Document Reviewed: 12/18/2017 [employer] Patient Education ?? 2020 [employer] Emergency Awareness and Preventative Care STROKE [...] Assistance with quitting is available by contacting 1-210-UNDK-NOW. This is a free resource providing counseling, support, and referral. Or you may contact your personal physician. [employer] Suicide Prevention Lifeline: The National Suicide Prevention [...] was given the opportunity to ask questions. Patient/Ward Assistant Name: Patient/Ward Assistant Signature: Relationship to Patient: Clinician/Hospital Ward Assistant Signature: Please Provide a Telephone Number Where You Can Be Reached: Is it Permissible To Leave a Message? Date: Electronically signed by Anshul [facility] Conversion Magalis Palacios at 03/14/2023 8:52 PM CDT documented in this encounter Plan of Treatment Not on file documented as of this encounter Visit Diagnoses Not on filedocumented in this encounter
--- OUTSIDE RECORDS SUMMARY | 2025-10-01 11:15 | XMS_ITS | Encounter Summary ---
Author Organization [employer] ([place], [place], [place], [place], [place]) Address [address] [place] [address] Care Team Providers Care Guest Relations Agent Name Role Phone Unavailable Primary Care Provider Unavailabl e Encounter Details Date Type Department Care Team (Late st Contact Info) Description 04/28/2021 Transcribed Document [facility] [place] [facility] [place] [address] ProviderJoanna MD [address] [place] [address] [phone] Social History Tobacco Use Types Packs/Day Years [...] Required Electronically signed by Rosanna Landers Conversion Natural History Collections Curator Philip at 03/14/2023 8:39 PM CDT documented in this encounter Plan of Treatment Not on file documented as of this encounter Visit Diagnoses Not on filedocumented in this encounter
== END 2025-10-01 23:59 | disposition home or self-care (01) ==
LOC: RT 10:52
PROVIDERS: PCP Nurse Practitioner; Visit Provider Nurse Practitioner Family
DX: R10.30 Lower abdominal pain, unspecified (principal); I72.9 Aneurysm of unspecified site; I77.0 Arteriovenous fistula, acquired; Z98.890 Other specified postprocedural states
CPT/HCPCS: 93926

== ENCOUNTER 2025-10-14 17:42 | Observation (INO) | payer MEDICARE, SELFPAY ==
[2025-10-14] VITALS (15 sets, daily range): BP systolic 74–122; BP diastolic 40–77; PULSE 62–89; RESP 16–20; TEMP 36.3–36.5; O2SAT 90–96; BMI 38.5; BMI 40.4
--- NOTE | 2025-10-14 07:08 | IR_ITS ---
APPROVED REPORT Patient Location: Outpatient [place] Estimator: Naif Malhotra, RT (R) PROCEDURES Pulmonary Angiogram Cordella device placement Right heart catheterization INDICATION Broken sensor, Heart Failure Informed consent was obtained prior to the procedure. COMPLICATIONS NONE Estimated Blood Loss: LESS THAN 10 ML TECHNIQUE One percent lidocaine was used to anesthetize the right groin. The right femoral vein was accessed via the Seldinger technique. A 7-Belizean sheath was placed in the right femoral vein. Vein dilated and upsized to 14 fr sheath. Pigtial catheter inserted into femoral vein and tracked up to the right pulmonary artery. Right heart pressures obtained and continuously monitored. Angiogram taken to find target area for device. Distal pulmonary artery wired, pigtail catheter removed. Cordella device catheter inserted over the wire and guided to target placement. Placement confirmed under fluoro in two positions, device deployed. Catheter removed. Sheath removed, hemostasis achieved with Z-stitch and manual pressure, sterile dressing. Patient transferred to outpatient holding. PA pressure: 66/26/29 Endotronix, Cordella Sensor Delivery Kit Serial number: [id number] Successful Pulmonary Angiogram Successful Cordella device placement Successful right heart cath Electronically signed by : Anshu Oro MD 11/11/2025 13:17:59
[2025-10-14 10:01] LABS: Hematocrit 47.9 % (42.0-52.0); Hemoglobin 15.5 g/dL (14.1-18.0); Immature Granulocytes % 0.2 %; Mean Corpuscular HGB Conc 32.4 g/dL (31.8-35.4); Mean Corpuscular Hemoglobin 27.6 pg (27.0-31.2); Mean Corpuscular Volume 85.2 fl (80-94); Nucleated Red Blood Cells % 0 %; Platelet Count 422 K/mm3 (142-424); Red Blood Count 5.62 M/mm3 (4.60-6.20); Red Cell Distribution Width-SD 64.3 fL; White Blood Count 9.7 K/mm3 (4.8-10.8)
[2025-10-14 10:15] LABS: Blood Urea Nitrogen 79 mg/dl (9-20); Carbon Dioxide 37 mmol/L (22.0-30.0); Creatinine Clearance Estimated 60 mL/min (50-200); Creatinine,Serum 2.30 mg/dl (0.66-1.25); Estimated Glomerular Filt Rate 29 ml/min (>60); GFR (African American) 34 ML/MIN (>60)
[2025-10-14 10:16] LABS: Calcium 9.8 mg/dl (8.4-10.2); Glucose 109 mg/dl (74-100)
[2025-10-14 10:24] LABS: Potassium 4.3 mmoL/L (3.5-5.1); Sodium 142 mmol/L (136-145)
[2025-10-14 10:46] LABS: Anion Gap 15.3 mEq/L (5-15); Chloride 94 mmol/L (98-107)
[2025-10-14] MEDS: HEPARIN 1,000 UNITS/500ML NS (CATH LAB) 3000 UNIT IV (15:02)
[2025-10-14] MEDS: LIDOCAINE 1% 10ML MDV 10 ML IJ (15:03)
[2025-10-14] MEDS: 0.9 % SODIUM CHLORIDE 500 ML 25 ML IV (15:03)
[2025-10-14] MEDS: HEPARIN 1,000 UNITS/ML 10ML VIAL (CATH LAB) 5000 UNIT IV (17:09)
[2025-10-14] MEDS: MIDAZOLAM HCL 1MG/ML 5ML VIAL 1 MG IV (17:09)
[2025-10-14] MEDS: FENTANYL 100MCG/2ML VIAL 50 MCG IV (17:09)
--- NOTE | 2025-10-14 18:01 | PC.NURSE ---
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
--- NOTE | 2025-10-14 18:42 | P.HP_ITS ---
<Statement entered by Steve Warner MD - 10/20/25 11:09> Agree with plan of care as outlined by the GRADUATE ADVISOR. History of Present Illness *Admission Date: 10/14/25 *Reason for visit:: Placement of Shai *History of present illness: This is a 65-year-old male who has a past medical history significant for pulmonary hypertension, sleep apnea, acute on chronic respiratory failure, interstitial lung disease, lymphadenopathy, hyperlipidemia, hypertension, COPD, obesity, diabetes, and HFpEF who is status post core dental placement by Dr. Oro. Patient is currently denying any chest pain, lightheadedness, dizziness, fever, chills, rigors, nausea, vomiting, or diarrhea. He does complain of nonfocal generalized headache. Postoperatively, patient has had no complaints. Review of patient's inpatient labs revealed a chloride of 94, carbon oxide of 37, BUN of 79, creatinine 2.3, GFR 29, and blood glucose 109. [facility] Disclaimer: The information contained in this section may have been updated after the patient was seen, as this information can be updated by other users. Medical History (Updated 10/14/25 @ 18:48 by Mike Alfaro APRN) Dyspnea Dyspnea on exertion Groin pain Elevated brain natriuretic peptide (BNP) level Pulmonary hypertension Shortness of breath Apnea Snoring Sleep disorder breathing Acute and chronic respiratory failure with hypoxia ILD (interstitial lung disease) Mediastinal lymphadenopathy Hilar lymphadenopathy Nonspecific interstitial pneumonitis Fibrosis of lung Pulmonary arterial hypertension Hyperlipidemia Hypertension Screening for lung cancer Stopped smoking with greater than 30 pack year history Abnormal computerized axial tomography of chest COPD (chronic obstructive pulmonary disease) Lung nodule Abnormal PFT Pulmonary emphysema Surgical History History of repair of rotator cuff History of prostate surgery History of knee surgery History of hip surgery Family History Other Coronary artery disease Diabetes Hypertension No significant family history PAGE (obstructive sleep apnea) Obesity Social History Smoking Status: Former smoker alcohol intake: never substance use type: denies use current occupational status: retired Travel in the last 8 weeks?: None Have you lived/traveled outside [place] in past 30 days?: No Contact w/someone who lives/traveled outside US past 30 days?: No Exposure to someone with infectious disease in past 14 days?: No Do you have a fever (greater than 100.4 F or 38 C)?: No Have you tested positive for COVID-19?: No Exposed to someone with COVID-19 in past 14 days?: No Do you have a sore throat?: No Do you have a cough?: No Do you have any weakness?: No Do you have any diarrhea?: No Are you experiencing any unusual bleeding?: No Do you have any muscle aches/pain?: No Do you have any abdominal pain?: No Are you experiencing loss of taste or smell?: No Other Medical History Have you received the Flu Vaccine for this season: Yes Have you received the Pneumonia Vaccine: Yes Review of Systems Review of Systems Review of systems:: pertinent systems reviewed and negative unless documented below Constitutional Constitutional: Reports system reviewed and no additional complaints, except as documented and Reports headache(s) Eyes Eyes: Reports system reviewed and no additional complaints, except as documented ENT Ears, Nose, Mouth, and Throat: Reports headache(s) *Cardiovascular Cardiovascular: Reports system reviewed and no additional complaints, except as documented *Respiratory Respiratory: Reports system reviewed and no additional complaints, except as documented *Gastrointestinal Gastrointestinal: Reports system reviewed and no additional complaints, except as documented *Genitourinary Genitourinary: Reports system reviewed and no additional complaints, except as documented *Musculoskeletal Musculoskeletal: Reports system reviewed and no additional complaints, except as documented Integumentary/Breasts Skin/Breast: Reports system reviewed and no additional complaints, except as documented *Neurologic Neurologic: Reports headache(s) Psychiatric Psychiatric: Reports system reviewed and no additional complaints, except as documented Endocrine Endocrine: Reports system reviewed and no additional complaints, except as documented Hematologic/Lymphatic Hematologic/Lymphatic: Reports system reviewed and no additional complaints, except as documented Allergic/Immunologic Allergic/Immunologic: Reports system reviewed and no additional complaints, except as documented Meds Home Medications and Allergies Home Medications ?Medication ?Instructions ?Recorded ?Confirmed ?Type atorvastatin 80 mg tablet 80 mg PO DAILY 04/14/2209/27 History losartan 100 mg tablet 100 mg PO DAILY 04/14/22 History aspirin 81 mg tablet,delayed 81 mg PO DAILY 07/13/2212/14/24 History release insulin glargine 100 unit/mL (3 30 unit SQ DAILY 07/1310/14/25 History mL) subcutaneous pen (Lantus Solostar U-100 Insulin) amlodipine 10 mg tablet 10 mg PO DAILY 05/23/2409/27 History duloxetine 60 mg capsule,delayed 60 mg PO DAILY 10/14/25 History release gabapentin 300 mg capsule 300 mg PO TID 05/23/2410/14 History levothyroxine 75 mcg tablet 75 mcg PO DAILY 06/07/24 1 12/14/24 History metformin 1,000 mg tablet 1,000 mg PO BIDWMEAL 4 10/14/25 History Held on 09/24/25. Instructions: Resume on 09/26/25. montelukast 10 mg tablet 10 mg PO PM 06/07/24 5 History (Singulair) nitroglycerin 0.4 mg sublingual 0.4 mg sublingual Q5M PRN chest 06/08/24 10/14/25 Rx tablet pain #20 tabs ranolazine 500 mg tablet,extended 500 mg PO BID #60 ta bs 06/08/24 10/14/25 Rx release,12 hr albuterol sulfate 90 mcg/actuation 90 mcg inhalation A S NEEDED PRN 02/03/25 10/14/25 History aerosol inhaler Shortness Of Breath mometasone-formoterol HFA 100 1 puff inhalation NEE DED PRN 02/03/25 10/14/25 History mcg-5 mcg/actuation aerosol Shortness Of Breath inhaler (Dulera) tiotropium bromide 18 mcg capsule 18 mcg inhalation NEEDED PRN 02/03/25 10/14/25 History with inhalation device (Spiriva Shortness Of Breath Or Wheezing with HandiHaler) dapagliflozin propanediol 10 mg 10 mg PO DAILY #90 tab s 02/12/25 10/14/25 Rx tablet (Farxiga) ipratropium 0.5 mg-albuterol 3 mg 3 ml inhalation QID PRN shortness 03/27/25 10/14/25 Rx (2.5 mg base)/3 mL nebulization of breath or wheezing 90 days #270 soln mL isosorbide mononitrate 60 mg 60 mg PO DAILY #30 tabs 0 08/11/25 10/14/25 Rx tablet,extended release 24 hr cariprazine 1.5 mg capsule 1.5 mg PO DAILY 08/20/25 History (Vraylar) clopidogrel 75 mg tablet (Plavix) 75 mg PO DAILY 30 da ys #30 tabs 09/24/25 10/14/25 Rx metolazone 2.5 mg tablet 2.5 mg PO .COMPLEX #30 tabs 10/02/25 10/14/25 Rx finerenone 10 mg tablet (Kerendia) 10 mg PO DAILY #30 tabs 10/13/25 10/14/25 Rx torsemide 100 mg tablet 100 mg PO DAILY #30 tabs 10/14/25 Rx tramadol 50 mg tablet 50 mg PO BID PRN pain #30 ta bs 10/13/25 10/14/25 Rx New Prescriptions to Start Prescriptions: Allergies Allergy/AdvReac Type Severity Reaction Status Date / Time No Known Allergies Allergy Verified 10/13/25 09:38 Exam Data for Last 24 hours Vital signs and Labs for Last 24 Hours: Pulse Resp BP Pulse Ox O2 Del Method O2 Flow Rate 64 16 97/58 L 96 Nasal Cannula 5 10/14/25 18:30 10/14/25 18:30 10/14/25 18:30 10/14/25 18:30 10/14/25 18:30 10/14/25 18:30 Laboratory Results - last 24 hr 10/14/25 09:49: WBC 9.7, RBC 5.62, Hgb 15.5, Hct 47.9, MCV 85.2, MCH 27.6, MCHC 32.4, RDW 21.0 H, Plt Count 422, MPV 8.9, Neut % (Auto) 71.2, Lymph % (Auto) 14.7, [place] % (Auto) 10.0 H, Eos % (Auto) 3.1, Baso % (Auto) 0.8, Neut # (Auto) 6.9, Lymph # (Auto) 1.4, [place] # (Auto) 1.0, Eos # (Auto) 0.3, Baso # (Auto) 0.1, Sodium 142, Potassium 4.3, Chloride 94 L, Carbon Dioxide 37 H, Anion Gap 15.3 H, BUN 79 H, Creatinine 2.30 H, Estimated Creat Clear 60, Estimated GFR 29 L, Est GFR ( Amer) 34 L, Glucose 109 H, Calcium 9.8 I & O for Last 24 hours: Intake & Output 10/11/25 10/12/25 10/13/25 10/14/25 23:59 23:59 23:59 23:59 Intake Total 500 / 500 Balance 500 / 500 Weight 136.078 kg Constitutional Constitutional: no acute distress, obese and cooperative *Routine HEENT Exam Head: Present normocephalic Eye: Present EOMI ENT: Present mucous membranes moist *Routine Neck Exam Neck: Present supple, full ROM and trachea midline *Routine Respiratory Exam Respiratory: Present CTA bilaterally, normal respiratory effort, able to speak in complete sentences and symmetric chest movement *Routine Cardiovascular Exam Cardiovascular: Present RRR, Normal S1 and Normal S2 *Routine Abdominal Exam Abdominal: Present soft, normoactive bowel sounds and obese *Routine Rectal Exam Rectal:: deferred *Routine Genitalia Exam Genitalia:: deferred *Routine Extremities Exam Extremities: Present pulses intact and normal capillary refill Routine Back/Spine/Pelvis Exam Back/Spine: Present full ROM *Routine Skin Exam Skin: Present intact, dry and warm *Routine Neurological Exam Neurological: Present alert, oriented X3, CN II-XII intact, moving all extremities and normal speech Routine Psychiatric Exam Psychiatric: Present normal affect, normal thought process, cooperative, good insight and good judgment H&P: Result Impressions 65-year-old male who is status post Cornella placement with an incidental finding of an acute kidney injury on top of his chronic renal impairment Assessment and Plan *Assessment and plan (1) Acute on chronic renal failure: Status: Acute Qualifiers: Acute renal failure type: unspecified Chronic kidney disease stage: unspecified stage Qualified Code(s): N17.9 - Acute kidney failure, unspecified; N18.9 - Chronic kidney disease, unspecified Category: Medical Code(s): N17.9 - Acute kidney failure, unspecified; N18.9 - Chronic kidney disease, unspecified Plan Assessment: Status post Cardella placement: Postop day 0 - Tax Manager Cpa wants therapeutic Lovenox subcu this evening this is already been ordered - Postoperatively, patient has no complaints Acute on chronic renal impairment: Baseline creatinine appears to be between 1.40-1.50 - Will give gentle IV hydration - LR at 75 mL an hour - If COOPER continues to worsen, will obtain urine studies and renal ultrasound - Will avoid nephrotoxic drugs Plan: Admit patient to the MedSurg unit on telemetry Vital signs every 4 hours 1800/cardiac diet Case management CBC/BMP daily 5 mg [place] p.o. every 4 hours for moderate pain 2 mg morphine IV push every 4 hours as needed severe pain 4 mg Zofran IV push every 8 hours for nausea vomit Full code I have discussed this case with attending physician Dr. Warner and a look forward to more input
[2025-10-14] MEDS: IOPAMIDOL-370 (76%);100ML BOTTLE 10 ML IV (18:54)
[2025-10-14] MEDS: LACTATED RINGERS 1000ML 1,000 ML 75 ML IV (20:00)
[2025-10-14 21:09] LABS: POC Glucose,Bedside 104 gm/dL (70-110)
[2025-10-15] VITALS (15 sets, daily range): BP systolic 62–117; BP diastolic 29–65; PULSE 64–90; RESP 15–20; TEMP 36.7; O2SAT 93–100; BMI 40.7
[2025-10-15] MEDS: RINGERS SOLUTION,LACTATED 500 ML IV (00:40)
[2025-10-15] MEDS: RINGERS SOLUTION,LACTATED 500 ML 250 ML IV ×2 (02:05→04:05)
--- NOTE | 2025-10-15 04:15 | PC.NURSE ---
Addendum entered by Gena Hutson RN 10/15/25 06:55: *See provider notification intervention for 06:54. Original Note: Patient is alert and oriented x4. He was observed to be resting in bed with eyes closed, respirations even and unlabored on 5 L of oxygen via nasal cannula, and no apparent distress throughout the majority of the night. Previous Z-stitch from cath procedure (intact to the right femoral site), was clipped + removed carefully at 20:00 this shift. A pressure dressing consisting of 4x4 gauze and tegaderm was then applied. Minimal to no bleeding was observed upon removal of the stitch; thus far - with multiple assessments made throughout the shift - the right femoral site remains clean, dry, and intact. No bleeding has been observed thus far. Patient was instructed to remain lying supine + flat (zero degrees) in bed after removal of the stitch and application of the fresh dressing. At 21:00, the patient was gradually inclined, head of bed did not surpass 30 degrees. At 22:00, the patient was allowed to be able to sit upright at the edge of the bed as needed to use the urinal at the bedside. He has not requested to get out of bed to ambulate at any point this shift. Patient verbalized an understanding of bleeding risks and to move his lower extremities while in bed with caution. He has denied any pain to his right groin. Post-angio vital sign assessments were completed during this shift. Hypotensive blood pressure readings (initially noted at 23:45) have been addressed with LR fluid boluses as appropriately (see provider notification intervention for 00:30 and 01:58). This morning, the patient's blood pressure readings were noted to have improved. Vital signs are continuing to be monitored every 30 minutes due to potential for any decline. Patient has not had any complaints of dizziness, lightheadedness, nausea, fatigue, etc. this shift. Additionally, he has not had any complaints of chest pain or shortness of breath. Intermittent audible wheezing could be heard; no crackles were heard this morning. Physical assessment was performed appropriately (see nursing shift biophysical intervention) for this shift. Scheduled medications + LR infusions administered per JAN. Patient is ambulatory at baseline. Implementation of high fall risk safety measures ongoing due to recent falls. ACHS glucose checks performed. At this time, the patient remains resting in bed without any new needs vocalized. Bed alarm on. Call light within reach.
[2025-10-15] MEDS: LACTATED RINGERS 1000ML 1,000 ML 75 ML IV (05:45)
[2025-10-15 05:46] LABS: POC Glucose,Bedside 100 gm/dL (70-110)
[2025-10-15 05:50] LABS: Hematocrit 44.1 % (42.0-52.0); Hemoglobin 14.0 g/dL (14.1-18.0); Immature Granulocytes % 0.4 %; Mean Corpuscular HGB Conc 31.7 g/dL (31.8-35.4); Mean Corpuscular Hemoglobin 27.6 pg (27.0-31.2); Mean Corpuscular Volume 87.0 fl (80-94); Nucleated Red Blood Cells % 0 %; Platelet Count 335 K/mm3 (142-424); Red Blood Count 5.07 M/mm3 (4.60-6.20); Red Cell Distribution Width-SD 64.4 fL; White Blood Count 8.6 K/mm3 (4.8-10.8)
[2025-10-15 07:25] LABS: CATHL Activated Clotting Time 300 SEC (74-125)
[2025-10-15 07:26] LABS: Anion Gap 9.0 mEq/L (5-15); Blood Urea Nitrogen 65 mg/dl (9-20); Calcium 9.3 mg/dl (8.4-10.2); Carbon Dioxide 34 mmol/L (22.0-30.0); Chloride 97 mmol/L (98-107); Creatinine Clearance Estimated 73 mL/min (50-200); Creatinine,Serum 2.00 mg/dl (0.66-1.25); Estimated Glomerular Filt Rate 33 ml/min (>60); GFR (African American) 41 ML/MIN (>60); Glucose 104 mg/dl (74-100); Potassium 4.0 mmoL/L (3.5-5.1); Sodium 136 mmol/L (136-145)
--- NOTE | 2025-10-15 08:53 | HMH.PHAINT1 ---
Pharmacy Intervention Comments: MEDICATION RECONCILIATION COMPLETED ON PATIENT USING EXTERNAL FILL HISTORY FROM PHARMACY AND LIST FROM CARDIOLOGY OFFICE. -MAYNOR SEARS, ODALISD
--- NOTE | 2025-10-15 09:14 | SW/DCPLANNER ---
Spoke with patient regarding home health services once he is medically stable and ready for discharge. Patient stated that he is not interested in home health. Patient stated that he uses [employer] as his DME provider. Matias Gustafson
--- NOTE | 2025-10-15 09:32 | HMH.OTEV ---
OT Evaluation Rehab OT IP Evaluation Start: 10/14/25 18:21 Freq: ONCE Status: Active Protocol: Document 10/15/25 09:26 ELIZABETH (Rec: 10/15/25 09:31 [id number] Rehab OT IP Assessment Subjective History Pt oriented x 3 on arrival. Pt agreeable to engage in therapy evaluation; pt's present and supportive. Pt admitted on 10/14/25 following a placement of Shai. History and physical: This is a 65-year-old male who has a past medical history significant for pulmonary hypertension, sleep apnea, acute on chronic respiratory failure, interstitial lung disease, lymphadenopathy, hyperlipidemia, hypertension, COPD, obesity, diabetes, and HFpEF who is status post core dental placement by Dr. Oro. Patient is currently denying any chest pain, lightheadedness, dizziness, fever, chills, rigors , nausea, vomiting, or diarrhea. He does complain of nonfocal generalized headache. Postoperatively, patient has had no complaints. Review of patient's inpatient labs revealed a chloride of 94, carbon oxide of 37, BUN of 79, creatinine 2.3, GFR 29, and blood glucose 109. Subjective Prior to being in the hospital, pt lived at home with his . Pt claims normally he is independent with all ADLs and assists his with IADLs as needed. Pt normally uses a cane during functional transfers, but feels he has more stability with a rolling walker. Pt independent with bed mobility, lower body dressing, and functional transfer of ~30 feet with rolling walker. Pt demonstrated good activity tolerance; no lob noted. Pt did not experience any lightheadedness symptoms at this time. Objective Patient Orientation Person,Place,Birthday Right Upper WFL Extremity Gross ROM Left Upper Extremity WFL Gross ROM Bed Mobility bed mobility-scooting,bed mobility - supine/sit Assist Level Independent Transfer Training Sit/Stand Transfer Assist Level Supervision/Stand by Chair Transfer Supervision/Stand by Ability Chair Transfer Sit to/from Ambulatory Technique Chair Transfer Rolling Walker Assistive Devices Lower Body Dressing Standby Assistance Ability Rehab OT IP prob,goals,plan Problems Date of Evaluation: 10/15/25 Rehab Potential Rehab Potential Innapropriate for Skilled Therapy Discharge Plan OT Discharge Plan Pt appears to be at his baseline with functional transfers and ADL independence. Therapist does recommend a rolling walker when returning home to improve stability and safety during functional transfers. Therapist also recommends HH OT evaluation for any further environmental adaptations needed at home. Pt can return home with once he is medically stable per physician. Eval Complexity Eval Charge Codes 84011 - Moderate Complexity PHYSICIAN CERTIFICATION: I certify the specified therapy services for Wai Boyer are required, authorized, and reviewed every 30 days.
--- NOTE | 2025-10-15 09:34 | HMH.PTEV ---
Physical Therapy Evaluation Rehab PT IP Evaluation Start: 10/14/25 18:21 Freq: ONCE Status: Active Protocol: Document 10/15/25 09:30 OLY (Rec: 10/15/25 09:34 OLY [id number]) Subjective/History History History Per H&P: This is a 65-year-old male who has a past medical history significant for pulmonary hypertension, sleep apnea, acute on chronic respiratory failure, interstitial lung disease, lymphadenopathy, hyperlipidemia, hypertension, COPD, obesity, diabetes, and HFpEF who is status post core dental placement by Dr. Oro. Patient is currently denying any chest pain, lightheadedness, dizziness, fever, chills, rigors , nausea, vomiting, or diarrhea. He does complain of nonfocal generalized headache. Postoperatively, patient has had no complaints. Review of patient's inpatient labs revealed a chloride of 94, carbon oxide of 37, BUN of 79, creatinine 2.3, GFR 29, and blood glucose 109. Subjective Subjective Pt reports he lives at home with his in a home with no GAETANO. Pt is normally IND with all mobility using a cane. Pt's does the driving. Pt reports 2 falls in past 60 days d/t dizziness. [facility] How much help from another person do you currently need... Turning from your None back to your side while in a flat bed without using bedrails? Moving from lying on None back to sitting on the side of a flat bed without using bedrails? Moving to and from a None bed to a chair ( including a wheelchair)? Standing up from a None chair using your arms? (e.g., wheelchair, bedside chair) Walking in hospital A little room? Climbing 3-5 steps A little with a railing? Mobility Score 22 Mobility Level [facility] Mobility 7 Walk 25 feet or more Mobility Calculator Rehab PT IP Eval Objective Appearance Patient Behavior Appropriate,Cooperative Patient Orientation Person,Situation Difficulty following none instructions Speech Pattern Clear Ambulation Patient Able to Yes Ambulate Ambulation Observation IP General Gait Wide Based Gait Pattern Observation Ambulation Distance 25 (feet) Ambulation Assistive Rolling Walker Device Ambulation Ability Contact Guard/Hand Hold Balance Ability to Arise Able, uses arms to help Sitting Balance Steady, safe Standing Balance Steady, wide stance Dynamic Sitting Good Balance Ability Dynamic Standing Fair Balance Ability Transfers Bed Transfer Ability Supervision/Stand by Sit to Stand Bed Supervision/Stand by Transfer Ability Rehab PT IP prob,goals,plan Problems Date of Evaluation: 10/15/25 PT IP Problems Transfers,Gait,Balance,Self care,Safety Rehab Potential Rehab Potential Good Plan PT Intervention Plan Transfers,Gait,Balance,Self care,Safety,Therapeutic Exercise Other Intervention 1-2 times Plan PT Plan Frequency Daily Duration Goals Met Discharge Goals Bed Transfer Ability Independent Sit to Stand Chair Independent Transfer Ability Ambulation Assistive Rolling Walker Device Ambulation Distance 150 (feet) Discharge Plan PT Discharge Plan Pt presents below his baseline in functional mobility and gait. Pt able to ambulate safely when using a RW but was unsteady without use of AD. PT recommending pt return home with supervision from family and HH PT services for generalized strengthening . PT also recommending pt receive a RW and use it at all times to maximize safety with mobility. Pt would benefit from skilled PT while at [facility] to address deficits and prevent further functional decline . Eval Complexity Eval Charge Codes 13410 - Moderate Complexity PHYSICIAN CERTIFICATION: I certify the specified therapy services for Wai Boyre are required, authorized, and reviewed every 30 days.
--- NOTE | 2025-10-15 10:34 | EXP.DC.SUM ---
General Admission date:: 10/14/25 HPI HPI HPI: This is a 65-year-old male who has a past medical history significant for pulmonary hypertension, sleep apnea, acute on chronic respiratory failure, interstitial lung disease, lymphadenopathy, hyperlipidemia, hypertension, COPD, obesity, diabetes, and HFpEF who is status post core dental placement by Dr. Oro. Patient is currently denying any chest pain, lightheadedness, dizziness, fever, chills, rigors, nausea, vomiting, or diarrhea. He does complain of nonfocal generalized headache. Postoperatively, patient has had no complaints. Review of patient's inpatient labs revealed a chloride of 94, carbon oxide of 37, BUN of 79, creatinine 2.3, GFR 29, and blood glucose 109. Hospital Course Hospital Course Hospital Course: Wai Boyer is a 65-year-old male with a medical history significant for HFpEF, PAGE on CPAP who presented as an outpatient Cardella implant and was admitted after large bore catheter was used as femoral site to monitor for bleeding. #Chronic HFpEF #Shai implant #COOPER on CKD ? Codella implant was exchanged on 10/14/[address] Oro. Patient tolerated procedure well. Recommended therapeutic Lovenox due due to challenge to fully extract previous Cardiolite. ? Today, patient is doing well. No chest pain, shortness of breath. On baseline 4 L. No signs of volume overload. ? Initial creatinine 2.4, baseline 1.4. In the setting of diuresis with torsemide 100 mg daily, metolazone 2.5 mg MWF, Jardiance 10 mg, finerenone 10 mg. ? Given that initial BUN was elevated to 79, advised patient to hold on metolazone until follow-up with cardiology within 1 week. ? Creatinine improved to 2.0 after gentle fluid rehydration. Patient making urine. ? Hemoglobin stable at 14.0, hemodynamically stable. Medically stable for discharge. ? Hold home metolazone as above, otherwise continue home regimen. ? Discharged with Xarelto [address] Oro as above. ? Follow-up with cardiology within 1 week. #Chronic hypoxic respiratory failure #COPD ? Stable. Continue home 4 L nasal cannula. Continue home triple inhaler. #Obstructive sleep apnea ? Continue home CPAP. #Hypertension ? Hold home amlodipine 10 mg as BP intermittently soft and overall low normal, continue home losartan 100 mg. #Hypothyroidism ? Continue home levothyroxine 75 mcg. #Type 2 diabetes #Peripheral neuropathy ? Continue home metformin, Jardiance, gabapentin. Total time spent on discharge: 32 minutes on chart review, counseling, documentation, and direct care with patient. Exam Data for Last 24 hours Vital signs and Labs for Last 24 Hours: Temp Pulse Resp BP Pulse Ox O2 Del Method O2 Flow Rate 98.1 F 68 17 117/57 L 100 Nasal Cannula 5 10/15/25 08:00 10/15/25 08:00 10/15/25 08:00 10/15/25 08:00 10/15/25 08:00 10/15/25 08:42 10/15/25 08:42 Laboratory Results - last 24 hr 10/14/25 09:49: Chloride 94 L, Anion Gap 15.3 H 10/14/25 18:23: Activated Clotting Time 300 H* 10/14/25 19:58: POC Glucose 104 10/15/25 05:21: WBC 8.6, RBC 5.07, Hgb 14.0 L, Hct 44.1, MCV 87.0, MCH 27.6, MCHC 31.7 L, RDW 20.7 H, Plt Count 335, MPV 8.9, Neut % (Auto) 68.5, Lymph % (Auto) 14.6, [place] % (Auto) 11.1 H, Eos % (Auto) 4.6, Baso % (Auto) 0.8, Neut # (Auto) 5.9, Lymph # (Auto) 1.3, [place] # (Auto) 1.0, Eos # (Auto) 0.4, Baso # (Auto) 0.1, Sodium 136, Potassium 4.0, Chloride 97 L, Carbon Dioxide 34 H, Anion Gap 9.0, BUN 65 H, Creatinine 2.00 H, Estimated Creat Clear 73, Estimated GFR 33 L, Est GFR ( Amer) 41 L D, Glucose 104 H, Calcium 9.3 10/15/25 05:35: POC Glucose 100 I & O for Last 24 hours: Intake & Output 10/12/25 10/13/25 10/14/25 10/15/25 23:59 23:59 23:59 23:59 Intake Total 854 / 1054 2440.00 / 2440.00 Output Total 525 / 525 900 / 900 Balance 329 / 529 1540.00 / 1540.00 Weight 142.967 kg 144.016 kg Constitutional Constitutional: no acute distress and obese *Routine HEENT Exam Head: Present normocephalic Eye: Present EOMI and PERRL ENT: Present mucous membranes moist *Routine Neck Exam Neck: Present supple; Absent lymphadenopathy *Routine Respiratory Exam Respiratory: Present CTA bilaterally *Routine Cardiovascular Exam Cardiovascular: Present RRR *Routine Abdominal Exam Abdominal: Present soft and normoactive bowel sounds; Absent tenderness *Routine Extremities Exam Extremities: Absent cyanosis, clubbing or edema *Routine Skin Exam Skin: Present warm; Absent rash *Routine Neurological Exam Neurological: Present alert and oriented X3 Results Data Completed and Pending Labs on day of discharge: Labs from last 24 hours 10/15/25 10/15/25 10/14/25 05:35 05:21 19:58 WBC 8.6 RBC 5.07 Hgb 14.0 L Hct 44.1 MCV 87.0 MCH 27.6 MCHC 31.7 L RDW 20.7 H Plt Count 335 MPV 8.9 Neut % (Auto) 68.5 Lymph % (Auto) 14.6 [place] % (Auto) 11.1 H Eos % (Auto) 4.6 Baso % (Auto) 0.8 Neut # (Auto) 5.9 Lymph # (Auto) 1.3 [place] # (Auto) 1.0 Eos # (Auto) 0.4 Baso # (Auto) 0.1 Activated Clotting Time Sodium 136 Potassium 4.0 Chloride 97 L Carbon Dioxide 34 H Anion Gap 9.0 BUN 65 H Creatinine 2.00 H Estimated Creat Clear 73 Estimated GFR 33 L Est GFR ( Amer) 41 L D Glucose 104 H POC Glucose 100 104 Calcium 9.3 10/14/25 10/14/25 18:23 09:49 WBC RBC Hgb Hct MCV MCH MCHC RDW Plt Count MPV Neut % (Auto) Lymph % (Auto) [place] % (Auto) Eos % (Auto) Baso % (Auto) Neut # (Auto) Lymph # (Auto) [place] # (Auto) Eos # (Auto) Baso # (Auto) Activated Clotting Time 300 H* Sodium Potassium Chloride 94 L Carbon Dioxide Anion Gap 15.3 H BUN Creatinine Estimated Creat Clear Estimated GFR Est GFR ( Amer) Glucose POC Glucose Calcium DS: Diagnosis Discharge Diagnosis (1) Acute on chronic renal failure: Status: Acute Code(s): N17.9 - Acute kidney failure, unspecified; N18.9 - Chronic kidney disease, unspecified Qualifiers: Acute renal failure type: unspecified Chronic kidney disease stage: unspecified stage Qualified Code(s): N17.9 - Acute kidney failure, unspecified; N18.9 - Chronic kidney disease, unspecified Meds Home Medications and Allergies Home Medications ?Medication ?Instructions ?Recorded ?Confirmed ?Type atorvastatin 80 mg tablet 80 mg PO DAILY 04/14/22 10/14/25 History losartan 100 mg tablet 100 mg PO DAILY 04/14/22 10/14/25 History aspirin 81 mg tablet,delayed 81 mg PO DAILY 07/13/22 10/14/25 History release insulin glargine 100 unit/mL (3 30 unit SQ DAILY 07/13/22 10/14/25 History mL) subcutaneous pen (Lantus Solostar U-100 Insulin) amlodipine 10 mg tablet 10 mg PO DAILY 05/23/24 10/14/25 History Held on 10/15/25. Instructions: Resume on 10/22/25. Your blood pressure has been stable without this medication. Hold this medication until follow-up with cardiology. duloxetine 60 mg capsule,delayed 60 mg PO DAILY 05/23/24 10/14/25 History release gabapentin 300 mg capsule 300 mg PO TID 05/23/24 10/14/25 History levothyroxine 75 mcg tablet 75 mcg PO DAILY 06/07/24 10/14/25 History nitroglycerin 0.4 mg sublingual 0.4 mg sublingual Q5M PRN chest 06/08/24 10/14/25 Rx tablet pain #20 tabs albuterol sulfate 90 mcg/actuation 2 puff inhalation QIDP PRN 02/03/25 10/15/25 History aerosol inhaler Shortness Of Breath mometasone-formoterol HFA 100 2 puff inhalation BID 02/03/25 10/15/25 History mcg-5 mcg/actuation aerosol inhaler (Dulera) tiotropium bromide 18 mcg capsule 1 cap inhalation DAILY 02/03/25 10/15/25 History with inhalation device (Spiriva with HandiHaler) dapagliflozin propanediol 10 mg 10 mg PO DAILY #90 tabs 02/12/25 10/14/25 Rx tablet (Farxiga) isosorbide mononitrate 60 mg 60 mg PO DAILY #30 tabs 08/11/25 10/14/25 Rx tablet,extended release 24 hr cariprazine 1.5 mg capsule 1.5 mg PO DAILY 08/20/25 10/14/25 History (Vraylar) clopidogrel 75 mg tablet (Plavix) 75 mg PO DAILY 30 days #30 tabs 09/24/25 10/14/25 Rx finerenone 10 mg tablet (Kerendia) 10 mg PO DAILY #30 tabs 10/13/25 10/14/25 Rx torsemide 100 mg tablet 100 mg PO DAILY #30 tabs 10/13/25 10/14/25 Rx ipratropium 0.5 mg-albuterol 3 mg 3 ml inhalation QIDP PRN shortness 10/15/25 10/15/25 History (2.5 mg base)/3 mL nebulization of breath or wheezing soln metformin 1,000 mg tablet 1,000 mg PO BIDWMEAL 10/15/25 10/15/25 History metolazone 2.5 mg tablet 2.5 mg PO MOWEFR 10/15/25 10/15/25 History Held on 10/15/25. Instructions: Resume on 10/22/25. Hold this medication until follow-up with cardiology. rivaroxaban 15 mg tablet (Xarelto) 15 mg PO DAILY #30 tabs 10/15/25 Rx tramadol 50 mg tablet 50 mg PO BIDP PRN Moderate Pain 10/15/25 10/15/25 History (Scale Score 5-6) New Prescriptions to Start Prescriptions: rivaroxaban [Xarelto] Steve Warner Allergies Allergy/AdvReac Type Severity Reaction Status Date / Time No Known Allergies Allergy Verified 10/13/25 09:38 Discharge Plan Disposition Patient Disposition: Home, Self-Care Condition: Fair Follow up Plan Follow up with: Anshu Oro MD [Staff Physician, Cardiology] - 10/21/25 10:45 am Mari Arthur APRN [Primary Care Provider, Medical] - 10/21/25 5:00 pm Prescriptions/Medication Reconciliation: New Xarelto 15 mg tablet 15 mg PO DAILY Qty: 30 0RF Continued losartan 100 mg tablet 100 mg PO DAILY atorvastatin 80 mg tablet 80 mg PO DAILY gabapentin 300 mg capsule 300 mg PO TID duloxetine 60 mg capsule,delayed release(DR/EC) 60 mg PO DAILY Patient Comments: Take 1 capsule every day by oral route for 90 days. Kerendia 10 mg tablet 10 mg PO DAILY Qty: 30 2RF torsemide 100 mg tablet 100 mg PO DAILY Qty: 30 5RF insulin glargine [Lantus Solostar U-100 Insulin] 100 unit/mL (3 mL) insulin pen 30 unit SQ DAILY Patient Comments: INJECT 30 UNITS SUBCUTANEOUSLY EVERY DAY FOR ONE MONTH aspirin 81 mg tablet,delayed release (DR/EC) 81 mg PO DAILY Patient Comments: TAKE ONE TABLET BY MOUTH DAILY albuterol sulfate 90 mcg/actuation HFA aerosol inhaler 2 puff inhalation QIDP PRN (Reason: Shortness Of Breath) Patient Comments: inhale 2 PUFFs four times a day As Needed for shortness of breath or wheezing for 90 days tiotropium bromide [Spiriva with HandiHaler] 18 mcg capsule, w/inhalation device 1 cap inhalation DAILY Patient Comments: Inhale contents of 1 capsule via handihaler once daily Dulera 100-5 mcg/actuation HFA aerosol inhaler 2 puff inhalation BID Patient Comments: Inhale 2 puffs twice a day by inhalation route. dapagliflozin propanediol [Farxiga] 10 mg tablet 10 mg PO DAILY Qty: 90 3RF Vraylar 1.5 mg capsule 1.5 mg PO DAILY isosorbide mononitrate 60 mg tablet extended release 24 hr 60 mg PO DAILY Qty: 30 3RF levothyroxine 75 mcg tablet 75 mcg PO DAILY Patient Comments: take 1 tablet (75 mcg) by oral route once daily nitroglycerin 0.4 mg tablet, sublingual 0.4 mg sublingual Q5M PRN (Reason: chest pain) Qty: 20 0RF Rx Instructions: do not exceed 3 doses per episode clopidogrel [Plavix] 75 mg Tablet 75 mg PO DAILY 30 Days Qty: 30 3RF metformin 1,000 mg tablet 1,000 mg PO BIDWMEAL ipratropium-albuterol 0.5 mg-3 mg(2.5 mg base)/3 mL solution for nebulization 3 ml inhalation QIDP PRN (Reason: shortness of breath or wheezing) tramadol 50 mg tablet 50 mg PO BIDP PRN (Reason: Moderate Pain (Scale Score 5-6)) Held amlodipine 10 mg tablet 10 mg PO DAILY Hold Instructions: Resume on 10/22/25. Your blood pressure has been stable without this medication. Hold this medication until follow-up with cardiology. Patient Comments: take 1 tablet (10 mg) by oral route once daily metolazone 2.5 mg tablet 2.5 mg PO MOWEFR Hold Instructions: Resume on 10/22/25. Hold this medication until follow-up with cardiology. Problem Reconciliation Problems Reviewed?: Yes Patient Discharge Instructions Patient Instructions: DI for Surgical Site Infection, DI for Moderate Sedation, Cordella Pulmonary Artery Sensor Post-Implant Instructions Print Language: Kittitian Providers Primary Care Provider: Mari Arthur Admit Provider: Steve Warner Attending Provider: Steve Warner
--- NOTE | 2025-10-15 10:59 | CARE MANAGER ---
Patient choice signed for [employer]. Order/clinical faxed for rolling walker. Plan is for delivery to home today.
--- NOTE | 2025-10-17 10:51 | SW/DCPLANNER ---
Phoned patient x2. Left message with name and call back number each time. Matias Gustafson
== END 2025-10-15 11:15 | disposition home or self-care (01) ==
LOC: 2ND 17:43
PROVIDERS: Internal Medicine; Nurse Practitioner Family; Admitting Provider Student in an Organized Health Care Education/Training Program; PCP Nurse Practitioner; Visit Provider Student in an Organized Health Care Education/Training Program
DX: I50.33 Acute on chronic diastolic (congestive) heart failure (principal); Z00.6 Encounter for examination for normal comparison and control in clinical research program; I27.21 Secondary pulmonary arterial hypertension; E11.22 Type 2 diabetes mellitus with diabetic chronic kidney disease; I13.0 Hypertensive heart and chronic kidney disease with heart failure and stage 1 through stage 4 chronic kidney disease, or unspecified chronic kidney disease; N18.9 Chronic kidney disease, unspecified; E78.2 Mixed hyperlipidemia; J44.9 Chronic obstructive pulmonary disease, unspecified; J96.21 Acute and chronic respiratory failure with hypoxia; J84.9 Interstitial pulmonary disease, unspecified; E66.9 Obesity, unspecified; Z68.41 Body mass index [BMI] 40.0-44.9, adult; G47.33 Obstructive sleep apnea (adult) (pediatric); Z87.891 Personal history of nicotine dependence; Z79.01 Long term (current) use of anticoagulants; Z79.84 Long term (current) use of oral hypoglycemic drugs; Z79.82 Long term (current) use of aspirin; Z79.890 Hormone replacement therapy; Z79.4 Long term (current) use of insulin; Z79.02 Long term (current) use of antithrombotics/antiplatelets; Z79.899 Other long term (current) drug therapy; Z82.49 Family history of ischemic heart disease and other diseases of the circulatory system
CPT/HCPCS: 33289; 36415; 80048; 82962; 85025; 85347; 97162; 97166; 99152; 99153; C1725; C1757; C1769; C1894; C2624; G0378; J1644; J1650; J3010; J7040; J7120; Q9967